=== PATIENT | male | born 1935 | race Caucasian/White ===

== ENCOUNTER → 2017-03-20 | Outpatient (CLI) | payer MEDICARE, BC ==
--- NOTE | 2017-03-20 12:29 | FL ---
EXAMINATION TYPE: FL barium swallow DATE OF EXAM: 03/20/2017 CLINICAL HISTORY: Dysphasia per order. Episodic Choking for several months in the upper chest. TECHNIQUE: A double contrast esophagram is performed utilizing air and barium. A total of 66 second s of fluoroscopic time was utilized during procedure. COMPARISON: None FINDINGS: The esophagus shows satisfactory motility and emptying into the stomach. Some dysmotility a nd poor emptying is seen without gravity assistance. Region of epiglottis and piriform sinus appears within normal limits. No evidence of hiatal hernia or stricture noted. No significant gastroesophagea l reflux was seen during real time performance of this study. IMPRESSION: No significant abnormality is seen to account for patient's symptoms.
== END ==
LOC: RADFLWHC 10:36
PROVIDERS: ATTEND Family Medicine
DX: R13.10 Dysphagia, unspecified (principal)
CPT/HCPCS: 74220

== ENCOUNTER 2017-04-23 23:14 | Inpatient (IN) | payer MEDICARE, BC ==
[2017-04-23 23:42] LABS: Anisocytosis Slight; Basophils # (A) 0.1 k/uL (0-0.2); Basophils % (A) 1 %; CH 30.7; CHCM 33.8; Eosinophils # (A) 0.3 k/uL (0-0.7); Eosinophils % (A) 4 %; HCT 45.2 % (39.0-53.0); HDW 2.86; HGB 14.9 gm/dL (13.0-17.5); Luc # (Auto) 0.19; Luc % (Auto) 3; Lymphocytes # (A) 1.3 k/uL (1.0-4.8); Lymphocytes % (A) 17 %; MCH 30.1 pg (25.0-35.0); MCHC 32.9 g/dL (31.0-37.0); MCV 91.4 fL (80.0-100.0); Mean Platelet Volume 9.3; Monocytes # (A) 0.7 k/uL (0-1.0); Monocytes % (A) 9 %; Neutrophils # (A) 4.9 k/uL (1.3-7.7); Neutrophils % (A) 66 %; RBC 4.95 m/uL (4.30-5.90); RDW 16.7 % (11.5-15.5); WBC 7.4 k/uL (3.8-10.6); WBC (Perox) 7.45
[2017-04-23 23:48] LABS: INR 1.1 (<1.2); Partial Thromboplastin Time 22.1 sec (22.0-30.0); Prothrombin Time 10.9 sec (9.0-12.0)
[2017-04-23 23:55] LABS: ALT 39 U/L (21-72); AST 30 U/L (17-59); Alkaline Phosphatase 77 U/L (38-126); Anion Gap 13 mmol/L; Blood Urea Nitrogen 28 mg/dL (9-20); Calcium 9.2 mg/dL (8.4-10.2); Carbon Dioxide 21 mmol/L (22-30); Chloride 105 mmol/L (98-107); Glucose 200 mg/dL (74-99); Magnesium 1.4 mg/dL (1.6-2.3); Non-African American GFR(MDRD) >60 (>60 ml/min/1.73 sqM); Potassium 3.9 mmol/L (3.5-5.1); Sodium 139 mmol/L (137-145); Total Bilirubin 0.8 mg/dL (0.2-1.3); Total Protein 6.5 g/dL (6.3-8.2)
[2017-04-24 00:13] LABS: Creatine Kinase MB 0.7 ng/mL (0.0-2.4); Troponin I 0.025 ng/mL (0.000-0.034)
[2017-04-24] MEDS: MAGNESIUM SULFATE-D5W PMX 1 GM in DEXTROSE/WATER 1 100ML.BAG IVPB SCH ×2 (00:17→01:29)
--- NOTE | 2017-04-24 00:20 | XR ---
EXAM: XR Chest, 2 Views CLINICAL HISTORY: Reason: Chest Pain TECHNIQUE: Frontal and lateral views of the chest. COMPARISON: 08/30/2015 FINDINGS: Lungs: Minimal perihilar infiltrates are seen bilaterally, which may represent minimal CHF, not definitively seen on the prior study. Linear atelectatic changes/scarring again identified involving right lower lung zone, similar to prior study. Pleural space: Unremarkable. No pneumothorax. Heart: The heart is mildly enlarged. Mediastinum: Unchanged. Bones/joints: The osseous structures are demineralized. Tubes, lines and devices: Left-sided chest wall pacemaker again seen with lead tip overlying the right ventricle. IMPRESSION: Minimal perihilar infiltrates are seen bilaterally, which may represent minimal CHF, not definitively seen on the prior study.
[2017-04-24] MEDS ORDERED: NITROGLYCERIN-D5W PMX 50 MG in DEXTROSE/WATER 1 250ML.BAG IV ONE (00:28)
[2017-04-24] MEDS ORDERED: NALOXONE 0.4 MG/ML 1 ML VIAL IV PRN (00:45)
[2017-04-24] MEDS ORDERED: ONDANSETRON 4 MG/2 ML VIAL IVP PRN (00:45)
[2017-04-24] MEDS ORDERED: HEPARIN SODIUM,PORCINE 5,000 UNIT/ML 1 ML VIAL IV PRN (01:02)
[2017-04-24] MEDS ORDERED: HEPARIN SODIUM,PORCINE 5,000 UNIT/ML 1 ML VIAL IV ONE (01:02)
--- NOTE | 2017-04-24 01:04 | ED ---
General Adult HPI - General Chief complaint: Chest Pain Stated complaint: Cardiac Issues Time Seen by Provider: 04/23/17 23:15 Source: patient, RN notes reviewed, old records reviewed Mode of arrival: EMS Limitations: no limitations - History of Present Illness Initial comments: 81-year-old male with history of CAD status post stenting presents with bilateral arm pain. Patient states with his previous [place] he has had bilateral arm pain. Pain initially began at rest, was no history of trauma or overuse. He did take nitroglycerin at that time with some relief. Patient then had repeat episodes of bilateral arm pain which was with activity, he was walking up several stairs this was at approximately 5 PM. This was relieved by 2 sublingual nitroglycerin. Patient reported some diaphoresis with the second episode. No nausea or vomiting. At the time my evaluation the patient was pain -free. His history of atrial fibrillation, CAD, COPD, diabetes, and congestive heart failure. No history of smoking, patient did chew tobacco for 30 years. - Related Data Home Medications Medication Instructions Recorded Confirmed Canagliflozin [Invokana] 100 mg PO HS 01/25/14 08/29/15 Alogliptin Benzoate [Nesina] 25 mg PO HS 07/15/14 08/29/15 Nitroglycerin Sl Tabs [Nitrostat] 0.4 mg SUBLINGUAL Q5M PRN 07/15/14 08/28/15 Digoxin [Lanoxin] 125 mcg PO DAILY 08/15/14 08/29/15 metFORMIN HCL [Glucophage] 1,000 mg PO BID 09/19/14 08/29/15 Omeprazole [PriLOSEC] 20 mg PO DAILY 11/25/14 08/28/15 Clopidogrel [Plavix] 75 mg PO DAILY 12/02/14 08/29/15 Pregabalin [Lyrica] 150 mg PO BID 06/06/15 08/29/15 Furosemide [Lasix] 40 mg PO DAILY 08/28/15 08/29/15 Hydrocodone/Acetaminophen [Lortab 1 tab PO DIRECTED PRN 08/28/15 08/29/15 5-325 mg Tablet] Ipratropium [place] Updraft 1 dose INHALATION DIRECTED 08/28/15 08/29/15 Isosorbide Mononitrate ER [Imdur] 60 mg PO DAILY 08/28/15 08/29/15 Lisinopril [Zestril] 5 mg PO DAILY 08/28/15 08/29/15 Metoprolol Succinate (ER) [Toprol 50 mg PO BID 08/28/15 08/29/15 XL] Sucralfate [Carafate] 1 gm PO AC-TID PRN 08/28/15 08/28/15 Tiotropium [place] [Spiriva] 18 mcg IH DIRECTED PRN 08/28/15 08/29/15 Aspirin [Adult Low Dose Aspirin EC] 81 mg PO DAILY 08/29/15 08/29/15 Previous Rx's Medication Instructions Recorded Atorvastatin [Lipitor] 80 mg PO HS #30 tab 06/08/15 Allergies Allergy/AdvReac Type Severity Reaction Status Date / Time Penicillins Allergy Severe skin Verified 04/23/17 23:21 turned red ropinirole HCl [From Requip] Allergy Unknown Verified 04/23/17 23:21 Review of Systems ROS Statement: Those systems with pertinent positive or pertinent negative responses have been documented in the HPI. ROS Other: All systems not noted in ROS Statement are negative. 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 Last Myocardial Infarction Date:: History of Any Multi-Drug Resistant Organisms: None Reported Past Surgical History: Heart Catheterization, Heart Catheterization With Stent, Hernia Repair Additional Past Surgical History / Comment(s): 2014- R leg artherectomy with balloon angioplasty, Coronary stents total of [address] 06/07/15 , bilateral cataracts , LEFT RING FINGER AMPUTATION, lithotripsy, TURP, EGD and colonoscopy . Past Anesthesia/Blood Transfusion Reactions: No Reported Reaction Additional Past Anesthesia/Blood Transfusion Reaction / Comment(s): HAD BLOOD TRANSFUSION without reaction. Date of Last Stent Placement:: 06/07/15 Past Psychological History: No Psychological Hx Reported Smoking Status: Never smoker Past Alcohol Use History: None Reported Past Drug Use History: None Reported - Past Family History Mother Family Medical History: Cancer Additional Family Medical History / Comment(s): Mother at age 51yrs old of uterine cancer which metastasized. Father Family Medical History: Diabetes Mellitus General Exam Limitations: no limitations General appearance: alert, in no apparent distress Head exam: Present: atraumatic, normocephalic Eye exam: Present: normal appearance, PERRL ENT exam: Present: normal exam, normal oropharynx, mucous membranes moist Neck exam: Present: normal inspection, tenderness Respiratory exam: Present: rales (Final Rales at the right lung base) Cardiovascular Exam: Present: regular rate, irregular rhythm GI/Abdominal exam: Present: soft. Absent: distended, tenderness, guarding Rectal exam: Present: normal inspection, normal rectal tone. Absent: black stool, bloody stool Extremities exam: Present: normal inspection, normal capillary refill, pedal edema Back exam: Present: normal inspection Neurological exam: Present: alert, oriented X3. Absent: motor sensory deficit Psychiatric exam: Present: normal affect, normal mood Skin exam: Present: warm, dry. Absent: cyanosis, diaphoretic Course Vital Signs 04/23/17 04/23/17 04/24/17 23:21 23:27 00:18 Temperature 97.1 F L Pulse Rate 79 75 Pulse Rate [ 88 Program Instructor ] Respiratory 18 18 Rate Blood Pressure 166/90 159/80 O2 Sat by Pulse 99 98 Oximetry 04/24/17 00:51 Temperature Pulse Rate 83 Pulse Rate [ Program Instructor ] Respiratory 18 Rate Blood Pressure 158/74 O2 Sat by Pulse 97 Oximetry EKG Findings - EKG Comments: EKG Findings:: EKG shows atrial fibrillation with incomplete left bundle branch block there is ST segment depression in V4 5 and 6 and T-wave inversion in [address] segment elevation. Ventricular rate is 74, QRS duration 108, QTC 421 Medical Decision Making - Medical Decision Making 81-year-old male with history of CAD presents with bilateral upper shoulder pain. Patient states this is consistent with his previous myocardial infarction. Was associated with diaphoresis. Patient had the pain both at rest and with exertion today. The pain was relieved by nitroglycerin. EKG shows atrial fibrillation with some ST segment depression in V4 5 and 6 as well as T-wave inversion in 2 and 3. This is compared with EKG from June [address] segment depression as well as T-wave abnormality. Laboratory studies reveal elevated BNP at 2500, initial troponin is 0.025, will be trended , hemoglobin is stable, magnesium is 1.4 and is replaced. Chest x-ray shows mild pulmonary vascular congestion. Patient is started on nitroglycerin infusion. Patient does have history of significant GI bleed on his overall tone. Hemoglobin is stable, Hemoccult is pending prior to initiating heparin. Patient received aspirin prior to arrival. Diagnosis: Unstable angina, hypomagnesemia - Lab Data Result diagrams: 04/23/17 23:30 04/23/17 23:30 Lab Results 04/23/17 04/23/17 04/23/17 Range/Units 23:30 23:30 23:30 WBC 7.4 (3.8-10.6) k/uL RBC 4.95 (4.30-5.90) m/uL Hgb 14.9 (13.0-17.5) gm/dL Hct 45.2 (39.0-53.0) % MCV 91.4 (80.0-100.0) fL MCH 30.1 (25.0-35.0) pg MCHC 32.9 (31.0-37.0) g/dL RDW 16.7 H (11.5-15.5) % Plt Count 184 (150-450) k/uL Neutrophils % 66 % Lymphocytes % 17 % Monocytes % 9 % Eosinophils % 4 % Basophils % 1 % Neutrophils # 4.9 (1.3-7.7) k/uL Lymphocytes # 1.3 (1.0-4.8) k/uL Monocytes # 0.7 (0-1.0) k/uL Eosinophils # 0.3 (0-0.7) k/uL Basophils # 0.1 (0-0.2) k/uL Anisocytosis Slight PT (9.0-12.0) sec INR (<1.2) APTT (22.0-30.0) sec Sodium 139 (137-145) mmol/L Potassium 3.9 (3.5-5.1) mmol/L Chloride 105 (98-107) mmol/L Carbon Dioxide 21 L (22-30) mmol/L Anion Gap 13 mmol/L BUN 28 H (9-20) mg/dL Creatinine 0.87 (0.66-1.25) mg/dL Est GFR (MDRD) Af Amer >60 (>60 ml/min/1.73 sqM) Est GFR (MDRD) Non-Af >60 (>60 ml/min/1.73 sqM) Glucose 200 H (74-99) mg/dL Calcium 9.2 (8.4-10.2) mg/dL Magnesium 1.4 L (1.6-2.3) mg/dL Total Bilirubin 0.8 (0.2-1.3) mg/dL AST 30 (17-59) U/L ALT 39 (21-72) U/L Alkaline Phosphatase 77 (38-126) U/L Total Creatine Kinase 45 L (55-170) U/L CK-MB (CK-2) 0.7 (0.0-2.4) ng/mL CK-MB (CK-2) Rel Index 1.6 Troponin I 0.025 (0.000-0.034) ng/mL NT-Pro-B Natriuret Pep pg/mL Total Protein 6.5 (6.3-8.2) g/dL Albumin 4.1 (3.5-5.0) g/dL Lipase 229 (23-300) U/L Stool Occult Blood (Negative) 04/23/17 04/23/17 04/24/17 Range/Units 23:30 23:30 00:45 WBC (3.8-10.6) k/uL RBC (4.30-5.90) m/uL Hgb (13.0-17.5) gm/dL Hct (39.0-53.0) % MCV (80.0-100.0) fL MCH (25.0-35.0) pg MCHC (31.0-37.0) g/dL RDW (11.5-15.5) % Plt Count (150-450) k/uL Neutrophils % % Lymphocytes % % Monocytes % % Eosinophils % % Basophils % % Neutrophils # (1.3-7.7) k/uL Lymphocytes # (1.0-4.8) k/uL Monocytes # (0-1.0) k/uL Eosinophils # (0-0.7) k/uL Basophils # (0-0.2) k/uL Anisocytosis PT 10.9 (9.0-12.0) sec INR 1.1 (<1.2) APTT 22.1 (22.0-30.0) sec Sodium (137-145) mmol/L Potassium (3.5-5.1) mmol/L Chloride (98-107) mmol/L Carbon Dioxide (22-30) mmol/L Anion Gap mmol/L BUN (9-20) mg/dL Creatinine (0.66-1.25) mg/dL Est GFR (MDRD) Af Amer (>60 ml/min/1.73 sqM) Est GFR (MDRD) Non-Af (>60 ml/min/1.73 sqM) Glucose (74-99) mg/dL Calcium (8.4-10.2) mg/dL Magnesium (1.6-2.3) mg/dL Total Bilirubin (0.2-1.3) mg/dL AST (17-59) U/L ALT (21-72) U/L Alkaline Phosphatase (38-126) U/L Total Creatine Kinase (55-170) U/L CK-MB (CK-2) (0.0-2.4) ng/mL CK-MB (CK-2) Rel Index Troponin I (0.000-0.034) ng/mL NT-Pro-B Natriuret Pep 2510 pg/mL Total Protein (6.3-8.2) g/dL Albumin (3.5-5.0) g/dL Lipase (23-300) U/L Stool Occult Blood Negative (Negative) Critical Care Time Critical Care Time: Yes Total Critical Care Time: 35 Disposition Clinical Impression: Unstable angina, Hypomagnesemia Disposition: ADMITTED IP TO THIS HOSP Referrals: Pratibha Colmenares DO [Primary Care Provider] - 1-2 days Decision to Admit Reason: Admit from EC Decision Date: 04/24/17 Decision Time: 01:05
[2017-04-24] MEDS: HEPARIN SODIUM,PORCINE/D5W PMX 25,000 UNIT in DEXTROSE/WATER 1 500ML.BAG IV SCH (01:24)
[2017-04-24] MEDS: SODIUM CHLORIDE 0.9% 1,000 ML IV SCH (01:27)
[2017-04-24 02:13] VITALS: BMI 32.3
[2017-04-24 06:11] LABS: Glucose,Whole Blood 152 mg/dL (75-99)
[2017-04-24 06:39] LABS: Creatine Kinase MB 0.9 ng/mL (0.0-2.4)
[2017-04-24 06:42] LABS: Troponin I 0.05 ng/mL (0.000-0.034)
[2017-04-24] MEDS: FUROSEMIDE 20 MG TAB PO SCH (07:56)
[2017-04-24] MEDS: metFORMIN 500 MG TAB PO SCH ×3 (07:56→20:55)
[2017-04-24] MEDS: LISINOPRIL 5 MG TAB PO SCH (07:57)
[2017-04-24] MEDS: DIGOXIN 125 MCG TAB PO SCH (07:57)
[2017-04-24] MEDS: METOPROLOL TARTRATE 50 MG TAB PO SCH ×2 (07:58→21:11)
--- NOTE | 2017-04-24 08:21 | P.CRDCN ---
History of Present Illness Consult date: 04/24/17 Requesting physician: David Pride Consult reason: non-Q-wave [place] Chief complaint: Chest and bilateral arm pain History of present illness: This is a pleasant 81-year-old gentleman who used to follow with Dr. Dillon in the office, he has a known history of coronary artery disease with prior stent placement, history also of hypertension, hyperlipidemia, diabetes, prior CVA, PAD, chronic persistent atrial fibrillation. He presents to the hospital with symptoms of what started yesterday as chest heaviness and pressure with radiation down both arms, he states that he took several nitroglycerin, initially got relief of symptoms, and he was out with his daughter for a few hours and upon returning home and walking into the house he again developed similar symptoms he states that the pain in both of his arms becomes quite severe. This does remind him of the symptoms he had previously with his stent placement. Patient does state that 3-4 days before this he also had similar symptoms, took 4 nitroglycerin with relief of symptoms. His EKG on presentation here shows atrial fibrillation with an incomplete bundle branch block pattern and ST-T wave changes in the lateral leads. Chest x-ray shows minimal perihilar infiltrates bilaterally which could represent minimal congestive heart failure. Blood pressure on arrival 166/90, heart rate in the 70s, 99% on 2 L of oxygen. CBC normal, potassium 3.9, BUN 28, creatinine 0.8. Magnesium level I.4, troponin 0.025, repeat troponin 0.050. BNP level 2510. Stool for occult blood was negative. Patient was initiated on IV nitroglycerin and IV heparin in the emergency room and continues to be on those. At the time of my examination this morning he is currently chest pain-free. Past Medical History Past Medical History: Atrial Fibrillation, Coronary Artery Disease (CAD), Chest Pain / Angina, Heart Failure, COPD, CVA/TIA, Diabetes Mellitus, GERD/Reflux, GI Bleed, Hyperlipidemia, Hypertension, Myocardial Infarction ([place]), Vascular Disorder Additional Past Medical History / Comment(s): HX OF CVA-HAS OCCASIONAL PROBLEMS SWALLOWING, NEUROPATHY IN LEGS AND FEET, PVD, KIDNEY STONES, PT STATES HX OF GI BLEED DUE TO XARELTO., SEE CARDIOLOGY H & P. Last Myocardial Infarction Date:: History of Any Multi-Drug Resistant Organisms: None Reported Past Surgical History: Heart Catheterization, Heart Catheterization With Stent, Hernia Repair Additional Past Surgical History / Comment(s): 2015- R leg artherectomy with balloon angioplasty, Coronary stents total of [address] 06/07/15 , bilateral cataracts , LEFT RING FINGER AMPUTATION, lithotripsy, TURP, EGD and colonoscopy . Past Anesthesia/Blood Transfusion Reactions: No Reported Reaction Additional Past Anesthesia/Blood Transfusion Reaction / Comment(s): HAD BLOOD TRANSFUSION without reaction. Date of Last Stent Placement:: 06/07/15 Past Psychological History: No Psychological Hx Reported Additional Psychological History / Comment(s): Pt lives alone in his home. Pt is independent worked for [employer] x25 years before retiring. He drives a car. He has a daughter that lives near-by who comes over alot and is a big help to the pt. Pt is a very good cook. He ambulates without any device. His June of 2011. Smoking Status: Never smoker Past Alcohol Use History: None Reported Additional Past Alcohol Use History / Comment(s): CHEWED TOBACCO FOR 30 YRS. QUIT CHEWING TOBACCO 1983 Past Drug Use History: None Reported - Past Family History Mother Family Medical History: Cancer Additional Family Medical History / Comment(s): Mother at age 51yrs old of uterine cancer which metastasized. Father Family Medical History: Diabetes Mellitus Medications and Allergies Home Medications Medication Instructions Recorded Confirmed Type Canagliflozin [Invokana] 100 mg PO HS 01/25/14 04/24/17 History Alogliptin Benzoate [Nesina] 25 mg PO HS 07/15/14 04/24/17 History Nitroglycerin Sl Tabs [Nitrostat] 0.4 mg SUBLINGUAL Q5M PRN 07/15/14 04/24/17 History Digoxin [Lanoxin] 125 mcg PO DAILY 08/15/14 04/24/17 History metFORMIN HCL [Glucophage] 1,000 mg PO BID 09/19/14 04/24/17 History Omeprazole [PriLOSEC] 20 mg PO DAILY 11/25/14 04/24/17 History Clopidogrel [Plavix] 75 mg PO DAILY 12/02/14 04/24/17 History Pregabalin [Lyrica] 150 mg PO BID 06/06/15 04/24/17 History Furosemide [Lasix] 40 mg PO DAILY 08/28/15 04/24/17 History Hydrocodone/Acetaminophen [Lortab 1 tab PO DIRECTED PRN 08/28/15 04/24/17 History 5-325 mg Tablet] Ipratropium [place] Updraft 1 dose INHALATION DIRECTED 08/28/15 04/24/17 History Isosorbide Mononitrate ER [Imdur] 60 mg PO DAILY 08/28/15 04/24/17 History Lisinopril [Zestril] 5 mg PO DAILY 08/28/15 04/24/17 History Metoprolol Succinate (ER) [Toprol 50 mg PO BID 08/28/15 04/24/17 History XL] Sucralfate [Carafate] 1 gm PO AC-TID PRN 08/28/15 08/28/15 History Tiotropium [place] [Spiriva] 18 mcg IH DIRECTED PRN 08/28/15 04/24/17 History Aspirin [Adult Low Dose Aspirin EC] 81 mg PO DAILY 08/29/15 04/24/17 History Metoprolol Tartrate [Lopressor] 04/24/17 History Allergies Allergy/AdvReac Type Severity Reaction Status Date / Time Penicillins Allergy Severe skin Verified 04/23/17 23:21 turned red ropinirole HCl [From Requip] Allergy Unknown Verified 04/23/17 23:21 Physical Exam Vitals: Vital Signs Temp Pulse Pulse Pulse Resp BP BP 04/24/17 04:00 73 19 04/24/17 03:54 97 F L 73 19 114/64 04/24/17 01:30 82 18 129/62 04/24/17 01:14 96.6 F L 68 18 134/67 04/24/17 01:03 97.3 F L 78 18 135/61 04/24/17 00:51 83 18 158/74 04/24/17 00:18 75 18 159/80 04/23/17 23:27 88 04/23/17 23:21 97.1 F L 79 18 166/90 Pulse Ox 04/24/17 04:00 04/24/17 03:54 96 04/24/17 01:30 98 04/24/17 01:14 95 04/24/17 01:03 97 04/24/17 00:51 97 04/24/17 00:18 98 04/23/17 23:27 08/16/17 23:21 99 Intake and Output 04/23/17 04/24/17 04/24/17 22:59 06:59 14:59 Intake Total 390.475 Output Total 350 Balance 40.475 Intake: Intake, IV Titration 390.475 Amount Heparin Sodium,Porcine/ 89.8 D5w Pmx 25,000 unit In Dextrose/Water 1 500ml. bag @ 12 UNITS/KG/HR 17. 96 mls/hr IV .Q24H [facility] Rx #:[id number] Magnesium Sulfate-D5w Pmx 100 1 gm In Dextrose/Water 1 100ml.bag @ 100 mls/hr IVPB Q1H [facility] Rx#: [id number] Nitroglycerin-D5w Pmx 50 0.675 mg In Dextrose/Water 1 250ml.bag @ 10 MCG/MIN 3 mls/hr IV .Q24H ONE Rx#: [id number] Sodium Chloride 0.9% 1, 200 000 ml @ 20 mls/hr IV . Q24H [facility] Rx#:[id number] Output: Urine 350 Other: Voiding Method Urinal # Voids 1 Weight 75.7 kg PHYSICAL EXAMINATION: HEENT: Head is atraumatic, normocephalic. Pupils equal, round. Neck is supple. There is no elevated jugular venous pressure. HEART EXAMINATION: Heart S1 and S2 irregularly irregular a systolic murmur is heard. CHEST EXAMINATION: Lungs are clear to auscultation and precussion. No chest wall tenderness is noted on palpation or with deep breathing. ABDOMEN: Soft, nontender. Bowel sounds are heard. No organomegaly noted. EXTREMITIES: 1+ peripheral pulses with no evidence of peripheral edema and no calf tenderness noted. NEUROLOGIC patient is awake, alert and oriented -3.] . Results 04/23/17 23:30 04/23/17 23:30 Cardiac Enzymes 04/23/17 04/23/17 04/24/17 Range/Units 23:30 23:30 05:52 AST 30 (17-59) U/L CK-MB (CK-2) 0.7 0.9 (0.0-2.4) ng/mL Troponin I 0.025 0.050 H* (0.000-0.034) ng/mL Coagulation 04/23/17 04/24/17 Range/Units 23:30 05:52 PT 10.9 (9.0-12.0) sec APTT 22.1 37.5 H (22.0-30.0) sec CBC 04/23/17 Range/Units 23:30 WBC 7.4 (3.8-10.6) k/uL RBC 4.95 (4.30-5.90) m/uL Hgb 14.9 (13.0-17.5) gm/dL Hct 45.2 (39.0-53.0) % Plt Count 184 (150-450) k/uL Comprehensive Metabolic Panel 04/23/17 Range/Units 23:30 Sodium 139 (137-145) mmol/L Potassium 3.9 (3.5-5.1) mmol/L Chloride 105 (98-107) mmol/L Carbon Dioxide 21 L (22-30) mmol/L BUN 28 H (9-20) mg/dL Creatinine 0.87 (0.66-1.25) mg/dL Glucose 200 H (74-99) mg/dL Calcium 9.2 (8.4-10.2) mg/dL AST 30 (17-59) U/L ALT 39 (21-72) U/L Alkaline Phosphatase 77 (38-126) U/L Total Protein 6.5 (6.3-8.2) g/dL Albumin 4.1 (3.5-5.0) g/dL Current Medications Generic Name Dose Route Start Last Admin Trade Name Freq PRN Reason Stop Dose Admin Atorvastatin Calcium 80 mg 04/24/17 21:00 Lipitor PO HS MACIEL Digoxin 125 mcg 04/24/17 09:00 04/24/17 07:57 Lanoxin PO 125 mcg DAILY [facility]EL Administration Furosemide 40 mg 04/24/17 09:00 04/24/17 07:56 Lasix PO 40 mg DAILY MACIEL Administration Heparin Sodium (Porcine) 0 unit 04/24/17 01:02 Heparin IV PER PROTOCOL PRN Low PTT Protocol Nitroglycerin/Dextrose 50 mg/ 250 mls @ 3 mls/hr 04/24/17 00:28 04/24/17 00: 53 IV Solution IV 04/25/17 00:27 20 mcg/min .Q24H ONE 6 mls/hr Protocol Titration 10 MCG/MIN Sodium Chloride 1,000 mls @ 20 mls/hr 04/24/17 00:45 04/24/17 01:27 Saline 0.9% IV 20 mls/hr .Q24H MACIEL Administration Heparin Sodium/Dextrose 25,000 500 mls @ 17.96 mls/hr 04/24/17 01:15 01:24 unit/ IV Solution IV 12 units/kg/hr .Q24H MACIEL 17.96 mls/hr Protocol Administration 12 UNITS/KG/HR Lisinopril 5 mg 04/24/17 09:00 04/24/17 07:57 Zestril PO 5 mg DAILY MACIEL Administration Metformin HCl 1,000 mg 04/24/17 09:00 04/24/17 07:56 Glucophage PO 1,000 mg BID MACIEL Administration Metoprolol Tartrate 50 mg 04/24/17 09:00 04/24/17 07:58 Lopressor PO 50 mg BID [facility] Administration Morphine Sulfate 4 mg 04/24/17 00:45 Morphine Sulfate (Inj) IV Q4HR PRN Severe Pain Naloxone HCl 0.2 mg 04/24/17 00:45 Narcan IV Q2M PRN Opioid Reversal Ondansetron HCl 4 mg 04/24/17 00:45 Zofran IVP Q8HR PRN Nausea And Vomiting Intake and Output 04/23/17 04/24/17 04/24/17 22:59 06:59 14:59 Intake Total 390.475 Output Total 350 Balance 40.475 Intake: Intake, IV Titration 390.475 Amount Heparin Sodium,Porcine/ 89.8 D5w Pmx 25,000 unit In Dextrose/Water 1 500ml. bag @ 12 UNITS/KG/HR 17. 96 mls/hr IV .Q24H [facility] Rx #:[id number] Magnesium Sulfate-D5w Pmx 100 1 gm In Dextrose/Water 1 100ml.bag @ 100 mls/hr IVPB Q1H [facility] Rx#: [id number] Nitroglycerin-D5w Pmx 50 0.675 mg In Dextrose/Water 1 250ml.bag @ 10 MCG/MIN 3 mls/hr IV .Q24H ONE Rx#: [id number] Sodium Chloride 0.9% 1, 200 000 ml @ 20 mls/hr IV . Q24H [facility] Rx#:[id number] Output: Urine 350 Other: Voiding Method Urinal # Voids 1 Weight 75.7 kg 04/23/17 23:30 04/23/17 23:30 EKG Interpretations (text) EKG shows atrial fibrillation with ST-T wave changes in the lateral leads. Assessment and Plan Plan: Assessment and plan #1 non-ST elevation myocardial infarction #2 history of coronary artery disease with prior stent placement #3 diabetes #4 hypertension #5 hyperlipidemia #6 peripheral vascular disease #7 single-chamber ICD placement which was performed in 2014 #8 prior CVA #9 chronic persistent atrial fibrillation patient had been on Xarelto as well as Coumadin in the past and had GI bleeding. Plan We will obtain an echocardiogram with Doppler study. We'll continue the IV heparin and nitroglycerin. Initiate an aspirin daily along with resuming the patient's Plavix and beta concepción. Patient has been advised that he may need to undergo a cardiac catheterization, the risks and the benefits were explained to the patient in detail and he is willing to proceed. Further recommendations will be based on the findings and the patient's clinical course. DNP note has been reviewed, I agree with a documented findings and plan of care. Patient was seen and examined.
[2017-04-24] MEDS ORDERED: CLOPIDOGREL 75 MG TAB PO SCH (09:00)
[2017-04-24] MEDS: ASPIRIN 325 MG TAB PO SCH (10:18)
[2017-04-24] MEDS: CLOPIDOGREL 75 MG TAB PO SCH (10:18)
[2017-04-24] MEDS ORDERED: LIDOCAINE 2% INJ 20 MG/ML (20 ML MDV) ONE (10:29)
[2017-04-24] MEDS ORDERED: VERAPAMIL 2.5 MG/ML 2 ML AMP ONE (10:30)
[2017-04-24] MEDS ORDERED: MIDAZOLAM 2 MG/2 ML VIAL ONE (10:43)
[2017-04-24] MEDS: MIDAZOLAM 2 MG/2 ML VIAL IVP ONE ×2 (10:45→10:59)
[2017-04-24] MEDS ORDERED: IV FLUID CONTINUATION 800 ML IV ONE (10:45)
--- NOTE | 2017-04-24 10:46 | ECHOF ---
Referral Reason:lv function MEASUREMENTS -------- HEIGHT: 175.3 cm WEIGHT: 75.3 kg BP: RVIDd: 2.9 cm (< 3.3) IVSd: 1.0 cm (0.6 - 1.1) LVIDd: 5.8 cm (3.9 - 5.3) LVPWd: 1.1 cm (0.6 - 1.1) IVSs: 1.2 cm LVIDs: 4.9 cm LVPWs: 0.9 cm LAESV Index (A-L): 57.41 ml/m MV EXCURSION: 19.523 mm (> 18.000) MV EF SLOPE: 81 mm/s (70 - 150) EPSS: 1.6 cm MV E Sean: 0.73 m/s MV DecT: 114 ms MV A Sean: 0.29 m/s MV E/A Ratio: 2.49 RAP: 5.00 mmHg RVSP: 52.13 mmHg FINDINGS -------- Paced rhythm. Pacerwire seen in RV and RA. This was a technically adequate study. Left ventricular wall thickness is normal. Overall left ventricular systolic function is mildly impaired with, an EF between 45 - 50 %. The right ventricle is normal in size. LA is severely dilated >40 ml/m2 The right atrium is mildly enlarged. There is mild aortic valve sclerosis. There is no evidence of aortic regurgitation. Artifact noted in aov. Mild mitral annular calcification present. Mild mitral regurgitation is present. Mild tricuspid regurgitation present. There is no evidence of pulmonary hypertension. The right ventricular systolic pressure, as measured by Doppler, is 52.13mmHg. There is no pulmonic regurgitation present. The aortic root size is normal. There is no pericardial effusion. CONCLUSIONS -------- 1. Left ventricular wall thickness is normal. 2. The right ventricular systolic pressure, as measured by Doppler, is 52.13mmHg. 3. LA is severely dilated >40 ml/m2 4. The right atrium is mildly enlarged. 5. There is mild aortic valve sclerosis. 6. Artifact noted in aov. 7. Mild mitral annular calcification present. 8. Mild mitral regurgitation is present. 9. Mild tricuspid regurgitation present. 10. There is no evidence of pulmonary hypertension. RV DETAILER: Nola Marcial RDCS
[2017-04-24] MEDS ORDERED: LIDOCAINE 2% INJ 20 MG/ML SQ ONE (11:01)
[2017-04-24] MEDS ORDERED: BIVALIRUDIN BOLUS 250 MG/50 ML IV ONE (11:15)
[2017-04-24] MEDS ORDERED: BIVALIRUDIN 250 MG in SODIUM CHLORIDE 0.9% 40 ML IV ONE (11:22)
[2017-04-24] MEDS ORDERED: ADENOSINE 180 MG in SODIUM CHLORIDE 0.9% 30 ML IVP ONE (11:29)
[2017-04-24] MEDS ORDERED: IOHEXOL 350 MG/ML 125ML BOTTLE INJ ONE (11:38)
[2017-04-24] MEDS ORDERED: RX INFO: IV CONTRAST WAS GIVEN 1 EACH MISC MISCELLANE PRN (11:51)
[2017-04-24] MEDS ORDERED: SODIUM CHLORIDE 0.9% 1,000 ML IV SCH (12:00)
[2017-04-24] MEDS ORDERED: ATROPINE SULFATE 0.1 MG/ML 10ML SYRINGE ONE (13:20)
[2017-04-24 14:41] LABS: Glucose,Whole Blood 204 mg/dL (75-99)
[2017-04-24] MEDS: MORPHINE SULFATE 4 MG/ML SYRINGE IV PRN (14:47)
[2017-04-24 16:45] LABS: Glucose,Whole Blood 151 mg/dL (75-99)
[2017-04-24] MEDS: INSULIN LISPRO (humaLOG) 300 UNIT/3 ML VIAL SQ SCH ×2 (18:37→21:13)
[2017-04-24 21:00] LABS: Glucose,Whole Blood 168 mg/dL (75-99)
[2017-04-24] MEDS: ATORVASTATIN 80 MG TAB PO SCH (21:11)
--- NOTE | 2017-04-24 22:11 | P.HPIM ---
History of Present Illness H&P Date: 04/24/17 Chief Complaint: Chest pain This is a pleasant 81-year-old male with a known history of coronary artery disease with prior stent placement, hypertension, hyperlipidemia, diabetes, prior CVA, PAD, chronic persistent atrial fibrillation not on anticoagulation due to prior GI bleed presents to the hospital with symptoms chest heaviness and pressure with radiation down both arms, he states that he took several nitroglycerin, initially got relief of symptoms, and he was out with his daughter for a few hours and upon returning home and walking into the house he again developed similar symptoms, he states that the pain in both of his arms becomes quite severe. Patient says that his symptoms are similar to his previous NM. Patient does state that 3-4 days before this he also had similar symptoms, took 4 nitroglycerin with relief of symptoms. EKG on presentation here shows atrial fibrillation with an incomplete bundle branch block pattern and ST-T wave changes in the lateral leads. Chest x-ray shows minimal perihilar infiltrates bilaterally which could represent minimal congestive heart failure. Magnesium level I.4, troponin 0.025 , repeat troponin 0.050. BNP level 2510. Stool for occult blood was negative. Patient was initiated on IV nitroglycerin and IV heparin in the emergency room and continues to be on those. Patient was seen by cardiology today and recommended cardiac catheterization. Patient underwent cardiac cath ablation today and is planning for a cath tomorrow for possible stent placement. Currently patient is chest pain-free. Review of Systems CONSTITUTIONAL: No fever, no malaise, no fatigue. HEENT: No recent visual problems or hearing problems. Denied any sore throat. CARDIOVASCULAR: No chest pain, orthopnea, PND, no palpitations, no syncope. PULMONARY: , no hemoptysis. No cough GASTROINTESTINAL: No diarrhea, no nausea, no vomiting, no abdominal pain. Normoactive bowel sounds. NEUROLOGICAL: No headaches, no weakness, no numbness. HEMATOLOGICAL: Denies any bleeding or petechiae. GENITOURINARY: Denies any burning micturition, frequency, or urgency. MUSCULOSKELETAL/RHEUMATOLOGICAL: Denies any joint pain, swelling, or any muscle pain. ENDOCRINE: Denies any polyuria or polydipsia. The rest of the 14-point review of systems is negative. 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 Last Myocardial Infarction Date:: History of Any Multi-Drug Resistant Organisms: None Reported Past Surgical History: Heart Catheterization, Heart Catheterization With Stent, Hernia Repair Additional Past Surgical History / Comment(s): 2014- R leg artherectomy with balloon angioplasty, Coronary stents total of [address] 06/07/15 , bilateral cataracts , LEFT RING FINGER AMPUTATION, lithotripsy, TURP, EGD and colonoscopy . Past Anesthesia/Blood Transfusion Reactions: No Reported Reaction Additional Past Anesthesia/Blood Transfusion Reaction / Comment(s): HAD BLOOD TRANSFUSION without reaction. Date of Last Stent Placement:: 06/07/15 Past Psychological History: No Psychological Hx Reported Additional Psychological History / Comment(s): Pt lives alone in his home. Pt is independent worked for [employer] years before retiring. He drives a car. He has a daughter that lives near-by who comes over alot and is a big help to the pt. Pt is a very good cook. He ambulates without any device. His June of 2011. Smoking Status: Never smoker Past Alcohol Use History: None Reported Additional Past Alcohol Use History / Comment(s): CHEWED TOBACCO FOR 30 YRS. QUIT CHEWING TOBACCO 1983 Past Drug Use History: None Reported - Past Family History Mother Family Medical History: Cancer Additional Family Medical History / Comment(s): Mother at age 51yrs old of uterine cancer which metastasized. Father Family Medical History: Diabetes Mellitus Medications and Allergies Home Medications Medication Instructions Recorded Confirmed Type Canagliflozin [Invokana] 100 mg PO HS 01/25/14 04/24/17 History Alogliptin Benzoate [Nesina] 25 mg PO HS 07/15/14 04/24/17 History Nitroglycerin Sl Tabs [Nitrostat] 0.4 mg SUBLINGUAL Q5M PRN 07/15/14 04/24/17 History Digoxin [Lanoxin] 125 mcg PO HS 08/15/14 04/24/17 History metFORMIN HCL [Glucophage] 1,000 mg PO BID 09/19/14 04/24/17 History Omeprazole [PriLOSEC] 20 mg PO DAILY 11/25/14 04/24/17 History Clopidogrel [Plavix] 75 mg PO DAILY 12/02/14 04/24/17 History Pregabalin [Lyrica] 150 mg PO BID 06/06/15 04/24/17 History Furosemide [Lasix] 40 mg PO DAILY 08/28/15 04/24/17 History Hydrocodone/Acetaminophen [Lortab 1 tab PO BID PRN 08/28/15 04/24/17 History 5-325 mg Tablet] Isosorbide Mononitrate ER [Imdur] 60 mg PO DAILY 08/28/15 04/24/17 History Lisinopril [Zestril] 5 mg PO DAILY 08/28/15 04/24/17 History Tiotropium [place] [Spiriva] 18 mcg INHALATION RT-DAILY 08/28/15 04/24/17 History Aspirin [Adult Low Dose Aspirin EC] 81 mg PO DAILY 08/29/15 04/24/17 History Albuterol Inhaler [Ventolin Hfa 1 - 2 puff INHALATION RT-Q6H PRN 04/24/17 History Inhaler] Metoprolol Tartrate [Lopressor] 50 mg PO BID 04/24/17 04/24/17 History Allergies Allergy/AdvReac Type Severity Reaction Status Date / Time ropinirole HCl [From Requip] Allergy Unknown Verified 04/24/17 09:08 Penicillins AdvReac Severe skin Verified 04/24/17 09:08 turned red Physical Exam Vitals: Vital Signs Temp Pulse Pulse Pulse Pulse Resp BP 04/24/17 15:45 70 04/24/17 15:24 97.1 F L 16 04/24/17 15:23 75 04/24/17 15:05 97 04/24/17 14:45 78 04/24/17 14:30 90 04/24/17 14:15 56 L 04/24/17 14:12 56 L 04/24/17 14:04 70 04/24/17 13:59 89 04/24/17 13:54 49 L 04/24/17 13:49 57 L 04/24/17 13:46 16 04/24/17 12:30 96.8 F L 61 18 04/24/17 12:20 18 04/24/17 08:00 97.0 F L 79 18 04/24/17 04:00 73 19 04/24/17 03:54 97 F L 73 19 04/24/17 01:30 82 18 129/62 04/24/17 01:14 96.6 F L 68 18 04/24/17 01:03 97.3 F L 78 18 135/61 04/24/17 00:51 83 18 158/74 04/24/17 00:18 75 18 159/80 04/23/17 23:27 88 04/23/17 23:21 97.1 F L 79 18 166/90 BP BP BP Pulse Ox 04/24/17 15:45 132/69 04/24/17 15:24 04/24/17 15:23 153/85 04/24/17 15:05 137/83 04/24/17 14:45 135/45 04/24/17 14:30 136/63 04/24/17 14:15 146/71 04/24/17 14:12 146/71 04/24/17 14:04 155/67 04/24/17 13:59 167/70 04/24/17 13:54 168/90 04/24/17 13:49 164/87 04/24/17 13:46 147/70 158/76 95 04/24/17 12:30 129/64 94 L 04/24/17 12:20 139/78 146/72 96 04/24/17 08:00 166/93 98 04/24/17 04:00 04/24/17 03:54 114/64 96 04/24/17 01:30 98 04/24/17 01:14 134/67 95 04/24/17 01:03 97 04/24/17 00:51 97 04/24/17 00:18 98 04/23/17 23:27 04/23/17 23:21 99 Intake and Output 04/24/17 04/24/17 04/24/17 06:59 14:59 22:59 Intake Total 390.475 260.235 Output Total 350 1050 200 Balance 40.475 -789.765 -200 Intake: IV 114.16 Intake, IV Titration 390.475 146.075 Amount Heparin Sodium,Porcine/ 89.8 146.075 D5w Pmx 25,000 unit In Dextrose/Water 1 500ml. bag @ 12 UNITS/KG/HR 17. 96 mls/hr IV .Q24H [facility] Rx #:[id number] Magnesium Sulfate-D5w Pmx 100 1 gm In Dextrose/Water 1 100ml.bag @ 100 mls/hr IVPB Q1H [facility] Rx#: [id number] Nitroglycerin-D5w Pmx 50 0.675 mg In Dextrose/Water 1 250ml.bag @ 10 MCG/MIN 3 mls/hr IV .Q24H ONE Rx#: [id number] Sodium Chloride 0.9% 1, 200 000 ml @ 20 mls/hr IV . Q24H [facility] Rx#:[id number] Output: Urine 350 1050 200 Other: Voiding Method Urinal Urinal Urinal # Voids 1 Weight 75.7 kg PHYSICAL EXAMINATION: Patient is lying in the bed comfortably, no acute distress, awake alert and oriented.. HEENT: Normocephalic. Neck is supple. Pupils reactive. Nostrils clear. Oral cavity is moist. Ears reveal no drainage. Neck reveals no JVD, carotid bruits, or thyromegaly. CHEST EXAMINATION: Trachea is central. Symmetrical expansion. Lung alcantara clear to auscultation and percussion. Bilateral rhonchi positive CARDIAC: Normal S1, S2 with no gallops. No murmurs ABDOMEN: Soft. Bowel sounds normal. No organomegaly. No abdominal bruits. Extremities trace edema . No clubbing or cyanosis Neurologically awake, alert, oriented x3 with well-coordinated movements. Skin: no rash or skin lesions Musculoskeletal: no joint swelling or deformity. Results CBC & Chem 7: 04/23/17 23:30 04/23/17 23:30 Labs: Abnormal Lab Results - Last 24 Hours (Table) 04/23/17 04/23/17 04/23/17 Range/Units 23:30 23:30 23:30 RDW 16.7 H (11.5-15.5) % APTT (22.0-30.0) sec Carbon Dioxide 21 L (22-30) mmol/L BUN 28 H (9-20) mg/dL Glucose 200 H (74-99) mg/dL POC Glucose (mg/dL) (75-99) mg/dL Magnesium 1.4 L (1.6-2.3) mg/dL Total Creatine Kinase 45 L (55-170) U/L Troponin I (0.000-0.034) ng/mL 04/24/17 04/24/17 04/24/17 Range/Units 05:52 05:52 06:09 RDW (11.5-15.5) % APTT 37.5 H (22.0-30.0) sec Carbon Dioxide (22-30) mmol/L BUN (9-20) mg/dL Glucose (74-99) mg/dL POC Glucose (mg/dL) 152 H (75-99) mg/dL Magnesium (1.6-2.3) mg/dL Total Creatine Kinase 42 L (55-170) U/L Troponin I 0.050 H* (0.000-0.034) ng/mL 04/24/17 04/24/17 Range/Units 14:36 16:44 RDW (11.5-15.5) % APTT (22.0-30.0) sec Carbon Dioxide (22-30) mmol/L BUN (9-20) mg/dL Glucose (74-99) mg/dL POC Glucose (mg/dL) 204 H 151 H (75-99) mg/dL Magnesium (1.6-2.3) mg/dL Total Creatine Kinase (55-170) U/L Troponin I (0.000-0.034) ng/mL Thrombosis Risk Factor Assmnt - Choose All That Apply Any of the Below Risk Factors Present?: No Other Risk Factors: Yes Each Risk Factor Represents 3 Points: Age 75 years or older Thrombosis Risk Factor Assessment Total Risk Factor Score: 3 Thrombosis Risk Factor Assessment Level: Moderate Risk Assessment and Plan Plan: #1 acute non-ST elevation myocardial infarction with elevated troponin peaked at 0.050 #2 history of coronary artery disease with prior stent placement 5 #3 diabetes2 [id number] #4 hypertension #5 hyperlipidemia #6 peripheral vascular disease with right leg is Atherectomy and balloon angioplasty #7 single-chamber ICD placement which was performed in 2014 #8 prior CVA no residual weakness. #9 chronic persistent atrial fibrillation patient had been on Xarelto as well as Coumadin in the past and had GI bleeding. Plan Patient will be continued on telemetry monitoring. Continue with the IV heparin. Nitroglycerin drip has been discontinued. Cardiology planning for another cath tomorrow for possible stent placement. 2-D echo was ordered. Continue with aspirin and Plavix and beta blockers. We will continue to follow closely. prognosis is guarded due to multiple medical problems and comorbid conditions.
[2017-04-25] MEDS: NITROGLYCERIN SL TABS 0.4 MG TAB SUBLINGUAL ONE ×2 (00:18→00:25)
[2017-04-25] MEDS: HEPARIN SODIUM,PORCINE/D5W PMX 25,000 UNIT in DEXTROSE/WATER 1 500ML.BAG IV SCH (01:42)
[2017-04-25] MEDS: SODIUM CHLORIDE 0.9% 1,000 ML IV SCH (01:44)
[2017-04-25 06:19] LABS: Glucose,Whole Blood 209 mg/dL (75-99)
[2017-04-25] MEDS: INSULIN LISPRO (humaLOG) 300 UNIT/3 ML VIAL SQ SCH ×4 (06:33→22:16)
[2017-04-25 08:09] LABS: Anisocytosis Slight; Basophils # (A) 0.1 k/uL (0-0.2); Basophils % (A) 1 %; CH 30.7; CHCM 32.9; Eosinophils # (A) 0.3 k/uL (0-0.7); Eosinophils % (A) 3 %; HCT 49.2 % (39.0-53.0); HDW 2.79; HGB 15.4 gm/dL (13.0-17.5); Luc % (Auto) 1; Lymphocytes % (A) 10 %; MCH 29.4 pg (25.0-35.0); MCHC 31.4 g/dL (31.0-37.0); MCV 93.6 fL (80.0-100.0); Mean Platelet Volume 9.4; Monocytes # (A) 0.6 k/uL (0-1.0); Monocytes % (A) 6 %; Neutrophils # (A) 7.8 k/uL (1.3-7.7); Neutrophils % (A) 79 %; RBC 5.26 m/uL (4.30-5.90); RDW 16.6 % (11.5-15.5); WBC 9.8 k/uL (3.8-10.6); WBC (Perox) 9.42
[2017-04-25 08:30] LABS: ALT 35 U/L (21-72); AST 22 U/L (17-59); Alkaline Phosphatase 86 U/L (38-126); Anion Gap 12 mmol/L; Blood Urea Nitrogen 16 mg/dL (9-20); Calcium 8.8 mg/dL (8.4-10.2); Carbon Dioxide 20 mmol/L (22-30); Chloride 110 mmol/L (98-107); Glucose 200 mg/dL (74-99); Magnesium 1.5 mg/dL (1.6-2.3); Non-African American GFR(MDRD) >60 (>60 ml/min/1.73 sqM); Potassium 3.8 mmol/L (3.5-5.1); Sodium 142 mmol/L (137-145); Total Bilirubin 1.4 mg/dL (0.2-1.3); Total Protein 6.3 g/dL (6.3-8.2)
[2017-04-25] MEDS ORDERED: LOPERAMIDE 2 MG CAP PO STA (08:32)
[2017-04-25] MEDS: DIGOXIN 125 MCG TAB PO SCH (08:36)
[2017-04-25] MEDS: METOPROLOL TARTRATE 50 MG TAB PO SCH ×2 (08:36→22:16)
[2017-04-25] MEDS: CLOPIDOGREL 75 MG TAB PO SCH (08:36)
[2017-04-25] MEDS: ASPIRIN 325 MG TAB PO SCH (08:36)
[2017-04-25] MEDS: LISINOPRIL 5 MG TAB PO SCH (08:36)
[2017-04-25] MEDS ORDERED: LIDOCAINE 2% INJ 20 MG/ML (20 ML MDV) ONE ×2 (10:38→11:04)
[2017-04-25] MEDS ORDERED: MIDAZOLAM 2 MG/2 ML VIAL ONE (11:03)
[2017-04-25] MEDS ORDERED: SODIUM CHLORIDE 0.9% 1,000 ML IV ONE (11:06)
[2017-04-25] MEDS: MIDAZOLAM 2 MG/2 ML VIAL IVP ONE ×2 (11:16→11:22)
[2017-04-25] MEDS ORDERED: LIDOCAINE 2% INJ 20 MG/ML SQ ONE (11:17)
[2017-04-25] MEDS ORDERED: BIVALIRUDIN BOLUS 250 MG/50 ML IV ONE (11:21)
[2017-04-25] MEDS ORDERED: BIVALIRUDIN 250 MG in SODIUM CHLORIDE 0.9% 50 ML IV ONE (11:21)
[2017-04-25] MEDS ORDERED: fentaNYL (PF) 50 MCG/ML 2 ML AMP ONE (11:27)
[2017-04-25] MEDS ORDERED: fentaNYL (PF) 50 MCG/ML 2 ML AMP IVP ONE (11:29)
[2017-04-25] MEDS: NITROGLYCERIN 1000MCG/10ML SYRINGE INTRACORON ONE ×2 (11:32→12:05)
[2017-04-25 12:03] LABS: Hemoglobin A1C 8.5 % (4.2-6.1)
[2017-04-25] MEDS ORDERED: CLOPIDOGREL 75 MG TAB ONE ×2 (12:08)
[2017-04-25] MEDS ORDERED: IOHEXOL 350 MG/ML 125ML BOTTLE INJ ONE (12:10)
[2017-04-25] MEDS ORDERED: CLOPIDOGREL 75 MG TAB PO ONE (12:10)
[2017-04-25] MEDS ORDERED: MAG HYDROX/AL HYDROX/SIMETH 30 ML CUP PO PRN (12:17)
[2017-04-25] MEDS ORDERED: RX INFO: IV CONTRAST WAS GIVEN 1 EACH MISC MISCELLANE PRN (12:17)
[2017-04-25] MEDS ORDERED: NITROGLYCERIN SL TABS 0.4 MG TAB SUBLINGUAL PRN (12:17)
[2017-04-25] MEDS ORDERED: ATROPINE SULFATE 0.1 MG/ML 10ML SYRINGE IV PRN (12:17)
[2017-04-25] MEDS ORDERED: ZOLPIDEM 5 MG TAB PO PRN (12:17)
[2017-04-25] MEDS ORDERED: SODIUM CHLORIDE 0.9% 1,000 ML IV SCH (12:30)
[2017-04-25] MEDS: metFORMIN 500 MG TAB PO SCH ×2 (12:37→22:50)
--- NOTE | 2017-04-25 13:34 | CDI ---
In responding to this query, please exercise your independent professional judgment. The [facility] Coding Staff and Clinical Documentation Specialists appreciate your assistance in clarifying documentation, maintaining compliance with coding guidelines, accurately documenting patients condition and capturing severity of illness. The fact that a question is asked does not imply that any particular answer is desired or expected. Communication forms are a method of clarifying documentation and are not made part of the Legal Health Record. Thank you in advance for your clarification. Last Revision, November 2016 Annmarie Salamanca [address] [place] [address] Documentation Clarification Form Date: 04/25/2017 1:25:00 PM From: Randi Ayala RN, CCDS Admit Date: 04/24/2017 12:45:00 AM Patient Name: Yoshi Rosas Visit Number: [id number] Dr. David Pride Hx of CHF is documented in the H&P and Cardiology Consult. History/Risk Factors: CAD with 5 stents, CHF, COPD, GERD, CVA with occasional swallowing problems Clinical Indicators: VS/Pulse OX: Temp 97.1, HR 79, RR 18, B/P 166/90, Spo2 99% 2l nc BNP: 2510 Echocardiogram Results: EF 45-50%, LA is severely dilated Chest X Ray: "Minimal perihilar infiltrates are seen bilaterally, which may represent minimal CHF, not definitively seen on the prior study. " Treatment: Consults: Cardiology Lasix 40mg PO QD In your professional opinion, can you please clarify the acuity and type of CHF if known? Systolic Heart Failure: Acute Chronic Acute on Chronic Diastolic Heart Failure: Acute Chronic Acute on Chronic Systolic & Diastolic Heart Failure: Acute Chronic Acute on Chronic Unable to determine Other, please specify Please document in your progress notes and discharge summary in order to capture severity of illness and risk of mortality. Include clinical findings that support your diagnosis. FYI: Press F11 to launch patient chart. Place X here if this finding has no clinical significance, is not applicable or if you are not able to provide any additional documentation. KASHIFD
[2017-04-25] MEDS: MORPHINE SULFATE 4 MG/ML SYRINGE IV PRN (14:34)
--- NOTE | 2017-04-25 15:21 | CC ---
DATE OF SERVICE: 04/24/17 PERFORMING PHYSICIAN: Jaswinder Cooley M.D., business management specialist. PROCEDURE PERFORMED: 1. Selective right and left coronary angiogram. 2. Fractional flow reserve FFR of the right coronary artery. INDICATIONS: This is a pleasant 81 year old gentleman who used to see Dr. Ladan Ferrara in the past who is known to have CAD with prior stenting of the RCA as well as ramus intermedius, presented to the hospital complaining of chest discomfort and he was ruled in for acute non-STEMI with abnormal troponin as well as abnormal EKG. He is known to have cardiomyopathy and status post AICD placement. APPROACH: Right common femoral artery. COMPLICATIONS: None. LEVEL OF SEDATION: Moderate with a sedation length of 33 minutes. PROCEDURE DESCRIPTION: After obtaining informed consent, the patient was brought to the cardiac laborer construction or leak gang. The right common femoral artery was cannulated using micropuncture technique. The micropuncture wire passed easily. Then, I placed a 6 Bengali sheath in the right common femoral artery. Then after that, I did selective right and left coronary angiogram using JR4 and JL4 catheters. After that, we decided to do an FFR of the RCA. Please see a separate paragraph for that. SELECTIVE CORONARY ANGIOGRAM: 1. The right coronary artery is a large caliber vessel and it is a nondominant vessel. The proximal RCA appeared to have mild disease only. The mid RCA appeared to be stented with intermediate restenosis, appeared to be in the range of 50 to 60%. We did an FFR of that segment and that came in to be nonischemic, 0.93. The distal RCA appeared to be angiographically normal and bifurcates into PDA and PLV branches, both are angiographically normal. 2. The left main is angiographically normal. It bifurcates into the left circumflex, ramus intermedius and left anterior descending artery. 3. The left circumflex is a large caliber vessel and it is a non-dominant vessel. The proximal circ appeared to have mild disease only. The mid circumflex appeared to be subtotally occluded in the AV groove just past the bifurcation of large OM branch appeared to be angiographically normal. 4. Ramus intermedius: The ramus intermedius is a moderate caliber vessel. The proximal portion of it is stented with distal part of the stent seems to have in stent restenosis. The ramus intermedius bifurcates into two separate branches. The lower separate branch appears to have mild to moderate diffuse disease and the upper ( ) branch which has part of the stent in the ramus appeared to have severe in stent restenosis. 5. The left anterior descending coronary artery: The proximal left anterior descending artery appeared to have mild disease only. The mid LAD and distal LAD appeared to be angiographically normal. The LAD gives rise into a small to medium caliber diag branch. FFR of the RCA: Anticoagulation was initiated using Angiomax. After zeroing the Doppler wire and after equalizing between the Doppler wire and the guiding catheter, we did an FFR per IV ( ) infusion. The FFR came into be 0.93 which is nonischemic. CONCLUSION: 1. Intermediate in stent restenosis of the mid RCA, was nonischemic by FFR . 2. Normal left main coronary artery. 3. Mild disease involving the OM branch of the left circumflex. 4. Severe in stent restenosis involving the ramus intermedius coronary artery. 5. Mild disease involving the LAD. POSTPROCEDURE MANAGEMENT: The patient will be scheduled to undergo PTCA and stenting of the ramus intermedius tomorrow. OSWALDO
[2017-04-25 16:47] LABS: Glucose,Whole Blood 131 mg/dL (75-99)
[2017-04-25] MEDS: FUROSEMIDE 20 MG TAB PO SCH ×2 (17:18→17:21)
--- NOTE | 2017-04-25 18:20 | PTCA ---
DATE OF SERVICE: 04/25/17 PERFORMING PHYSICIAN: Jaswinder Cooley M.D., roto mixer operator. PROCEDURE PERFORMED: Successful balloon angioplasty of the ramus intermedius coronary artery using 2.25 non-compliant balloon with good angiographic results without any complication. INDICATIONS: This is a pleasant 81 -year-old gentleman who presented to the hospital with chest discomfort and was ruled for acute non-ST elevation myocardial infarction. He underwent heart catheterization yesterday and was found to have severe disease involving the ramus intermedius which seems to be in-stent. He was brought today to undergo percutaneous coronary intervention. APPROACH: Right common femoral artery. COMPLICATIONS: None. LEVEL OF SEDATION: Moderate. SEDATION LENGTH: 58 minutes. PROCEDURE DESCRIPTION: After obtaining informed consent, the patient was brought to the cardiac catheterization lab. The right common femoral artery was cannulated using micropuncture technique. The micropuncture wire passed easily. Then I placed a 6 Mongolian sheath in the right common femoral artery. Subsequently, we started anticoagulation using Angiomax. After that, I took JL 3.5 guiding catheter and the left main was engaged. Whisper wire was used to wire the ramus intermedius. I did balloon angioplasty initially using 2.0 x 12 mm balloon. I tried to advance a stent and I was unable in spite of using double wire as well as in spite of using the Godzilla device. At that point, I decided to stop after the balloon angioplasty in view of the good angiographic results. The procedure was completed without any complication. POSTPROCEDURE MANAGEMENT: 1. Dual antiplatelet therapy. 2. Risk factor modifications. 3. Follow-up with the patient. OSWALDO
[2017-04-25 20:48] LABS: Glucose,Whole Blood 174 mg/dL (75-99)
[2017-04-25] MEDS: LOPERAMIDE 2 MG CAP PO PRN (22:16)
[2017-04-25] MEDS: ATORVASTATIN 80 MG TAB PO SCH (22:16)
[2017-04-25 22:37] VITALS: RESP 18
--- NOTE | 2017-04-25 22:51 | P.PN ---
Subjective Principal diagnosis: Non-ST elevated [place] This is a pleasant 81-year-old male with a known history of coronary artery disease with prior stent placement, hypertension, hyperlipidemia, diabetes, prior CVA, PAD, chronic persistent atrial fibrillation not on anticoagulation due to prior GI bleed presents to the hospital with symptoms chest heaviness and pressure with radiation down both arms, he states that he took several nitroglycerin, initially got relief of symptoms, and he was out with his daughter for a few hours and upon returning home and walking into the house he again developed similar symptoms, he states that the pain in both of his arms becomes quite severe. Patient says that his symptoms are similar to his previous [place]. Patient does state that 3-4 days before this he also had similar symptoms, took 4 nitroglycerin with relief of symptoms. EKG on presentation here shows atrial fibrillation with an incomplete bundle branch block pattern and ST-T wave changes in the lateral leads. Chest x-ray shows minimal perihilar infiltrates bilaterally which could represent minimal congestive heart failure. Magnesium level I.4, troponin 0.025 , repeat troponin 0.050. BNP level 2510. Stool for occult blood was negative. Patient was initiated on IV nitroglycerin and IV heparin in the emergency room and continues to be on those. Patient was seen by cardiology today and recommended cardiac catheterization. Patient underwent cardiac cath ablation today and is planning for a cath tomorrow for possible stent placement. 04/25/2017 Patient underwent cardiac catheter patient today with stent placement. Patient otherwise denied any chest pain or short of breath. No overnight issues. CONSTITUTIONAL: No fever, no malaise, no fatigue. HEENT: No recent visual problems or hearing problems. Denied any sore throat. CARDIOVASCULAR: No chest pain, orthopnea, PND, no palpitations, no syncope. PULMONARY: , no hemoptysis. GASTROINTESTINAL: No diarrhea, no nausea, no vomiting, no abdominal pain. Normoactive bowel sounds. NEUROLOGICAL: No headaches, no weakness, no numbness. Objective - Vital Signs Vital signs: Vital Signs Temp 96.7 F L 04/25/17 20:50 Pulse 70 04/25/17 20:50 Resp 18 04/25/17 20:50 BP 134/76 04/25/17 20:50 Pulse Ox 97 04/25/17 20:50 Intake & Output 04/25/17 04/25/17 04/26/17 06:59 18:59 06:59 Intake Total 353.925 431 Output Total 500 300 200 Balance -146.075 131 -200 Weight 78 kg Intake: IV 291 Intake, IV Titration 353.925 140 Amount Heparin Sodium,Porcine/ 353.925 D5w Pmx 25,000 unit In Dextrose/Water 1 500ml. bag @ 12 UNITS/KG/HR 17. 96 mls/hr IV .Q24H [facility] Rx #:[id number] Sodium Chloride 0.9% 1, 140 000 ml @ 100 mls/hr IV . Q10H [facility] Rx#:[id number] Oral 0 Output: Urine 500 300 200 Other: Voiding Method Urinal Urinal Urinal # Voids 1 - Exam PHYSICAL EXAMINATION: Patient is lying in the bed comfortably, no acute distress, awake alert and oriented.. HEENT: Normocephalic. Neck is supple. Pupils reactive. Nostrils clear. Oral cavity is moist. Ears reveal no drainage. Neck reveals no JVD, carotid bruits, or thyromegaly. CHEST EXAMINATION: Trachea is central. Symmetrical expansion. Lung alcantara clear to auscultation and percussion. CARDIAC: Normal S1, S2 with no gallops. Systolic murmur. Irregular rhythm ABDOMEN: Soft. Bowel sounds normal. No organomegaly. No abdominal bruits. Extremities reveal no edema. No clubbing or cyanosis Neurologically awake, alert, oriented x3 with well-coordinated movements. Skin: no rash or skin lesions Musculoskeletal: no joint swelling or deformity. - Labs CBC & Chem 7: 04/25/17 07:37 04/25/17 07:37 Labs: Abnormal Lab Results - Last 24 Hours (Table) 04/23/17 04/25/17 04/25/17 Range/Units 23:30 05:59 07:37 RDW 16.6 H (11.5-15.5) % Neutrophils # 7.8 H (1.3-7.7) k/uL APTT (22.0-30.0) sec Chloride (98-107) mmol/L Carbon Dioxide (22-30) mmol/L Glucose (74-99) mg/dL POC Glucose (mg/dL) 209 H (75-99) mg/dL Hemoglobin A1c 8.5 H (4.2-6.1) % Magnesium (1.6-2.3) mg/dL Total Bilirubin (0.2-1.3) mg/dL 04/25/17 04/25/17 04/25/17 Range/Units 07:37 07:37 16:46 RDW (11.5-15.5) % Neutrophils # (1.3-7.7) k/uL APTT 36.2 H (22.0-30.0) sec Chloride 110 H (98-107) mmol/L Carbon Dioxide 20 L (22-30) mmol/L Glucose 200 H (74-99) mg/dL POC Glucose (mg/dL) 131 H (75-99) mg/dL Hemoglobin A1c (4.2-6.1) % Magnesium 1.5 L (1.6-2.3) mg/dL Total Bilirubin 1.4 H (0.2-1.3) mg/dL 04/25/17 Range/Units 20:46 RDW (11.5-15.5) % Neutrophils # (1.3-7.7) k/uL APTT (22.0-30.0) sec Chloride (98-107) mmol/L Carbon Dioxide (22-30) mmol/L Glucose (74-99) mg/dL POC Glucose (mg/dL) 174 H (75-99) mg/dL Hemoglobin A1c (4.2-6.1) % Magnesium (1.6-2.3) mg/dL Total Bilirubin (0.2-1.3) mg/dL Assessment and Plan Plan: #1 acute non-ST elevation myocardial infarction with elevated troponin peaked at 0.050. Status post stent placement #2 history of coronary artery disease with prior stent placement 5 #3 diabetes2 [id number] #4 hypertension #5 hyperlipidemia #6 peripheral vascular disease with right leg is Atherectomy and balloon angioplasty #7 single-chamber ICD placement which was performed in 2014 #8 prior CVA no residual weakness. #9 chronic persistent atrial fibrillation patient had been on Xarelto as well as Coumadin in the past and had GI bleeding. #10 hypomagnesemia. Plan Patient will be continued on telemetry monitoring. IV heparin and Nitroglycerin drip has been discontinued. Status post cardiac catheterization and stent placement on 04/25/2017. 2-D echo was ordered. Continue with aspirin and Plavix and beta blockers. We will continue to follow closely. prognosis is guarded due to multiple medical problems and comorbid conditions.
[2017-04-25] MEDS: MAGNESIUM SULFATE-D5W PMX 1 GM in DEXTROSE/WATER 1 100ML.BAG IVPB SCH (23:48)
[2017-04-26] MEDS: MAGNESIUM SULFATE-D5W PMX 1 GM in DEXTROSE/WATER 1 100ML.BAG IVPB SCH (01:09)
[2017-04-26] MEDS: LOPERAMIDE 2 MG CAP PO PRN (05:51)
[2017-04-26 05:58] LABS: Glucose,Whole Blood 168 mg/dL (75-99)
[2017-04-26 06:46] LABS: Anisocytosis Slight; Basophils % (A) 0 %; CH 30.5; CHCM 32.7; Eosinophils # (A) 0.3 k/uL (0-0.7); Eosinophils % (A) 3 %; HCT 49.1 % (39.0-53.0); HDW 2.81; HGB 15.4 gm/dL (13.0-17.5); Luc # (Auto) 0.17; Luc % (Auto) 2; Lymphocytes # (A) 0.8 k/uL (1.0-4.8); Lymphocytes % (A) 9 %; MCH 29.5 pg (25.0-35.0); MCHC 31.4 g/dL (31.0-37.0); MCV 93.7 fL (80.0-100.0); Mean Platelet Volume 8.9; Monocytes # (A) 0.8 k/uL (0-1.0); Monocytes % (A) 8 %; Neutrophils # (A) 7.8 k/uL (1.3-7.7); Neutrophils % (A) 79 %; RBC 5.23 m/uL (4.30-5.90); RDW 16.5 % (11.5-15.5); WBC 9.9 k/uL (3.8-10.6); WBC (Perox) 9.59
[2017-04-26 06:57] LABS: Anion Gap 10 mmol/L; Blood Urea Nitrogen 11 mg/dL (9-20); Calcium 8.7 mg/dL (8.4-10.2); Carbon Dioxide 19 mmol/L (22-30); Chloride 113 mmol/L (98-107); Glucose 167 mg/dL (74-99); Non-African American GFR(MDRD) >60 (>60 ml/min/1.73 sqM); Potassium 3.9 mmol/L (3.5-5.1); Sodium 142 mmol/L (137-145)
[2017-04-26] MEDS: INSULIN LISPRO (humaLOG) 300 UNIT/3 ML VIAL SQ SCH ×2 (06:59→12:37)
[2017-04-26] MEDS ORDERED: SODIUM CHLORIDE 0.65% NASAL SPRAY 44 ML BTL NASAL PRN (07:40)
[2017-04-26] MEDS: SODIUM CHLORIDE 0.9% 1,000 ML IV SCH (08:38)
[2017-04-26] MEDS: ASPIRIN 325 MG TAB PO SCH (08:41)
[2017-04-26] MEDS: metFORMIN 500 MG TAB PO SCH (08:42)
[2017-04-26] MEDS: FUROSEMIDE 20 MG TAB PO SCH (08:42)
[2017-04-26] MEDS: LISINOPRIL 5 MG TAB PO SCH (08:42)
[2017-04-26] MEDS: METOPROLOL TARTRATE 50 MG TAB PO SCH (08:42)
[2017-04-26] MEDS: DIGOXIN 125 MCG TAB PO SCH (08:42)
[2017-04-26] MEDS: CLOPIDOGREL 75 MG TAB PO SCH (08:42)
--- NOTE | 2017-04-26 11:04 | P.PN ---
Subjective This is a pleasant 81-year-old gentleman who used to follow with Dr. Dillon in the office, he has a known history of coronary artery disease with prior stent placement, history also of hypertension, hyperlipidemia, diabetes, prior CVA, PAD, chronic persistent atrial fibrillation. He presents to the hospital with symptoms of what started yesterday as chest heaviness and pressure with radiation down both arms, he states that he took several nitroglycerin, initially got relief of symptoms, and he was out with his daughter for a few hours and upon returning home and walking into the house he again developed similar symptoms he states that the pain in both of his arms becomes quite severe. This does remind him of the symptoms he had previously with his stent placement. Patient does state that 3-4 days before this he also had similar symptoms, took 4 nitroglycerin with relief of symptoms. His EKG on presentation here shows atrial fibrillation with an incomplete bundle branch block pattern and ST-T wave changes in the lateral leads. Chest x-ray shows minimal perihilar infiltrates bilaterally which could represent minimal congestive heart failure. Blood pressure on arrival 166/90, heart rate in the 70s, 99% on 2 L of oxygen. CBC normal, potassium 3.9, BUN 28, creatinine 0.8. Magnesium level I.4, troponin 0.025, repeat troponin 0.050. BNP level 2510. Stool for occult blood was negative. Patient was initiated on IV nitroglycerin and IV heparin in the emergency room and continues to be on those. At the time of my examination this morning he is currently chest pain-free. 04/26/2017 Patient underwent angioplasty with stenting of the ramus intermediate. He was seen and examined this morning, complained of some mild shortness of breath and nasal congestion. I did have him ambulate in the hallway, oxygen saturation 95% , denies any chest pain, breathing stable. EKG unchanged from post-PCI. Let pressure 144/80 heart rate in the 70s. Potassium 3.9, BUN 11, creatinine 0.6. Objective - Vital Signs Vital signs: Vital Signs Temp 97.1 F L 04/26/17 03:30 Pulse 76 04/26/17 03:30 Resp 18 04/26/17 03:30 BP 145/86 04/26/17 03:30 Pulse Ox 97 04/26/17 03:30 Intake & Output 0804/26/17 04/26/17 18:59 06:59 18:59 Intake Total 431 800 Output Total 300 200 Balance 131 600 Weight 73.6 kg Intake: IV 291 Intake, IV Titration 140 800 Amount Magnesium Sulfate-D5w Pmx 200 1 gm In Dextrose/Water 1 100ml.bag @ 100 mls/hr IVPB Q1H [facility] Rx#: [id number] Sodium Chloride 0.9% 1, 140 000 ml @ 100 mls/hr IV . Q10H [facility] Rx#:[id number] Sodium Chloride 0.9% 1, 600 000 ml @ 75 mls/hr IV . [id number] [facility] Rx#:[id number] Oral 0 Output: Urine 300 200 Other: Voiding Method Urinal Toilet # Voids 2 # Bowel Movements 2 - Exam PHYSICAL EXAMINATION: HEENT: Head is atraumatic, normocephalic. Pupils equal, round. Neck is supple. There is no elevated jugular venous pressure. HEART EXAMINATION: Heart S1 and S2 irregularly irregular a systolic murmur is heard. CHEST EXAMINATION: Lungs are clear to auscultation and precussion. No chest wall tenderness is noted on palpation or with deep breathing. ABDOMEN: Soft, nontender. Bowel sounds are heard. No organomegaly noted. Right groin ecchymotic, no hematoma. EXTREMITIES: 1+ peripheral pulses with no evidence of peripheral edema and no calf tenderness noted. NEUROLOGIC patient is awake, alert and oriented -3.] - Labs CBC & Chem 7: 04/26/17 06:10 04/26/17 06:10 Labs: Abnormal Lab Results - Last 24 Hours (Table) 04/23/17 04/25/17 04/25/17 Range/Units 23:30 16:46 20:46 RDW (11.5-15.5) % Neutrophils # (1.3-7.7) k/uL Lymphocytes # (1.0-4.8) k/uL Chloride (98-107) mmol/L Carbon Dioxide (22-30) mmol/L Glucose (74-99) mg/dL POC Glucose (mg/dL) 131 H 174 H (75-99) mg/dL Hemoglobin A1c 8.5 H (4.2-6.1) % 04/26/17 04/26/17 04/26/17 Range/Units 05:54 06:10 06:10 RDW 16.5 H (11.5-15.5) % Neutrophils # 7.8 H (1.3-7.7) k/uL Lymphocytes # 0.8 L (1.0-4.8) k/uL Chloride 113 H (98-107) mmol/L Carbon Dioxide 19 L (22-30) mmol/L Glucose 167 H (74-99) mg/dL POC Glucose (mg/dL) 168 H (75-99) mg/dL Hemoglobin A1c (4.2-6.1) % Assessment and Plan Plan: Assessment and plan #1 non-ST elevation myocardial infarction, status post stent placement of the ramus intermediate #2 history of coronary artery disease with prior stent placement #3 diabetes #4 hypertension #5 hyperlipidemia #6 peripheral vascular disease #7 single-chamber ICD placement which was performed in 2014 #8 prior CVA #9 chronic persistent atrial fibrillation patient had been on Xarelto as well as Coumadin in the past and had GI bleeding. Plan I'm cardiology's perspective, patient may be able to be discharged home today. We will make him a follow-up appointment to see Dr. Gan in the office post discharge. Patient will be discharged home on aspirin 81 mg daily, Lipitor 80 mg daily, Plavix 75 mg daily, Lanoxin 125 g daily, Lasix 40 mg daily, lisinopril 5 mg daily, metoprolol tartrate 50 mg one tablet by mouth twice a day , sublingual nitroglycerin as needed for chest pain, we will hold the metformin for 48 hours. DNP note has been reviewed, I agree with a documented findings and plan of care. Patient was seen and examined.
[2017-04-26 11:21] LABS: Glucose,Whole Blood 147 mg/dL (75-99)
[2017-04-26] MEDS ORDERED: CHOLESTYRAMINE (WITH SUGAR) 4 GM PACKET PO SCH (15:15)
[2017-04-26 15:49] VITALS: BP 140/64; PULSE 73; TEMP 96.9
--- NOTE | 2017-04-27 01:49 | P.DS ---
Providers Date of admission: 04/24/17 00:45 Expected date of discharge: 04/26/17 Attending physician: David Pride Consults: 04/24/17 00:49 Consult Physician Urgent Consulting Provider: Angie Ferrara Consult Reason/Comments: Unstable angina Do you want consulting provider notified?: Yes, Notify in am 04/25/17 12:18 Consult Physician Routine Consulting Provider: [facility] Consult Reason/Comments: Post Interventional patient Do you want consulting provider notified?: Already Contacted Primary care physician: Pratibha Colmenares Hospital Course: Discharge diagnosis #1 acute non-ST elevation myocardial infarction with elevated troponin peaked at 0.050. Status post stent placement #2 history of coronary artery disease with prior stent placement 5 #3 diabetes2 [id number] #4 hypertension #5 hyperlipidemia #6 peripheral vascular disease with right leg is Atherectomy and balloon angioplasty #7 single-chamber ICD placement which was performed in 2014 #8 prior CVA no residual weakness. #9 chronic persistent atrial fibrillation patient had been on Xarelto as well as Coumadin in the past and had GI bleeding. #10 hypomagnesemia. Hospital course This is a pleasant 81-year-old male with a known history of coronary artery disease with prior stent placement, hypertension, hyperlipidemia, diabetes, prior CVA, PAD, chronic persistent atrial fibrillation not on anticoagulation due to prior GI bleed presents to the hospital with symptoms chest heaviness and pressure with radiation down both arms, he states that he took several nitroglycerin, initially got relief of symptoms, and he was out with his daughter for a few hours and upon returning home and walking into the house he again developed similar symptoms, he states that the pain in both of his arms becomes quite severe. Patient says that his symptoms are similar to his previous [place]. Patient does state that 3-4 days before this he also had similar symptoms, took 4 nitroglycerin with relief of symptoms. EKG on presentation here shows atrial fibrillation with an incomplete bundle branch block pattern and ST-T wave changes in the lateral leads. Chest x-ray shows minimal perihilar infiltrates bilaterally which could represent minimal congestive heart failure. Magnesium level I.4, troponin 0.025 , repeat troponin 0.050. BNP level 2510. Stool for occult blood was negative. Patient was initiated on IV nitroglycerin and IV heparin in the emergency room and continues to be on those. Patient was seen by cardiology today and recommended cardiac catheterization. Patient underwent cardiac cath ablation today and is planning for a cath tomorrow for possible stent placement. 04/25/2017 Patient underwent cardiac catheter patient today with stent placement. Patient otherwise denied any chest pain or short of breath. No overnight issues. 04/26/2017 Patient denied any chest pain today. Blood pressure is maintained well. Patient says that she did have diarrhea this morning x1. Patient was started on just on but no further episodes. Patient was to be discharged home. Cardiology cleared the patient. Patient was continued on telemetry monitoring. IV heparin and Nitroglycerin drip has been discontinued. Status post cardiac catheterization and stent placement on 04/25/2017. 2-D echo was ordered. Showed his ejection fraction 45 -50% and a severely dilated left atrium. Continue with aspirin and Plavix and beta blockers. Patient is cleared to be discharged home. PHYSICAL EXAMINATION: Patient is lying in the bed comfortably, no acute distress, awake alert and oriented.. HEENT: Normocephalic. Neck is supple. Pupils reactive. Nostrils clear. Oral cavity is moist. Ears reveal no drainage. Neck reveals no JVD, carotid bruits, or thyromegaly. CHEST EXAMINATION: Trachea is central. Symmetrical expansion. Lung alcantara clear to auscultation and percussion. CARDIAC: Normal S1, S2 with no gallops. Systolic murmur. Irregular rhythm ABDOMEN: Soft. Bowel sounds normal. No organomegaly. No abdominal bruits. Extremities reveal no edema. No clubbing or cyanosis Neurologically awake, alert, oriented x3 with well-coordinated movements. Skin: no rash or skin lesions Musculoskeletal: no joint swelling or deformity. Patient Condition at Discharge: Stable Plan - Discharge Summary New Discharge Prescriptions: Continue Canagliflozin [Invokana] 100 mg PO HS Alogliptin Benzoate [Nesina] 25 mg PO HS Nitroglycerin Sl Tabs [Nitrostat] 0.4 mg SUBLINGUAL Q5M PRN PRN Reason: Chest Pain Digoxin [Lanoxin] 125 mcg PO HS metFORMIN HCL [Glucophage] 1,000 mg PO BID Omeprazole [PriLOSEC] 20 mg PO DAILY Clopidogrel [Plavix] 75 mg PO DAILY Pregabalin [Lyrica] 150 mg PO BID Atorvastatin [Lipitor] 80 mg PO HS #30 tab Lisinopril [Zestril] 5 mg PO DAILY Hydrocodone/Acetaminophen [Lortab 5-325 mg Tablet] 1 tab PO BID PRN PRN Reason: Pain Isosorbide Mononitrate ER [Imdur] 60 mg PO DAILY Furosemide [Lasix] 40 mg PO DAILY Tiotropium [place] [Spiriva] 18 mcg INHALATION RT-DAILY Aspirin [Adult Low Dose Aspirin EC] 81 mg PO DAILY Metoprolol Tartrate [Lopressor] 50 mg PO BID Albuterol Inhaler [Ventolin Hfa Inhaler] 1 - 2 puff INHALATION RT-Q6H PRN PRN Reason: Shortness Of Breath Discharge Medication List Canagliflozin [Invokana] 100 mg PO HS 01/25/14 [History] Alogliptin Benzoate [Nesina] 25 mg PO HS 07/15/14 [History] Nitroglycerin Sl Tabs [Nitrostat] 0.4 mg SUBLINGUAL Q5M PRN 07/15/14 [History] Digoxin [Lanoxin] 125 mcg PO HS 08/15/14 [History] metFORMIN HCL [Glucophage] 1,000 mg PO BID 09/19/14 [History] Omeprazole [PriLOSEC] 20 mg PO DAILY 11/25/14 [History] Clopidogrel [Plavix] 75 mg PO DAILY 12/02/14 [History] Pregabalin [Lyrica] 150 mg PO BID 06/06/15 [History] Atorvastatin [Lipitor] 80 mg PO HS #30 tab 06/08/15 [Rx] Furosemide [Lasix] 40 mg PO DAILY 08/28/15 [History] Hydrocodone/Acetaminophen [Lortab 5-325 mg Tablet] 1 tab PO BID PRN 08/28/15 [ History] Isosorbide Mononitrate ER [Imdur] 60 mg PO DAILY 08/28/15 [History] Lisinopril [Zestril] 5 mg PO DAILY 08/28/15 [History] Tiotropium [place] [Spiriva] 18 mcg INHALATION RT-DAILY 08/28/15 [History] Aspirin [Adult Low Dose Aspirin EC] 81 mg PO DAILY 08/29/15 [History] Albuterol Inhaler [Ventolin Hfa Inhaler] 1 - 2 puff INHALATION RT-Q6H PRN [History] Metoprolol Tartrate [Lopressor] 50 mg PO BID 04/24/17 [History] Follow up Appointment(s)/Referral(s): Jaswinder Cooley MD [STAFF PHYSICIAN] - 1 Week Pratibha Colmenares DO [Primary Care Provider] - 1-2 days Patient Instructions/Handouts: *Surgery [facility] - After Heart Catheterization - Cable Lacer Instructions, Angina (DC) Discharge Disposition: HOME SELF-CARE
== END 2017-04-26 16:50 | disposition home or self-care (01) | DRG 251 ==
LOC: EC 23:14 → 6SEL 04-24 00:45
PROVIDERS: ADMIT Internal Medicine; ATTEND Internal Medicine
PROC: B2111ZZ Fluoroscopy of Multiple Coronary Arteries using Low Osmolar Contrast (ICD-10-PCS; 2017-04-24)
PROC: 4A033BC Measurement of Arterial Pressure, Coronary, Percutaneous Approach (ICD-10-PCS; 2017-04-24)
PROC: 4A023N7 Measurement of Cardiac Sampling and Pressure, Left Heart, Percutaneous Approach (ICD-10-PCS; 2017-04-24 10:45)
PROC: 02703ZZ Dilation of Coronary Artery, One Artery, Percutaneous Approach (ICD-10-PCS; principal; 2017-04-25 10:54)
DX: I21.4 Non-ST elevation (NSTEMI) myocardial infarction (principal); I42.9 Cardiomyopathy, unspecified; I50.20 Unspecified systolic (congestive) heart failure; I48.1 Persistent atrial fibrillation; T82.855A Stenosis of coronary artery stent, initial encounter; I11.0 Hypertensive heart disease with heart failure; E83.42 Hypomagnesemia; E11.40 Type 2 diabetes mellitus with diabetic neuropathy, unspecified; E78.5 Hyperlipidemia, unspecified; I25.2 Old myocardial infarction; I45.4 Nonspecific intraventricular block; I48.2 Chronic atrial fibrillation; J44.9 Chronic obstructive pulmonary disease, unspecified; K21.9 Gastro-esophageal reflux disease without esophagitis; E11.51 Type 2 diabetes mellitus with diabetic peripheral angiopathy without gangrene; I25.10 Atherosclerotic heart disease of native coronary artery without angina pectoris; Z79.02 Long term (current) use of antithrombotics/antiplatelets; Z79.82 Long term (current) use of aspirin; Z79.899 Other long term (current) drug therapy; Z79.84 Long term (current) use of oral hypoglycemic drugs; Z95.810 Presence of automatic (implantable) cardiac defibrillator; Z87.891 Personal history of nicotine dependence; Z88.0 Allergy status to penicillin; Z88.8 Allergy status to other drugs, medicaments and biological substances; Y83.1 Surgical operation with implant of artificial internal device as the cause of abnormal reaction of the patient, or of later complication, without mention of misadventure at the time of the procedure
CPT/HCPCS: 36415; 71020; 80048; 80053; 82272; 82550; 82553; 83036; 83690; 83735; 83880; 84484; 85025; 85610; 85730; 86709; 87324; 92920; 93005; 93306; 93454; 93571; 96365; 96375; 99291

== ENCOUNTER 2017-06-16 20:15 | Inpatient (IN) | payer MEDICARE, BC ==
[2017-06-16] MEDS ORDERED: NITROGLYCERIN OINT 1 INCH/GM PACKET TOPICAL STA (20:33)
[2017-06-16] MEDS ORDERED: MORPHINE SULFATE 2 MG/ML SYRINGE IVP STA (20:33)
[2017-06-16] MEDS ORDERED: SODIUM CHLORIDE 0.9% 1,000 ML IV STA (20:33)
[2017-06-16] MEDS ORDERED: PANTOPRAZOLE 40 MG/10 ML VIAL IVP STA (20:34)
[2017-06-16 21:03] LABS: Basophils # (A) 0.1 k/uL (0-0.2); Basophils % (A) 1 %; CH 29.4; CHCM 32.1; Eosinophils # (A) 0.2 k/uL (0-0.7); Eosinophils % (A) 2 %; HCT 46.1 % (39.0-53.0); HDW 3.24; HGB 15.1 gm/dL (13.0-17.5); Hypochromasia Slight; Luc # (Auto) 0.17; Luc % (Auto) 2; Lymphocytes # (A) 1.1 k/uL (1.0-4.8); Lymphocytes % (A) 10 %; MCH 30.1 pg (25.0-35.0); MCHC 32.7 g/dL (31.0-37.0); MCV 92.1 fL (80.0-100.0); Mean Platelet Volume 9.2; Monocytes # (A) 0.8 k/uL (0-1.0); Monocytes % (A) 7 %; Neutrophils % (A) 79 %; RBC 5.01 m/uL (4.30-5.90); RDW 15.9 % (11.5-15.5); WBC 11.4 k/uL (3.8-10.6); WBC (Perox) 11.49
[2017-06-16 21:12] LABS: ALT 31 U/L (21-72); AST 24 U/L (17-59); Alkaline Phosphatase 85 U/L (38-126); Anion Gap 13 mmol/L; Blood Urea Nitrogen 23 mg/dL (9-20); Calcium 9.6 mg/dL (8.4-10.2); Carbon Dioxide 20 mmol/L (22-30); Chloride 107 mmol/L (98-107); Glucose 175 mg/dL (74-99); Magnesium 1.5 mg/dL (1.6-2.3); Non-African American GFR(MDRD) >60 (>60 ml/min/1.73 sqM); Potassium 4.1 mmol/L (3.5-5.1); Sodium 140 mmol/L (137-145); Total Protein 6.5 g/dL (6.3-8.2)
--- NOTE | 2017-06-16 21:16 | XR ---
EXAMINATION TYPE: XR chest 2V DATE OF EXAM: 06/16/2017 COMPARISON: 04/23/2017 HISTORY: Short of breath TECHNIQUE: Frontal and lateral views of the chest are obtained. FINDINGS: Heart appears enlarged. There is mild pulmonary congestion. There is slight blunting of le ft costophrenic angle. There is left axillary pacemaker with the lead tip in the right ventricle. The re are chest leads. IMPRESSION: Cardiomegaly. There is new mild congestion compared to old exam suspicious for mild hear t failure. There is probably small left pleural effusion.
[2017-06-16 21:21] LABS: INR 1.1 (<1.2); Partial Thromboplastin Time 23.6 sec (22.0-30.0); Prothrombin Time 11.4 sec (9.0-12.0)
--- NOTE | 2017-06-16 21:32 | ED ---
Abdominal Pain HPI - General Chief Complaint: Chest Pain Stated Complaint: chest pain,SOB Time Seen by Provider: 06/16/17 20:28 Source: EMS Mode of arrival: EMS Limitations: no limitations - History of Present Illness Initial Comments: This patient is an 81-year-old man who presents to be evaluated for pains that he is indicating her just left of his epigastrium, in the left upper part of his abdomen. The patient states she has been having these pains intermittently for 3 weeks, since she had is stent placed here. Patient also states that he has pains radiating to both arms. He was having this arm pain about 3 weeks ago when he had his stent placed. Patient states she did take some nitroglycerin tonight but it didn't really affect the pain much. The patient states that this episode started tonight while he was working on putting his medication pill containers. He states that the pain became so intense that he had had his daughter finished that. Patient denies any other associated symptoms. There is no dyspnea, diaphoresis, nausea or vomiting. MD Complaint: abdominal pain Onset/Timin -: week(s) Location: LUQ, epigastric Migration to: no migration, other (Bilateral arms) Severity: severe Quality: sharp Consistency: intermittent Improves With: nothing Worsens With: movement Associated Symptoms: denies other symptoms - Related Data Home Medications Medication Instructions Recorded Confirmed Canagliflozin [Invokana] 100 mg PO W/SUPPER 01/25/14 06/16/17 Alogliptin Benzoate [Nesina] 25 mg PO W/SUPPER 07/15/14 06/16/17 Nitroglycerin Sl Tabs [Nitrostat] 0.4 mg SUBLINGUAL Q5M PRN 07/15/14 06/16/17 Digoxin [Lanoxin] 125 mcg PO W/SUPPER 08/15/14 06/16/17 metFORMIN HCL [Glucophage] 1,000 mg PO BID 09/19/14 06/16/17 Omeprazole [PriLOSEC] 20 mg PO DAILY 11/25/14 06/16/17 Clopidogrel [Plavix] 75 mg PO DAILY 12/02/14 06/16/17 Pregabalin [Lyrica] 150 mg PO BID 06/06/15 06/16/17 Furosemide [Lasix] 40 mg PO DAILY 08/28/15 06/16/17 Isosorbide Mononitrate ER [Imdur] 60 mg PO DAILY 08/28/15 06/16/17 Lisinopril [Zestril] 5 mg PO DAILY 08/28/15 06/16/17 Tiotropium [place] [Spiriva] 1 cap INHALATION RT-DAILY PRN 08/28/15 06/16/17 Aspirin [Adult Low Dose Aspirin EC] 81 mg PO DAILY 08/29/15 06/16/17 Albuterol Inhaler [Ventolin Hfa 1 - 2 puff INHALATION RT-Q6H PRN 04/24/17 Inhaler] Metoprolol Tartrate [Lopressor] 50 mg PO BID 04/24/17 06/16/17 Albuterol Nebulized [Ventolin 2.5 mg INHALATION RT-QID PRN 06/16/17 06/16/17 Nebulized] Atorvastatin [Lipitor] 80 mg PO W/SUPPER 06/16/17 06/16/17 HYDROcodone/APAP 5-325MG [[place] 1 tab PO BID PRN 06/16/17 06/16/17 5-325] Insulin Glargine,Hum.rec.anlog 10 unit SQ HS 06/16/17 06/16/17 [Lantus Solostar] Allergies Allergy/AdvReac Type Severity Reaction Status Date / Time Penicillins Allergy Severe Rash/Hives Verified 06/16/17 22:00 ropinirole HCl [From Requip] Allergy Unknown Verified 06/16/17 22:00 Review of Systems ROS Statement: Those systems with pertinent positive or pertinent negative responses have been documented in the HPI. ROS Other: All systems not noted in ROS Statement are negative. Constitutional: Denies: fever, chills Respiratory: Denies: cough, dyspnea Cardiovascular: Denies: palpitations, dyspnea on exertion, orthopnea, edema, syncope Gastrointestinal: Reports: abdominal pain, diarrhea (Patient had a few days of diarrhea but then took Imodium and it stopped, resulting in constipation), constipation. Denies: nausea, vomiting, melena, hematochezia Genitourinary: Denies: dysuria, hematuria Musculoskeletal: Denies: back pain Skin: Denies: rash Neurological: Denies: headache, weakness, numbness Past Medical History Past Medical History: Atrial Fibrillation, Coronary Artery Disease (CAD), Chest Pain / Angina, Heart Failure, COPD, CVA/TIA, Diabetes Mellitus, GERD/Reflux, GI Bleed, Hyperlipidemia, Hypertension, Myocardial Infarction ([place]), Vascular Disorder Additional Past Medical History / Comment(s): HX OF CVA-HAS OCCASIONAL PROBLEMS SWALLOWING, NEUROPATHY IN LEGS AND FEET, PVD, KIDNEY STONES, PT STATES HX OF GI BLEED DUE TO XARELTO., SEE CARDIOLOGY H & P. Last Myocardial Infarction Date:: History of Any Multi-Drug Resistant Organisms: None Reported Past Surgical History: Heart Catheterization, Heart Catheterization With Stent, Hernia Repair Additional Past Surgical History / Comment(s): 2014- R leg artherectomy with balloon angioplasty, Coronary stents total of [address] 06/07/15 , bilateral cataracts , LEFT RING FINGER AMPUTATION, lithotripsy, TURP, EGD and colonoscopy . Past Anesthesia/Blood Transfusion Reactions: No Reported Reaction Additional Past Anesthesia/Blood Transfusion Reaction / Comment(s): HAD BLOOD TRANSFUSION without reaction. Date of Last Stent Placement:: 06/07/15 Past Psychological History: No Psychological Hx Reported Smoking Status: Never smoker Past Alcohol Use History: None Reported Past Drug Use History: None Reported - Past Family History Mother Family Medical History: Cancer Additional Family Medical History / Comment(s): Mother at age 51yrs old of uterine cancer which metastasized. Father Family Medical History: Diabetes Mellitus General Exam Limitations: no limitations General appearance: alert, in no apparent distress Head exam: Present: atraumatic, normocephalic Eye exam: Present: normal appearance. Absent: scleral icterus, conjunctival injection ENT exam: Present: normal oropharynx Neck exam: Present: normal inspection Respiratory exam: Present: normal lung sounds bilaterally. Absent: respiratory distress, wheezes, rales, rhonchi, stridor Cardiovascular Exam: Present: regular rate, irregular rhythm, systolic murmur ( Grade 2/6 systolic ejection murmur.). Absent: diastolic murmur, rubs, gallop GI/Abdominal exam: Present: soft. Absent: distended, tenderness, guarding, rebound, mass Extremities exam: Present: normal inspection, normal capillary refill. Absent: pedal edema, calf tenderness Back exam: Present: normal inspection. Absent: CVA tenderness (R), CVA tenderness (L) Neurological exam: Present: alert Skin exam: Present: warm, dry, intact, normal color. Absent: rash Course Vital Signs 06/16/17 06/16/17 20:18 22:25 Temperature 97.9 F Pulse Rate 96 103 H Respiratory 18 18 Rate Blood Pressure 129/80 155/73 O2 Sat by Pulse 94 L 100 Oximetry Medical Decision Making - Medical Decision Making Patient is an 81-year-old man who presents with pain just left of the epigastrium and radiation to the arms that he states is consistent with pain he had with his previous stent. He has some ST depressions on EKG laterally. His troponin is minimally elevated. Patient is started on heparin, given nitrates, and he is symptom-free now. - Lab Data Result diagrams: 06/16/17 20:50 06/16/17 20:50 Lab Results 06/16/17 06/16/17 06/16/17 Range/Units 20:50 20:50 20:50 WBC 11.4 H (3.8-10.6) k/uL RBC 5.01 (4.30-5.90) m/uL Hgb 15.1 (13.0-17.5) gm/dL Hct 46.1 (39.0-53.0) % MCV 92.1 (80.0-100.0) fL MCH 30.1 (25.0-35.0) pg MCHC 32.7 (31.0-37.0) g/dL RDW 15.9 H (11.5-15.5) % Plt Count 198 (150-450) k/uL Neutrophils % 79 % Lymphocytes % 10 % Monocytes % 7 % Eosinophils % 2 % Basophils % 1 % Neutrophils # 9.0 H (1.3-7.7) k/uL Lymphocytes # 1.1 (1.0-4.8) k/uL Monocytes # 0.8 (0-1.0) k/uL Eosinophils # 0.2 (0-0.7) k/uL Basophils # 0.1 (0-0.2) k/uL Hypochromasia Slight PT (9.0-12.0) sec INR (<1.2) APTT (22.0-30.0) sec Sodium 140 (137-145) mmol/L Potassium 4.1 (3.5-5.1) mmol/L Chloride 107 (98-107) mmol/L Carbon Dioxide 20 L (22-30) mmol/L Anion Gap 13 mmol/L BUN 23 H (9-20) mg/dL Creatinine 0.87 (0.66-1.25) mg/dL Est GFR (MDRD) Af Amer >60 (>60 ml/min/1.73 sqM) Est GFR (MDRD) Non-Af >60 (>60 ml/min/1.73 sqM) Glucose 175 H (74-99) mg/dL Calcium 9.6 (8.4-10.2) mg/dL Magnesium 1.5 L (1.6-2.3) mg/dL Total Bilirubin 1.0 (0.2-1.3) mg/dL AST 24 (17-59) U/L ALT 31 (21-72) U/L Alkaline Phosphatase 85 (38-126) U/L Total Creatine Kinase 64 (55-170) U/L CK-MB (CK-2) 1.9 (0.0-2.4) ng/mL CK-MB (CK-2) Rel Index 3.0 Troponin I 0.300 H* (0.000-0.034) ng/mL Total Protein 6.5 (6.3-8.2) g/dL Albumin 4.0 (3.5-5.0) g/dL 06/16/17 Range/Units 20:50 WBC (3.8-10.6) k/uL RBC (4.30-5.90) m/uL Hgb (13.0-17.5) gm/dL Hct (39.0-53.0) % MCV (80.0-100.0) fL MCH (25.0-35.0) pg MCHC (31.0-37.0) g/dL RDW (11.5-15.5) % Plt Count (150-450) k/uL Neutrophils % % Lymphocytes % % Monocytes % % Eosinophils % % Basophils % % Neutrophils # (1.3-7.7) k/uL Lymphocytes # (1.0-4.8) k/uL Monocytes # (0-1.0) k/uL Eosinophils # (0-0.7) k/uL Basophils # (0-0.2) k/uL Hypochromasia PT 11.4 (9.0-12.0) sec INR 1.1 (<1.2) APTT 23.6 (22.0-30.0) sec Sodium (137-145) mmol/L Potassium (3.5-5.1) mmol/L Chloride (98-107) mmol/L Carbon Dioxide (22-30) mmol/L Anion Gap mmol/L BUN (9-20) mg/dL Creatinine (0.66-1.25) mg/dL Est GFR (MDRD) Af Amer (>60 ml/min/1.73 sqM) Est GFR (MDRD) Non-Af (>60 ml/min/1.73 sqM) Glucose (74-99) mg/dL Calcium (8.4-10.2) mg/dL Magnesium (1.6-2.3) mg/dL Total Bilirubin (0.2-1.3) mg/dL AST (17-59) U/L ALT (21-72) U/L Alkaline Phosphatase (38-126) U/L Total Creatine Kinase (55-170) U/L CK-MB (CK-2) (0.0-2.4) ng/mL CK-MB (CK-2) Rel Index Troponin I (0.000-0.034) ng/mL Total Protein (6.3-8.2) g/dL Albumin (3.5-5.0) g/dL - EKG Data -: EKG Interpreted by Nm EKG shows normal: axis (Normal), intervals (Normal) Rate: normal (Rate approximately 83 bpm) Interpretation: LVH, other (The underlying rhythm appears to be atrial fibrillation with good rate control. There are ST depressions in leads V5 and V6 that are concerning for subendocardial injury, however these depressions were present on the previous EKG.) Disposition Clinical Impression: Acute coronary syndrome Disposition: ADMITTED IP TO THIS [facility] Condition: Poor Referrals: Pratibha Colmenares DO [Primary Care Provider] - 1-2 days
[2017-06-16 21:38] LABS: Creatine Kinase MB 1.9 ng/mL (0.0-2.4)
[2017-06-16 21:46] LABS: Troponin I 0.3 ng/mL (0.000-0.034)
[2017-06-16] MEDS ORDERED: HEPARIN SODIUM,PORCINE 5,000 UNIT/ML 1 ML VIAL IV ONE (21:47)
[2017-06-16] MEDS ORDERED: NITROGLYCERIN-D5W PMX 50 MG in DEXTROSE/WATER 1 250ML.BAG IV ONE (21:48)
[2017-06-16] MEDS ORDERED: HEPARIN SODIUM,PORCINE/D5W PMX 25,000 UNIT in DEXTROSE/WATER 1 500ML.BAG IV SCH (22:00)
[2017-06-16] MEDS ORDERED: MAGNESIUM SULFATE-D5W PMX 1 GM in DEXTROSE/WATER 1 100ML.BAG IVPB ONE (22:01)
[2017-06-16] MEDS ORDERED: NITROGLYCERIN SL TABS 0.4 MG TAB SUBLINGUAL PRN (22:45)
[2017-06-17 00:10] LABS: Glucose,Whole Blood 124 mg/dL (75-99)
[2017-06-17 00:57] LABS: Amylase 57 U/L (30-110)
[2017-06-17 04:34] LABS: Creatine Kinase MB 2.3 ng/mL (0.0-2.4); Troponin I 0.543 ng/mL (0.000-0.034)
[2017-06-17] MEDS: SODIUM CHLORIDE 0.9% 1,000 ML IV SCH ×4 (04:40→16:40)
[2017-06-17] MEDS ORDERED: HEPARIN SODIUM,PORCINE 5,000 UNIT/ML 1 ML VIAL IV PRN (04:41)
[2017-06-17 05:52] LABS: Glucose,Whole Blood 121 mg/dL (75-99)
[2017-06-17 08:09] LABS: Hemoglobin A1C 7.2 % (4.2-6.1)
[2017-06-17 10:45] LABS: Cholesterol 78 mg/dL (<200); HDL Cholesterol 28 mg/dL (40-60)
[2017-06-17 11:16] LABS: Creatine Kinase MB 2.1 ng/mL (0.0-2.4)
[2017-06-17 11:19] LABS: Troponin I 0.556 ng/mL (0.000-0.034)
--- NOTE | 2017-06-17 11:39 | P.CRDCN ---
History of Present Illness Consult date: 06/17/17 Requesting physician: Loree Ventura Consult reason: chest pain Chief complaint: Chest pain History of present illness: This is a pleasant 81-year-old gentleman who follows with Dr. Harris in the office, he has a known history of coronary artery disease with prior stent placements, most recently patient underwent successful balloon angioplasty of the ramus intermedius coronary artery by Dr. Gan in April, cardiac catheterization performed prior to that procedure revealed intermediate in-stent restenosis of the mid RCA, which was nonischemic by FFR, normal left main coronary artery, mild disease involving the OM branch of the circumflex, severe in-stent restenosis involving the ramus intermediate and mild disease in the LAD. Patient also has history of diabetes, hypertension, hyperlipidemia , PAD, ischemic cardiomyopathy with prior single-chamber AICD, chronic persistent atrial fibrillation, prior CVA. Echocardiogram with Doppler study performed in April revealed an ejection fraction of 45-50%. Patient presents to the hospital with symptoms of chest discomfort with associated diaphoresis and shortness of breath. He states that he has been having these symptoms for at least one week duration. Prior to that he states that he was having diarrhea stools for a few days. Patient has been using several sublingual nitroglycerin, on a daily basis. He did go to see Dr. Harris in the office one week ago, he mentioned to him about the symptoms that he had been experiencing and was recommended to undergo a Lexiscan stress test which was actually scheduled for today. Symptoms became quite severe, his daughter found him sitting in the car, states that he was very ashen in color, clammy, and experiencing significant chest pain. For this reason he was brought into the emergency room for further evaluation. EKG on arrival here showed atrial fibrillation with a controlled ventricular response and ST depression noted in the lateral leads. Subsequent EKG performed this morning showed atrial fibrillation with a controlled ventricular response and persistence in ST depression in the lateral leads. Chest x-ray revealed cardiomegaly, new mild congestion as compared with prior exam suspicious for mild congestive heart failure. Left pleural effusion. Blood pressure on arrival here 128/80 with heart rate in the 90s, 94% on room air. White blood cell count 11.4, platelet count 198, potassium 4.1, BUN 23, creatinine 0.8. Magnesium level I.5 on admission, 1.7 this morning. Troponins 0.30, 0.54, 0.55. At the time of my examination this morning, patient is currently chest pain-free. He is on aspirin, IV heparin, IV nitroglycerin. Past Medical History Past Medical History: Atrial Fibrillation, Coronary Artery Disease (CAD), Chest Pain / Angina, Heart Failure, COPD, CVA/TIA, Diabetes Mellitus, GERD/Reflux, GI Bleed, Hyperlipidemia, Hypertension, Myocardial Infarction ([place]), Vascular Disorder Additional Past Medical History / Comment(s): HX OF CVA-HAS OCCASIONAL PROBLEMS SWALLOWING, NEUROPATHY IN LEGS AND FEET, PVD, KIDNEY STONES, PT STATES HX OF GI BLEED DUE TO XARELTO., SEE CARDIOLOGY H & P. 04/24/2017 pt was admitted with chest pain and had 2 stents Last Myocardial Infarction Date:: History of Any Multi-Drug Resistant Organisms: None Reported Past Surgical History: Heart Catheterization, Heart Catheterization With Stent, Hernia Repair Additional Past Surgical History / Comment(s): 2014- leg artherectomy with balloon angioplasty, Coronary stents total of [address] 06/07/15 , bilateral cataracts , LEFT RING FINGER AMPUTATION, lithotripsy, TURP, EGD and colonoscopy .04/24 2 stents, pt states he has 7 stents totally Past Anesthesia/Blood Transfusion Reactions: No Reported Reaction Additional Past Anesthesia/Blood Transfusion Reaction / Comment(s): HAD BLOOD TRANSFUSION without reaction. Date of Last Stent Placement:: 04/24/17 Past Psychological History: No Psychological Hx Reported Additional Psychological History / Comment(s): Pt lives alone in his home. Pt is independent worked for [employer] years before retiring. He drives a car. He has a daughter that lives near-by who comes over alot and is a big help to the pt. Pt is a very good cook. He ambulates without any device. His June of 2011. Smoking Status: Never smoker Past Alcohol Use History: None Reported Additional Past Alcohol Use History / Comment(s): CHEWED TOBACCO FOR 30 YRS. QUIT CHEWING TOBACCO 1983 Past Drug Use History: None Reported - Past Family History Mother Family Medical History: Cancer Additional Family Medical History / Comment(s): Mother at age 51yrs old of uterine cancer which metastasized. Father Family Medical History: Diabetes Mellitus Medications and Allergies Home Medications Medication Instructions Recorded Confirmed Type Canagliflozin [Invokana] 100 mg PO W/SUPPER 01/25/14 06/16/17 History Alogliptin Benzoate [Nesina] 25 mg PO W/SUPPER 07/15/14 06/16/17 History Nitroglycerin Sl Tabs [Nitrostat] 0.4 mg SUBLINGUAL Q5M PRN 07/15/14 06/16/17 History Digoxin [Lanoxin] 125 mcg PO W/SUPPER 08/15/14 06/16/17 History metFORMIN HCL [Glucophage] 1,000 mg PO BID 09/19/14 06/16/17 History Omeprazole [PriLOSEC] 20 mg PO DAILY 11/25/14 06/16/17 History Clopidogrel [Plavix] 75 mg PO DAILY 12/02/14 06/16/17 History Pregabalin [Lyrica] 150 mg PO BID 06/06/15 06/16/17 History Furosemide [Lasix] 40 mg PO DAILY 08/28/15 06/16/17 History Isosorbide Mononitrate ER [Imdur] 60 mg PO DAILY 08/28/15 06/16/17 History Lisinopril [Zestril] 5 mg PO DAILY 08/28/15 06/16/17 History Tiotropium [place] [Spiriva] 1 cap INHALATION RT-DAILY PRN 08/28/15 06/16/17 History Aspirin [Adult Low Dose Aspirin EC] 81 mg PO DAILY 08/29/15 06/16/17 History Albuterol Inhaler [Ventolin Hfa 1 - 2 puff INHALATION RT-Q6H PRN 04/24/17 History Inhaler] Metoprolol Tartrate [Lopressor] 50 mg PO BID 04/24/17 06/16/17 History Albuterol Nebulized [Ventolin 2.5 mg INHALATION RT-QID PRN 06/16/17 06/16/17 History Nebulized] Atorvastatin [Lipitor] 80 mg PO W/SUPPER 06/16/17 06/16/17 History HYDROcodone/APAP 5-325MG [[place] 1 tab PO BID PRN 06/16/17 06/16/17 History 5-325] Insulin Glargine,Hum.rec.anlog 10 unit SQ HS 06/16/17 06/16/17 History [Lantus Solostar] Allergies Allergy/AdvReac Type Severity Reaction Status Date / Time Penicillins Allergy Severe Rash/Hives Verified 06/16/17 22:00 ropinirole HCl [From Requip] Allergy Unknown Verified 06/16/17 22:00 Physical Exam Vitals: Vital Signs Temp Pulse Pulse Resp BP BP Pulse Ox 06/17/17 10:46 75 150/90 06/17/17 08:10 96.6 F L 72 18 122/80 97 06/17/17 04:00 98.2 F 72 18 123/81 97 06/17/17 00:00 97.6 F 81 18 119/83 97 06/16/17 23:36 97.6 F 72 16 154/70 99 06/16/17 23:21 97.6 F 81 18 119/83 97 06/16/17 22:25 103 H 18 155/73 100 06/16/17 20:18 97.9 F 96 18 129/80 94 L Intake and Output 06/16/17 06/17/17 06/17/17 22:59 06:59 14:59 Intake Total 356.237 143.306 Output Total 200 150 Balance 156.237 -6.694 Intake: IV 238 Heparin Sodium,Porcine/ 120 D5w Pmx 25,000 unit In Dextrose/Water 1 500ml. bag @ 12 UNITS/KG/HR 17. 96 mls/hr IV .Q24H [facility] Rx #:[id number] Magnesium Sulfate-D5w Pmx 100 1 gm In Dextrose/Water 1 100ml.bag @ 100 mls/hr IVPB ONCE ONE Rx#: [id number] Nitroglycerin-D5w Pmx 50 18 mg In Dextrose/Water 1 250ml.bag @ 10 MCG/MIN 3 mls/hr IV .Q24H ONE Rx#: [id number] Intake, IV Titration 118.237 143.306 Amount Heparin Sodium,Porcine/ 118.237 143.306 D5w Pmx 25,000 unit In Dextrose/Water 1 500ml. bag @ 12 UNITS/KG/HR 17. 96 mls/hr IV .Q24H [facility] Rx #:[id number] Output: Urine 200 150 Other: # Voids 1 Weight 74.843 kg 74.6 kg PHYSICAL EXAMINATION: HEENT: Head is atraumatic, normocephalic. Pupils equal, round. Neck is supple. There is elevated jugular venous pressure. HEART EXAMINATION: S1 and S2 systolic murmur is heard. CHEST EXAMINATION: Lungs are clear with diminished air entry to bilateral bases. ABDOMEN: Soft, nontender. Bowel sounds are heard. No organomegaly noted. EXTREMITIES: 1+ peripheral pulses with no evidence of peripheral edema and no calf tenderness noted. NEUROLOGIC patient is awake, alert and oriented -3. . Results 06/16/17 20:50 06/16/17 20:50 Cardiac Enzymes 06/16/17 06/16/17 06/17/17 Range/Units 20:50 20:50 03:22 AST 24 (17-59) U/L CK-MB (CK-2) 1.9 2.3 (0.0-2.4) ng/mL Troponin I 0.300 H* 0.543 H* (0.000-0.034) ng/mL Coagulation 06/16/17 06/17/17 06/17/17 Range/Units 20:50 03:22 10:05 PT 11.4 (9.0-12.0) sec APTT 23.6 31.7 H 37.2 H (22.0-30.0) sec Lipids 06/17/17 Range/Units 10:05 Triglycerides 194 H (<150) mg/dL Cholesterol 78 (<200) mg/dL HDL Cholesterol 28 L (40-60) mg/dL CBC 06/16/17 Range/Units 20:50 WBC 11.4 H (3.8-10.6) k/uL RBC 5.01 (4.30-5.90) m/uL Hgb 15.1 (13.0-17.5) gm/dL Hct 46.1 (39.0-53.0) % Plt Count 198 (150-450) k/uL Comprehensive Metabolic Panel 06/16/17 Range/Units 20:50 Sodium 140 (137-145) mmol/L Potassium 4.1 (3.5-5.1) mmol/L Chloride 107 (98-107) mmol/L Carbon Dioxide 20 L (22-30) mmol/L BUN 23 H (9-20) mg/dL Creatinine 0.87 (0.66-1.25) mg/dL Glucose 175 H (74-99) mg/dL Calcium 9.6 (8.4-10.2) mg/dL AST 24 (17-59) U/L ALT 31 (21-72) U/L Alkaline Phosphatase 85 (38-126) U/L Total Protein 6.5 (6.3-8.2) g/dL Albumin 4.0 (3.5-5.0) g/dL Current Medications Generic Name Dose Route Start Last Admin Trade Name Shubhamq PRN Reason Stop Dose Admin Aspirin 325 mg 06/17/17 09:00 Aspirin PO DAILY [facility] Heparin Sodium (Porcine) 0 unit 06/17/17 04:41 06/17/17 11:01 Heparin IV 3,730 unit PER PROTOCOL PRN Administration Low PTT Protocol Heparin Sodium/Dextrose 25,000 500 mls @ 17.96 mls/hr 06/16/17 22:00 11:01 unit/ IV Solution IV 18 units/kg/hr .Q24H [facility] 26.94 mls/hr Protocol Titration 12 UNITS/KG/HR Nitroglycerin/Dextrose 50 mg/ 250 mls @ 3 mls/hr 06/16/17 21:48 06/16/17 22: 13 IV Solution IV 06/17/17 21:47 10 mcg/min .Q24H ONE 3 mls/hr Protocol Administration 10 MCG/MIN Sodium Chloride 1,000 mls @ 100 mls/hr 06/16/17 22:45 06/17/17 09:40 Saline 0.9% IV Not Given .Q10H [facility] Nitroglycerin 0.4 mg 06/16/17 22:45 Nitrostat SUBLINGUAL Q5M PRN Chest Pain Intake and Output 06/16/17 06/17/17 06/17/17 22:59 06:59 14:59 Intake Total 356.237 143.306 Output Total 200 150 Balance 156.237 -6.694 Intake: IV 238 Heparin Sodium,Porcine/ 120 D5w Pmx 25,000 unit In Dextrose/Water 1 500ml. bag @ 12 UNITS/KG/HR 17. 96 mls/hr IV .Q24H [facility] Rx #:[id number] Magnesium Sulfate-D5w Pmx 100 1 gm In Dextrose/Water 1 100ml.bag @ 100 mls/hr IVPB ONCE ONE Rx#: [id number] Nitroglycerin-D5w Pmx 50 18 mg In Dextrose/Water 1 250ml.bag @ 10 MCG/MIN 3 mls/hr IV .Q24H ONE Rx#: [id number] Intake, IV Titration 118.237 143.306 Amount Heparin Sodium,Porcine/ 118.237 143.306 D5w Pmx 25,000 unit In Dextrose/Water 1 500ml. bag @ 12 UNITS/KG/HR 17. 96 mls/hr IV .Q24H [facility] Rx #:[id number] Output: Urine 200 150 Other: # Voids 1 Weight 74.843 kg 74.6 kg 06/16/17 20:50 06/16/17 20:50 EKG Interpretations (text) EKG shows atrial fibrillation with a controlled ventricular response and ST depression noted in the lateral leads. Assessment and Plan Plan: Assessment and plan #1 non-ST elevation myocardial infarction #2 known history of coronary artery disease with prior stent placements, most recently patient underwent angioplasty with stenting of the ramus intermediate in April #3 diabetes #4 hypertension #5 ischemic cardiomyopathy with prior ICD implant #6 prior CVA #7 peripheral vascular disease #8 chronic persistent atrial fibrillation patient had been on xarelto and Coumadin in the past, had GI bleeding and for this reason is not on anticoagulation. #9 hyperlipidemia Plan We will put the patient back on his Plavix along with Lipitor, Lasix, Lopressor , and Zestril. Continue IV heparin and IV nitroglycerin drips. Obtain echocardiogram with Doppler study. Patient has been advised that he will need to undergo cardiac catheterization, the risks and benefits were explained to the patient and the family in detail and he is willing to proceed. Further recommendations will be based on those findings and the patient's clinical course. DNP note has been reviewed, I agree with a documented findings and plan of care. Patient was seen and examined.
[2017-06-17 11:53] LABS: Glucose,Whole Blood 133 mg/dL (75-99)
[2017-06-17] MEDS ORDERED: FUROSEMIDE 20 MG TAB PO SCH (12:00)
[2017-06-17] MEDS ORDERED: SODIUM CHLORIDE 0.9% 1,000 ML in EMPTY BAG 1 BAG IV ONE (12:02)
[2017-06-17] MEDS ORDERED: ASPIRIN 325 MG TAB PO STA (12:02)
[2017-06-17] MEDS ORDERED: NITROGLYCERIN SL TABS 0.4 MG TAB SUBLINGUAL PRN ×2 (12:02→14:12)
[2017-06-17] MEDS ORDERED: ATORVASTATIN 80 MG TAB PO STA (12:02)
--- NOTE | 2017-06-17 12:05 | P.PN ---
Progress Note - Text this is an addendum to the dictated cardiology consultation. The patient presents with symptoms of progressive chest discomfort radiating to the abdomen and the arms, relieved with nitroglycerin sublingually and associated with progressive dyspnea. His symptoms are with minimal physical activity. He recently underwent PTCA of his ramus intermedius with in-stent restenosis and inability to advance a stent. His EKG shows ST segment depression laterally and his troponin are abnormal. His physical examination is consistent with severe mitral regurgitation murmur and trace edema. I have recommended to proceed with cardiac catheterization. I discussed with the patient and his family the findings. The procedure will be done but Dr. Cooley. The risk and the complications discussed with the patient and the family and they are in full understanding and agreement. Thank you for this consult we will follow with you.
[2017-06-17] MEDS: CLOPIDOGREL 75 MG TAB PO SCH (12:45)
[2017-06-17] MEDS: METOPROLOL TARTRATE 50 MG TAB PO SCH ×2 (12:46→20:53)
[2017-06-17] MEDS: ASPIRIN 325 MG TAB PO SCH (12:47)
[2017-06-17] MEDS: LISINOPRIL 5 MG TAB PO SCH (12:48)
[2017-06-17] MEDS ORDERED: MIDAZOLAM 2 MG/2 ML VIAL IVP ONE (13:12)
--- NOTE | 2017-06-17 13:13 | P.HPIM ---
History of Present Illness 31-year-old gentleman came in with complains of chest pressure-like sensation on and off glasses last for a few minutes has been going on for about a week along with diaphoresis lightheadedness along and shortness of breath patient appears to have had the cardiac chest pain patient had previous cardiac catheterization and stents in the past past during his last cardiac catheterization, they were unable to stent coronary occlusion and at that time patient received balloon angioplasty patient's previous ejection fraction is 45- 50%. EKG on admission showed atrial fibrillation controlled ventricular rate ST depressions in the lateral leads which were persistent with repeat EKGs because of which cardiology valid the patient is recommending cardiac catheterization same thing will be discussed with Dr. Cooley his experimental mechanic electrical Review of Systems REVIEW OF SYSTEMS: CONSTITUTIONAL: No fever, no malaise, no fatigue. HEENT: No recent visual problems or hearing problems. Denied any sore throat. CARDIOVASCULAR: No orthopnea, PND, no palpitations, no syncope. PULMONARY: , no cough, no hemoptysis. GASTROINTESTINAL: No diarrhea, no nausea, no vomiting, no abdominal pain. Normoactive bowel sounds. NEUROLOGICAL: No headaches, no weakness, no numbness. HEMATOLOGICAL: Denies any bleeding or petechiae. GENITOURINARY: Denies any burning micturition, frequency, or urgency. MUSCULOSKELETAL/RHEUMATOLOGICAL: Denies any joint pain, swelling, or any muscle pain. ENDOCRINE: Denies any polyuria or polydipsia. The rest of the 14-point review of systems is negative. Past Medical History Past Medical History: Atrial Fibrillation, Coronary Artery Disease (CAD), Chest Pain / Angina, Heart Failure, COPD, CVA/TIA, Diabetes Mellitus, GERD/Reflux, GI Bleed, Hyperlipidemia, Hypertension, Myocardial Infarction (RI), Vascular Disorder Additional Past Medical History / Comment(s): HX OF CVA-HAS OCCASIONAL PROBLEMS SWALLOWING, NEUROPATHY IN LEGS AND FEET, PVD, KIDNEY STONES, PT STATES HX OF GI BLEED DUE TO XARELTO., SEE CARDIOLOGY H & P. 04/24/2017 pt was admitted with chest pain and had 2 stents Last Myocardial Infarction Date:: History of Any Multi-Drug Resistant Organisms: None Reported Past Surgical History: Heart Catheterization, Heart Catheterization With Stent, Hernia Repair Additional Past Surgical History / Comment(s): 2014- R leg artherectomy with balloon angioplasty, Coronary stents total of [address] 06/07/15 , bilateral cataracts , LEFT RING FINGER AMPUTATION, lithotripsy, TURP, EGD and colonoscopy .04/24 2 stents, pt states he has 7 stents totally Past Anesthesia/Blood Transfusion Reactions: No Reported Reaction Additional Past Anesthesia/Blood Transfusion Reaction / Comment(s): HAD BLOOD TRANSFUSION without reaction. Date of Last Stent Placement:: 04/24/17 Past Psychological History: No Psychological Hx Reported Additional Psychological History / Comment(s): Pt lives alone in his home. Pt is independent worked for [employer] x25 years before retiring. He drives a car. He has a daughter that lives near-by who comes over alot and is a big help to the pt. Pt is a very good cook. He ambulates without any device. His June of 2011. Smoking Status: Never smoker Past Alcohol Use History: None Reported Additional Past Alcohol Use History / Comment(s): CHEWED TOBACCO FOR 30 YRS. QUIT CHEWING TOBACCO 1983 Past Drug Use History: None Reported - Past Family History Mother Family Medical History: Cancer Additional Family Medical History / Comment(s): Mother at age 51yrs old of uterine cancer which metastasized. Father Family Medical History: Diabetes Mellitus Medications and Allergies Home Medications Medication Instructions Recorded Confirmed Type Canagliflozin [Invokana] 100 mg PO W/SUPPER 01/25/14 06/16/17 History Alogliptin Benzoate [Nesina] 25 mg PO W/SUPPER 07/15/14 06/16/17 History Nitroglycerin Sl Tabs [Nitrostat] 0.4 mg SUBLINGUAL Q5M PRN 07/15/14 06/16/17 History Digoxin [Lanoxin] 125 mcg PO W/SUPPER 08/15/14 06/16/17 History metFORMIN HCL [Glucophage] 1,000 mg PO BID 09/19/14 06/16/17 History Omeprazole [PriLOSEC] 20 mg PO DAILY 11/25/14 06/16/17 History Clopidogrel [Plavix] 75 mg PO DAILY 12/02/14 06/16/17 History Pregabalin [Lyrica] 150 mg PO BID 06/06/15 06/16/17 History Furosemide [Lasix] 40 mg PO DAILY 08/28/15 06/16/17 History Isosorbide Mononitrate ER [Imdur] 60 mg PO DAILY 08/28/15 06/16/17 History Lisinopril [Zestril] 5 mg PO DAILY 08/28/15 06/16/17 History Tiotropium [place] [Spiriva] 1 cap INHALATION RT-DAILY PRN 08/28/15 06/16/17 History Aspirin [Adult Low Dose Aspirin EC] 81 mg PO DAILY 08/29/15 06/16/17 History Albuterol Inhaler [Ventolin Hfa 1 - 2 puff INHALATION RT-Q6H PRN 04/24/17 History Inhaler] Metoprolol Tartrate [Lopressor] 50 mg PO BID 04/24/17 06/16/17 History Albuterol Nebulized [Ventolin 2.5 mg INHALATION RT-QID PRN 06/16/17 06/16/17 History Nebulized] Atorvastatin [Lipitor] 80 mg PO W/SUPPER 06/16/17 06/16/17 History HYDROcodone/APAP 5-325MG [Marathon 1 tab PO BID PRN 06/16/17 06/16/17 History 5-325] Insulin Glargine,Hum.rec.anlog 10 unit SQ HS 06/16/17 06/16/17 History [Lantus Solostar] Allergies Allergy/AdvReac Type Severity Reaction Status Date / Time Penicillins Allergy Severe Rash/Hives Verified 06/16/17 22:00 ropinirole HCl [From Requip] Allergy Unknown Verified 06/16/17 22:00 Physical Exam Vitals: Vital Signs Temp Pulse Pulse Resp BP BP Pulse Ox 06/17/17 11:30 80 16 131/76 100 06/17/17 10:46 75 150/90 06/17/17 08:10 96.6 F L 72 18 122/80 97 06/17/17 04:00 98.2 F 72 18 123/81 97 06/17/17 00:00 97.6 F 81 18 119/83 97 06/16/17 23:36 97.6 F 72 16 154/70 99 06/16/17 23:21 97.6 F 81 18 119/83 97 06/16/17 22:25 103 H 18 155/73 100 06/16/17 20:18 97.9 F 96 18 129/80 94 L Intake and Output 06/16/17 06/17/17 06/17/17 22:59 06:59 14:59 Intake Total 356.237 143.306 Output Total 200 150 Balance 156.237 -6.694 Intake: IV 238 Heparin Sodium,Porcine/ 120 D5w Pmx 25,000 unit In Dextrose/Water 1 500ml. bag @ 12 UNITS/KG/HR 17. 96 mls/hr IV .Q24H [facility] Rx #:[id number] Magnesium Sulfate-D5w Pmx 100 1 gm In Dextrose/Water 1 100ml.bag @ 100 mls/hr IVPB ONCE ONE Rx#: [id number] Nitroglycerin-D5w Pmx 50 18 mg In Dextrose/Water 1 250ml.bag @ 10 MCG/MIN 3 mls/hr IV .Q24H [facility] Rx#: [id number] Intake, IV Titration 118.237 143.306 Amount Heparin Sodium,Porcine/ 118.237 143.306 D5w Pmx 25,000 unit In Dextrose/Water 1 500ml. bag @ 12 UNITS/KG/HR 17. 96 mls/hr IV .Q24H [facility] Rx #:[id number] Output: Urine 200 150 Other: # Voids 1 Weight 74.843 kg 74.6 kg PHYSICAL EXAMINATION: GENERAL: The patient is alert and oriented x3, not in any acute distress. Well developed, well nourished. HEENT: Pupils are round and equally reacting to light. EOMI. No scleral icterus. No conjunctival pallor. Normocephalic, atraumatic. No pharyngeal erythema. No thyromegaly. CARDIOVASCULAR: S1 and S2 present. No murmurs, rubs, or gallops. PULMONARY: Chest is clear to auscultation, no wheezing or crackles. ABDOMEN: Soft, nontender, nondistended, normoactive bowel sounds. No palpable organomegaly. MUSCULOSKELETAL: No joint swelling or deformity. EXTREMITIES: No cyanosis, clubbing, or pedal edema. NEUROLOGICAL: Gross neurological examination did not reveal any focal deficits. SKIN: No rashes. Results CBC & Chem 7: 06/16/17 20:50 06/16/17 20:50 Labs: Abnormal Lab Results - Last 24 Hours (Table) 06/16/17 06/16/17 06/16/17 Range/Units 20:50 20:50 20:50 WBC 11.4 H (3.8-10.6) k/uL RDW 15.9 H (11.5-15.5) % Neutrophils # 9.0 H (1.3-7.7) k/uL APTT (22.0-30.0) sec Carbon Dioxide 20 L (22-30) mmol/L BUN 23 H (9-20) mg/dL Glucose 175 H (74-99) mg/dL POC Glucose (mg/dL) (75-99) mg/dL Hemoglobin A1c (4.2-6.1) % Magnesium 1.5 L (1.6-2.3) mg/dL Troponin I 0.300 H* (0.000-0.034) ng/mL Triglycerides (<150) mg/dL HDL Cholesterol (40-60) mg/dL 06/17/17 06/17/17 06/17/17 Range/Units 00:08 03:22 03:22 WBC (3.8-10.6) k/uL RDW (11.5-15.5) % Neutrophils # (1.3-7.7) k/uL APTT 31.7 H (22.0-30.0) sec Carbon Dioxide (22-30) mmol/L BUN (9-20) mg/dL Glucose (74-99) mg/dL POC Glucose (mg/dL) 124 H (75-99) mg/dL Hemoglobin A1c (4.2-6.1) % Magnesium (1.6-2.3) mg/dL Troponin I 0.543 H* (0.000-0.034) ng/mL Triglycerides (<150) mg/dL HDL Cholesterol (40-60) mg/dL 06/17/17 06/17/17 06/17/17 Range/Units 03:22 05:50 10:05 WBC (3.8-10.6) k/uL RDW (11.5-15.5) % Neutrophils # (1.3-7.7) k/uL APTT (22.0-30.0) sec Carbon Dioxide (22-30) mmol/L BUN (9-20) mg/dL Glucose (74-99) mg/dL POC Glucose (mg/dL) 121 H (75-99) mg/dL Hemoglobin A1c 7.2 H (4.2-6.1) % Magnesium (1.6-2.3) mg/dL Troponin I 0.556 H* (0.000-0.034) ng/mL Triglycerides (<150) mg/dL HDL Cholesterol (40-60) mg/dL 06/17/17 06/17/17 06/17/17 Range/Units 10:05 10:05 11:51 WBC (3.8-10.6) k/uL RDW (11.5-15.5) % Neutrophils # (1.3-7.7) k/uL APTT 37.2 H (22.0-30.0) sec Carbon Dioxide (22-30) mmol/L BUN (9-20) mg/dL Glucose (74-99) mg/dL POC Glucose (mg/dL) 133 H (75-99) mg/dL Hemoglobin A1c (4.2-6.1) % Magnesium (1.6-2.3) mg/dL Troponin I (0.000-0.034) ng/mL Triglycerides 194 H (<150) mg/dL HDL Cholesterol 28 L (40-60) mg/dL Thrombosis Risk Factor Assmnt - Choose All That Apply Any of the Below Risk Factors Present?: No Other Risk Factors: No Other congenital or acquired thrombophilia - If yes, enter type in comment: No Thrombosis Risk Factor Assessment Level: Very Low Risk Assessment and Plan Plan: 1 chest pain: Non-ST elevation microinfarction with mildly elevated troponins: Patient probably will undergo cardiac catheterization cardiology is evaluating the patient. #2 can start failure chronic systolic dysfunction ejection fraction of around 45 % ischemic cardiomyopathy: Patient is not in acute exacerbation we'll continue with his home medications for now. Patient has an AICD #3 atrial fibrillation: Rate controlled patient is on xarelto #4 type 2 diabetes mellitus: Continue his home regimen except for metformin as he may undergo cardiac catheterization. #5 hypertension #6 prior history of CVAs and severe peripheral vascular disease #7 hyperlipidemia #8 coronary artery disease with previous cardiac catheterizations and multiple stents in the past #9 COPD without any acute exacerbation.
[2017-06-17] MEDS ORDERED: LIDOCAINE 2% INJ 20 MG/ML SQ ONE (13:15)
[2017-06-17] MEDS ORDERED: IV FLUID CONTINUATION 400 ML IV ONE (13:19)
[2017-06-17] MEDS ORDERED: BIVALIRUDIN BOLUS 250 MG/50 ML IV ONE (13:30)
[2017-06-17] MEDS ORDERED: BIVALIRUDIN 250 MG in SODIUM CHLORIDE 0.9% 40 ML IV ONE (13:31)
[2017-06-17] MEDS: NITROGLYCERIN 1000MCG/10ML SYRINGE INTRACORON ONE ×2 (13:37→14:06)
[2017-06-17] MEDS ORDERED: ATROPINE SULFATE 0.1 MG/ML 10ML SYRINGE IV PRN (14:12)
[2017-06-17] MEDS ORDERED: RX INFO: IV CONTRAST WAS GIVEN 1 EACH MISC MISCELLANE PRN (14:12)
[2017-06-17] MEDS ORDERED: ZOLPIDEM 5 MG TAB PO PRN (14:12)
[2017-06-17] MEDS ORDERED: SODIUM CHLORIDE 0.9% 1,000 ML IV SCH (14:15)
[2017-06-17] MEDS ORDERED: CLOPIDOGREL 75 MG TAB PO ONE (14:15)
[2017-06-17] MEDS ORDERED: IOHEXOL 350 MG/ML 125ML BOTTLE INJ ONE (14:23)
[2017-06-17] MEDS: IPRATROPIUM 0.5 MG/2.5 ML NEBU INHALATION PRN (15:44)
[2017-06-17 16:34] LABS: Glucose,Whole Blood 173 mg/dL (75-99)
[2017-06-17] MEDS: ATORVASTATIN 80 MG TAB PO SCH (16:37)
[2017-06-17] MEDS: DIGOXIN 125 MCG TAB PO SCH (18:22)
[2017-06-17] MEDS: FUROSEMIDE 40 MG TAB PO SCH (18:23)
[2017-06-17 20:51] LABS: Glucose,Whole Blood 220 mg/dL (75-99)
[2017-06-17] MEDS: MAG HYDROX/AL HYDROX/SIMETH 30 ML CUP PO PRN (20:53)
[2017-06-17] MEDS: INSULIN GLARGINE 100 UNIT/ML 10 ML VIAL SQ SCH (20:53)
[2017-06-17] MEDS: PREGABALIN 50 MG CAP PO SCH (22:03)
[2017-06-17 23:52] LABS: Anion Gap 17 mmol/L; Blood Urea Nitrogen 17 mg/dL (9-20); Calcium 9.6 mg/dL (8.4-10.2); Carbon Dioxide 16 mmol/L (22-30); Chloride 109 mmol/L (98-107); Glucose 210 mg/dL (74-99); Magnesium 1.8 mg/dL (1.6-2.3); Non-African American GFR(MDRD) >60 (>60 ml/min/1.73 sqM); Potassium 4.5 mmol/L (3.5-5.1); Sodium 142 mmol/L (137-145)
[2017-06-18] MEDS ORDERED: Magnesium Replacement Protocol 1 EACH MISC MISCELLANE PRN (01:59)
[2017-06-18 03:14] LABS: Glucose,Whole Blood 223 mg/dL (75-99)
[2017-06-18] MEDS: MAGNESIUM SULFATE-D5W PMX 1 GM in DEXTROSE/WATER 1 100ML.BAG IVPB SCH ×4 (03:14→21:30)
[2017-06-18 05:43] LABS: Glucose,Whole Blood 288 mg/dL (75-99)
[2017-06-18] MEDS: ALPRAZolam 0.5 MG TAB PO PRN (06:10)
[2017-06-18 06:23] LABS: Anisocytosis Slight; CH 30.1; CHCM 31.1; HCT 52.7 % (39.0-53.0); HDW 3.16; HGB 15.4 gm/dL (13.0-17.5); Hypochromasia Moderate; MCH 28.6 pg (25.0-35.0); MCHC 29.3 g/dL (31.0-37.0); Macrocytosis Slight; Mean Platelet Volume 9.9; RDW 17.1 % (11.5-15.5); WBC 18.1 k/uL (3.8-10.6)
[2017-06-18 06:32] LABS: MCV 97.5 fL (80.0-100.0)
[2017-06-18] MEDS: PANTOPRAZOLE 40 MG TABLET PO SCH (06:32)
[2017-06-18 06:37] LABS: Anion Gap 20 mmol/L; Blood Urea Nitrogen 17 mg/dL (9-20); Calcium 9.2 mg/dL (8.4-10.2); Chloride 112 mmol/L (98-107); Glucose 264 mg/dL (74-99); Non-African American GFR(MDRD) >60 (>60 ml/min/1.73 sqM); Sodium 142 mmol/L (137-145)
[2017-06-18 06:45] LABS: Carbon Dioxide 10 mmol/L (22-30)
[2017-06-18] MEDS: IPRATROPIUM 0.5 MG/2.5 ML NEBU INHALATION PRN ×4 (07:49→19:54)
[2017-06-18] MEDS: ALBUTEROL NEBULIZED 2.5 MG/3 ML INHALATION PRN (07:49)
[2017-06-18] MEDS ORDERED: FUROSEMIDE 10 MG/ML 4 ML VIAL IV STA (08:27)
[2017-06-18] MEDS: DOCUSATE 100 MG CAP PO SCH ×2 (08:46→20:56)
[2017-06-18] MEDS: PREGABALIN 50 MG CAP PO SCH ×2 (08:46→20:56)
[2017-06-18] MEDS: CLOPIDOGREL 75 MG TAB PO SCH (08:47)
[2017-06-18] MEDS: FUROSEMIDE 40 MG TAB PO SCH (08:47)
[2017-06-18] MEDS: ISOSORBIDE MONONITRATE ER 60 MG TAB.ER.24H PO SCH (08:47)
[2017-06-18] MEDS: METOPROLOL TARTRATE 50 MG TAB PO SCH ×2 (08:47→20:56)
[2017-06-18] MEDS: LISINOPRIL 5 MG TAB PO SCH (08:47)
[2017-06-18] MEDS: ASPIRIN 325 MG TAB PO SCH (08:48)
--- NOTE | 2017-06-18 08:55 | ECHOF ---
Referral Reason:nstemi MEASUREMENTS -------- HEIGHT: 175.3 cm WEIGHT: 74.4 kg BP: 150/90 IVSd: 1.2 cm (0.6 - 1.1) LVIDd: 5.8 cm (3.9 - 5.3) LVPWd: 1.0 cm (0.6 - 1.1) IVSs: 1.4 cm LVIDs: 5.2 cm LVPWs: 1.1 cm LA Diam: 4.6 cm (2.7 - 3.8) LAESV Index (A-L): 65.54 ml/m Ao Diam: 3.1 cm (2.0 - 3.7) AV Cusp: 1.3 cm (1.5 - 2.6) LA Diam: 4.9 cm (2.7 - 3.8) MV EXCURSION: 15.965 mm (> 18.000) MV EF SLOPE: 91 mm/s (70 - 150) EPSS: 1.1 cm MV E Sean: 0.88 m/s MV DecT: 95 ms MV A Sean: 0.38 m/s MV E/A Ratio: 2.32 RAP: 5.00 mmHg RVSP: 59.10 mmHg FINDINGS -------- Undetermined rhythm. This was a technically adequate study. There is mild concentric left ventricular hypertrophy. Overall left ventricular systolic function is mild-moderately impaired with, an EF between 40 - 45 %. The right ventricle is normal in size. LA is severely dilated >40 ml/m2 The right atrial size is normal. There is mild aortic valve sclerosis. There is mild aortic regurgitation. Mild mitral annular calcification present. Severe mitral regurgitation is present. No regurgitation noted There is no evidence of pulmonary hypertension. The right ventricular systolic pressure, as measured by Doppler, is 59.10mmHg. There is no pulmonic regurgitation present. The aortic root size is normal. There is no pericardial effusion. CONCLUSIONS -------- 1. There is mild concentric left ventricular hypertrophy. 2. The right ventricular systolic pressure, as measured by Doppler, is 59.10mmHg. 3. There is no pulmonic regurgitation present. 4. The aortic root size is normal. 5. There is no pericardial effusion. 6. Overall left ventricular systolic function is mild-moderately impaired with, an EF between 40 - 45 %. 7. LA is severely dilated >40 ml/m2 8. There is mild aortic valve sclerosis. 9. There is mild aortic regurgitation. 10. Mild mitral annular calcification present. 11. Severe mitral regurgitation is present. 12. No regurgitation noted 13. There is no evidence of pulmonary hypertension. CARBON PAPER INTERLEAFER: Nola Marcial RDCS
--- NOTE | 2017-06-18 09:00 | XR ---
EXAMINATION TYPE: XR chest 1V DATE OF EXAM: 06/18/2017 COMPARISON: 06/16/2017 HISTORY: 81-year-old male difficulty breathing, evaluate for CHF TECHNIQUE: Single frontal view of the chest is obtained. FINDINGS: Patient is rotated towards the left. Left anterior chest wall AICD generator with right ventricular l ead. The heart is upper limits of normal in size. Mild diffuse interstitial prominence. Opacity is sl ightly more confluent at the right infrahilar region. No significant pleural effusion seen on the fro ntal view. IMPRESSION: 1. Borderline heart size with changes suggesting pulmonary vascular congestion. 2. More confluent opacity at the right infrahilar region could represent developing pulmonary edema o r infiltrate.
--- NOTE | 2017-06-18 10:19 | CC ---
CARDIAC CATHETERIZATION REPORT DATE OF PROCEDURE: 06/17/2017 PERFORMING PHYSICIAN: Jaswinder Cooley, assembler small products. PROCEDURE PERFORMED: 1. Selective right and left coronary angiogram. 2. Successful stenting of the ramus intermedius coronary artery using 2.5 x 8 mm Promus Premier drug-eluting stent with good angiographic results. INDICATION: This is a pleasant 81-year-old gentleman who sees Dr. Harris in the office as an outpatient who is known to have coronary artery disease and prior stenting of the ramus intermedius coronary artery as well as multiple risk factors, presented to the hospital with chest discomfort and was ruled in for acute non ST elevation myocardial infarction. He was seen and evaluated by Dr. Bee who recommended proceeding with a coronary angiogram. APPROACH: Right common femoral artery. COMPLICATION: None. LEVEL OF SEDATION: Moderate with sedation length of 53 minutes. PROCEDURE DESCRIPTION: After obtaining an informed consent, the patient was brought to the cardiac cook house laborer. The right common femoral artery was cannulated using micropuncture technique, the micropuncture wire passed easily then I placed a 6-Nepali sheath in the right common femoral artery. Subsequently I did selective right and left coronary angiogram using JR4 and JL4 catheters. After that, I did intervene on the ramus intermedius. Please see a separate paragraph for that. SELECTIVE CORONARY ANGIOGRAM: 1. The right coronary artery is a large caliber vessel and it is a dominant vessel. The proximal RCA appeared to have disease in the range of 50% to 60% and seems to be unchanged compared to before. The mid RCA is angiographically normal. The RCA distally has mild disease only and bifurcates into PDA and PLV branches. The RCA gives collateral to the chronic chronically occluded left circumflex. 2. The left main has mild disease only. It bifurcates into the left circumflex, ramus intermedius, and left anterior descending artery. 3. The left circumflex is a medium caliber vessel and it is a nondominant vessel. The proximal left circumflex appears to have mild disease only. The mid left circumflex has mild disease only and gives rise into a medium size obtuse marginal branch which appeared to be angiographically normal and the left circumflex after that is chronically occluded and fills by collateral. 4. The ramus intermedius coronary artery; the proximal ramus appeared to be stented and the stent is patent. The proximal ramus bifurcates into 2 branches. The lower branch of the ramus appears to have mild disease only. The upper branch, which is stented appeared to be occluded. 5. The left anterior descending artery; the proximal LAD appeared to have mild disease only. The mid LAD appeared to have mild disease only as well and gives rise into small diagonal branch. The LAD distally appeared to have mild disease only. PCI OF THE RAMUS INTERMEDIUS: Anticoagulation was initiated using Angiomax. Subsequently I took an XB3.5 guide and the left main was engaged. A whisper wire was used to cross the acute total occlusion in the ramus intermedius. Subsequently I did PTCA ballooning initially using 2.0 x 12 mm balloon. I tried advancing 2.5 x 15 mm Xience drug-eluting stent but the stent will not cross the proximal portion of the ramus intermedius, which is stented from before. At that point, I tried to use GuideLiner to get the stent to the lesion in the ramus intermedius, but the GuideLiner will not cross the proximal left circumflex coronary artery. At that point, I decided to double wire, so I did use a whisper wire and a run- through wire as a cori wire. I tried again advancing the stent over the whisper wire, but I was unable to do it. At that point, I decided to do PTCA ballooning on the proximal ramus intermedius stented segment so I did use 2.5 noncompliant balloon and I ballooned that area. After that, I attempted advancing the stent over the whisper wire, but the stent will not cross. At that point, I decided to change to a Promus Premier drug-eluting stent and use a shorter stent, which was an 8 mm. I tried advancing that stent over the whisper wire, but the stent will not cross, so I decided to choose to advance over the run-through wire and I was able to get the stent to the area I wanted to be in and the stent was positioned under fluoroscopy guidance and deployed under 12 atmospheres for 20 seconds. The following angiogram showed good angiographic results without perforation and without dissection with a good flow. At that point, the procedure was completed without any complication. CONCLUSION: 1. Intermediate disease involving the mid RCA seems to be unchanged compared to before. 2. Mild disease involving the left main coronary artery. 3. Chronic total occlusion of the left circumflex, which seems to be unchanged compared to before as well. 4. Acute total occlusion of the upper branch of the ramus intermedius, which is in-stent occlusion. 5. Mild disease involving the left anterior descending artery. 6. Successful stenting of the ramus intermedius using 2.5 x 8 mm Promus Premier drug- eluting stent with good angiographic results. POSTPROCEDURE MANAGEMENT: 1. Dual anti-platelet therapy. 2. Risk factors modifications. 3. Follow up with the patient. MMODL / IJN: [id number] /
--- NOTE | 2017-06-18 10:28 | P.PN ---
Subjective Progress Note Date: 06/18/17 Principal diagnosis: NSTEMI This is an 81-year-old gentleman with known history of coronary artery disease and recent angioplasty of the ramus intermediate in April of this year by Dr. Gan who presented to the hospital with a non-ST elevation myocardial infarction. He was taken to the cardiac catheterization lab yesterday where he underwent angioplasty and stenting of the ramus intermediate artery. Patient had several episodes of shortness of breath through the night last night and this morning was complaining of feeling quite short of breath. He also had some mild abdominal discomfort. He denies any chest discomfort. His EKG this morning showed triple fibrillation with a controlled ventricular response, ST depression in the lateral leads similar to prior to the procedure. At pressure 122/70 with a heart rate in the 90s, 92% on 2 L of oxygen. A stat chest x-ray was performed which revealed borderline heart size with changes suggesting pulmonary vascular congestion. Patient was given a one-time dose of 40 mg of IV Lasix, at the time of her reevaluation later patient was feeling much better. Objective - Vital Signs Vital signs: Vital Signs Temp 97.8 F 06/18/17 04:00 Pulse 92 06/18/17 08:00 Resp 18 06/18/17 04:00 BP 122/72 06/18/17 04:00 Pulse Ox 92 L 06/18/17 04:00 Intake & Output 06/17/17 06/18/17 06/18/17 18:59 06:59 18:59 Intake Total 926.301 0083 Output Total 550 680 Balance -161.694 345 Weight 74.6 kg 74.2 kg Intake: IV 245 1025 Heparin Sodium,Porcine/ 90 D5w Pmx 25,000 unit In Dextrose/Water 1 500ml. bag @ 12 UNITS/KG/HR 17. 96 mls/hr IV .Q24H [facility] Rx #:[id number] Magnesium Sulfate-D5w Pmx 200 1 gm In Dextrose/Water 1 100ml.bag @ 100 mls/hr IVPB ONCE ONE Rx#: [id number] Nitroglycerin-D5w Pmx 50 15 mg In Dextrose/Water 1 250ml.bag @ 10 MCG/MIN 3 mls/hr IV .Q24H [facility] Rx#: [id number] Sodium Chloride 0.9% 1, 825 000 ml @ 75 mls/hr IV . [id number] [facility] Rx#:[id number] Intake, IV Titration 143.306 Amount Heparin Sodium,Porcine/ 143.306 D5w Pmx 25,000 unit In Dextrose/Water 1 500ml. bag @ 12 UNITS/KG/HR 17. 96 mls/hr IV .Q24H [facility] Rx #:[id number] Output: Urine 550 680 Other: Voiding Method Urinal # Voids 1 3 - Exam PHYSICAL EXAMINATION: HEENT: Head is atraumatic, normocephalic. Pupils equal, round. Neck is supple. There is no elevated jugular venous pressure. HEART EXAMINATION: Heart S1 and S2 irregularly irregular a systolic murmur is heard. CHEST EXAMINATION: Lungs revealed rales bilaterally. ABDOMEN: Soft, mild generalized tenderness . Bowel sounds are heard. No organomegaly noted. EXTREMITIES: Bilateral Doppler pedal pulses. Right groin soft, no evidence of any hematoma. NEUROLOGIC patient is awake, alert and oriented -3. . - Labs CBC & Chem 7: 06/18/17 05:48 06/18/17 05:48 Labs: Abnormal Lab Results - Last 24 Hours (Table) 06/17/17 06/17/17 06/17/17 Range/Units 10:05 10:05 10:05 WBC (3.8-10.6) k/uL MCHC (31.0-37.0) g/dL RDW (11.5-15.5) % APTT 37.2 H (22.0-30.0) sec Chloride (98-107) mmol/L Carbon Dioxide (22-30) mmol/L Glucose (74-99) mg/dL POC Glucose (mg/dL) (75-99) mg/dL Troponin I 0.556 H* (0.000-0.034) ng/mL Triglycerides 194 H (<150) mg/dL HDL Cholesterol 28 L (40-60) mg/dL 06/17/17 06/17/17 06/17/17 Range/Units 11:51 16:28 20:50 WBC (3.8-10.6) k/uL MCHC (31.0-37.0) g/dL RDW (11.5-15.5) % APTT (22.0-30.0) sec Chloride (98-107) mmol/L Carbon Dioxide (22-30) mmol/L Glucose (74-99) mg/dL POC Glucose (mg/dL) 133 H 173 H 220 H (75-99) mg/dL Troponin I (0.000-0.034) ng/mL Triglycerides (<150) mg/dL HDL Cholesterol (40-60) mg/dL 06/17/17 06/18/17 06/18/17 Range/Units 23:11 03:12 05:41 WBC (3.8-10.6) k/uL MCHC (31.0-37.0) g/dL RDW (11.5-15.5) % APTT (22.0-30.0) sec Chloride 109 H (98-107) mmol/L Carbon Dioxide 16 L (22-30) mmol/L Glucose 210 H (74-99) mg/dL POC Glucose (mg/dL) 223 H 288 H (75-99) mg/dL Troponin I (0.000-0.034) ng/mL Triglycerides (<150) mg/dL HDL Cholesterol (40-60) mg/dL 06/18/17 06/18/17 Range/Units 05:48 05:48 WBC 18.1 H (3.8-10.6) k/uL MCHC 29.3 L (31.0-37.0) g/dL RDW 17.1 H (11.5-15.5) % APTT (22.0-30.0) sec Chloride 112 H (98-107) mmol/L Carbon Dioxide 10 L* (22-30) mmol/L Glucose 264 H (74-99) mg/dL POC Glucose (mg/dL) (75-99) mg/dL Troponin I (0.000-0.034) ng/mL Triglycerides (<150) mg/dL HDL Cholesterol (40-60) mg/dL Assessment and Plan Plan: Assessment and plan #1 non-ST elevation myocardial infarction, status post angioplasty and stenting of the ramus intermediate artery #2 known history of coronary artery disease with prior stent placements, most recently patient underwent angioplasty with stenting of the ramus intermediate in April #3 diabetes #4 hypertension #5 ischemic cardiomyopathy with prior ICD implant #6 prior CVA #7 peripheral vascular disease #8 chronic persistent atrial fibrillation patient had been on xarelto and Coumadin in the past, had GI bleeding and for this reason is not on anticoagulation. #9 hyperlipidemia Plan Patient was given a one-time dose of 40 mg of IV Lasix. We will continue his other current medications which include aspirin 81 mg daily, Lipitor 80 mg daily , Plavix 75 mg daily, Lanoxin 125mcg daily, Lasix 40 mg by mouth daily, Imdur 60 mg daily, lisinopril 5 mg daily. DNP note has been reviewed, I agree with a documented findings and plan of care. Patient was seen and examined.
[2017-06-18 12:07] LABS: Glucose,Whole Blood 156 mg/dL (75-99)
[2017-06-18 16:39] LABS: Anisocytosis Slight; Basophils # (A) 0.1 k/uL (0-0.2); Basophils % (A) 0 %; CH 29.3; CHCM 30.2; Eosinophils # (A) 0.1 k/uL (0-0.7); Eosinophils % (A) 0 %; HCT 50.8 % (39.0-53.0); HGB 15.6 gm/dL (13.0-17.5); Hypochromasia Marked; Luc # (Auto) 0.22; Luc % (Auto) 1; Lymphocytes # (A) 1.1 k/uL (1.0-4.8); Lymphocytes % (A) 5 %; MCHC 30.8 g/dL (31.0-37.0); MCV 97.4 fL (80.0-100.0); Macrocytosis Slight; Mean Platelet Volume 9.2; Monocytes # (A) 1.8 k/uL (0-1.0); Monocytes % (A) 8 %; Neutrophils # (A) 19.2 k/uL (1.3-7.7); Neutrophils % (A) 85 %; RBC 5.21 m/uL (4.30-5.90); RDW 16.1 % (11.5-15.5); WBC 22.5 k/uL (3.8-10.6); WBC (Perox) 21.69
[2017-06-18] MEDS ORDERED: SODIUM CHLORIDE 0.9% 1,000 ML IV ONE (16:49)
[2017-06-18] MEDS ORDERED: PIPERACILLIN-TAZOBACTAM 3.375 GM in DEXTROSE/WATER 1 50ML.BAG IVPB SCH (17:00)
[2017-06-18 17:04] LABS: Glucose,Whole Blood 185 mg/dL (75-99)
[2017-06-18] MEDS: SODIUM CHLORIDE 0.9% 1,000 ML IV SCH ×2 (17:11→18:00)
[2017-06-18] MEDS: LEVOFLOXACIN 750MG-D5W PMX 750 MG in DEXTROSE/WATER 1 150ML.BAG IVPB SCH (18:51)
[2017-06-18] MEDS: ATORVASTATIN 80 MG TAB PO SCH (18:54)
[2017-06-18] MEDS: DIGOXIN 125 MCG TAB PO SCH (18:54)
[2017-06-18] MEDS ORDERED: NALOXONE 0.4 MG/ML 1 ML VIAL IV PRN (19:38)
--- NOTE | 2017-06-18 19:55 | XR ---
EXAMINATION TYPE: XR chest 1V portable DATE OF EXAM: 06/18/2017 COMPARISON: Today HISTORY: Pneumonia TECHNIQUE: Single frontal view of the chest is obtained. FINDINGS: Heart is enlarged. There is pulmonary vascular congestion. There is increased density in b oth lower lobes. There are chest leads. There is left axillary pacemaker with the lead tip in the rig ht ventricle. IMPRESSION: Congestive heart failure that is probably improved compared to exam this morning. Lower lobe pneumonia cannot be excluded.
[2017-06-18] MEDS: AZTREONAM 2 GM in SODIUM CHLORIDE 0.9% 100 ML IVPB SCH (20:49)
[2017-06-18] MEDS: INSULIN GLARGINE 100 UNIT/ML 10 ML VIAL SQ SCH (21:15)
[2017-06-18] MEDS: INSULIN LISPRO (humaLOG) 300 UNIT/3 ML VIAL SQ SCH (21:16)
[2017-06-18 21:19] LABS: Glucose,Whole Blood 189 mg/dL (75-99)
--- NOTE | 2017-06-18 22:32 | P.PN ---
Subjective Progress Note Date: 06/18/17 Principal diagnosis: Non-ST elevated ID This is an 81-year-old gentleman with known history of coronary artery disease and recent angioplasty of the ramus intermediate in April of this year by Dr. Gan who presented to the hospital with a non-ST elevation myocardial infarction. He was taken to the cardiac catheterization lab yesterday where he underwent angioplasty and stenting of the ramus intermediate artery. Patient also has chronic persistent atrial fibrillation. Chest x-ray today showed changes suggestive of Congestive heart failure. Suspected left lower lobe infiltrate. Patient does have episodes or short of breath last night. Today afternoon patient became tachycardic tachypneic and febrile with T-max level of 101.9. Patient had repeat chest x-ray and lactic acid level was done and was found to be elevated. Patient was started on IV hydration and also started on broad- spectrum antibiotics. Patient will be transferred to intensive care unit for further management. Patient otherwise denied any chest pain. No nausea no vomiting. Objective - Vital Signs Vital signs: Vital Signs Temp 101.9 F H 06/18/17 16:00 Pulse 60 06/18/17 16:15 Resp 20 06/18/17 16:00 BP 155/76 06/18/17 16:00 Pulse Ox 96 06/18/17 16:00 Intake & Output 06/17/17 06/18/17 06/18/17 18:59 06:59 18:59 Intake Total 823.010 7574 Output Total 550 680 Balance -161.694 345 Weight 74.6 kg 74.2 kg Intake: IV 245 1025 Heparin Sodium,Porcine/ 90 D5w Pmx 25,000 unit In Dextrose/Water 1 500ml. bag @ 12 UNITS/KG/HR 17. 96 mls/hr IV .Q24H [facility] Rx #:[id number] Magnesium Sulfate-D5w Pmx 200 1 gm In Dextrose/Water 1 100ml.bag @ 100 mls/hr IVPB ONCE [facility] Rx#: [id number] Nitroglycerin-D5w Pmx 50 15 mg In Dextrose/Water 1 250ml.bag @ 10 MCG/MIN 3 mls/hr IV .Q24H [facility] Rx#: [id number] Sodium Chloride 0.9% 1, 825 000 ml @ 75 mls/hr IV . [id number] [facility] Rx#:[id number] Intake, IV Titration 143.306 Amount Heparin Sodium,Porcine/ 143.306 D5w Pmx 25,000 unit In Dextrose/Water 1 500ml. bag @ 12 UNITS/KG/HR 17. 96 mls/hr IV .Q24H [facility] Rx #:[id number] Output: Urine 550 680 Other: Voiding Method Urinal Urinal # Voids 1 3 - Exam PHYSICAL EXAMINATION: Patient is lying in the bed comfortably, mild distress, awake alert and oriented.. HEENT: Normocephalic. Neck is supple. Pupils reactive. Nostrils clear. Oral cavity is moist. Ears reveal no drainage. Neck reveals no JVD, carotid bruits, or thyromegaly. CHEST EXAMINATION: Trachea is central. Symmetrical expansion. Bilateral air entry is present. Decreased basilar breath sounds with left basal crackles.. CARDIAC: Normal S1, S2 with no gallops. No murmurs ABDOMEN: Soft. Bowel sounds normal. No organomegaly. No abdominal bruits. Extremities: reveal no edema. No clubbing or cyanosis Neurologically awake, alert, oriented x3 with well-coordinated movements. No focal deficits noted Skin: No rash or skin lesions. Psychiatric: Operative. Nonsuicidal Musculoskeletal: No joint swelling or deformity. Normal range of motion. - Labs CBC & Chem 7: 06/18/17 16:01 06/18/17 05:48 Labs: Abnormal Lab Results - Last 24 Hours (Table) 06/17/17 06/17/17 06/18/17 Range/Units 20:50 23:11 03:12 WBC (3.8-10.6) k/uL MCHC (31.0-37.0) g/dL RDW (11.5-15.5) % Neutrophils # (1.3-7.7) k/uL Monocytes # (0-1.0) k/uL Chloride 109 H (98-107) mmol/L Carbon Dioxide 16 L (22-30) mmol/L Glucose 210 H (74-99) mg/dL POC Glucose (mg/dL) 220 H 223 H (75-99) mg/dL Plasma Lactic Acid [place] (0.7-2.0) mmol/L 06/18/17 06/18/17 06/18/17 Range/Units 05:41 05:48 05:48 WBC 18.1 H (3.8-10.6) k/uL MCHC 29.3 L (31.0-37.0) g/dL RDW 17.1 H (11.5-15.5) % Neutrophils # (1.3-7.7) k/uL Monocytes # (0-1.0) k/uL Chloride 112 H (98-107) mmol/L Carbon Dioxide 10 L* (22-30) mmol/L Glucose 264 H (74-99) mg/dL POC Glucose (mg/dL) 288 H (75-99) mg/dL Plasma Lactic Acid [place] (0.7-2.0) mmol/L 06/18/17 06/18/17 06/18/17 Range/Units 11:39 16:01 16:01 WBC 22.5 H (3.8-10.6) k/uL MCHC 30.8 L (31.0-37.0) g/dL RDW 16.1 H (11.5-15.5) % Neutrophils # 19.2 H (1.3-7.7) k/uL Monocytes # 1.8 H (0-1.0) k/uL Chloride (98-107) mmol/L Carbon Dioxide (22-30) mmol/L Glucose (74-99) mg/dL POC Glucose (mg/dL) 156 H (75-99) mg/dL Plasma Lactic Acid [place] 9.0 H* (0.7-2.0) mmol/L Assessment and Plan Plan: #1 severe sepsis secondary to left lower lobe pneumonia. Patient was confused. Worsening leukocytosis. Febrile and tachycardic. #1 chest pain due to Non-ST elevation ID with mildly elevated troponins: Status post cardiac Catheterization stent to ramus intermedius. #2 history of coronary artery disease status post stent placement in April 2017 #2 chronic systolic dysfunction ejection fraction of around 45% ischemic cardiomyopathy: Patient is not in acute exacerbation we'll continue with his home medications for now. Patient has an AICD #3 chronic persistent atrial fibrillation: Rate controlled. patient was on xarelto. Discontinued due to GI bleed. #4 type 2 diabetes mellitus: Continue his home regimen except for metformin . Insulin sliding scale #5 hypertension. controlled #6 prior history of CVAs and severe peripheral vascular disease #7 hyperlipidemia #9 COPD without any acute exacerbation. Plan: Patient was given IV fluid bolus and continued on IV fluids. We will recheck lactic acid level. Monitor fluid status due to history of congestive heart failure. Patient will be started on antibiotics in the form of azactam and Levaquin. Patient is ALLERGIC to penicillin. Continue with aspirin and Plavix and digoxin. Continue with metoprolol and lisinopril. Current to monitor closely. Patient will be transferred to medical intensive care unit. Prognosis is guarded. Further recommendations based on the clinical course. Cardiology is on board and pulmonary was consulted. Time with Patient: Greater than 30
[2017-06-18] MEDS: traMADol 50 MG TAB PO PRN (23:31)
[2017-06-19] MEDS: AZTREONAM 2 GM in SODIUM CHLORIDE 0.9% 100 ML IVPB SCH ×3 (04:30→22:19)
[2017-06-19] MEDS: ALPRAZolam 0.5 MG TAB PO PRN (04:49)
[2017-06-19 05:02] LABS: Anisocytosis Slight; Basophils # (A) 0.1 k/uL (0-0.2); Basophils % (A) 0 %; CH 29.3; CHCM 30.5; Eosinophils # (A) 0.1 k/uL (0-0.7); Eosinophils % (A) 1 %; HCT 44.7 % (39.0-53.0); HDW 3.01; HGB 13.9 gm/dL (13.0-17.5); Hypochromasia Marked; Luc # (Auto) 0.32; Luc % (Auto) 2; Lymphocytes # (A) 0.8 k/uL (1.0-4.8); Lymphocytes % (A) 4 %; MCV 96.7 fL (80.0-100.0); Monocytes % (A) 10 %; Neutrophils # (A) 17.8 k/uL (1.3-7.7); Neutrophils % (A) 84 %; RBC 4.62 m/uL (4.30-5.90); RDW 16.1 % (11.5-15.5); WBC 21.1 k/uL (3.8-10.6); WBC (Perox) 22.23
[2017-06-19 05:19] LABS: Anion Gap 14 mmol/L; Carbon Dioxide 15 mmol/L (22-30); Chloride 108 mmol/L (98-107); Glucose 125 mg/dL (74-99); Non-African American GFR(MDRD) >60 (>60 ml/min/1.73 sqM); Sodium 137 mmol/L (137-145)
[2017-06-19 05:27] LABS: Blood Urea Nitrogen 16 mg/dL (9-20); Magnesium 2.2 mg/dL (1.6-2.3); Phosphorus 3.2 mg/dL (2.5-4.5); Potassium 4.7 mmol/L (3.5-5.1)
[2017-06-19] MEDS: traMADol 50 MG TAB PO PRN ×2 (05:44→20:00)
[2017-06-19] MEDS: MAG HYDROX/AL HYDROX/SIMETH 30 ML CUP PO PRN (05:46)
[2017-06-19 07:16] LABS: Glucose,Whole Blood 156 mg/dL (75-99)
--- NOTE | 2017-06-19 07:16 | XR ---
EXAMINATION TYPE: XR chest 1V DATE OF EXAM: 06/19/2017 HISTORY: Shortness of breath. COMPARISON: 06/18/2017 TECHNIQUE: Single view of the chest is submitted. FINDINGS: Demonstrated are scattered senescent parenchymal change. There is no evidence for focal infiltrate. There is evidence of cardiomegaly with pulmonary venous congestion. Small effusions noted. Single ezio d pacer is in place. Hilar and mediastinal structures are within normal limits. Degenerative changes are seen of the dorsal spine. IMPRESSION: 1. Stable features of congestive failure.
[2017-06-19 07:36] LABS: Glucose,Whole Blood 167 mg/dL (75-99)
[2017-06-19] MEDS: IPRATROPIUM 0.5 MG/2.5 ML NEBU INHALATION PRN ×3 (07:46→19:14)
[2017-06-19] MEDS: ALBUTEROL NEBULIZED 2.5 MG/3 ML INHALATION PRN ×3 (07:46→19:14)
[2017-06-19] MEDS: INSULIN LISPRO (humaLOG) 300 UNIT/3 ML VIAL SQ SCH ×3 (08:24→17:45)
[2017-06-19] MEDS: ASPIRIN 81 MG PO SCH (08:25)
[2017-06-19] MEDS: ISOSORBIDE MONONITRATE ER 60 MG TAB.ER.24H PO SCH (08:25)
[2017-06-19] MEDS: PANTOPRAZOLE 40 MG TABLET PO SCH (08:25)
[2017-06-19] MEDS: DOCUSATE 100 MG CAP PO SCH ×2 (08:25→19:59)
[2017-06-19] MEDS: FUROSEMIDE 40 MG TAB PO SCH (08:25)
[2017-06-19] MEDS: CLOPIDOGREL 75 MG TAB PO SCH (08:25)
[2017-06-19] MEDS: METOPROLOL TARTRATE 50 MG TAB PO SCH ×2 (08:26→19:59)
[2017-06-19] MEDS: LISINOPRIL 5 MG TAB PO SCH (08:26)
[2017-06-19] MEDS: PREGABALIN 50 MG CAP PO SCH ×2 (08:29→20:00)
[2017-06-19] MEDS ORDERED: RX INFO: IV CONTRAST WAS GIVEN 1 EACH MISC MISCELLANE PRN (09:45)
--- NOTE | 2017-06-19 09:51 | P.CNPUL ---
History of Present Illness Consult date: 06/19/17 Chief complaint: Sepsis, lactic acidosis History of present illness: 81-year-old male patient with known history of coronary artery disease, CHF with previous AICD placement, presented to the hospital because of epigastric pain and he had obvious EKG abnormalities and abnormal troponins. He was diagnosed having a non-ST segment elevation myocardial infarction and he was taken to cardiac catheterization on 06/17/2017 and the patient underwent angioplasty and stenting of the ramus intermediate artery. Note that the patient was having shortness of breath on day of admission and was complaining of progressive increase in dyspnea. He also complained of some mild abdominal discomfort on admission that was thought to be essentially epigastric in location. In any rate, the patient underwent a successful coronary intervention and the patient was recovering on a telemetry unit when he started having fever, and chills with a temperature of 101.9 and he became progressively more tachypneic and tachycardic. His lactic acid level was at 9.0. Based on all this, the patient was moved to the intensive care unit where he was given a total of 1-1/2-2 L of IV fluids. He was covered with a combination of Levaquin and aztreonam. Since then he has not spiked any fever. His white cell count is elevated however no fever or chills and he is feeling better less tachycardic and tachypneic compared to yesterday. There is no alternative source of sepsis at this point. He has a AICD in place and the pocket site is clean. No cough or sputum production. No open wounds or sores. His urine on admission was negative. Chest x-ray shows cardiomegaly and some limited pleural effusion and a retrocardiac infiltrate cannot be completely excluded. This morning, the patient is still having some vague mid abdominal pain which has subsided however it is not completely gone. No nausea. No vomiting. His last bowel movement was approximately 3 days ago. He is still in chronic atrial fibrillation. He did have short runs of V. tach yesterday that were nonsustained. His magnesium level was 1.8 was replaced. He has no chest pain for now. No further arrhythmias. He has on no anticoagulation based on previous history of GI bleeding. Review of Systems Constitutional: Reports fatigue, Reports poor appetite, Reports weakness Eyes: denies blurred vision, denies bulging eye, denies decreased vision Ears: deny: decreased hearing, ear discharge, earache Ears, nose, mouth and throat: Denies headache, Denies sore throat Cardiovascular: Reports chest pain, Reports decreased exercise tolerance, Reports dyspnea on exertion, Reports irregular heart beat, Reports shortness of breath Respiratory: Reports dyspnea Gastrointestinal: Reports abdominal pain, Reports constipation Musculoskeletal: Denies myalgias Musculoskeletal: absent: ankle pain, ankle stiffness, ankle swelling Integumentary: Denies pruritus, Denies rash Neurological: Denies numbness, Denies weakness Psychiatric: Denies anxiety, Denies depression Endocrine: Denies fatigue, Denies weight change Past Medical History Past Medical History: Atrial Fibrillation, Coronary Artery Disease (CAD), Chest Pain / Angina, Heart Failure, COPD, CVA/TIA, Diabetes Mellitus, GERD/Reflux, GI Bleed, Hyperlipidemia, Hypertension, Myocardial Infarction (ID), Vascular Disorder Additional Past Medical History / Comment(s): Multivessel coronary artery disease with previous coronary intervention and stenting, CHF, single chamber AICD placement in 2014, prior CVA without any residual deficits, chronic persistent atrial fibrillation and the patient has been on Xarelto in the past and the patient has been taken off Xarelto due to GI bleed, history of nonsustained V. tach, hyperlipidemia, hypertension, acid reflux, peripheral neuropathy, peripheral vascular disease, nephrolithiasis and kidney stones, previous history of GI bleed, COPD Last Myocardial Infarction Date:: History of Any Multi-Drug Resistant Organisms: None Reported Past Surgical History: Heart Catheterization, Heart Catheterization With Stent, Hernia Repair Additional Past Surgical History / Comment(s): 2014- leg artherectomy with balloon angioplasty, Coronary stents total of [address] 06/07/15 , bilateral cataracts , LEFT RING FINGER AMPUTATION, lithotripsy, TURP, EGD and colonoscopy .04/24 2 stents, pt states he has 7 stents totally Past Anesthesia/Blood Transfusion Reactions: No Reported Reaction Additional Past Anesthesia/Blood Transfusion Reaction / Comment(s): HAD BLOOD TRANSFUSION without reaction. Date of Last Stent Placement:: 04/24/17 Past Psychological History: No Psychological Hx Reported Additional Psychological History / Comment(s): Pt lives alone in his home. Pt is independent worked for [employer] x25 years before retiring. He drives a car. He has a daughter that lives near-by who comes over alot and is a big help to the pt. Pt is a very good cook. He ambulates without any device. His June of 2011. Smoking Status: Never smoker Past Alcohol Use History: None Reported Additional Past Alcohol Use History / Comment(s): CHEWED TOBACCO FOR 30 YRS. QUIT CHEWING TOBACCO 1983 Past Drug Use History: None Reported - Past Family History Mother Family Medical History: Cancer Additional Family Medical History / Comment(s): Mother at age 51yrs old of uterine cancer which metastasized. Father Family Medical History: Diabetes Mellitus Medications and Allergies Home Medications Medication Instructions Recorded Confirmed Type Canagliflozin [Invokana] 100 mg PO W/SUPPER 01/25/14 06/16/17 History Alogliptin Benzoate [Nesina] 25 mg PO W/SUPPER 07/15/14 06/16/17 History Nitroglycerin Sl Tabs [Nitrostat] 0.4 mg SUBLINGUAL Q5M PRN 07/15/14 06/16/17 History Digoxin [Lanoxin] 125 mcg PO W/SUPPER 08/15/14 06/16/17 History metFORMIN HCL [Glucophage] 1,000 mg PO BID 09/19/14 06/16/17 History Omeprazole [PriLOSEC] 20 mg PO DAILY 11/25/14 06/16/17 History Clopidogrel [Plavix] 75 mg PO DAILY 12/02/14 06/16/17 History Pregabalin [Lyrica] 150 mg PO BID 06/06/15 06/16/17 History Furosemide [Lasix] 40 mg PO DAILY 08/28/15 06/16/17 History Isosorbide Mononitrate ER [Imdur] 60 mg PO DAILY 08/28/15 06/16/17 History Lisinopril [Zestril] 5 mg PO DAILY 08/28/15 06/16/17 History Tiotropium [place] [Spiriva] 1 cap INHALATION RT-DAILY PRN 08/28/15 06/16/17 History Aspirin [Adult Low Dose Aspirin EC] 81 mg PO DAILY 08/29/15 06/16/17 History Albuterol Inhaler [Ventolin Hfa 1 - 2 puff INHALATION RT-Q6H PRN 04/24/17 History Inhaler] Metoprolol Tartrate [Lopressor] 50 mg PO BID 04/24/17 06/16/17 History Albuterol Nebulized [Ventolin 2.5 mg INHALATION RT-QID PRN 06/16/17 06/16/17 History Nebulized] Atorvastatin [Lipitor] 80 mg PO W/SUPPER 06/16/17 06/16/17 History HYDROcodone/APAP 5-325MG [[place] 1 tab PO BID PRN 06/16/17 06/16/17 History 5-325] Insulin Glargine,Hum.rec.anlog 10 unit SQ HS 06/16/17 06/16/17 History [Lantus Solostar] Allergies Allergy/AdvReac Type Severity Reaction Status Date / Time Penicillins Allergy Severe Rash/Hives Verified 06/16/17 22:00 ropinirole HCl [From Requip] Allergy Unknown Verified 06/16/17 22:00 Physical Exam Vitals: Vital Signs Temp Pulse Pulse Resp BP BP Pulse Ox 06/19/17 07:57 114 H 06/19/17 07:46 105 H 06/19/17 07:00 89 18 118/71 100 06/19/17 06:30 108 H 32 H 118/62 100 06/19/17 06:00 104 H 30 H 99 06/19/17 05:30 126 H 34 H 138/88 98 06/19/17 05:00 108 H 38 H 132/79 96 06/19/17 04:30 131 H 34 H 135/73 91 L 06/19/17 04:00 97.8 F 98 35 H 136/69 98 06/19/17 03:30 82 32 H 121/79 100 06/19/17 03:00 92 12 119/79 100 06/19/17 02:30 96 12 140/73 100 06/19/17 02:00 85 32 H 121/69 100 06/19/17 01:30 88 21 122/75 100 06/19/17 01:00 86 36 H 139/80 100 06/19/17 00:30 89 32 H 128/67 100 06/19/17 00:00 98 F 76 28 H 125/80 100 06/18/17 23:30 94 34 H 113/70 100 06/18/17 23:00 90 35 H 109/74 95 06/18/17 22:30 94 35 H 117/65 96 06/18/17 22:00 97 32 H 131/74 95 06/18/17 21:30 93 32 H 107/65 96 06/18/17 21:00 102 H 19 112/57 98 06/18/17 20:30 86 27 H 110/64 97 06/18/17 20:15 101 H 06/18/17 20:01 92 99 06/18/17 20:00 99.9 F H 85 30 H 115/68 99 06/18/17 19:30 110 H 30 H 117/61 97 06/18/17 19:00 100 19 150/79 98 06/18/17 18:30 101 H 20 115/76 98 06/18/17 18:00 112 H 21 119/70 100 06/18/17 17:30 119 H 22 133/82 95 06/18/17 17:21 114 H 16 133/82 91 L 06/18/17 16:15 60 06/18/17 16:09 56 L 06/18/17 16:00 101.9 F H 87 20 155/76 96 06/18/17 12:00 68 16 104/64 94 L 06/18/17 11:58 68 06/18/17 11:53 60 06/18/17 11:42 16 Intake and Output 06/18/17 06/19/17 06/19/17 22:59 06:59 14:59 Intake Total 1825 900 100 Output Total 605 508 60 Balance 1220 392 40 Intake: IV 825 900 100 Aztreonam 2 gm In Sodium 100 100 Chloride 0.9% 100 ml @ 100 mls/hr IVPB Q8H [facility] Rx#:[id number] Magnesium Sulfate-D5w Pmx 200 1 gm In Dextrose/Water 1 100ml.bag @ 100 mls/hr IVPB Q1H [facility] Rx#: [id number] Sodium Chloride 0.9% 1, 700 100 000 ml @ 100 mls/hr IV . Q10H [facility] Rx#:[id number] Sodium Chloride 0.9% 1, 300 100 000 ml @ 50 mls/hr IV . Q20H [facility] Rx#:[id number] Sodium Chloride 0.9% 1, 225 000 ml @ 75 mls/hr IV . [id number] [facility] Rx#:[id number] Intake, IV Titration 1000 Amount Sodium Chloride 0.9% 1, 1000 000 ml @ 999 mls/hr IV . Q1H1M [facility] Rx#:[id number] Output: Urine 605 508 60 Other: Voiding Method Indwelling Catheter Indwelling Catheter Weight 77.6 kg This patient is elderly male patient nonacute distress resting comfortably in bed. He looks a little bit malnourished. Head exam was generally normal. There was no scleral icterus or corneal arcus. Mucous membranes were moist. My normal neck lungs sounds are diminished in lung bases along with that there is some bibasilar crackles. Heart sounds are irregular, positive S1-S2, no cervical murmurs appreciated. Abdomen is soft and nontender. There is no direct tenderness. No rebound tensile guarding. Extremities show diminished pulses and there is no cyanosis or clubbing. Neurologically the patient is awake alert and following commands and answering questions appropriately.Examination of the skin revealed no evidence of significant rashes , suspicious appearing nevi or other concerning lesions. Results - Laboratory Findings CBC and BMP: 06/19/17 04:14 06/19/17 04:14 PT/INR, D-dimer PT 11.4 sec (9.0-12.0) 06/16/17 20:50 INR 1.1 (<1.2) 06/16/17 20:50 Abnormal lab findings: Abnormal Labs 06/16/17 06/16/17 06/16/17 20:50 20:50 20:50 WBC 11.4 H MCHC RDW 15.9 H Neutrophils # 9.0 H Lymphocytes # Monocytes # APTT Chloride Carbon Dioxide 20 L BUN 23 H Glucose 175 H POC Glucose (mg/dL) Hemoglobin A1c Plasma Lactic Acid [place] Calcium Magnesium 1.5 L Troponin I 0.300 H* Triglycerides HDL Cholesterol 06/17/17 06/17/17 06/17/17 00:08 03:22 03:22 WBC MCHC RDW Neutrophils # Lymphocytes # Monocytes # APTT 31.7 H Chloride Carbon Dioxide BUN Glucose POC Glucose (mg/dL) 124 H Hemoglobin A1c Plasma Lactic Acid [place] Calcium Magnesium Troponin I 0.543 H* Triglycerides HDL Cholesterol 06/17/17 06/17/17 06/17/17 03:22 05:50 10:05 WBC MCHC RDW Neutrophils # Lymphocytes # Monocytes # APTT Chloride Carbon Dioxide BUN Glucose POC Glucose (mg/dL) 121 H Hemoglobin A1c 7.2 H Plasma Lactic Acid [place] Calcium Magnesium Troponin I 0.556 H* Triglycerides HDL Cholesterol 06/17/17 06/17/17 06/17/17 10:05 10:05 11:51 WBC MCHC RDW Neutrophils # Lymphocytes # Monocytes # APTT 37.2 H Chloride Carbon Dioxide BUN Glucose POC Glucose (mg/dL) 133 H Hemoglobin A1c Plasma Lactic Acid [place] Calcium Magnesium Troponin I Triglycerides 194 H HDL Cholesterol 28 L 06/17/17 06/17/17 06/17/17 16:28 20:50 23:11 WBC MCHC RDW Neutrophils # Lymphocytes # Monocytes # APTT Chloride 109 H Carbon Dioxide 16 L BUN Glucose 210 H POC Glucose (mg/dL) 173 H 220 H Hemoglobin A1c Plasma Lactic Acid [place] Calcium Magnesium Troponin I Triglycerides HDL Cholesterol 06/18/17 06/18/17 06/18/17 03:12 05:41 05:48 WBC 18.1 H MCHC 29.3 L RDW 17.1 H Neutrophils # Lymphocytes # Monocytes # APTT Chloride Carbon Dioxide BUN Glucose POC Glucose (mg/dL) 223 H 288 H Hemoglobin A1c Plasma Lactic Acid [place] Calcium Magnesium Troponin I Triglycerides HDL Cholesterol 06/18/17 06/18/17 06/18/17 05:48 11:39 16:01 WBC 22.5 H MCHC 30.8 L RDW 16.1 H Neutrophils # 19.2 H Lymphocytes # Monocytes # 1.8 H APTT Chloride 112 H Carbon Dioxide 10 L* BUN Glucose 264 H POC Glucose (mg/dL) 156 H Hemoglobin A1c Plasma Lactic Acid [place] Calcium Magnesium Troponin I Triglycerides HDL Cholesterol 06/18/17 06/18/17 06/18/17 16:01 17:01 20:00 WBC MCHC RDW Neutrophils # Lymphocytes # Monocytes # APTT Chloride Carbon Dioxide BUN Glucose POC Glucose (mg/dL) 185 H Hemoglobin A1c Plasma Lactic Acid [place] 9.0 H* 2.1 H* Calcium Magnesium Troponin I Triglycerides HDL Cholesterol 06/18/17 06/19/17 06/19/17 21:09 04:14 04:14 WBC 21.1 H MCHC RDW 16.1 H Neutrophils # 17.8 H Lymphocytes # 0.8 L Monocytes # 2.0 H APTT Chloride 108 H Carbon Dioxide 15 L BUN Glucose 125 H POC Glucose (mg/dL) 189 H Hemoglobin A1c Plasma Lactic Acid [place] Calcium 8.0 L Magnesium Troponin I Triglycerides HDL Cholesterol 06/19/17 06/19/17 07:13 07:34 WBC MCHC RDW Neutrophils # Lymphocytes # Monocytes # APTT Chloride Carbon Dioxide BUN Glucose POC Glucose (mg/dL) 156 H 167 H Hemoglobin A1c Plasma Lactic Acid [place] Calcium Magnesium Troponin I Triglycerides HDL Cholesterol - Diagnostic Findings Chest x-ray: image reviewed Assessment and Plan Plan: Assessment 1 acute febrile illness associated with tachycardia, tachypnea, leukocytosis and lactic acidosis. The constellation of these findings are consistent with sepsis. Possibilities include ischemic colitis specially the patient has advanced cardiac disease and peripheral vascular disease and chronic mesenteric ischemia is likely within the differential diagnosis was probable subacute or an ischemic colitis-type of picture which she covered with fluid resuscitation. Pneumonia is felt to be less likely despite the presence of some left retrocardiac opacity. Other alternative sources of infection sepsis cannot be completely excluded 2 acute non-ST segment elevation myocardial infarction status post cardiac catheterization and stenting of the ramus intermedius 3 multivessel coronary artery disease with previous coronary intervention and stenting 4 CHF with ejection fraction 45% and severely dilated LA 5 single chamber AICD placement 2015 6 CVA without any residual deficits 7 chronic atrial fibrillation and the patient has been on Xarelto in the past and this has been taken off due to GI bleed 8 nonsustained V. tach 9 hyperlipidemia 7 hypertension 11 peripheral neuropathy 12 peripheral vascular disease 13 nephrolithiasis 14 history of GI bleed, with a previous endoscopies showing a small hiatal hernia and a colonic polyp that was resected and a scattered sigmoid diverticulosis. 15 acid reflux Plan Awaiting results of the blood cultures. Obtain a CAT scan of the abdomen and pelvis with by mouth and IV contrast. Obtain amylase and lipase. Obtain a broad-spectrum antibiotic coverage and the patient is currently on a combination of Levaquin and Azactam. I reviewed the EGD and colonoscopy from 2014. I think it's rather safe to assume that the patient may be started back on anticoagulation. I will discuss this with cardiology. Starting Xarelto is reasonable at this point specially with his chronic atrial fibrillation. Time with Patient: Greater than 30
--- NOTE | 2017-06-19 10:17 | PN ---
PROGRESS NOTE Mr. Rosas is an 81-year-old male with a known history of coronary artery disease, status post percutaneous revascularization of his ramus intermedius, who presented with a non STEMI, has a history of chronic atrial fibrillation, has not been anticoagulated in the past because of prior history of bleeding, although no acute bleeding at this point. Yesterday, he became shaking, not feeling well, abdominal discomfort and was noted to have significant elevation of his lactic acid was transferred to the ICU, received IV fluid. During the night, he had a run of nonsustained ventricular tachycardia. He has no further episodes of chest discomfort or arm discomfort, but he had one episode of abdominal discomfort. He has no dizziness or palpitation. He is hemodynamically stable in atrial fibrillation with mostly controlled ventricular response. He had no significant nausea or vomiting. He had no diarrhea. He continues to be on the aspirin once a day, Lipitor 80 mg daily, Plavix 75 mg daily, digoxin 0.125 mg daily. He is on isosorbide mononitrate 60 mg daily, lisinopril 5 mg daily, metoprolol tartrate 50 mg 3 times a day, Lyrica. PHYSICAL EXAMINATION: Blood pressure 115/70 with the heart rate in the 80s. LUNGS: With few crackles. No wheezes. HEART: Irregular, irregular. S1, S2. No S3. No rub appreciated. ABDOMEN: Soft, nontender. Positive bowel sounds. No organomegaly. EXTREMITIES: No significant edema. LAB DATA: Lab data revealed white blood cell of 21.1. BUN and creatinine 16 and 0.8. His bicarb is up to 15. His plasma lactic acid is down from 9 to 2.1. His chest x-ray revealed mild congestion. IMPRESSION: 1. Lactic acid elevation suggestive of a sepsis. The possibility of ischemic bowel could not be excluded. The possibility of embolic phenomenon to the bowel from the atrial fibrillation cannot be totally excluded, although less likely. 2. Status post recent stenting of the ramus intermedius in the setting of non-ST elevation myocardial infarction. 3. Chronic atrial fibrillation, not anticoagulated because of prior history of gastrointestinal bleeding. 4. Hypertension. 5. Hyperlipidemia. 6. Ischemic cardiomyopathy with ejection fraction of 40% to 45% with significant mitral regurgitation. RECOMMENDATION: From the cardiac standpoint, we will continue on the beta concepción, the aspirin and the Plavix but will undergo a CT scan of the abdomen. If there is no evidence of acute abdomen, he may be a candidate to attempt anticoagulation for possible ischemic bowel and with close followup of his hemoglobin. The case was discussed in detail with Dr. Arango. NICOLETTE / MONICA: [id number] /
[2017-06-19 10:49] LABS: Amylase 50 U/L (30-110)
[2017-06-19 12:13] LABS: Glucose,Whole Blood 126 mg/dL (75-99)
[2017-06-19] MEDS: IOHEXOL 350 MG/ML 25 ML BOTTLE (ORAL USE) PO PRN ×2 (12:30→13:32)
--- NOTE | 2017-06-19 15:05 | CT ---
EXAMINATION TYPE: CT abdomen pelvis w con DATE OF EXAM: 06/19/2017 COMPARISON: NONE HISTORY: Mid line abd pain CT DLP: 1921 mGycm Automated exposure control for dose reduction was used. TECHNIQUE: Helical acquisition of images was performed from the lung bases through the pelvis. CONTRAST: Performed with Oral Contrast and with IV Contrast, patient injected with 100 mL of Omnipaque 300. FINDINGS: LUNG BASES: Partially visualized at least small volume pleural effusions are seen with associated bib asilar airspace disease that could represent atelectasis and or pneumonia as this is reticular nodula r in configuration. Right hemidiaphragm elevation indicates a degree of atelectasis although is parti ally chronic is seen on the prior exam of 11/25/2014. The heart is enlarged with three-vessel coronary artery calcifications and partial visualization of cardiac leads. Reflux of contrast into the inferi or vena cava and hepatic veins indicate a degree of right-sided heart failure as does engorgement of the inferior vena cava at this level. LIVER/GB: Numerous gallstones are seen within the gallbladder body and neck. Biliary sludge is also s een layering dependently. The liver is unremarkable in enhancement in morphology. PANCREAS: Mild pancreatic atrophy is noted. SPLEEN: No significant abnormality is seen. ADRENALS: Slight enlargement of the adrenal glands is seen without discrete measurable nodule. Findin g may relate to adrenal gland hyperplasia as they maintain an adreniform shape. KIDNEYS: 1.8 cm left renal cyst is present as well as nonspecific bilateral perinephric fat stranding , left greater than right with chronic soft tissue density inferiorly with a spiculated morphology un changed from the exam of 11/25/2014. This measures 2.3 x 1.1 cm. Emanating from the mid pole of the right kidney posteriorly exophytic 1.1 cm renal cyst is present. L obulated contour of the kidneys may relate to remote injury as there are numerous areas of cortical r etraction. PELVIC ADENOPATHY: No greater than 1 cm lymph nodes are seen within the abdomen or pelvis. OSSEOUS STRUCTURES: No significant abnormality is seen. BOWEL: Long segment area of sigmoid decompression may relate to incomplete distention or nonobstruct kenneth incomplete stricture from prior diverticulitis as there are numerous sigmoid diverticula. Minimal bowel wall thickening is seen of the sigmoid colon and rectosigmoid junction without pericolonic fat stranding. No current pericolonic fat stranding is seen to suggest current diverticulitis. OTHER: Cerna catheter is placed within the incompletely distended urinary bladder. Intraluminal air i s likely related to the recent instrumentation. Small bilateral fat filled inguinal hernias are prese nt. Nonspecific presacral edema is seen that could relate to fluid overload as mild mesenteric conges tion is displayed diffusely throughout the abdomen and pelvis as minimal haziness of the mesenteric f at. Diastases recti is seen without umbilical hernia. IMPRESSION: 1. MINIMAL COLONIC WALL THICKENING THAT MAY RELATE TO MILD COLITIS VERSUS INCOMPLETE DISTENTION WITH FOCAL AREA OF LONG SEGMENT DECOMPRESSION OF THE SIGMOID COLON WHICH COULD RELATE TO INCOMPLETE NONOBS TRUCTIVE STRICTURE VERSUS PERISTALSIS. 2. PARTIAL VISUALIZATION OF AT LEAST SMALL VOLUME BILATERAL PLEURAL EFFUSIONS AND BIBASILAR AIRSPACE DISEASE THAT COULD REPRESENT PNEUMONIA IN THE PROPER CLINICAL SETTING AND/OR ATELECTASIS. 3. REFLUX OF CONTRAST INTO THE HEPATIC VEINS AND CARDIOMEGALY RELATES TO A DEGREE OF UNDERLYING CONGE STIVE HEART FAILURE. 4. CHOLELITHIASIS AND BILIARY SLUDGE. 5. CHRONIC APPEARING LEFT PERINEPHRIC FAT STRANDING AND PERIRENAL FLUID UNCHANGED SINCE 2015.
[2017-06-19 17:25] LABS: Glucose,Whole Blood 142 mg/dL (75-99)
[2017-06-19] MEDS: LEVOFLOXACIN 750MG-D5W PMX 750 MG in DEXTROSE/WATER 1 150ML.BAG IVPB SCH (18:36)
[2017-06-19] MEDS: DIGOXIN 125 MCG TAB PO SCH (18:36)
[2017-06-19] MEDS: ATORVASTATIN 80 MG TAB PO SCH (18:36)
[2017-06-19] MEDS: SODIUM CHLORIDE 0.9% 1,000 ML IV SCH (18:37)
--- NOTE | 2017-06-20 01:15 | P.PN ---
Subjective Progress Note Date: 06/19/17 Principal diagnosis: Non-ST elevated HI This is an 81-year-old gentleman with known history of coronary artery disease and recent angioplasty of the ramus intermediate in April of this year by Dr. Gan who presented to the hospital with a non-ST elevation myocardial infarction. He was taken to the cardiac catheterization lab yesterday where he underwent angioplasty and stenting of the ramus intermediate artery. Patient also has chronic persistent atrial fibrillation. Chest x-ray today showed changes suggestive of Congestive heart failure. Suspected left lower lobe infiltrate. Patient does have episodes or short of breath last night. Today afternoon patient became tachycardic tachypneic and febrile with T-max level of 101.9. Patient had repeat chest x-ray and lactic acid level was done and was found to be elevated. Patient was started on IV hydration and also started on broad- spectrum antibiotics. Patient will be transferred to intensive care unit for further management. Patient otherwise denied any chest pain. No nausea no vomiting. On 06/19/2017 Patient did improve clinically. Patient does have vague abdominal pain. Serial abdominal pelvis was ordered and possible ischemic colitis suspected. Lactic acidosis improved to 2.1 with fluid resuscitation. Leukocytosis slightly improved afebrile now. Patient is more awake and oriented. CT of abdomen pelvis was ordered. Objective - Vital Signs Vital signs: Vital Signs Temp 99.1 F 06/19/17 16:00 Pulse 84 06/19/17 19:29 Resp 22 06/19/17 19:00 BP 123/70 06/19/17 19:00 Pulse Ox 99 06/19/17 19:00 Intake & Output 06/19/17 06/19/17 06/20/17 06:59 18:59 06:59 Intake Total 1575 800 100 Output Total 963 552 45 Balance 612 248 55 Weight 77.6 kg Intake: IV 1575 800 100 Aztreonam 2 gm In Sodium 200 100 Chloride 0.9% 100 ml @ 100 mls/hr IVPB Q8H [facility] Rx#:[id number] Levofloxacin 750Mg-D5w 100 Pmx 750 mg In Dextrose/ Water 1 150ml.bag @ 100 mls/hr IVPB Q24H [facility] Rx#: [id number] Magnesium Sulfate-D5w Pmx 200 1 gm In Dextrose/Water 1 100ml.bag @ 100 mls/hr IVPB Q1H [facility] Rx#: [id number] Sodium Chloride 0.9% 1, 700 600 000 ml @ 100 mls/hr IV . Q10H [facility] Rx#:[id number] Sodium Chloride 0.9% 1, 400 100 000 ml @ 50 mls/hr IV . Q20H [facility] Rx#:[id number] Sodium Chloride 0.9% 1, 75 000 ml @ 75 mls/hr IV . [id number] [facility] Rx#:[id number] Output: Urine 963 552 45 Other: Voiding Method Indwelling Catheter Indwelling Catheter - Exam PHYSICAL EXAMINATION: Patient is lying in the bed comfortably, mild distress, awake alert and oriented.. HEENT: Normocephalic. Neck is supple. Pupils reactive. Nostrils clear. Oral cavity is moist. Ears reveal no drainage. Neck reveals no JVD, carotid bruits, or thyromegaly. CHEST EXAMINATION: Trachea is central. Symmetrical expansion. Bilateral air entry is present. Decreased basilar breath sounds with left basal crackles.. CARDIAC: Normal S1, S2 with no gallops. No murmurs ABDOMEN: Soft. Nontender. Bowel sounds normal. No organomegaly. No abdominal bruits. Extremities: reveal no edema. No clubbing or cyanosis Neurologically awake, alert, oriented x3 with well-coordinated movements. No focal deficits noted Skin: No rash or skin lesions. Psychiatric: Operative. Nonsuicidal Musculoskeletal: No joint swelling or deformity. Normal range of motion. - Labs CBC & Chem 7: 06/19/17 04:14 06/19/17 04:14 Labs: Abnormal Lab Results - Last 24 Hours (Table) 06/19/17 06/19/17 06/19/17 Range/Units 04:14 04:14 07:13 WBC 21.1 H (3.8-10.6) k/uL RDW 16.1 H (11.5-15.5) % Neutrophils # 17.8 H (1.3-7.7) k/uL Lymphocytes # 0.8 L (1.0-4.8) k/uL Monocytes # 2.0 H (0-1.0) k/uL Chloride 108 H (98-107) mmol/L Carbon Dioxide 15 L (22-30) mmol/L Glucose 125 H (74-99) mg/dL POC Glucose (mg/dL) 156 H (75-99) mg/dL Calcium 8.0 L (8.4-10.2) mg/dL 06/19/17 06/19/17 06/19/17 Range/Units 07:34 12:11 17:24 WBC (3.8-10.6) k/uL RDW (11.5-15.5) % Neutrophils # (1.3-7.7) k/uL Lymphocytes # (1.0-4.8) k/uL Monocytes # (0-1.0) k/uL Chloride (98-107) mmol/L Carbon Dioxide (22-30) mmol/L Glucose (74-99) mg/dL POC Glucose (mg/dL) 167 H 126 H 142 H (75-99) mg/dL Calcium (8.4-10.2) mg/dL Microbiology - Last 24 Hours (Table) 06/18/17 18:00 Blood Culture - Preliminary Blood No Growth after 24 hours 06/18/17 17:14 Urine Culture - Preliminary Urine,Catheterized Assessment and Plan Plan: #1 abdominal pain. Suspected ischemic colitis with significant elevated lactic acid level improved with fluid resuscitation. CT of the abdomen and pelvis was ordered. Patient will be continued on broad-spectrum antibiotics. Less likely pneumonia at this time #1 sepsis with possible left lower lobe pneumonia. #1 chest pain due to Non-ST elevation HI with mildly elevated troponins: Status post cardiac Catheterization stent to ramus intermedius. #2 history of coronary artery disease status post stent placement in April 2017 #2 chronic systolic dysfunction ejection fraction of around 45% ischemic cardiomyopathy: Patient is not in acute exacerbation we'll continue with his home medications for now. Patient has an AICD #3 chronic persistent atrial fibrillation: Rate controlled. patient was on xarelto. Discontinued due to GI bleed. #4 type 2 diabetes mellitus: Continue his home regimen except for metformin . Insulin sliding scale #5 hypertension. controlled #6 prior history of CVAs and severe peripheral vascular disease #7 hyperlipidemia #9 COPD without any acute exacerbation. Plan: Patient was given IV fluid bolus and continued on IV fluids. Lactic acid level improved. Improving leukocytosis. Monitor fluid status due to history of congestive heart failure. Patient will be started on antibiotics in the form of azactam and Levaquin. Patient is ALLERGIC to penicillin. Continue with aspirin and Plavix and digoxin. Continue with metoprolol and lisinopril. Current to monitor closely. Follow CT abdominen and pelvis report. Prognosis is guarded. Further recommendations based on the clinical course. Cardiology is on board and pulmonary was consulted. Time with Patient: Greater than 30
[2017-06-20] MEDS: INSULIN GLARGINE 100 UNIT/ML 10 ML VIAL SQ SCH ×2 (01:29→20:45)
[2017-06-20] MEDS: INSULIN LISPRO (humaLOG) 300 UNIT/3 ML VIAL SQ SCH ×5 (01:31→20:45)
[2017-06-20] MEDS: traMADol 50 MG TAB PO PRN ×2 (01:59→09:28)
[2017-06-20] MEDS: ALPRAZolam 0.5 MG TAB PO PRN ×2 (01:59→14:51)
[2017-06-20] MEDS: AZTREONAM 2 GM in SODIUM CHLORIDE 0.9% 100 ML IVPB SCH ×3 (04:34→20:35)
[2017-06-20 07:58] LABS: Glucose,Whole Blood 135 mg/dL (75-99)
--- NOTE | 2017-06-20 08:03 | XR ---
EXAMINATION TYPE: XR chest 1V DATE OF EXAM: 06/20/2017 COMPARISON: 06/19/2017 HISTORY: Shortness of breath TECHNIQUE: Single frontal view of the chest is obtained. FINDINGS: Cardiomegaly is again seen. Bibasilar opacities in the retrocardiac airspace and right low er lobe are redemonstrated. Right midlung linear subsegmental platelike atelectasis is also seen. Sin gle lead left-sided cardiac device is seen as well as mild degenerative changes of the thoracic spine . IMPRESSION: Unchanged bibasilar opacities that may represent pneumonia in the appropriate clinical s etting and/or atelectasis .
[2017-06-20 08:27] LABS: Anisocytosis Slight; Basophils # (A) 0.1 k/uL (0-0.2); Basophils % (A) 0 %; CH 30.5; CHCM 32.2; Eosinophils # (A) 0.3 k/uL (0-0.7); Eosinophils % (A) 2 %; HCT 42.9 % (39.0-53.0); HDW 3.18; HGB 13.4 gm/dL (13.0-17.5); Hypochromasia Slight; Luc # (Auto) 0.12; Luc % (Auto) 1; Lymphocytes # (A) 0.6 k/uL (1.0-4.8); Lymphocytes % (A) 3 %; MCH 29.7 pg (25.0-35.0); MCHC 31.2 g/dL (31.0-37.0); MCV 95.5 fL (80.0-100.0); Mean Platelet Volume 9.3; Monocytes # (A) 1.1 k/uL (0-1.0); Monocytes % (A) 6 %; Neutrophils # (A) 14.9 k/uL (1.3-7.7); Neutrophils % (A) 87 %; WBC 17.1 k/uL (3.8-10.6); WBC (Perox) 16.64
[2017-06-20 08:40] LABS: Anion Gap 11 mmol/L; Blood Urea Nitrogen 14 mg/dL (9-20); Calcium 8.3 mg/dL (8.4-10.2); Carbon Dioxide 16 mmol/L (22-30); Chloride 111 mmol/L (98-107); Glucose 148 mg/dL (74-99); Non-African American GFR(MDRD) >60 (>60 ml/min/1.73 sqM); Phosphorus 2.4 mg/dL (2.5-4.5); Potassium 4.2 mmol/L (3.5-5.1); Sodium 138 mmol/L (137-145)
[2017-06-20] MEDS: ALBUTEROL NEBULIZED 2.5 MG/3 ML INHALATION PRN (08:44)
[2017-06-20] MEDS: PANTOPRAZOLE 40 MG TABLET PO SCH (08:44)
[2017-06-20] MEDS: CLOPIDOGREL 75 MG TAB PO SCH (08:45)
[2017-06-20] MEDS: FUROSEMIDE 40 MG TAB PO SCH (08:45)
[2017-06-20] MEDS: LISINOPRIL 5 MG TAB PO SCH (08:45)
[2017-06-20] MEDS: METOPROLOL TARTRATE 50 MG TAB PO SCH ×2 (08:45→20:42)
[2017-06-20] MEDS: ASPIRIN 81 MG PO SCH (08:45)
[2017-06-20] MEDS: DOCUSATE 100 MG CAP PO SCH ×2 (08:45→20:42)
[2017-06-20] MEDS: ISOSORBIDE MONONITRATE ER 60 MG TAB.ER.24H PO SCH (08:45)
[2017-06-20] MEDS: PREGABALIN 50 MG CAP PO SCH ×2 (08:47→20:42)
[2017-06-20] MEDS: SODIUM CHLORIDE 0.9% 1,000 ML IV SCH ×3 (08:48→17:46)
--- NOTE | 2017-06-20 09:47 | P.PN ---
Subjective Progress Note Date: 06/20/17 81-year-old male patient with known history of coronary artery disease, CHF with previous AICD placement, presented to the hospital because of epigastric pain and he had obvious EKG abnormalities and abnormal troponins. He was diagnosed having a non-ST segment elevation myocardial infarction and he was taken to cardiac catheterization on 06/17/2017 and the patient underwent angioplasty and stenting of the ramus intermediate artery. Note that the patient was having shortness of breath on day of admission and was complaining of progressive increase in dyspnea. He also complained of some mild abdominal discomfort on admission that was thought to be essentially epigastric in location. In any rate, the patient underwent a successful coronary intervention and the patient was recovering on a telemetry unit when he started having fever, and chills with a temperature of 101.9 and he became progressively more tachypneic and tachycardic. His lactic acid level was at 9.0. Based on all this, the patient was moved to the intensive care unit where he was given a total of 1-1/2-2 L of IV fluids. He was covered with a combination of Levaquin and aztreonam. Since then he has not spiked any fever. His white cell count is elevated however no fever or chills and he is feeling better less tachycardic and tachypneic compared to yesterday. There is no alternative source of sepsis at this point. He has a AICD in place and the pocket site is clean. No cough or sputum production. No open wounds or sores. His urine on admission was negative. Chest x-ray shows cardiomegaly and some limited pleural effusion and a retrocardiac infiltrate cannot be completely excluded. This morning, the patient is still having some vague mid abdominal pain which has subsided however it is not completely gone. No nausea. No vomiting. His last bowel movement was approximately 3 days ago. He is still in chronic atrial fibrillation. He did have short runs of V. tach yesterday that were nonsustained. His magnesium level was 1.8 was replaced. He has no chest pain for now. No further arrhythmias. He has on no anticoagulation based on previous history of GI bleeding. On 06/20/2017 the patient is being seen for a follow-up. The patient is doing extremely well. His lactic acidosis recovered. He is hemodynamically stable. He is afebrile. No signs of acute septicemia. The blood cultures been negative. Urine cultures showing gram-negative bacilli. Note that the CAT scan of the abdomen was also done yesterday showed minimal colonic wall thickening which could potentially indicate a mild colitis versus nonobstructive stricture versus peristalsis. There is also small bilateral pleural effusion and bibasilar airspace disease. There was also cardiomegaly, cholelithiasis and bilious sludge and chronically appearing left perinephric fat stranding and pararenal fluid unchanged since 2014. As such I'm not sure if the source of infection was urine or abdominal although I suspect that it could have been a urine checked infection more than ischemic colitis. The patient is tolerating diet for now. He is producing adequate amount of urine output. He remains on a combination of aztreonam and Levaquin. White cell count is down to 17.1. His metabolic acidosis is improving. His bicarb level is up to 16 and his anion gap is down to 11. He is awake and alert. He is following commands and answering questions. No chest pain. He remains in atrial fibrillation. Objective - Vital Signs Vital signs: Vital Signs Temp 98 F 06/20/17 08:00 Pulse 92 06/20/17 09:00 Resp 31 H 06/20/17 09:00 BP 141/76 06/20/17 09:00 Pulse Ox 100 06/20/17 09:00 Intake & Output 06/19/17 06/20/17 06/20/17 18:59 06:59 18:59 Intake Total 800 1800 800 Output Total 552 1060 285 Balance 248 740 515 Weight 82.1 kg Intake: IV 800 1400 300 Aztreonam 2 gm In Sodium 100 200 Chloride 0.9% 100 ml @ 100 mls/hr IVPB Q8H [facility] Rx#:[id number] Levofloxacin 750Mg-D5w 100 Pmx 750 mg In Dextrose/ Water 1 150ml.bag @ 100 mls/hr IVPB Q24H [facility] Rx#: [id number] Sodium Chloride 0.9% 1, 600 000 ml @ 100 mls/hr IV . Q10H [facility] Rx#:[id number] Sodium Chloride 0.9% 1, 1200 300 000 ml @ 50 mls/hr IV . Q20H [facility] Rx#:[id number] Oral 400 500 Output: Urine 552 1060 285 Other: Voiding Method Indwelling Catheter Indwelling Catheter Indwelling Catheter - Exam This patient is elderly male patient nonacute distress resting comfortably in bed. He looks a little bit malnourished. Head exam was generally normal. There was no scleral icterus or corneal arcus. Mucous membranes were moist. My normal neck lungs sounds are diminished in lung bases along with that there is some bibasilar crackles. Heart sounds are irregular, positive S1-S2, no cervical murmurs appreciated. Abdomen is soft and nontender. There is no direct tenderness. No rebound tensile guarding. Extremities show diminished pulses and there is no cyanosis or clubbing. Neurologically the patient is awake alert and following commands and answering questions appropriately.Examination of the skin revealed no evidence of significant rashes , suspicious appearing nevi or other concerning lesions. - Labs CBC & Chem 7: 06/20/17 08:05 06/20/17 08:05 Labs: Abnormal Lab Results - Last 24 Hours (Table) 06/19/17 06/19/17 06/20/17 Range/Units 12:11 17:24 07:38 WBC (3.8-10.6) k/uL RDW (11.5-15.5) % Neutrophils # (1.3-7.7) k/uL Lymphocytes # (1.0-4.8) k/uL Monocytes # (0-1.0) k/uL Chloride (98-107) mmol/L Carbon Dioxide (22-30) mmol/L Glucose (74-99) mg/dL POC Glucose (mg/dL) 126 H 142 H 135 H (75-99) mg/dL Calcium (8.4-10.2) mg/dL Phosphorus (2.5-4.5) mg/dL 06/20/17 06/20/17 Range/Units 08:05 08:05 WBC 17.1 H (3.8-10.6) k/uL RDW 17.0 H (11.5-15.5) % Neutrophils # 14.9 H (1.3-7.7) k/uL Lymphocytes # 0.6 L (1.0-4.8) k/uL Monocytes # 1.1 H (0-1.0) k/uL Chloride 111 H (98-107) mmol/L Carbon Dioxide 16 L (22-30) mmol/L Glucose 148 H (74-99) mg/dL POC Glucose (mg/dL) (75-99) mg/dL Calcium 8.3 L (8.4-10.2) mg/dL Phosphorus 2.4 L (2.5-4.5) mg/dL Microbiology - Last 24 Hours (Table) 06/18/17 17:14 Urine Culture - Preliminary Urine,Catheterized Gram Neg Bacilli 06/18/17 18:00 Blood Culture - Preliminary Blood No Growth after 24 hours Assessment and Plan Plan: Assessment 1 acute febrile illness associated with tachycardia, tachypnea, leukocytosis and lactic acidosis. The constellation of these findings are consistent with sepsis. Possibilities include ischemic colitis versus a urine checked infection knowing that the urine culture is growing gram-negative bacillus. Pneumonia is doubtful. Bili are source of infection is also doubtful although the CAT scan of the abdomen showed possibility of an ischemic colitis and some biliary sludge. I suspect that this is probably a urine checked infection the patient will be continued a combination of Levaquin and aztreonam. His white cell count is improving. His metabolic acidosis is also improving. His lactic acidosis completely recovered. 2 acute non-ST segment elevation myocardial infarction status post cardiac catheterization and stenting of the ramus intermedius 3 multivessel coronary artery disease with previous coronary intervention and stenting 4 CHF with ejection fraction 45% and severely dilated LA 5 single chamber AICD placement 2015 6 CVA without any residual deficits 7 chronic atrial fibrillation and the patient has been on Xarelto in the past and this has been taken off due to GI bleed 8 nonsustained V. tach 9 hyperlipidemia 7 hypertension 11 peripheral neuropathy 12 peripheral vascular disease 13 nephrolithiasis 14 history of GI bleed, with a previous endoscopies showing a small hiatal hernia and a colonic polyp that was resected and a scattered sigmoid diverticulosis. 15 acid reflux Plan Awaiting results of the blood cultures. CAT scan of the abdomen was noted. We' ll give the patient Colace to facilitate a bowel movement. Kept on IV fluids to 20 mL an hour. Continue oral Lasix. He is hemodynamically stable at this point. He can be transferred to telemetry unit at a later stage. His blood sugars are under good control. He should be considered again for Xarelto and the final decision will be left up to cardiology.
[2017-06-20] MEDS: MAGNESIUM SULFATE-D5W PMX 1 GM in DEXTROSE/WATER 1 100ML.BAG IVPB SCH ×2 (09:55→11:29)
[2017-06-20 11:35] LABS: Glucose,Whole Blood 220 mg/dL (75-99)
[2017-06-20 16:57] LABS: Glucose,Whole Blood 170 mg/dL (75-99)
--- NOTE | 2017-06-20 16:59 | PN ---
PROGRESS NOTE This patient's medical record is reviewed. This patient is status post recent stent to the intermediate branch. Patient developed symptoms suggestive of sepsis and abdominal pain. The patient has probably urinary tract infection. CT scan of the abdomen shows minimal colonic wall thickening which could be mild colitis; however his condition is significantly improved as compared to yesterday. PHYSICAL EXAMINATION: He is afebrile. He denies any shortness of breath. Blood pressure is 140/76 mmHg. Pulse ox is 100%. First and second heart sounds are normal. Lungs reveal bilateral scattered wheezes. Abdomen is soft and nontender. IMPRESSION AND RECOMMENDATIONS: 1. This patient is stable, status post stent to the intermediate branch. 2. Possible urinary tract infection and bacteremia. 3. History of chronic obstructive pulmonary disease. 4. Patient has chronic atrial fibrillation. Patient has a past history of significant bleeding from Xarelto. In view of that, the patient does not want to start any anticoagulation at present. After the patient's condition is stable, he can be considered for placement of the left atrial appendage Watchman device. MMODL / IJN: [id number] /
[2017-06-20] MEDS: DIGOXIN 125 MCG TAB PO SCH (17:46)
[2017-06-20] MEDS: ATORVASTATIN 80 MG TAB PO SCH (17:46)
[2017-06-20] MEDS: LEVOFLOXACIN 750MG-D5W PMX 750 MG in DEXTROSE/WATER 1 150ML.BAG IVPB SCH (17:48)
[2017-06-20 20:35] LABS: Glucose,Whole Blood 177 mg/dL (75-99)
[2017-06-20] MEDS: ALOGLIPTIN BENZOATE 25 MG PO SCH ×3 (20:48→21:16)
[2017-06-20] MEDS: NON-FORMULARY DRUG (Canagliflozin [Invokana] 100 MG) PO SCH ×3 (21:13→21:17)
[2017-06-21] MEDS: traMADol 50 MG TAB PO PRN ×2 (00:23→23:13)
--- NOTE | 2017-06-21 00:32 | P.PN ---
Subjective Progress Note Date: 06/20/17 Principal diagnosis: Non-ST elevated NE This is an 81-year-old gentleman with known history of coronary artery disease and recent angioplasty of the ramus intermediate in April of this year by Dr. Gan who presented to the hospital with a non-ST elevation myocardial infarction. He was taken to the cardiac catheterization lab yesterday where he underwent angioplasty and stenting of the ramus intermediate artery. Patient also has chronic persistent atrial fibrillation. Chest x-ray today showed changes suggestive of Congestive heart failure. Suspected left lower lobe infiltrate. Patient does have episodes or short of breath last night. Today afternoon patient became tachycardic tachypneic and febrile with T-max level of 101.9. Patient had repeat chest x-ray and lactic acid level was done and was found to be elevated. Patient was started on IV hydration and also started on broad- spectrum antibiotics. Patient will be transferred to intensive care unit for further management. Patient otherwise denied any chest pain. No nausea no vomiting. On 06/19/2017 Patient did improve clinically. Patient does have vague abdominal pain. Serial abdominal pelvis was ordered and possible ischemic colitis suspected. Lactic acidosis improved to 2.1 with fluid resuscitation. Leukocytosis slightly improved afebrile now. Patient is more awake and oriented. CT of abdomen pelvis was ordered. 06/20/2017 Patient is complaining of abdominal pain which is improved. CT of the abdomen and pelvis showed small bowel wall thickening possible colitis. Urine cultures showing E. coli. Chest x-ray showed bibasilar pastries with possible infiltrates. Patient is improving symptomatically area did lactic acidosis resolved. Patient is being transferred to medical floor today. Continued antibiotics in the form of azactam and Levaquin. Objective - Vital Signs Vital signs: Vital Signs Temp 98.0 F 06/20/17 20:00 Pulse 119 H 06/20/17 20:00 Resp 18 06/20/17 20:00 BP 131/81 06/20/17 20:00 Pulse Ox 94 L 06/20/17 20:00 Intake & Output 06/20/17 06/20/17 06/21/17 06:59 18:59 06:59 Intake Total 1800 1320 260 Output Total 1060 1761 1 Balance 740 -441 259 Weight 82.1 kg Intake: IV 1400 620 260 Aztreonam 2 gm In Sodium 200 100 100 Chloride 0.9% 100 ml @ 100 mls/hr IVPB Q8H [facility] Rx#:[id number] Sodium Chloride 0.9% 1, 1200 520 160 000 ml @ 20 mls/hr IV . Q24H [facility] Rx#:[id number] Intake, IV Titration 200 Amount Magnesium Sulfate-D5w Pmx 200 1 gm In Dextrose/Water 1 100ml.bag @ 100 mls/hr IVPB Q1H [facility] Rx#: [id number] Oral 400 500 Output: Urine 1060 1760 Stool 1 1 Other: Voiding Method Indwelling Catheter Indwelling Catheter Indwelling Catheter # Bowel Movements 1 - Exam PHYSICAL EXAMINATION: Patient is lying in the bed comfortably, mild distress, awake alert and oriented.. HEENT: Normocephalic. Neck is supple. Pupils reactive. Nostrils clear. Oral cavity is moist. Ears reveal no drainage. Neck reveals no JVD, carotid bruits, or thyromegaly. CHEST EXAMINATION: Trachea is central. Symmetrical expansion. Bilateral air entry is present. Decreased basilar breath sounds with left basal crackles.. CARDIAC: Normal S1, S2 with no gallops. No murmurs ABDOMEN: Soft. Nontender. Bowel sounds normal. No organomegaly. No abdominal bruits. Extremities: reveal no edema. No clubbing or cyanosis Neurologically awake, alert, oriented x3 with well-coordinated movements. No focal deficits noted Skin: No rash or skin lesions. Psychiatric: Operative. Nonsuicidal Musculoskeletal: No joint swelling or deformity. Normal range of motion. - Labs CBC & Chem 7: 06/20/17 08:05 06/20/17 08:05 Labs: Abnormal Lab Results - Last 24 Hours (Table) 06/20/17 06/20/17 06/20/17 Range/Units 07:38 08:05 08:05 WBC 17.1 H (3.8-10.6) k/uL RDW 17.0 H (11.5-15.5) % Neutrophils # 14.9 H (1.3-7.7) k/uL Lymphocytes # 0.6 L (1.0-4.8) k/uL Monocytes # 1.1 H (0-1.0) k/uL Chloride 111 H (98-107) mmol/L Carbon Dioxide 16 L (22-30) mmol/L Glucose 148 H (74-99) mg/dL POC Glucose (mg/dL) 135 H (75-99) mg/dL Calcium 8.3 L (8.4-10.2) mg/dL Phosphorus 2.4 L (2.5-4.5) mg/dL 06/20/17 06/20/17 06/20/17 Range/Units 11:33 16:53 20:34 WBC (3.8-10.6) k/uL RDW (11.5-15.5) % Neutrophils # (1.3-7.7) k/uL Lymphocytes # (1.0-4.8) k/uL Monocytes # (0-1.0) k/uL Chloride (98-107) mmol/L Carbon Dioxide (22-30) mmol/L Glucose (74-99) mg/dL POC Glucose (mg/dL) 220 H 170 H 177 H (75-99) mg/dL Calcium (8.4-10.2) mg/dL Phosphorus (2.5-4.5) mg/dL Microbiology - Last 24 Hours (Table) 06/18/17 17:14 Urine Culture - Final Urine,Catheterized Escherichia coli 06/18/17 18:00 Blood Culture - Preliminary Blood No Growth after 48 hours Assessment and Plan Plan: #1 abdominal pain. Suspected ischemic colitis with significant elevated lactic acid level improved with fluid resuscitation. CT of the abdomen and pelvis showed small bowel wall thickening consistent with colitis. Patient will be continued on broad-spectrum antibiotics. Less likely pneumonia at this time #1 sepsis secondary to E. coli UTI versus abdominal source. Less likely pneumonia. #2 chest pain due to Non-ST elevation NE with mildly elevated troponins: Status post cardiac Catheterization stent to ramus intermedius. #2 history of coronary artery disease status post stent placement in April 2017 #2 chronic systolic dysfunction ejection fraction of around 45% ischemic cardiomyopathy: Patient is not in acute exacerbation we'll continue with his home medications for now. Patient has an AICD #3 chronic persistent atrial fibrillation: Rate controlled. patient was on xarelto. Discontinued due to GI bleed. #4 type 2 diabetes mellitus: Continue his home regimen except for metformin . Insulin sliding scale #5 hypertension. controlled #6 prior history of CVAs and severe peripheral vascular disease #7 hyperlipidemia #9 COPD without any acute exacerbation. Plan: Patient was given IV fluid bolus and continued on IV fluids. Lactic acid level improved. Improving leukocytosis. Monitor fluid status due to history of congestive heart failure. Patient will be started on antibiotics in the form of azactam and Levaquin. Patient is ALLERGIC to penicillin. Continue with aspirin and Plavix and digoxin. Continue with metoprolol and lisinopril. Current to monitor closely. Prognosis is guarded. Further recommendations based on the clinical course. Cardiology and pulmonary is following. Time with Patient: Greater than 30
[2017-06-21] MEDS: ALPRAZolam 0.25 MG TAB PO PRN ×2 (01:48→08:03)
[2017-06-21] MEDS: AZTREONAM 2 GM in SODIUM CHLORIDE 0.9% 100 ML IVPB SCH (05:57)
[2017-06-21 06:20] LABS: Glucose,Whole Blood 161 mg/dL (75-99)
[2017-06-21] MEDS: INSULIN LISPRO (humaLOG) 300 UNIT/3 ML VIAL SQ SCH ×4 (06:41→20:53)
[2017-06-21] MEDS: PANTOPRAZOLE 40 MG TABLET PO SCH (06:42)
[2017-06-21 06:46] LABS: Anion Gap 12 mmol/L; Blood Urea Nitrogen 15 mg/dL (9-20); Calcium 8.4 mg/dL (8.4-10.2); Carbon Dioxide 18 mmol/L (22-30); Chloride 108 mmol/L (98-107); Glucose 170 mg/dL (74-99); Non-African American GFR(MDRD) >60 (>60 ml/min/1.73 sqM); Phosphorus 2.7 mg/dL (2.5-4.5); Potassium 3.6 mmol/L (3.5-5.1); Sodium 138 mmol/L (137-145)
[2017-06-21 06:53] LABS: Anisocytosis Slight; Basophils % (A) 0 %; CH 29.4; CHCM 31.6; Eosinophils # (A) 0.1 k/uL (0-0.7); Eosinophils % (A) 1 %; HDW 3.29; Hypochromasia Moderate; Luc # (Auto) 0.19; Luc % (Auto) 1; Lymphocytes # (A) 0.7 k/uL (1.0-4.8); Lymphocytes % (A) 4 %; MCV 93.7 fL (80.0-100.0); Mean Platelet Volume 9.1; Monocytes # (A) 1.1 k/uL (0-1.0); Monocytes % (A) 7 %; Neutrophils # (A) 13.5 k/uL (1.3-7.7); Neutrophils % (A) 87 %; RBC 4.48 m/uL (4.30-5.90); WBC 15.5 k/uL (3.8-10.6); WBC (Perox) 15.65
--- NOTE | 2017-06-21 07:58 | XR ---
EXAMINATION TYPE: XR chest 1V DATE OF EXAM: 06/21/2017 HISTORY: Respiratory distress. REFERENCE: Previous study dated 06/20/2017. FINDINGS: There is a unipolar pacing device in place on the left. Heart size upper limits of normal. There is persistent left basilar airspace disease. I suspect small , bilateral effusions. IMPRESSION: NO SIGNIFICANT INTERVAL CHANGE IN THE APPEARANCE OF THE CHEST.
[2017-06-21] MEDS: METOPROLOL TARTRATE 50 MG TAB PO SCH ×2 (07:59→20:53)
[2017-06-21] MEDS: DOCUSATE 100 MG CAP PO SCH ×2 (07:59→20:53)
[2017-06-21] MEDS: ISOSORBIDE MONONITRATE ER 60 MG TAB.ER.24H PO SCH (07:59)
[2017-06-21] MEDS: CLOPIDOGREL 75 MG TAB PO SCH (07:59)
[2017-06-21] MEDS: LISINOPRIL 5 MG TAB PO SCH (07:59)
[2017-06-21] MEDS: FUROSEMIDE 40 MG TAB PO SCH (07:59)
[2017-06-21] MEDS: PREGABALIN 50 MG CAP PO SCH ×2 (08:03→20:54)
--- NOTE | 2017-06-21 10:30 | P.PN ---
Subjective Progress Note Date: 06/21/17 81-year-old male patient with known history of coronary artery disease, CHF with previous AICD placement, presented to the hospital because of epigastric pain and he had obvious EKG abnormalities and abnormal troponins. He was diagnosed having a non-ST segment elevation myocardial infarction and he was taken to cardiac catheterization on 06/17/2017 and the patient underwent angioplasty and stenting of the ramus intermediate artery. Note that the patient was having shortness of breath on day of admission and was complaining of progressive increase in dyspnea. He also complained of some mild abdominal discomfort on admission that was thought to be essentially epigastric in location. In any rate, the patient underwent a successful coronary intervention and the patient was recovering on a telemetry unit when he started having fever, and chills with a temperature of 101.9 and he became progressively more tachypneic and tachycardic. His lactic acid level was at 9.0. Based on all this, the patient was moved to the intensive care unit where he was given a total of 1-1/2-2 L of IV fluids. He was covered with a combination of Levaquin and aztreonam. Since then he has not spiked any fever. His white cell count is elevated however no fever or chills and he is feeling better less tachycardic and tachypneic compared to yesterday. There is no alternative source of sepsis at this point. He has a AICD in place and the pocket site is clean. No cough or sputum production. No open wounds or sores. His urine on admission was negative. Chest x-ray shows cardiomegaly and some limited pleural effusion and a retrocardiac infiltrate cannot be completely excluded. This morning, the patient is still having some vague mid abdominal pain which has subsided however it is not completely gone. No nausea. No vomiting. His last bowel movement was approximately 3 days ago. He is still in chronic atrial fibrillation. He did have short runs of V. tach yesterday that were nonsustained. His magnesium level was 1.8 was replaced. He has no chest pain for now. No further arrhythmias. He has on no anticoagulation based on previous history of GI bleeding. On 06/20/2017 the patient is being seen for a follow-up. The patient is doing extremely well. His lactic acidosis recovered. He is hemodynamically stable. He is afebrile. No signs of acute septicemia. The blood cultures been negative. Urine cultures showing gram-negative bacilli. Note that the CAT scan of the abdomen was also done yesterday showed minimal colonic wall thickening which could potentially indicate a mild colitis versus nonobstructive stricture versus peristalsis. There is also small bilateral pleural effusion and bibasilar airspace disease. There was also cardiomegaly, cholelithiasis and bilious sludge and chronically appearing left perinephric fat stranding and pararenal fluid unchanged since 2014. As such I'm not sure if the source of infection was urine or abdominal although I suspect that it could have been a urine checked infection more than ischemic colitis. The patient is tolerating diet for now. He is producing adequate amount of urine output. He remains on a combination of aztreonam and Levaquin. White cell count is down to 17.1. His metabolic acidosis is improving. His bicarb level is up to 16 and his anion gap is down to 11. He is awake and alert. He is following commands and answering questions. No chest pain. He remains in atrial fibrillation. On 06/21/2017, the patient is being seen in follow-up in the patient is doing well without any significant complaints. White cell count is not elevated at 15.5. In fact the white cell count has been consistently going down. Hemoglobin stable at 13.0. The rest of the electrodes are all within normal limits. He is free of any chest pain. He tolerated his diet this morning and he had a breakfast without any nausea vomiting or emesis pain no swelling lower extremities. No abdominal pain or tenderness. The patient is on no anticoagulants for now. His cardiac rhythm is atrial fibrillation. The patient is also having profound weakness and we are considering moving this patient to an ECF at a later stage. He is also being treated for urine checked infection with gram-and this turned out to be E. coli that is negative sensitive to quinolones Objective - Vital Signs Vital signs: Vital Signs Temp 96.8 F L 06/21/17 08:00 Pulse 74 06/21/17 08:00 Resp 17 06/21/17 08:00 BP 143/106 06/21/17 08:00 Pulse Ox 99 06/21/17 08:00 Intake & Output 06/20/17 06/21/17 06/21/17 18:59 06:59 18:59 Intake Total 1320 260 220 Output Total 1761 841 Balance -441 -581 220 Weight 80.5 kg Intake: IV 620 260 Aztreonam 2 gm In Sodium 100 100 Chloride 0.9% 100 ml @ 100 mls/hr IVPB Q8H [facility] Rx#:[id number] Sodium Chloride 0.9% 1, 520 160 000 ml @ 20 mls/hr IV . Q24H [facility] Rx#:[id number] Intake, IV Titration 200 Amount Magnesium Sulfate-D5w Pmx 200 1 gm In Dextrose/Water 1 100ml.bag @ 100 mls/hr IVPB Q1H [facility] Rx#: [id number] Oral 500 0 220 Output: Urine 1760 840 Uretheral (Cerna) 125 Stool 1 1 Other: Voiding Method Indwelling Catheter Urinal # Bowel Movements 1 - Exam This patient is elderly male patient nonacute distress resting comfortably in bed. He looks a little bit malnourished. Head exam was generally normal. There was no scleral icterus or corneal arcus. Mucous membranes were moist. My normal neck lungs sounds are diminished in lung bases along with that there is some bibasilar crackles. Heart sounds are irregular, positive S1-S2, no cervical murmurs appreciated. Abdomen is soft and nontender. There is no direct tenderness. No rebound tensile guarding. Extremities show diminished pulses and there is no cyanosis or clubbing. Neurologically the patient is awake alert and following commands and answering questions appropriately.Examination of the skin revealed no evidence of significant rashes , suspicious appearing nevi or other concerning lesions. - Labs CBC & Chem 7: 06/21/17 05:32 06/21/17 05:32 Labs: Abnormal Lab Results - Last 24 Hours (Table) 06/20/17 06/20/17 06/20/17 Range/Units 11:33 16:53 20:34 WBC (3.8-10.6) k/uL RDW (11.5-15.5) % Neutrophils # (1.3-7.7) k/uL Lymphocytes # (1.0-4.8) k/uL Monocytes # (0-1.0) k/uL Chloride (98-107) mmol/L Carbon Dioxide (22-30) mmol/L Glucose (74-99) mg/dL POC Glucose (mg/dL) 220 H 170 H 177 H (75-99) mg/dL 06/21/17 06/21/17 06/21/17 Range/Units 05:32 05:32 06:11 WBC 15.5 H (3.8-10.6) k/uL RDW 16.0 H (11.5-15.5) % Neutrophils # 13.5 H (1.3-7.7) k/uL Lymphocytes # 0.7 L (1.0-4.8) k/uL Monocytes # 1.1 H (0-1.0) k/uL Chloride 108 H (98-107) mmol/L Carbon Dioxide 18 L (22-30) mmol/L Glucose 170 H (74-99) mg/dL POC Glucose (mg/dL) 161 H (75-99) mg/dL Microbiology - Last 24 Hours (Table) 06/18/17 17:14 Urine Culture - Final Urine,Catheterized Escherichia coli 06/18/17 18:00 Blood Culture - Preliminary Blood No Growth after 48 hours Assessment and Plan Plan: Assessment 1 acute febrile illness associated with tachycardia, tachypnea, leukocytosis and lactic acidosis. The constellation of these findings are consistent with sepsis. Possibilities include ischemic colitis versus a urine checked infection knowing that the urine culture is growing gram-negative bacillus. Pneumonia is doubtful. Upon subsequent follow-up on 06/21/2017, the patient was found to have E. coli in the urine. He is still on a combination of Levaquin and aztreonam. The patient is agreeable dynamically stable. White cell count is normalized. No signs of any ongoing septicemia for now. 2 acute non-ST segment elevation myocardial infarction status post cardiac catheterization and stenting of the ramus intermedius 3 multivessel coronary artery disease with previous coronary intervention and stenting 4 CHF with ejection fraction 45% and severely dilated LA 5 single chamber AICD placement 2015 6 CVA without any residual deficits 7 chronic atrial fibrillation and the patient has been on Xarelto in the past and this has been taken off due to GI bleed 8 nonsustained V. tach 9 hyperlipidemia 7 hypertension 11 peripheral neuropathy 12 peripheral vascular disease 13 nephrolithiasis 14 history of GI bleed, with a previous endoscopies showing a small hiatal hernia and a colonic polyp that was resected and a scattered sigmoid diverticulosis. 15 acid reflux Plan Discontinue the aztreonam. Switch this patient to oral Levaquin 750 mg by mouth daily. Physical therapy. Increased level of activity as tolerated. We will continue to follow. Likely need ECF upon discharge.
[2017-06-21 12:17] LABS: Glucose,Whole Blood 232 mg/dL (75-99)
--- NOTE | 2017-06-21 13:29 | P.PN ---
Subjective This is an 81-year-old gentleman with known history of coronary artery disease and recent angioplasty of the ramus intermediate in April of this year by Dr. Gan who presented to the hospital with a non-ST elevation myocardial infarction. He was taken to the cardiac catheterization lab yesterday where he underwent angioplasty and stenting of the ramus intermediate artery. Patient also has chronic persistent atrial fibrillation. Chest x-ray today showed changes suggestive of Congestive heart failure. Suspected left lower lobe infiltrate. Patient does have episodes or short of breath last night. Today afternoon patient became tachycardic tachypneic and febrile with T-max level of 101.9. Patient had repeat chest x-ray and lactic acid level was done and was found to be elevated. Patient was started on IV hydration and also started on broad- spectrum antibiotics. Patient will be transferred to intensive care unit for further management. Patient otherwise denied any chest pain. No nausea no vomiting. On 06/19/2017 Patient did improve clinically. Patient does have vague abdominal pain. Serial abdominal pelvis was ordered and possible ischemic colitis suspected. Lactic acidosis improved to 2.1 with fluid resuscitation. Leukocytosis slightly improved afebrile now. Patient is more awake and oriented. CT of abdomen pelvis was ordered. 06/20/2017 Patient is complaining of abdominal pain which is improved. CT of the abdomen and pelvis showed small bowel wall thickening possible colitis. Urine cultures showing E. coli. Chest x-ray showed bibasilar pastries with possible infiltrates. Patient is improving symptomatically area did lactic acidosis resolved. Patient is being transferred to medical floor today. Continued antibiotics in the form of azactam and Levaquin. 06/21/2017 No significant overnight events, patient is fragile. Constitutional: Denied any fatigue denied any fever. Cardio vascular: denied any chest pain, palpitations Gastrointestinal denied any nausea vomiting Pulmonary: Denied any shortness of breath cough Neurologic denied any new focal deficits Objective - Vital Signs Vital signs: Vital Signs Temp 97.2 F L 06/21/17 12:00 Pulse 83 06/21/17 12:00 Resp 18 06/21/17 12:00 BP 131/79 06/21/17 12:00 Pulse Ox 97 06/21/17 12:00 Intake & Output 06/20/17 06/21/17 06/21/17 18:59 06:59 18:59 Intake Total 1320 260 220 Output Total 1761 841 200 Balance -441 -581 20 Weight 80.5 kg Intake: IV 620 260 Aztreonam 2 gm In Sodium 100 100 Chloride 0.9% 100 ml @ 100 mls/hr IVPB Q8H [facility] Rx#:[id number] Sodium Chloride 0.9% 1, 520 160 000 ml @ 20 mls/hr IV . Q24H [facility] Rx#:[id number] Intake, IV Titration 200 Amount Magnesium Sulfate-D5w Pmx 200 1 gm In Dextrose/Water 1 100ml.bag @ 100 mls/hr IVPB Q1H [facility] Rx#: [id number] Oral 500 0 220 Output: Urine 1760 840 200 Uretheral (Cerna) 125 Stool 1 1 Other: Voiding Method Indwelling Catheter Urinal # Bowel Movements 1 1 - Exam PHYSICAL EXAMINATION: Patient is lying in the bed comfortably, mild distress, awake alert and oriented.. HEENT: Normocephalic. Neck is supple. Pupils reactive. Nostrils clear. Oral cavity is moist. Ears reveal no drainage. Neck reveals no JVD, carotid bruits, or thyromegaly. CHEST EXAMINATION: Trachea is central. Symmetrical expansion. Bilateral air entry is present. Decreased basilar breath sounds with left basal crackles.. CARDIAC: Normal S1, S2 with no gallops. No murmurs ABDOMEN: Soft. Nontender. Bowel sounds normal. No organomegaly. No abdominal bruits. Extremities: reveal no edema. No clubbing or cyanosis Neurologically awake, alert, oriented x3 with well-coordinated movements. No focal deficits noted Skin: No rash or skin lesions. Psychiatric: Operative. Nonsuicidal Musculoskeletal: No joint swelling or deformity. Normal range of motion. - Labs CBC & Chem 7: 06/21/17 05:32 06/21/17 05:32 Labs: Abnormal Lab Results - Last 24 Hours (Table) 06/20/17 06/20/17 06/21/17 Range/Units 16:53 20:34 05:32 WBC 15.5 H (3.8-10.6) k/uL RDW 16.0 H (11.5-15.5) % Neutrophils # 13.5 H (1.3-7.7) k/uL Lymphocytes # 0.7 L (1.0-4.8) k/uL Monocytes # 1.1 H (0-1.0) k/uL Chloride (98-107) mmol/L Carbon Dioxide (22-30) mmol/L Glucose (74-99) mg/dL POC Glucose (mg/dL) 170 H 177 H (75-99) mg/dL 06/21/17 06/21/17 06/21/17 Range/Units 05:32 06:11 11:41 WBC (3.8-10.6) k/uL RDW (11.5-15.5) % Neutrophils # (1.3-7.7) k/uL Lymphocytes # (1.0-4.8) k/uL Monocytes # (0-1.0) k/uL Chloride 108 H (98-107) mmol/L Carbon Dioxide 18 L (22-30) mmol/L Glucose 170 H (74-99) mg/dL POC Glucose (mg/dL) 161 H 232 H (75-99) mg/dL Microbiology - Last 24 Hours (Table) 06/18/17 17:14 Urine Culture - Final Urine,Catheterized Escherichia coli 06/18/17 18:00 Blood Culture - Preliminary Blood No Growth after 48 hours Assessment and Plan Plan: #1 abdominal pain. Suspected ischemic colitis with significant elevated lactic acid level improved with fluid resuscitation. CT of the abdomen and pelvis showed small bowel wall thickening consistent with colitis. Patient will be continued on broad-spectrum antibiotics. Less likely pneumonia at this time. patient is on levofloxacin #1 sepsis secondary to E. coli UTI versus abdominal source. Less likely pneumonia. #2 chest pain due to Non-ST elevation DE with mildly elevated troponins: Status post cardiac Catheterization stent to ramus intermedius. #2 history of coronary artery disease status post stent placement in April 2017 #2 chronic systolic dysfunction ejection fraction of around 45% ischemic cardiomyopathy: Patient is not in acute exacerbation we'll continue with his home medications for now. Patient has an AICD #3 chronic persistent atrial fibrillation: Rate controlled. patient was on xarelto. Discontinued due to GI bleed. #4 type 2 diabetes mellitus: Continue his home regimen except for metformin . Insulin sliding scale #5 hypertension. controlled #6 prior history of CVAs and severe peripheral vascular disease #7 hyperlipidemia #9 COPD without any acute exacerbation.
--- NOTE | 2017-06-21 13:51 | PN ---
PROGRESS NOTE This patient is status post recent stent. The patient subsequently has been treated for urinary tract infection. Patient is doing better. He is comfortable and remains afebrile. Respirations are not labored. PHYSICAL EXAMINATION: Patient's heart rate is 80 per minute, blood pressure is 130/79 mmHg. First and second heart sounds are normal. Lungs are clinically clear to auscultation. Urine culture shows E coli. Blood cultures so far no growth. We will continue the current medications. After the patient's condition has stabilized, he should be considered for Watchman device as an outpatient. MMODL / IJN: [id number] /
[2017-06-21 16:44] LABS: Glucose,Whole Blood 169 mg/dL (75-99)
[2017-06-21] MEDS: SODIUM CHLORIDE 0.9% 1,000 ML IV SCH (16:48)
[2017-06-21] MEDS: ATORVASTATIN 80 MG TAB PO SCH (16:49)
[2017-06-21] MEDS: DIGOXIN 125 MCG TAB PO SCH (16:49)
[2017-06-21] MEDS ORDERED: LEVOFLOXACIN 750 MG TAB PO SCH (18:00)
[2017-06-21] MEDS: INSULIN GLARGINE 100 UNIT/ML 10 ML VIAL SQ SCH (20:53)
[2017-06-21 21:11] LABS: Glucose,Whole Blood 150 mg/dL (75-99)
[2017-06-21] MEDS ORDERED: Potassium Replacement Protocol 1 EACH MISC MISCELLANE PRN (22:26)
[2017-06-21] MEDS ORDERED: POTASSIUM CHLORIDE ER 20 MEQ TAB.ER PO SCH (23:00)
[2017-06-22] MEDS: ALPRAZolam 0.25 MG TAB PO PRN ×2 (04:38→22:04)
[2017-06-22 06:09] LABS: Basophils # (A) 0.1 k/uL (0-0.2); Basophils % (A) 1 %; CH 29.1; CHCM 31.4; Eosinophils # (A) 0.3 k/uL (0-0.7); Eosinophils % (A) 2 %; HCT 46.2 % (39.0-53.0); HGB 14.6 gm/dL (13.0-17.5); Hypochromasia Moderate; Luc # (Auto) 0.27; Luc % (Auto) 2; Lymphocytes # (A) 0.9 k/uL (1.0-4.8); Lymphocytes % (A) 6 %; MCH 29.5 pg (25.0-35.0); MCHC 31.6 g/dL (31.0-37.0); MCV 93.4 fL (80.0-100.0); Mean Platelet Volume 9.2; Monocytes # (A) 1.2 k/uL (0-1.0); Monocytes % (A) 8 %; Neutrophils # (A) 11.8 k/uL (1.3-7.7); Neutrophils % (A) 81 %; Poikilocytosis Slight; RBC 4.94 m/uL (4.30-5.90); RDW 15.9 % (11.5-15.5); WBC 14.5 k/uL (3.8-10.6); WBC (Perox) 14.17
[2017-06-22 06:13] LABS: Anion Gap 12 mmol/L; Blood Urea Nitrogen 16 mg/dL (9-20); Calcium 9.1 mg/dL (8.4-10.2); Carbon Dioxide 20 mmol/L (22-30); Chloride 109 mmol/L (98-107); Glucose 221 mg/dL (74-99); Non-African American GFR(MDRD) >60 (>60 ml/min/1.73 sqM); Phosphorus 2.7 mg/dL (2.5-4.5); Potassium 4.5 mmol/L (3.5-5.1); Sodium 141 mmol/L (137-145)
[2017-06-22 06:25] LABS: Glucose,Whole Blood 202 mg/dL (75-99)
[2017-06-22] MEDS: PANTOPRAZOLE 40 MG TABLET PO SCH (06:44)
[2017-06-22] MEDS: INSULIN LISPRO (humaLOG) 300 UNIT/3 ML VIAL SQ SCH ×4 (06:44→21:42)
--- NOTE | 2017-06-22 07:42 | XR ---
EXAMINATION TYPE: XR chest 1V DATE OF EXAM: 06/22/2017 HISTORY: Respiratory distress. REFERENCE: Previous study dated 06/21/2017. FINDINGS: There is a unipolar pacing device on the left. The heart is mildly enlarged. There is vascular congestion and pulmonary edema. I suspect small, bila teral effusions. There is confluent left basilar airspace disease which may represent confluent edema or atelectasis. IMPRESSION: WORSENING CHANGES OF HEART FAILURE.
[2017-06-22] MEDS: CLOPIDOGREL 75 MG TAB PO SCH (07:51)
[2017-06-22] MEDS: ISOSORBIDE MONONITRATE ER 60 MG TAB.ER.24H PO SCH (07:51)
[2017-06-22] MEDS: METOPROLOL TARTRATE 50 MG TAB PO SCH ×2 (07:51→21:42)
[2017-06-22] MEDS: FUROSEMIDE 40 MG TAB PO SCH (07:51)
[2017-06-22] MEDS: LISINOPRIL 5 MG TAB PO SCH (07:51)
[2017-06-22] MEDS: ASPIRIN 81 MG PO SCH (07:51)
[2017-06-22] MEDS: DOCUSATE 100 MG CAP PO SCH ×2 (07:51→21:42)
[2017-06-22] MEDS: PREGABALIN 50 MG CAP PO SCH ×2 (07:54→21:45)
[2017-06-22] MEDS: SODIUM CHLORIDE 0.9% 1,000 ML IV SCH (11:45)
[2017-06-22 12:00] LABS: Glucose,Whole Blood 215 mg/dL (75-99)
[2017-06-22] MEDS: FUROSEMIDE 10 MG/ML 4 ML VIAL IV SCH ×2 (12:13→21:42)
--- NOTE | 2017-06-22 14:22 | P.PN ---
Subjective Progress Note Date: 06/22/17 81-year-old male patient with known history of coronary artery disease, CHF with previous AICD placement, presented to the hospital because of epigastric pain and he had obvious EKG abnormalities and abnormal troponins. He was diagnosed having a non-ST segment elevation myocardial infarction and he was taken to cardiac catheterization on 06/17/2017 and the patient underwent angioplasty and stenting of the ramus intermediate artery. Note that the patient was having shortness of breath on day of admission and was complaining of progressive increase in dyspnea. He also complained of some mild abdominal discomfort on admission that was thought to be essentially epigastric in location. In any rate, the patient underwent a successful coronary intervention and the patient was recovering on a telemetry unit when he started having fever, and chills with a temperature of 101.9 and he became progressively more tachypneic and tachycardic. His lactic acid level was at 9.0. Based on all this, the patient was moved to the intensive care unit where he was given a total of 1-1/2-2 L of IV fluids. He was covered with a combination of Levaquin and aztreonam. Since then he has not spiked any fever. His white cell count is elevated however no fever or chills and he is feeling better less tachycardic and tachypneic compared to yesterday. There is no alternative source of sepsis at this point. He has a AICD in place and the pocket site is clean. No cough or sputum production. No open wounds or sores. His urine on admission was negative. Chest x-ray shows cardiomegaly and some limited pleural effusion and a retrocardiac infiltrate cannot be completely excluded. This morning, the patient is still having some vague mid abdominal pain which has subsided however it is not completely gone. No nausea. No vomiting. His last bowel movement was approximately 3 days ago. He is still in chronic atrial fibrillation. He did have short runs of V. tach yesterday that were nonsustained. His magnesium level was 1.8 was replaced. He has no chest pain for now. No further arrhythmias. He has on no anticoagulation based on previous history of GI bleeding. On 06/20/2017 the patient is being seen for a follow-up. The patient is doing extremely well. His lactic acidosis recovered. He is hemodynamically stable. He is afebrile. No signs of acute septicemia. The blood cultures been negative. Urine cultures showing gram-negative bacilli. Note that the CAT scan of the abdomen was also done yesterday showed minimal colonic wall thickening which could potentially indicate a mild colitis versus nonobstructive stricture versus peristalsis. There is also small bilateral pleural effusion and bibasilar airspace disease. There was also cardiomegaly, cholelithiasis and bilious sludge and chronically appearing left perinephric fat stranding and pararenal fluid unchanged since 2014. As such I'm not sure if the source of infection was urine or abdominal although I suspect that it could have been a urine checked infection more than ischemic colitis. The patient is tolerating diet for now. He is producing adequate amount of urine output. He remains on a combination of aztreonam and Levaquin. White cell count is down to 17.1. His metabolic acidosis is improving. His bicarb level is up to 16 and his anion gap is down to 11. He is awake and alert. He is following commands and answering questions. No chest pain. He remains in atrial fibrillation. On 06/21/2017, the patient is being seen in follow-up in the patient is doing well without any significant complaints. White cell count is not elevated at 15.5. In fact the white cell count has been consistently going down. Hemoglobin stable at 13.0. The rest of the electrodes are all within normal limits. He is free of any chest pain. He tolerated his diet this morning and he had a breakfast without any nausea vomiting or emesis pain no swelling lower extremities. No abdominal pain or tenderness. The patient is on no anticoagulants for now. His cardiac rhythm is atrial fibrillation. The patient is also having profound weakness and we are considering moving this patient to an ECF at a later stage. He is also being treated for urine checked infection with gram-and this turned out to be E. coli that is negative sensitive to quinolones On 06/22/2017 the patient has no specific complaints. He is free of any chest pain. Pulmonary status is stable. He is on IV Lasix 40 mg every 12 hours. He is also on Levaquin 500 mg by mouth daily regarding a E. coli urinary tract infection. No nausea. No vomiting. No abdominal pain. No other complaints otherwise. He is awake and alert yet he is very weak and he will need further rehabilitation. The follow-up chest x-ray today showed vascular congestion and worsening changes of heart failure and for that reason the patient was restarted back on IV Lasix. Objective - Vital Signs Vital signs: Vital Signs Temp 97.2 F L 06/22/17 10:40 Pulse 63 06/22/17 10:40 Resp 16 06/22/17 11:05 BP 148/92 06/22/17 10:40 Pulse Ox 97 06/22/17 10:40 Intake & Output 06/21/17 06/22/17 06/22/17 18:59 06:59 18:59 Intake Total 520 480 Output Total 200 201 Balance 320 279 Weight 76.5 kg Intake: Oral 520 480 Output: Urine 200 200 Stool 1 Other: Voiding Method Urinal # Voids 1 # Bowel Movements 1 - Exam This patient is elderly male patient nonacute distress resting comfortably in bed. He looks a little bit malnourished. Head exam was generally normal. There was no scleral icterus or corneal arcus. Mucous membranes were moist. My normal neck lungs sounds are diminished in lung bases along with that there is some bibasilar crackles. Heart sounds are irregular, positive S1-S2, no cervical murmurs appreciated. Abdomen is soft and nontender. There is no direct tenderness. No rebound tensile guarding. Extremities show diminished pulses and there is no cyanosis or clubbing. Neurologically the patient is awake alert and following commands and answering questions appropriately.Examination of the skin revealed no evidence of significant rashes , suspicious appearing nevi or other concerning lesions. - Labs CBC & Chem 7: 06/22/17 05:29 06/22/17 05:29 Labs: Abnormal Lab Results - Last 24 Hours (Table) 06/21/17 06/21/17 06/22/17 Range/Units 16:40 20:43 05:29 WBC 14.5 H (3.8-10.6) k/uL RDW 15.9 H (11.5-15.5) % Neutrophils # 11.8 H (1.3-7.7) k/uL Lymphocytes # 0.9 L (1.0-4.8) k/uL Monocytes # 1.2 H (0-1.0) k/uL Chloride (98-107) mmol/L Carbon Dioxide (22-30) mmol/L Glucose (74-99) mg/dL POC Glucose (mg/dL) 169 H 150 H (75-99) mg/dL 06/22/17 06/22/17 06/22/17 Range/Units 05:29 06:22 11:49 WBC (3.8-10.6) k/uL RDW (11.5-15.5) % Neutrophils # (1.3-7.7) k/uL Lymphocytes # (1.0-4.8) k/uL Monocytes # (0-1.0) k/uL Chloride 109 H (98-107) mmol/L Carbon Dioxide 20 L (22-30) mmol/L Glucose 221 H (74-99) mg/dL POC Glucose (mg/dL) 202 H 215 H (75-99) mg/dL Microbiology - Last 24 Hours (Table) 06/18/17 18:00 Blood Culture - Preliminary Blood No Growth after 72 hours Assessment and Plan Plan: Assessment 1 acute febrile illness associated with tachycardia, tachypnea, leukocytosis and lactic acidosis. The constellation of these findings are consistent with sepsis. Possibilities include ischemic colitis versus a urine checked infection knowing that the urine culture is growing gram-negative bacillus. Pneumonia is doubtful. Upon subsequent follow-up on 06/21/2017, the patient was found to have E. coli in the urine. He is still on a combination of Levaquin and aztreonam. The patient is agreeable dynamically stable. White cell count is normalized. No signs of any ongoing septicemia for now. On subsequent evaluation of 06/22/2017 the patient is still being treated with oral Levaquin regarding a urine checked infection. White cell count has dropped down to 14.5. He is hemodynamically stable. He is afebrile. 2 acute non-ST segment elevation myocardial infarction status post cardiac catheterization and stenting of the ramus intermedius 3 multivessel coronary artery disease with previous coronary intervention and stenting 4 CHF with ejection fraction 45% and severely dilated LA, with findings of worsening CHF on today's chest x-ray 5 single chamber AICD placement 2015 6 CVA without any residual deficits 7 chronic atrial fibrillation and the patient has been on Xarelto in the past and this has been taken off due to GI bleed 8 nonsustained V. tach 9 hyperlipidemia 7 hypertension 11 peripheral neuropathy 12 peripheral vascular disease 13 nephrolithiasis 14 history of GI bleed, with a previous endoscopies showing a small hiatal hernia and a colonic polyp that was resected and a scattered sigmoid diverticulosis. 15 acid reflux 16 medical debility and generalized weakness Plan Lasix 40 mg every 12 hours. Repeat electrodes in a.m. Repeat chest x-ray in a.m. Continue Levaquin. He is profoundly weak and will need further rehabilitation. Consider sending this patient to ECF once his condition is further stabilized. No other changes from the pulmonary standpoint. The patient on aspirin and Plavix. The patient is on beta blockers. The patient is also on LITA inhibitor's. He is free of any chest pain. Hemodynamically stable. May also consider anticoagulation long-term regarding history of chronic atrial fibrillation.
--- NOTE | 2017-06-22 14:25 | CONS ---
CONSULTATION This patient is status post recent stent placement and treated for urinary tract infection. The patient is comfortable without any respiratory distress but the chest x- ray was suggestive of congestive cardiac failure and patient has been started on Lasix 40 mg IV b.i.d. PHYSICAL EXAMINATION: The patient is comfortable. Respirations are not labored. Oxygen saturation is 97%. Blood pressure is 148/92 mmHg. First and second heart sounds are normal. Lungs revealed a few scattered wheezes. Chest x-ray suggestive of congestive cardiac failure. I will continue the current medications with IV Lasix. MMODL / IJN: [id number] /
--- NOTE | 2017-06-22 14:40 | P.PN ---
Subjective This is an 81-year-old gentleman with known history of coronary artery disease and recent angioplasty of the ramus intermediate in April of this year by Dr. Gan who presented to the hospital with a non-ST elevation myocardial infarction. He was taken to the cardiac catheterization lab yesterday where he underwent angioplasty and stenting of the ramus intermediate artery. Patient also has chronic persistent atrial fibrillation. Chest x-ray today showed changes suggestive of Congestive heart failure. Suspected left lower lobe infiltrate. Patient does have episodes or short of breath last night. Today afternoon patient became tachycardic tachypneic and febrile with T-max level of 101.9. Patient had repeat chest x-ray and lactic acid level was done and was found to be elevated. Patient was started on IV hydration and also started on broad- spectrum antibiotics. Patient will be transferred to intensive care unit for further management. Patient otherwise denied any chest pain. No nausea no vomiting. On 06/19/2017 Patient did improve clinically. Patient does have vague abdominal pain. Serial abdominal pelvis was ordered and possible ischemic colitis suspected. Lactic acidosis improved to 2.1 with fluid resuscitation. Leukocytosis slightly improved afebrile now. Patient is more awake and oriented. CT of abdomen pelvis was ordered. 06/20/2017 Patient is complaining of abdominal pain which is improved. CT of the abdomen and pelvis showed small bowel wall thickening possible colitis. Urine cultures showing E. coli. Chest x-ray showed bibasilar pastries with possible infiltrates. Patient is improving symptomatically area did lactic acidosis resolved. Patient is being transferred to medical floor today. Continued antibiotics in the form of azactam and Levaquin. 06/21/2017 No significant overnight events, patient is fragile. 06/22/2017 Significant overnight events. Except for some multifocal atrial tachycardia Constitutional: Denied any fatigue denied any fever. Cardio vascular: denied any chest pain, palpitations Gastrointestinal denied any nausea vomiting Pulmonary: Denied any shortness of breath cough Neurologic denied any new focal deficits Objective - Vital Signs Vital signs: Vital Signs Temp 97.2 F L 06/22/17 10:40 Pulse 63 06/22/17 10:40 Resp 16 06/22/17 11:05 BP 148/92 06/22/17 10:40 Pulse Ox 97 06/22/17 10:40 Intake & Output 10/14/17 10/15/17 10/15/17 18:59 06:59 18:59 Intake Total 520 480 Output Total 200 201 Balance 320 279 Weight 76.5 kg Intake: Oral 520 480 Output: Urine 200 200 Stool 1 Other: Voiding Method Urinal # Voids 1 # Bowel Movements 1 - Exam PHYSICAL EXAMINATION: Patient is lying in the bed comfortably, mild distress, awake alert and oriented.. HEENT: Normocephalic. Neck is supple. Pupils reactive. Nostrils clear. Oral cavity is moist. Ears reveal no drainage. Neck reveals no JVD, carotid bruits, or thyromegaly. CHEST EXAMINATION: Trachea is central. Symmetrical expansion. Bilateral air entry is present. Decreased basilar breath sounds with left basal crackles.. CARDIAC: Normal S1, S2 with no gallops. No murmurs ABDOMEN: Soft. Nontender. Bowel sounds normal. No organomegaly. No abdominal bruits. Extremities: reveal no edema. No clubbing or cyanosis Neurologically awake, alert, oriented x3 with well-coordinated movements. No focal deficits noted Skin: No rash or skin lesions. Psychiatric: Operative. Nonsuicidal Musculoskeletal: No joint swelling or deformity. Normal range of motion. - Labs CBC & Chem 7: 06/22/17 05:29 06/22/17 05:29 Labs: Abnormal Lab Results - Last 24 Hours (Table) 06/21/17 06/21/17 06/22/17 Range/Units 16:40 20:43 05:29 WBC 14.5 H (3.8-10.6) k/uL RDW 15.9 H (11.5-15.5) % Neutrophils # 11.8 H (1.3-7.7) k/uL Lymphocytes # 0.9 L (1.0-4.8) k/uL Monocytes # 1.2 H (0-1.0) k/uL Chloride (98-107) mmol/L Carbon Dioxide (22-30) mmol/L Glucose (74-99) mg/dL POC Glucose (mg/dL) 169 H 150 H (75-99) mg/dL 06/22/17 06/22/17 06/22/17 Range/Units 05:29 06:22 11:49 WBC (3.8-10.6) k/uL RDW (11.5-15.5) % Neutrophils # (1.3-7.7) k/uL Lymphocytes # (1.0-4.8) k/uL Monocytes # (0-1.0) k/uL Chloride 109 H (98-107) mmol/L Carbon Dioxide 20 L (22-30) mmol/L Glucose 221 H (74-99) mg/dL POC Glucose (mg/dL) 202 H 215 H (75-99) mg/dL Microbiology - Last 24 Hours (Table) 06/18/17 18:00 Blood Culture - Preliminary Blood No Growth after 72 hours Assessment and Plan Plan: #1 abdominal pain. Suspected ischemic colitis with significant elevated lactic acid level improved with fluid resuscitation. CT of the abdomen and pelvis showed small bowel wall thickening consistent with colitis. Patient will be continued on broad-spectrum antibiotics. Less likely pneumonia at this time. patient is on levofloxacin #1 sepsis secondary to E. coli UTI versus abdominal source. Less likely pneumonia. #2 chest pain due to Non-ST elevation [place] with mildly elevated troponins: Status post cardiac Catheterization stent to ramus intermedius. #2 history of coronary artery disease status post stent placement in April 2017 #2 chronic systolic dysfunction ejection fraction of around 45% ischemic cardiomyopathy: Patient is not in acute exacerbation we'll continue with his home medications for now. Patient has an AICD, chest x-ray showing pulmonary edema because of which I started him on Lasix IV 40 twice a day #3 chronic persistent atrial fibrillation: Rate controlled. patient was on xarelto. Discontinued due to GI bleed. #4 type 2 diabetes mellitus: Continue his home regimen except for metformin . Insulin sliding scale #5 hypertension. controlled #6 prior history of CVAs and severe peripheral vascular disease #7 hyperlipidemia #9 COPD without any acute exacerbation. The patient is fairly euvolemic will be discharged to subacute rehab tomorrow
[2017-06-22] MEDS: LEVOFLOXACIN 500 MG TAB PO SCH (17:16)
[2017-06-22] MEDS: ATORVASTATIN 80 MG TAB PO SCH (17:16)
[2017-06-22] MEDS: DIGOXIN 125 MCG TAB PO SCH (17:16)
[2017-06-22 17:29] LABS: Glucose,Whole Blood 125 mg/dL (75-99)
[2017-06-22] MEDS: ALBUTEROL NEBULIZED 2.5 MG/3 ML INHALATION PRN (20:22)
[2017-06-22 21:04] LABS: Glucose,Whole Blood 151 mg/dL (75-99)
[2017-06-22] MEDS: INSULIN GLARGINE 100 UNIT/ML 10 ML VIAL SQ SCH (21:42)
[2017-06-22] MEDS: traMADol 50 MG TAB PO PRN (22:01)
[2017-06-23 06:02] LABS: Glucose,Whole Blood 166 mg/dL (75-99)
[2017-06-23] MEDS: INSULIN LISPRO (humaLOG) 300 UNIT/3 ML VIAL SQ SCH ×4 (06:18→20:42)
[2017-06-23] MEDS: PANTOPRAZOLE 40 MG TABLET PO SCH (06:18)
[2017-06-23 07:37] LABS: Anion Gap 12 mmol/L; Blood Urea Nitrogen 15 mg/dL (9-20); Calcium 8.9 mg/dL (8.4-10.2); Carbon Dioxide 27 mmol/L (22-30); Chloride 105 mmol/L (98-107); Glucose 168 mg/dL (74-99); Magnesium 1.5 mg/dL (1.6-2.3); Non-African American GFR(MDRD) >60 (>60 ml/min/1.73 sqM); Phosphorus 3.1 mg/dL (2.5-4.5); Potassium 3.2 mmol/L (3.5-5.1); Sodium 144 mmol/L (137-145)
[2017-06-23 08:04] LABS: Basophils # (A) 0.1 k/uL (0-0.2); Basophils % (A) 1 %; CH 28.9; CHCM 31.5; Eosinophils # (A) 0.3 k/uL (0-0.7); Eosinophils % (A) 2 %; HCT 43.3 % (39.0-53.0); HGB 13.9 gm/dL (13.0-17.5); Hypochromasia Moderate; Luc # (Auto) 0.23; Luc % (Auto) 2; Lymphocytes # (A) 0.8 k/uL (1.0-4.8); Lymphocytes % (A) 8 %; MCH 29.8 pg (25.0-35.0); MCHC 32.2 g/dL (31.0-37.0); MCV 92.7 fL (80.0-100.0); Mean Platelet Volume 8.9; Monocytes % (A) 10 %; Neutrophils # (A) 8.1 k/uL (1.3-7.7); Neutrophils % (A) 78 %; Poikilocytosis Slight; RBC 4.67 m/uL (4.30-5.90); RDW 15.7 % (11.5-15.5); WBC 10.5 k/uL (3.8-10.6)
[2017-06-23] MEDS: MAGNESIUM SULFATE-D5W PMX 1 GM in DEXTROSE/WATER 1 100ML.BAG IVPB SCH ×2 (08:40→10:16)
[2017-06-23] MEDS: ASPIRIN 81 MG PO SCH (08:43)
[2017-06-23] MEDS: DOCUSATE 100 MG CAP PO SCH ×2 (08:43→20:11)
[2017-06-23] MEDS: POTASSIUM CHLORIDE ER 20 MEQ TAB.ER PO SCH ×2 (08:43→10:16)
[2017-06-23] MEDS: PREGABALIN 50 MG CAP PO SCH ×2 (08:43→20:40)
[2017-06-23] MEDS: METOPROLOL TARTRATE 50 MG TAB PO SCH ×2 (08:43→20:37)
[2017-06-23] MEDS: LISINOPRIL 5 MG TAB PO SCH (08:43)
[2017-06-23] MEDS: ISOSORBIDE MONONITRATE ER 60 MG TAB.ER.24H PO SCH (08:43)
[2017-06-23] MEDS: CLOPIDOGREL 75 MG TAB PO SCH (08:43)
[2017-06-23] MEDS: FUROSEMIDE 10 MG/ML 4 ML VIAL IV SCH ×2 (08:47→20:37)
--- NOTE | 2017-06-23 11:26 | P.PN ---
Subjective Progress Note Date: 06/23/17 Principal diagnosis: Acute urinary tract infection and sepsis. 81-year-old male patient with known history of coronary artery disease, CHF with previous AICD placement, presented to the hospital because of epigastric pain and he had obvious EKG abnormalities and abnormal troponins. He was diagnosed having a non-ST segment elevation myocardial infarction and he was taken to cardiac catheterization on 06/17/2017 and the patient underwent angioplasty and stenting of the ramus intermediate artery. Note that the patient was having shortness of breath on day of admission and was complaining of progressive increase in dyspnea. He also complained of some mild abdominal discomfort on admission that was thought to be essentially epigastric in location. In any rate, the patient underwent a successful coronary intervention and the patient was recovering on a telemetry unit when he started having fever, and chills with a temperature of 101.9 and he became progressively more tachypneic and tachycardic. His lactic acid level was at 9.0. Based on all this, the patient was moved to the intensive care unit where he was given a total of 1-1/2-2 L of IV fluids. He was covered with a combination of Levaquin and aztreonam. Since then he has not spiked any fever. His white cell count is elevated however no fever or chills and he is feeling better less tachycardic and tachypneic compared to yesterday. There is no alternative source of sepsis at this point. He has a AICD in place and the pocket site is clean. No cough or sputum production. No open wounds or sores. His urine on admission was negative. Chest x-ray shows cardiomegaly and some limited pleural effusion and a retrocardiac infiltrate cannot be completely excluded. This morning, the patient is still having some vague mid abdominal pain which has subsided however it is not completely gone. No nausea. No vomiting. His last bowel movement was approximately 3 days ago. He is still in chronic atrial fibrillation. He did have short runs of V. tach yesterday that were nonsustained. His magnesium level was 1.8 was replaced. He has no chest pain for now. No further arrhythmias. He has on no anticoagulation based on previous history of GI bleeding. On 06/20/2017 the patient is being seen for a follow-up. The patient is doing extremely well. His lactic acidosis recovered. He is hemodynamically stable. He is afebrile. No signs of acute septicemia. The blood cultures been negative. Urine cultures showing gram-negative bacilli. Note that the CAT scan of the abdomen was also done yesterday showed minimal colonic wall thickening which could potentially indicate a mild colitis versus nonobstructive stricture versus peristalsis. There is also small bilateral pleural effusion and bibasilar airspace disease. There was also cardiomegaly, cholelithiasis and bilious sludge and chronically appearing left perinephric fat stranding and pararenal fluid unchanged since 2014. As such I'm not sure if the source of infection was urine or abdominal although I suspect that it could have been a urine checked infection more than ischemic colitis. The patient is tolerating diet for now. He is producing adequate amount of urine output. He remains on a combination of aztreonam and Levaquin. White cell count is down to 17.1. His metabolic acidosis is improving. His bicarb level is up to 16 and his anion gap is down to 11. He is awake and alert. He is following commands and answering questions. No chest pain. He remains in atrial fibrillation. On 06/21/2017, the patient is being seen in follow-up in the patient is doing well without any significant complaints. White cell count is not elevated at 15.5. In fact the white cell count has been consistently going down. Hemoglobin stable at 13.0. The rest of the electrodes are all within normal limits. He is free of any chest pain. He tolerated his diet this morning and he had a breakfast without any nausea vomiting or emesis pain no swelling lower extremities. No abdominal pain or tenderness. The patient is on no anticoagulants for now. His cardiac rhythm is atrial fibrillation. The patient is also having profound weakness and we are considering moving this patient to an ECF at a later stage. He is also being treated for urine checked infection with gram-and this turned out to be E. coli that is negative sensitive to quinolones On 06/22/2017 the patient has no specific complaints. He is free of any chest pain. Pulmonary status is stable. He is on IV Lasix 40 mg every 12 hours. He is also on Levaquin 500 mg by mouth daily regarding a E. coli urinary tract infection. No nausea. No vomiting. No abdominal pain. No other complaints otherwise. He is awake and alert yet he is very weak and he will need further rehabilitation. The follow-up chest x-ray today showed vascular congestion and worsening changes of heart failure and for that reason the patient was restarted back on IV Lasix On 06/23/2017, patient feels and seems to be doing much better, remains on IV Lasix, he is also on antibiotics for his urinary tract infection. Feels better , remained generally weak, but when I discussed the rehab referral with the patient, seems to be extremely reluctant to consider rehab. Patient apparently lives with his daughter, and he would like to be considered for discharge home and no where else. Reviewed her chest x-ray, it did show evidence of congestive heart failure, patient remains on diuretics. No follow-up chest x-ray done today, but clearly the chest x-ray from yesterday showed congestive heart failure. Objective - Vital Signs Vital signs: Vital Signs Temp 97.8 F 06/23/17 08:00 Pulse 86 06/23/17 08:00 Resp 18 06/23/17 08:00 BP 161/75 06/23/17 08:00 Pulse Ox 93 L 06/23/17 08:00 Intake & Output 06/22/17 06/23/17 06/23/17 18:59 06:59 18:59 Intake Total 200 Output Total 701 Balance -701 200 Weight 73.4 kg Intake: Oral 200 Output: Urine 700 Stool 1 Other: Voiding Method Urinal # Voids 1 # Bowel Movements 1 1 - Exam Physical Exam: Revealed an 81-year-old white male in no form of respiratory distress. HEENT:[Neck is supple.] [No neck masses.] [No thyromegaly.] [No JVD.] Chest: [Fine crackles at the bases, no rhonchi, no wheezes..] Cardiac Exam: [Irregular irregular rhythm, Normal S1 and S2, no S3 gallop, no murmur.] Abdomen: [Soft, nontender, no megaly, no rebound, no guarding, normal bowel sounds.] Extremities: [No clubbing, no edema, no cyanosis.] Neurological Exam: [No focal neurologic deficit.] Musculoskeletal: No weakness, no limitation in range of motion, Psychiatric: Normal affect and normal mood, normal mental status examination. Lymphatics: No evidence of lymphadenopathy. Skin: No evidence of rashes, no ulcerations. - Labs CBC & Chem 7: 06/23/17 06:28 06/23/17 06:28 Labs: Abnormal Lab Results - Last 24 Hours (Table) 06/22/17 06/22/17 06/22/17 Range/Units 11:49 17:01 21:01 RDW (11.5-15.5) % Neutrophils # (1.3-7.7) k/uL Lymphocytes # (1.0-4.8) k/uL Potassium (3.5-5.1) mmol/L Glucose (74-99) mg/dL POC Glucose (mg/dL) 215 H 125 H 151 H (75-99) mg/dL Magnesium (1.6-2.3) mg/dL 06/23/17 06/23/17 06/23/17 Range/Units 06:01 06:28 06:28 RDW 15.7 H (11.5-15.5) % Neutrophils # 8.1 H (1.3-7.7) k/uL Lymphocytes # 0.8 L (1.0-4.8) k/uL Potassium 3.2 L (3.5-5.1) mmol/L Glucose 168 H (74-99) mg/dL POC Glucose (mg/dL) 166 H (75-99) mg/dL Magnesium 1.5 L (1.6-2.3) mg/dL Microbiology - Last 24 Hours (Table) 06/18/17 18:00 Blood Culture - Preliminary Blood No Growth after 96 hours Assessment and Plan Plan: 1 acute urinary tract infection and sepsis. Patient has E. coli in the urine. And he remains on antibiotics in the form of Levaquin and aztreonam. 2 acute non-ST segment elevation myocardial infarction status post cardiac catheterization and stenting of the ramus intermedius 3 multivessel coronary artery disease with previous coronary intervention and stenting 4 acute CHF with ejection fraction 45% and severely dilated LA, with findings of worsening CHF on today's chest x-ray 5 single chamber AICD placement 2015 6 CVA without any residual deficits 7 chronic atrial fibrillation and the patient has been on Xarelto in the past and this has been taken off due to GI bleed 8 nonsustained V. tach 9 hyperlipidemia 7 hypertension 11 peripheral neuropathy 12 peripheral vascular disease 13 nephrolithiasis 14 history of GI bleed, with a previous endoscopies showing a small hiatal hernia and a colonic polyp that was resected and a scattered sigmoid diverticulosis. 15 acid reflux 16 medical debility and generalized weakness Plan: Continue antibiotics, continue Lasix, repeat chest x-ray in a.m., patient will likely benefit from rehabilitation referral, he is extremely reluctant to consider going to a rehab facility, but that should be readdressed by social media campaign manager. We'll continue to follow, patient is not ready for discharge planning at this point. Time with Patient: Less than 30
[2017-06-23 11:54] LABS: Glucose,Whole Blood 312 mg/dL (75-99)
--- NOTE | 2017-06-23 14:29 | P.PN ---
Subjective Progress Note Date: 06/23/17 Principal diagnosis: NSTEMI This is an 81-year-old gentleman with known history of coronary artery disease and recent angioplasty of the ramus intermediate in April of this year by Dr. Gan who presented to the hospital with a non-ST elevation myocardial infarction. He was taken to the cardiac catheterization lab yesterday where he underwent angioplasty and stenting of the ramus intermediate artery. Patient had several episodes of shortness of breath through the night last night and this morning was complaining of feeling quite short of breath. He also had some mild abdominal discomfort. He denies any chest discomfort. His EKG this morning showed triple fibrillation with a controlled ventricular response, ST depression in the lateral leads similar to prior to the procedure. At pressure 122/70 with a heart rate in the 90s, 92% on 2 L of oxygen. A stat chest x-ray was performed which revealed borderline heart size with changes suggesting pulmonary vascular congestion. Patient was given a one-time dose of 40 mg of IV Lasix, at the time of her reevaluation later patient was feeling much better. 06/23/2017. Seen and examined this morning, diuresed well through the night last night, weight is down 3 kg today. Creatinine 3.2. We'll continue the patient on IV Lasix for 24 hours. Obtain a repeat chest x-ray tomorrow. Objective - Vital Signs Vital signs: Vital Signs Temp 97.8 F 06/23/17 12:00 Pulse 97 06/23/17 12:00 Resp 18 06/23/17 12:00 BP 150/68 06/23/17 12:00 Pulse Ox 90 L 06/23/17 12:00 Intake & Output 06/22/17 06/23/17 06/23/17 18:59 06:59 18:59 Intake Total 200 Output Total 701 Balance -701 200 Weight 73.4 kg Intake: Oral 200 Output: Urine 700 Stool 1 Other: Voiding Method Urinal # Voids 1 # Bowel Movements 1 1 - Exam PHYSICAL EXAMINATION: HEENT: Head is atraumatic, normocephalic. Pupils equal, round. Neck is supple. There is no elevated jugular venous pressure. HEART EXAMINATION: Heart S1 and S2 irregularly irregular a systolic murmur is heard. CHEST EXAMINATION: Lungs revealed fine crackles bilaterally to the bases. ABDOMEN: Soft, mild generalized tenderness . Bowel sounds are heard. No organomegaly noted. EXTREMITIES: Bilateral Doppler pedal pulses. Right groin soft, no evidence of any hematoma. NEUROLOGIC patient is awake, alert and oriented -3. . - Labs CBC & Chem 7: 06/23/17 06:28 06/23/17 13:05 Labs: Abnormal Lab Results - Last 24 Hours (Table) 06/22/17 06/22/17 06/23/17 Range/Units 17:01 21:01 06:01 RDW (11.5-15.5) % Neutrophils # (1.3-7.7) k/uL Lymphocytes # (1.0-4.8) k/uL Potassium (3.5-5.1) mmol/L Glucose (74-99) mg/dL POC Glucose (mg/dL) 125 H 151 H 166 H (75-99) mg/dL Magnesium (1.6-2.3) mg/dL 06/23/17 06/23/17 06/23/17 Range/Units 06:28 06:28 11:37 RDW 15.7 H (11.5-15.5) % Neutrophils # 8.1 H (1.3-7.7) k/uL Lymphocytes # 0.8 L (1.0-4.8) k/uL Potassium 3.2 L (3.5-5.1) mmol/L Glucose 168 H (74-99) mg/dL POC Glucose (mg/dL) 312 H (75-99) mg/dL Magnesium 1.5 L (1.6-2.3) mg/dL Microbiology - Last 24 Hours (Table) 06/18/17 18:00 Blood Culture - Preliminary Blood No Growth after 96 hours Assessment and Plan Plan: Assessment and plan #1 non-ST elevation myocardial infarction, status post angioplasty and stenting of the ramus intermediate artery #2 known history of coronary artery disease with prior stent placements, most recently patient underwent angioplasty with stenting of the ramus intermediate in April #3 diabetes #4 hypertension #5 ischemic cardiomyopathy with prior ICD implant #6 prior CVA #7 peripheral vascular disease #8 chronic persistent atrial fibrillation patient had been on xarelto and Coumadin in the past, had GI bleeding and for this reason is not on anticoagulation. #9 hyperlipidemia Plan We'll continue the patient on IV Lasix for 24 hours and from tomorrow plan on switching to oral diuretics. Repeat chest x-ray in the morning. DNP note has been reviewed, I agree with a documented findings and plan of care. Patient was seen and examined.
--- NOTE | 2017-06-23 14:37 | P.PN ---
Subjective This is an 81-year-old gentleman with known history of coronary artery disease and recent angioplasty of the ramus intermediate in April of this year by Dr. Gan who presented to the hospital with a non-ST elevation myocardial infarction. He was taken to the cardiac catheterization lab yesterday where he underwent angioplasty and stenting of the ramus intermediate artery. Patient also has chronic persistent atrial fibrillation. Chest x-ray today showed changes suggestive of Congestive heart failure. Suspected left lower lobe infiltrate. Patient does have episodes or short of breath last night. Today afternoon patient became tachycardic tachypneic and febrile with T-max level of 101.9. Patient had repeat chest x-ray and lactic acid level was done and was found to be elevated. Patient was started on IV hydration and also started on broad- spectrum antibiotics. Patient will be transferred to intensive care unit for further management. Patient otherwise denied any chest pain. No nausea no vomiting. On 06/19/2017 Patient did improve clinically. Patient does have vague abdominal pain. Serial abdominal pelvis was ordered and possible ischemic colitis suspected. Lactic acidosis improved to 2.1 with fluid resuscitation. Leukocytosis slightly improved afebrile now. Patient is more awake and oriented. CT of abdomen pelvis was ordered. 06/20/2017 Patient is complaining of abdominal pain which is improved. CT of the abdomen and pelvis showed small bowel wall thickening possible colitis. Urine cultures showing E. coli. Chest x-ray showed bibasilar pastries with possible infiltrates. Patient is improving symptomatically area did lactic acidosis resolved. Patient is being transferred to medical floor today. Continued antibiotics in the form of azactam and Levaquin. 06/21/2017 No significant overnight events, patient is fragile. 06/22/2017 Significant overnight events. Except for some multifocal atrial tachycardia 06/23/2017 No overnight events, patient is on IV Lasix which will be continued for pulmonary edema. Constitutional: Denied any fatigue denied any fever. Cardio vascular: denied any chest pain, palpitations Gastrointestinal denied any nausea vomiting Pulmonary: Denied any shortness of breath cough Neurologic denied any new focal deficits Objective - Vital Signs Vital signs: Vital Signs Temp 97.8 F 06/23/17 12:00 Pulse 97 06/23/17 12:00 Resp 18 06/23/17 12:00 BP 150/68 06/23/17 12:00 Pulse Ox 90 L 06/23/17 12:00 Intake & Output 06/22/17 06/23/17 06/23/17 18:59 06:59 18:59 Intake Total 200 Output Total 701 Balance -701 200 Weight 73.4 kg Intake: Oral 200 Output: Urine 700 Stool 1 Other: Voiding Method Urinal # Voids 1 # Bowel Movements 1 1 - Exam PHYSICAL EXAMINATION: Patient is lying in the bed comfortably, mild distress, awake alert and oriented.. HEENT: Normocephalic. Neck is supple. Pupils reactive. Nostrils clear. Oral cavity is moist. Ears reveal no drainage. Neck reveals no JVD, carotid bruits, or thyromegaly. CHEST EXAMINATION: Trachea is central. Symmetrical expansion. Bilateral air entry is present. Decreased basilar breath sounds with left basal crackles.. CARDIAC: Normal S1, S2 with no gallops. No murmurs ABDOMEN: Soft. Nontender. Bowel sounds normal. No organomegaly. No abdominal bruits. Extremities: reveal no edema. No clubbing or cyanosis Neurologically awake, alert, oriented x3 with well-coordinated movements. No focal deficits noted Skin: No rash or skin lesions. Psychiatric: Operative. Nonsuicidal Musculoskeletal: No joint swelling or deformity. Normal range of motion. - Labs CBC & Chem 7: 06/23/17 06:28 06/23/17 13:05 Labs: Abnormal Lab Results - Last 24 Hours (Table) 06/22/17 06/22/17 06/23/17 Range/Units 17:01 21:01 06:01 RDW (11.5-15.5) % Neutrophils # (1.3-7.7) k/uL Lymphocytes # (1.0-4.8) k/uL Potassium (3.5-5.1) mmol/L Glucose (74-99) mg/dL POC Glucose (mg/dL) 125 H 151 H 166 H (75-99) mg/dL Magnesium (1.6-2.3) mg/dL 06/23/17 06/23/17 06/23/17 Range/Units 06:28 06:28 11:37 RDW 15.7 H (11.5-15.5) % Neutrophils # 8.1 H (1.3-7.7) k/uL Lymphocytes # 0.8 L (1.0-4.8) k/uL Potassium 3.2 L (3.5-5.1) mmol/L Glucose 168 H (74-99) mg/dL POC Glucose (mg/dL) 312 H (75-99) mg/dL Magnesium 1.5 L (1.6-2.3) mg/dL Microbiology - Last 24 Hours (Table) 06/18/17 18:00 Blood Culture - Preliminary Blood No Growth after 96 hours Assessment and Plan Plan: #1 abdominal pain. Suspected ischemic colitis with significant elevated lactic acid level improved with fluid resuscitation. CT of the abdomen and pelvis showed small bowel wall thickening consistent with colitis. Patient will be continued on broad-spectrum antibiotics. Less likely pneumonia at this time. patient is on levofloxacin #2 sepsis secondary to E. coli UTI versus abdominal source. Less likely pneumonia. #3 chest pain due to Non-ST elevation PR with mildly elevated troponins: Status post cardiac Catheterization stent to ramus intermedius. #4 history of coronary artery disease status post stent placement in April 2017 #5 chronic systolic dysfunction ejection fraction of around 45% ischemic cardiomyopathy: Patient is not in acute exacerbation we'll continue with his home medications for now. Patient has an AICD, chest x-ray showing pulmonary edema because of which I started him on Lasix IV 40 twice a day #6 chronic persistent atrial fibrillation: Rate controlled. patient was on xarelto. Discontinued due to GI bleed. #7 type 2 diabetes mellitus: Continue his home regimen except for metformin . Insulin sliding scale #8 hypertension. controlled #9 prior history of CVAs and severe peripheral vascular disease #10 hyperlipidemia #11 COPD without any acute exacerbation. #12 hypokalemia due to Lasix which will be supplemented. The patient is fairly euvolemic will be discharged to subacute rehab tomorrow
[2017-06-23 16:53] LABS: Glucose,Whole Blood 131 mg/dL (75-99)
[2017-06-23] MEDS: ATORVASTATIN 80 MG TAB PO SCH (17:43)
[2017-06-23] MEDS: DIGOXIN 125 MCG TAB PO SCH (17:43)
[2017-06-23] MEDS: LEVOFLOXACIN 500 MG TAB PO SCH (17:43)
[2017-06-23] MEDS: SODIUM CHLORIDE 0.9% 1,000 ML IV SCH (17:44)
[2017-06-23] MEDS: ALPRAZolam 0.25 MG TAB PO PRN (20:37)
[2017-06-23 20:44] LABS: Glucose,Whole Blood 130 mg/dL (75-99)
[2017-06-23] MEDS: INSULIN GLARGINE 100 UNIT/ML 10 ML VIAL SQ SCH (20:52)
[2017-06-23] MEDS: traMADol 50 MG TAB PO PRN (23:43)
[2017-06-24 06:04] LABS: Glucose,Whole Blood 187 mg/dL (75-99)
[2017-06-24 06:41] LABS: Anisocytosis Slight; CH 30.3; CHCM 32.5; HDW 3.37; HGB 13.9 gm/dL (13.0-17.5); Hypochromasia Slight; MCH 29.7 pg (25.0-35.0); MCHC 31.7 g/dL (31.0-37.0); MCV 93.9 fL (80.0-100.0); Mean Platelet Volume 9.5; RBC 4.68 m/uL (4.30-5.90); RDW 16.6 % (11.5-15.5); WBC 10.4 k/uL (3.8-10.6)
[2017-06-24] MEDS: PANTOPRAZOLE 40 MG TABLET PO SCH (06:49)
[2017-06-24] MEDS: traMADol 50 MG TAB PO PRN ×2 (06:49→15:53)
[2017-06-24] MEDS: INSULIN LISPRO (humaLOG) 300 UNIT/3 ML VIAL SQ SCH ×4 (06:50→21:52)
[2017-06-24 07:03] LABS: Anion Gap 11 mmol/L; Blood Urea Nitrogen 22 mg/dL (9-20); Calcium 9.2 mg/dL (8.4-10.2); Carbon Dioxide 28 mmol/L (22-30); Chloride 105 mmol/L (98-107); Glucose 159 mg/dL (74-99); Magnesium 1.6 mg/dL (1.6-2.3); Non-African American GFR(MDRD) >60 (>60 ml/min/1.73 sqM); Potassium 3.8 mmol/L (3.5-5.1); Sodium 144 mmol/L (137-145)
--- NOTE | 2017-06-24 08:46 | XR ---
EXAMINATION TYPE: XR chest 2V DATE OF EXAM: 06/24/2017 COMPARISON: 06/22/2017 HISTORY: History of congestive heart failure TECHNIQUE: Frontal and lateral views of the chest are obtained. FINDINGS: There is improved aeration of both lungs with only trace residual lateral pleural effusion s blunting the costophrenic angles. No pulmonary vascular congestion. Cardiac silhouette is again enl arged with a single lead left-sided cardiac device. IMPRESSION: Markedly improved sequela of congestive heart failure with resolution of the previously s een pulmonary edema and pulmonary vascular congestion with trace bilateral pleural effusions helen omalley
[2017-06-24] MEDS: MAGNESIUM SULFATE-D5W PMX 1 GM in DEXTROSE/WATER 1 100ML.BAG IVPB SCH ×2 (09:05→10:50)
[2017-06-24] MEDS: METOPROLOL TARTRATE 50 MG TAB PO SCH ×2 (09:06→21:52)
[2017-06-24] MEDS: SPIRONOLACTONE 25 MG TAB PO SCH (09:06)
[2017-06-24] MEDS: ASPIRIN 81 MG PO SCH (09:07)
[2017-06-24] MEDS: FUROSEMIDE 10 MG/ML 4 ML VIAL IV SCH (09:07)
[2017-06-24] MEDS: CLOPIDOGREL 75 MG TAB PO SCH (09:07)
[2017-06-24] MEDS: DOCUSATE 100 MG CAP PO SCH ×2 (09:07→18:13)
[2017-06-24 11:10] VITALS: BMI 23.8
[2017-06-24 11:25] LABS: Glucose,Whole Blood 228 mg/dL (75-99)
[2017-06-24] MEDS: ISOSORBIDE MONONITRATE ER 60 MG TAB.ER.24H PO SCH (11:51)
[2017-06-24] MEDS: LISINOPRIL 5 MG TAB PO SCH (11:51)
[2017-06-24] MEDS: PREGABALIN 50 MG CAP PO SCH ×2 (11:51→21:51)
--- NOTE | 2017-06-24 12:50 | P.PN ---
Subjective Progress Note Date: 06/24/17 Principal diagnosis: Acute urinary tract infection and sepsis. Congestive heart failure 81-year-old male patient with known history of coronary artery disease, CHF with previous AICD placement, presented to the hospital because of epigastric pain and he had obvious EKG abnormalities and abnormal troponins. He was diagnosed having a non-ST segment elevation myocardial infarction and he was taken to cardiac catheterization on 06/17/2017 and the patient underwent angioplasty and stenting of the ramus intermediate artery. Note that the patient was having shortness of breath on day of admission and was complaining of progressive increase in dyspnea. He also complained of some mild abdominal discomfort on admission that was thought to be essentially epigastric in location. In any rate, the patient underwent a successful coronary intervention and the patient was recovering on a telemetry unit when he started having fever, and chills with a temperature of 101.9 and he became progressively more tachypneic and tachycardic. His lactic acid level was at 9.0. Based on all this, the patient was moved to the intensive care unit where he was given a total of 1-1/2-2 L of IV fluids. He was covered with a combination of Levaquin and aztreonam. Since then he has not spiked any fever. His white cell count is elevated however no fever or chills and he is feeling better less tachycardic and tachypneic compared to yesterday. There is no alternative source of sepsis at this point. He has a AICD in place and the pocket site is clean. No cough or sputum production. No open wounds or sores. His urine on admission was negative. Chest x-ray shows cardiomegaly and some limited pleural effusion and a retrocardiac infiltrate cannot be completely excluded. This morning, the patient is still having some vague mid abdominal pain which has subsided however it is not completely gone. No nausea. No vomiting. His last bowel movement was approximately 3 days ago. He is still in chronic atrial fibrillation. He did have short runs of V. tach yesterday that were nonsustained. His magnesium level was 1.8 was replaced. He has no chest pain for now. No further arrhythmias. He has on no anticoagulation based on previous history of GI bleeding. On 06/20/2017 the patient is being seen for a follow-up. The patient is doing extremely well. His lactic acidosis recovered. He is hemodynamically stable. He is afebrile. No signs of acute septicemia. The blood cultures been negative. Urine cultures showing gram-negative bacilli. Note that the CAT scan of the abdomen was also done yesterday showed minimal colonic wall thickening which could potentially indicate a mild colitis versus nonobstructive stricture versus peristalsis. There is also small bilateral pleural effusion and bibasilar airspace disease. There was also cardiomegaly, cholelithiasis and bilious sludge and chronically appearing left perinephric fat stranding and pararenal fluid unchanged since 2014. As such I'm not sure if the source of infection was urine or abdominal although I suspect that it could have been a urine checked infection more than ischemic colitis. The patient is tolerating diet for now. He is producing adequate amount of urine output. He remains on a combination of aztreonam and Levaquin. White cell count is down to 17.1. His metabolic acidosis is improving. His bicarb level is up to 16 and his anion gap is down to 11. He is awake and alert. He is following commands and answering questions. No chest pain. He remains in atrial fibrillation. On 06/21/2017, the patient is being seen in follow-up in the patient is doing well without any significant complaints. White cell count is not elevated at 15.5. In fact the white cell count has been consistently going down. Hemoglobin stable at 13.0. The rest of the electrodes are all within normal limits. He is free of any chest pain. He tolerated his diet this morning and he had a breakfast without any nausea vomiting or emesis pain no swelling lower extremities. No abdominal pain or tenderness. The patient is on no anticoagulants for now. His cardiac rhythm is atrial fibrillation. The patient is also having profound weakness and we are considering moving this patient to an ECF at a later stage. He is also being treated for urine checked infection with gram-and this turned out to be E. coli that is negative sensitive to quinolones On 06/22/2017 the patient has no specific complaints. He is free of any chest pain. Pulmonary status is stable. He is on IV Lasix 40 mg every 12 hours. He is also on Levaquin 500 mg by mouth daily regarding a E. coli urinary tract infection. No nausea. No vomiting. No abdominal pain. No other complaints otherwise. He is awake and alert yet he is very weak and he will need further rehabilitation. The follow-up chest x-ray today showed vascular congestion and worsening changes of heart failure and for that reason the patient was restarted back on IV Lasix On 06/23/2017, patient feels and seems to be doing much better, remains on IV Lasix, he is also on antibiotics for his urinary tract infection. Feels better , remained generally weak, but when I discussed the rehab referral with the patient, seems to be extremely reluctant to consider rehab. Patient apparently lives with his daughter, and he would like to be considered for discharge home and no where else. Reviewed her chest x-ray, it did show evidence of congestive heart failure, patient remains on diuretics. No follow-up chest x-ray done today, but clearly the chest x-ray from yesterday showed congestive heart failure. On 06/24/2017, patient is doing extremely well, his chest x-ray showed significant improvement, responded well to diuresis. No cough no wheezing no shortness of breath, remains on antibiotics for his urinary tract infection, patient is basically asymptomatic today. Considering the improvement in the chest x-ray, possibly could consider cutting down on diuretics, and possible discharge planning. Renal profile seems to be holding quite well. And this is in spite of diuretics. Objective - Vital Signs Vital signs: Vital Signs Temp 97.1 F L 06/24/17 11:49 Pulse 88 06/24/17 11:49 Resp 16 06/24/17 11:49 BP 114/94 06/24/17 11:49 Pulse Ox 96 06/24/17 11:49 Intake & Output 06/23/17 06/24/17 06/24/17 18:59 06:59 18:59 Intake Total 500 80 240 Output Total 750 614 Balance -250 80 -374 Weight 73.3 kg 73.3 kg Intake: IV 80 Sodium Chloride 0.9% 1, 80 000 ml @ 20 mls/hr IV . Q24H [facility] Rx#:[id number] Oral 500 240 Output: Urine 750 575 Post Void Residual 39 Other: # Voids 1 # Bowel Movements 2 - Exam Physical Exam: Revealed an 81-year-old white male in no form of respiratory distress. HEENT:[Neck is supple.] [No neck masses.] [No thyromegaly.] [No JVD.] Chest: [Clear bilaterally,, no rhonchi, no wheezes..] Symmetrical chest expansion, no chest wall tenderness. Cardiac Exam: [Irregular irregular rhythm, Normal S1 and S2, no S3 gallop, no murmur.] Abdomen: [Soft, nontender, no megaly, no rebound, no guarding, normal bowel sounds.] Extremities: [No clubbing, no edema, no cyanosis.] Neurological Exam: [No focal neurologic deficit.] Musculoskeletal: No weakness, no limitation in range of motion, Psychiatric: Normal affect and normal mood, normal mental status examination. Lymphatics: No evidence of lymphadenopathy. Skin: No evidence of rashes, no ulcerations. - Labs CBC & Chem 7: 06/24/17 06:01 06/24/17 06:01 Labs: Abnormal Lab Results - Last 24 Hours (Table) 06/23/17 06/23/17 06/24/17 Range/Units 16:44 20:42 06:00 RDW (11.5-15.5) % BUN (9-20) mg/dL Glucose (74-99) mg/dL POC Glucose (mg/dL) 131 H 130 H 187 H (75-99) mg/dL 06/24/17 06/24/17 06/24/17 Range/Units 06:01 06:01 11:21 RDW 16.6 H (11.5-15.5) % BUN 22 H (9-20) mg/dL Glucose 159 H (74-99) mg/dL POC Glucose (mg/dL) 228 H (75-99) mg/dL Microbiology - Last 24 Hours (Table) 06/18/17 18:00 Blood Culture - Preliminary Blood No Growth after 120 hours Assessment and Plan Plan: 1 acute urinary tract infection and sepsis. Patient has E. coli in the urine. And he remains on antibiotics in the form of Levaquin and aztreonam. 2 acute non-ST segment elevation myocardial infarction status post cardiac catheterization and stenting of the ramus intermedius 3 multivessel coronary artery disease with previous coronary intervention and stenting 4 acute systolic CHF with ejection fraction 45% and severely dilated LA, chest x -ray today on 06/24 showed significant improvement. 5 single chamber AICD placement 2015 6 CVA without any residual deficits 7 chronic atrial fibrillation and the patient has been on Xarelto in the past and this has been taken off due to GI bleed 8 nonsustained V. tach 9 hyperlipidemia 7 hypertension 11 peripheral neuropathy 12 peripheral vascular disease 13 nephrolithiasis 14 history of GI bleed, with a previous endoscopies showing a small hiatal hernia and a colonic polyp that was resected and a scattered sigmoid diverticulosis. 15 acid reflux 16 medical debility and generalized weakness Plan: Continue antibiotics, continue Lasix, consider switching patient to oral medications, cleared for discharge from the pulmonary perspective in the next 24 hours. Needs to be cleared by cardiology because of his congestive heart failure which seems to be responding well to treatment. Time with Patient: Less than 30
--- NOTE | 2017-06-24 13:58 | P.PN ---
Subjective Progress Note Date: 06/24/17 Principal diagnosis: NSTEMI This is an 81-year-old gentleman with known history of coronary artery disease and recent angioplasty of the ramus intermediate in April of this year by Dr. Gan who presented to the hospital with a non-ST elevation myocardial infarction. He was taken to the cardiac catheterization lab yesterday where he underwent angioplasty and stenting of the ramus intermediate artery. Patient had several episodes of shortness of breath through the night last night and this morning was complaining of feeling quite short of breath. He also had some mild abdominal discomfort. He denies any chest discomfort. His EKG this morning showed triple fibrillation with a controlled ventricular response, ST depression in the lateral leads similar to prior to the procedure. At pressure 122/70 with a heart rate in the 90s, 92% on 2 L of oxygen. A stat chest x-ray was performed which revealed borderline heart size with changes suggesting pulmonary vascular congestion. Patient was given a one-time dose of 40 mg of IV Lasix, at the time of her reevaluation later patient was feeling much better. 06/23/2017. Seen and examined this morning, diuresed well through the night last night, weight is down 3 kg today. Creatinine 3.2. We'll continue the patient on IV Lasix for 24 hours. Obtain a repeat chest x-ray tomorrow. 06/24/2017 Patient seen and examined this morning, feeling better overall. Repeat chest x- ray showed resolution of heart failure. We'll discontinue the IV Lasix today start the patient on oral diuretics. Plan for discharge home in the morning if stable. Objective - Vital Signs Vital signs: Vital Signs Temp 97.1 F L 06/24/17 11:49 Pulse 88 06/24/17 11:49 Resp 16 06/24/17 11:49 BP 114/94 06/24/17 11:49 Pulse Ox 96 06/24/17 11:49 Intake & Output 06/23/17 06/24/17 06/24/17 18:59 06:59 18:59 Intake Total 500 80 480 Output Total 750 614 Balance -250 80 -134 Weight 73.3 kg 73.3 kg Intake: IV 80 Sodium Chloride 0.9% 1, 80 000 ml @ 20 mls/hr IV . Q24H [facility] Rx#:[id number] Oral 500 480 Output: Urine 750 575 Post Void Residual 39 Other: Voiding Method Urinal Incontinent # Voids 1 # Bowel Movements 2 - Exam PHYSICAL EXAMINATION: HEENT: Head is atraumatic, normocephalic. Pupils equal, round. Neck is supple. There is no elevated jugular venous pressure. HEART EXAMINATION: Heart S1 and S2 irregularly irregular a systolic murmur is heard. CHEST EXAMINATION: Lungs revealed fine crackles bilaterally to the bases. ABDOMEN: Soft, mild generalized tenderness . Bowel sounds are heard. No organomegaly noted. EXTREMITIES: Bilateral Doppler pedal pulses. Right groin soft, no evidence of any hematoma. NEUROLOGIC patient is awake, alert and oriented -3. . - Labs CBC & Chem 7: 06/24/17 06:01 06/24/17 06:01 Labs: Abnormal Lab Results - Last 24 Hours (Table) 06/23/17 06/23/17 06/24/17 Range/Units 16:44 20:42 06:00 RDW (11.5-15.5) % BUN (9-20) mg/dL Glucose (74-99) mg/dL POC Glucose (mg/dL) 131 H 130 H 187 H (75-99) mg/dL 06/24/17 06/24/17 06/24/17 Range/Units 06:01 06:01 11:21 RDW 16.6 H (11.5-15.5) % BUN 22 H (9-20) mg/dL Glucose 159 H (74-99) mg/dL POC Glucose (mg/dL) 228 H (75-99) mg/dL Microbiology - Last 24 Hours (Table) 06/18/17 18:00 Blood Culture - Preliminary Blood No Growth after 120 hours Assessment and Plan Plan: Assessment and plan #1 non-ST elevation myocardial infarction, status post angioplasty and stenting of the ramus intermediate artery #2 known history of coronary artery disease with prior stent placements, most recently patient underwent angioplasty with stenting of the ramus intermediate in April #3 diabetes #4 hypertension #5 ischemic cardiomyopathy with prior ICD implant #6 prior CVA #7 peripheral vascular disease #8 chronic persistent atrial fibrillation patient had been on xarelto and Coumadin in the past, had GI bleeding and for this reason is not on anticoagulation. #9 hyperlipidemia Plan We'll discontinue the IV Lasix and start the patient on oral diuretics today. Plan for possible discharge home in 24 hours if stable. ANGELO note has been reviewed, I agree with a documented findings and plan of care. Patient was seen and examined.
--- NOTE | 2017-06-24 15:03 | PN ---
PROGRESS NOTE Patient is feeling much better. Breathing is improved. Chest x-ray shows improvement in the heart failure. First and second heart sounds are normal. Patient's respirations are nonlabored. Lungs are clear to auscultation and percussion. Electrolytes, BUN and creatinine remain normal. We will discontinue the IV Lasix and patient is going to be discharged home tomorrow. MMODL / IJN: [id number] /
[2017-06-24] MEDS: FUROSEMIDE 40 MG TAB PO SCH (15:53)
[2017-06-24 16:34] LABS: Glucose,Whole Blood 142 mg/dL (75-99)
[2017-06-24] MEDS: LEVOFLOXACIN 500 MG TAB PO SCH (18:09)
[2017-06-24] MEDS: ATORVASTATIN 80 MG TAB PO SCH (18:09)
[2017-06-24] MEDS: DIGOXIN 125 MCG TAB PO SCH (18:09)
[2017-06-24] MEDS: IPRATROPIUM 0.5 MG/2.5 ML NEBU INHALATION PRN (20:53)
[2017-06-24 21:12] LABS: Glucose,Whole Blood 157 mg/dL (75-99)
[2017-06-24] MEDS: SODIUM CHLORIDE 0.9% 1,000 ML IV SCH (21:47)
[2017-06-24] MEDS: ALPRAZolam 0.25 MG TAB PO PRN (21:48)
[2017-06-24] MEDS: INSULIN GLARGINE 100 UNIT/ML 10 ML VIAL SQ SCH (21:52)
--- NOTE | 2017-06-24 23:25 | P.PN ---
Subjective Progress Note Date: 06/24/17 Principal diagnosis: Non-ST elevated CO This is an 81-year-old gentleman with known history of coronary artery disease and recent angioplasty of the ramus intermediate in April of this year by Dr. Gan who presented to the hospital with a non-ST elevation myocardial infarction. He was taken to the cardiac catheterization lab yesterday where he underwent angioplasty and stenting of the ramus intermediate artery. Patient also has chronic persistent atrial fibrillation. Chest x-ray today showed changes suggestive of Congestive heart failure. Suspected left lower lobe infiltrate. Patient does have episodes or short of breath last night. Today afternoon patient became tachycardic tachypneic and febrile with T-max level of 101.9. Patient had repeat chest x-ray and lactic acid level was done and was found to be elevated. Patient was started on IV hydration and also started on broad- spectrum antibiotics. Patient will be transferred to intensive care unit for further management. Patient otherwise denied any chest pain. No nausea no vomiting. On 06/19/2017 Patient did improve clinically. Patient does have vague abdominal pain. Serial abdominal pelvis was ordered and possible ischemic colitis suspected. Lactic acidosis improved to 2.1 with fluid resuscitation. Leukocytosis slightly improved afebrile now. Patient is more awake and oriented. CT of abdomen pelvis was ordered. 06/20/2017 Patient is complaining of abdominal pain which is improved. CT of the abdomen and pelvis showed small bowel wall thickening possible colitis. Urine cultures showing E. coli. Chest x-ray showed bibasilar pastries with possible infiltrates. Patient is improving symptomatically area did lactic acidosis resolved. Patient is being transferred to medical floor today. Continued antibiotics in the form of azactam and Levaquin. 06/24/2017 Patient did improve symptomatically. No complaints of chest pain or short of breath. No abdominal pain. Chest x-ray showed resolution of CHF. Diuretics changed to pills. Anticipate discharge next 24 hours. Other review of systems negative except the above Current medications reviewed Objective - Vital Signs Vital signs: Vital Signs Temp 96.8 F L 06/24/17 15:49 Pulse 62 06/24/17 21:04 Resp 24 06/24/17 15:49 BP 133/72 06/24/17 15:49 Pulse Ox 93 L 06/24/17 20:54 Intake & Output 06/24/17 06/24/17 06/25/17 06:59 18:59 06:59 Intake Total 80 720 Output Total 664 Balance 80 56 Weight 73.3 kg 73.3 kg Intake: IV 80 Sodium Chloride 0.9% 1, 80 000 ml @ 20 mls/hr IV . Q24H [facility] Rx#:[id number] Oral 720 Output: Urine 625 Post Void Residual 39 Other: Voiding Method Toilet Urinal Incontinent # Voids 1 # Bowel Movements 2 - Exam PHYSICAL EXAMINATION: Patient is lying in the bed comfortably, no distress, awake alert and oriented.. HEENT: Normocephalic. Neck is supple. Pupils reactive. Nostrils clear. Oral cavity is moist. Ears reveal no drainage. Neck reveals no JVD, carotid bruits, or thyromegaly. CHEST EXAMINATION: Trachea is central. Symmetrical expansion. Clear to auscultation bilaterally CARDIAC: Normal S1, S2 with no gallops. No murmurs ABDOMEN: Soft. Nontender. Bowel sounds normal. No organomegaly. No abdominal bruits. Extremities: reveal no edema. No clubbing or cyanosis Neurologically awake, alert, oriented x3 with well-coordinated movements. No focal deficits noted Skin: No rash or skin lesions. Psychiatric: Operative. Nonsuicidal Musculoskeletal: No joint swelling or deformity. Normal range of motion. - Labs CBC & Chem 7: 06/24/17 06:01 06/24/17 06:01 Labs: Abnormal Lab Results - Last 24 Hours (Table) 06/24/17 06/24/17 06/24/17 Range/Units 06:00 06:01 06:01 RDW 16.6 H (11.5-15.5) % BUN 22 H (9-20) mg/dL Glucose 159 H (74-99) mg/dL POC Glucose (mg/dL) 187 H (75-99) mg/dL 06/24/17 06/24/17 06/24/17 Range/Units 11:21 16:31 20:41 RDW (11.5-15.5) % BUN (9-20) mg/dL Glucose (74-99) mg/dL POC Glucose (mg/dL) 228 H 142 H 157 H (75-99) mg/dL Microbiology - Last 24 Hours (Table) 06/18/17 18:00 Blood Culture - Final Blood No Growth after 144 hours Assessment and Plan Assessment: #1 abdominal pain. Suspected ischemic colitis with significant elevated lactic acid level improved with fluid resuscitation. CT of the abdomen and pelvis showed small bowel wall thickening consistent with colitis. Patient was on broad-spectrum antibiotics. Less likely pneumonia at this time. No abdominal pain currently. #2 sepsis secondary to E. coli UTI versus abdominal source. Less likely pneumonia. Currently on levofloxacin #3 chest pain due to Non-ST elevation CO with mildly elevated troponins: Status post cardiac Catheterization stent to ramus intermedius. #4 history of coronary artery disease status post stent placement in April 2017 #5 chronic systolic dysfunction ejection fraction of around 45% ischemic cardiomyopathy: Patient is not in acute exacerbation we'll continue with his home medications for now. Patient has an AICD, chest x-ray showing pulmonary edema because of which I started him on Lasix IV 40 twice a day #6 chronic persistent atrial fibrillation: Rate controlled. patient was on xarelto. Discontinued due to GI bleed. #7 type 2 diabetes mellitus: Continue his home regimen except for metformin . Insulin sliding scale #8 hypertension. controlled #9 prior history of CVAs and severe peripheral vascular disease #10 hyperlipidemia #11 COPD without any acute exacerbation. #12 hypokalemia due to Lasix which will be supplemented.\ Plan: Patient will be continued on levofloxacin. Lasix has been changed to by mouth today. continue with current medications including aspirin Plavix. Patient did improve symptomatically and is planning to be discharged in next 24 hours. Plan: #1 abdominal pain. Suspected ischemic colitis with significant elevated lactic acid level improved with fluid resuscitation. CT of the abdomen and pelvis showed small bowel wall thickening consistent with colitis. Patient will be continued on broad-spectrum antibiotics. Less likely pneumonia at this time #1 sepsis secondary to E. coli UTI versus abdominal source. Less likely pneumonia. #2 chest pain due to Non-ST elevation CO with mildly elevated troponins: Status post cardiac Catheterization stent to ramus intermedius. #2 history of coronary artery disease status post stent placement in April 2017 #2 chronic systolic dysfunction ejection fraction of around 45% ischemic cardiomyopathy: Patient is not in acute exacerbation we'll continue with his home medications for now. Patient has an AICD #3 chronic persistent atrial fibrillation: Rate controlled. patient was on xarelto. Discontinued due to GI bleed. #4 type 2 diabetes mellitus: Continue his home regimen except for metformin . Insulin sliding scale #5 hypertension. controlled #6 prior history of CVAs and severe peripheral vascular disease #7 hyperlipidemia #9 COPD without any acute exacerbation. Plan: Patient was given IV fluid bolus and continued on IV fluids. Lactic acid level improved. Improving leukocytosis. Monitor fluid status due to history of congestive heart failure. Patient will be started on antibiotics in the form of azactam and Levaquin. Patient is ALLERGIC to penicillin. Continue with aspirin and Plavix and digoxin. Continue with metoprolol and lisinopril. Current to monitor closely. Prognosis is guarded. Further recommendations based on the clinical course. Cardiology and pulmonary is following. Time with Patient: Greater than 30
[2017-06-25 05:50] LABS: Glucose,Whole Blood 148 mg/dL (75-99)
[2017-06-25] MEDS: INSULIN LISPRO (humaLOG) 300 UNIT/3 ML VIAL SQ SCH ×2 (06:26→12:28)
[2017-06-25 09:00] VITALS: TEMP 97
[2017-06-25] MEDS: DOCUSATE 100 MG CAP PO SCH (09:07)
[2017-06-25] MEDS: CLOPIDOGREL 75 MG TAB PO SCH (09:07)
[2017-06-25] MEDS: PANTOPRAZOLE 40 MG TABLET PO SCH (09:07)
[2017-06-25] MEDS: SPIRONOLACTONE 25 MG TAB PO SCH (09:07)
[2017-06-25] MEDS: METOPROLOL TARTRATE 50 MG TAB PO SCH (09:07)
[2017-06-25] MEDS: PREGABALIN 50 MG CAP PO SCH (09:07)
[2017-06-25] MEDS: FUROSEMIDE 40 MG TAB PO SCH ×2 (09:07→16:21)
[2017-06-25] MEDS: ASPIRIN 81 MG PO SCH (09:07)
[2017-06-25] MEDS: traMADol 50 MG TAB PO PRN (09:32)
[2017-06-25] MEDS: MAGNESIUM SULFATE-D5W PMX 1 GM in DEXTROSE/WATER 1 100ML.BAG IVPB SCH ×2 (09:33→10:59)
[2017-06-25 11:06] VITALS: BP 125/74; PULSE 75; RESP 16
[2017-06-25] MEDS: LISINOPRIL 5 MG TAB PO SCH (11:07)
[2017-06-25] MEDS: ISOSORBIDE MONONITRATE ER 60 MG TAB.ER.24H PO SCH (11:07)
--- NOTE | 2017-06-25 11:21 | P.PN ---
Subjective Progress Note Date: 06/25/17 Principal diagnosis: 81-year-old male patient with known history of coronary artery disease, CHF with previous AICD placement, presented to the hospital because of epigastric pain and he had obvious EKG abnormalities and abnormal troponins. He was diagnosed having a non-ST segment elevation myocardial infarction and he was taken to cardiac catheterization on 06/17/2017 and the patient underwent angioplasty and stenting of the ramus intermediate artery. Note that the patient was having shortness of breath on day of admission and was complaining of progressive increase in dyspnea. He also complained of some mild abdominal discomfort on admission that was thought to be essentially epigastric in location. In any rate, the patient underwent a successful coronary intervention and the patient was recovering on a telemetry unit when he started having fever, and chills with a temperature of 101.9 and he became progressively more tachypneic and tachycardic. His lactic acid level was at 9.0. Based on all this, the patient was moved to the intensive care unit where he was given a total of 1-1/2-2 L of IV fluids. He was covered with a combination of Levaquin and aztreonam. Since then he has not spiked any fever. His white cell count is elevated however no fever or chills and he is feeling better less tachycardic and tachypneic compared to yesterday. There is no alternative source of sepsis at this point. He has a AICD in place and the pocket site is clean. No cough or sputum production. No open wounds or sores. His urine on admission was negative. Chest x-ray shows cardiomegaly and some limited pleural effusion and a retrocardiac infiltrate cannot be completely excluded. This morning, the patient is still having some vague mid abdominal pain which has subsided however it is not completely gone. No nausea. No vomiting. His last bowel movement was approximately 3 days ago. He is still in chronic atrial fibrillation. He did have short runs of V. tach yesterday that were nonsustained. His magnesium level was 1.8 was replaced. He has no chest pain for now. No further arrhythmias. He has on no anticoagulation based on previous history of GI bleeding. On 06/20/2017 the patient is being seen for a follow-up. The patient is doing extremely well. His lactic acidosis recovered. He is hemodynamically stable. He is afebrile. No signs of acute septicemia. The blood cultures been negative. Urine cultures showing gram-negative bacilli. Note that the CAT scan of the abdomen was also done yesterday showed minimal colonic wall thickening which could potentially indicate a mild colitis versus nonobstructive stricture versus peristalsis. There is also small bilateral pleural effusion and bibasilar airspace disease. There was also cardiomegaly, cholelithiasis and bilious sludge and chronically appearing left perinephric fat stranding and pararenal fluid unchanged since 2014. As such I'm not sure if the source of infection was urine or abdominal although I suspect that it could have been a urine checked infection more than ischemic colitis. The patient is tolerating diet for now. He is producing adequate amount of urine output. He remains on a combination of aztreonam and Levaquin. White cell count is down to 17.1. His metabolic acidosis is improving. His bicarb level is up to 16 and his anion gap is down to 11. He is awake and alert. He is following commands and answering questions. No chest pain. He remains in atrial fibrillation. On 06/21/2017, the patient is being seen in follow-up in the patient is doing well without any significant complaints. White cell count is not elevated at 15.5. In fact the white cell count has been consistently going down. Hemoglobin stable at 13.0. The rest of the electrodes are all within normal limits. He is free of any chest pain. He tolerated his diet this morning and he had a breakfast without any nausea vomiting or emesis pain no swelling lower extremities. No abdominal pain or tenderness. The patient is on no anticoagulants for now. His cardiac rhythm is atrial fibrillation. The patient is also having profound weakness and we are considering moving this patient to an ECF at a later stage. He is also being treated for urine checked infection with gram-and this turned out to be E. coli that is negative sensitive to quinolones On 06/22/2017 the patient has no specific complaints. He is free of any chest pain. Pulmonary status is stable. He is on IV Lasix 40 mg every 12 hours. He is also on Levaquin 500 mg by mouth daily regarding a E. coli urinary tract infection. No nausea. No vomiting. No abdominal pain. No other complaints otherwise. He is awake and alert yet he is very weak and he will need further rehabilitation. The follow-up chest x-ray today showed vascular congestion and worsening changes of heart failure and for that reason the patient was restarted back on IV Lasix On 06/23/2017, patient feels and seems to be doing much better, remains on IV Lasix, he is also on antibiotics for his urinary tract infection. Feels better , remained generally weak, but when I discussed the rehab referral with the patient, seems to be extremely reluctant to consider rehab. Patient apparently lives with his daughter, and he would like to be considered for discharge home and no where else. Reviewed her chest x-ray, it did show evidence of congestive heart failure, patient remains on diuretics. No follow-up chest x-ray done today, but clearly the chest x-ray from yesterday showed congestive heart failure. On 06/24/2017, patient is doing extremely well, his chest x-ray showed significant improvement, responded well to diuresis. No cough no wheezing no shortness of breath, remains on antibiotics for his urinary tract infection, patient is basically asymptomatic today. Considering the improvement in the chest x-ray, possibly could consider cutting down on diuretics, and possible discharge planning. Renal profile seems to be holding quite well. And this is in spite of diuretics. The patient was seen again today 06/25/2017 in follow-up on the selective care unit. He is awake and alert in no acute distress. He denies any worsening shortness of breath, cough or congestion. He still has some discomfort on urination however. He is continued on Levaquin. He is quite anxious to go home. Objective - Vital Signs Vital signs: Vital Signs Temp 97 F L 06/25/17 11:05 Pulse 75 06/25/17 11:05 Resp 16 06/25/17 11:05 BP 125/74 06/25/17 11:05 Pulse Ox 98 06/25/17 11:05 Intake & Output 06/24/17 06/25/17 06/25/17 18:59 06:59 18:59 Intake Total 720 Output Total 664 500 Balance 56 -500 Weight 73.3 kg 73.1 kg Intake: Oral 720 Output: Urine 625 500 Post Void Residual 39 Other: Voiding Method Toilet Toilet Urinal Urinal Incontinent # Voids 1 2 # Bowel Movements 2 2 - Exam GENERAL EXAM: Alert, active, comfortable in no apparent distress. HEAD: Normocephalic. EYES: Normal reaction of pupils, equal size. NOSE: Clear with pink turbinates. THROAT: No erythema or exudates. NECK: No masses, no JVD. CHEST: No chest wall deformity. LUNGS: Equal air entry with no crackles, wheeze, rhonchi or dullness. CVS: S1 and S2 normal with no audible murmur, irregular rhythm. ABDOMEN: No hepatosplenomegaly, normal bowel sounds, no guarding or rigidity. SPINE: No scoliosis or deformity SKIN: No rashes CENTRAL NERVOUS SYSTEM: No focal deficits, tone is normal in all 4 extremities. EXTREMITIES: There is no peripheral edema. No clubbing, no cyanosis. Peripheral pulses are intact. - Labs CBC & Chem 7: 06/24/17 06:01 06/24/17 06:01 Labs: Abnormal Lab Results - Last 24 Hours (Table) 06/24/17 06/24/17 06/24/17 Range/Units 11:21 16:31 20:41 POC Glucose (mg/dL) 228 H 142 H 157 H (75-99) mg/dL 06/25/17 Range/Units 05:47 POC Glucose (mg/dL) 148 H (75-99) mg/dL Microbiology - Last 24 Hours (Table) 06/18/17 18:00 Blood Culture - Final Blood No Growth after 144 hours Assessment and Plan Assessment: Impression: 1 acute urinary tract infection and sepsis. Patient has E. coli in the urine. And he remains on antibiotics in the form of Levaquin and aztreonam. 2 acute non-ST segment elevation myocardial infarction status post cardiac catheterization and stenting of the ramus intermedius 3 multivessel coronary artery disease with previous coronary intervention and stenting 4 acute systolic CHF with ejection fraction 45% and severely dilated LA, chest x -ray today on 06/24 showed significant improvement. 5 single chamber AICD placement 2015 6 CVA without any residual deficits 7 chronic atrial fibrillation and the patient has been on Xarelto in the past and this has been taken off due to GI bleed 8 nonsustained V. tach 9 hyperlipidemia 7 hypertension 11 peripheral neuropathy 12 peripheral vascular disease 13 nephrolithiasis 14 history of GI bleed, with a previous endoscopies showing a small hiatal hernia and a colonic polyp that was resected and a scattered sigmoid diverticulosis. 15 acid reflux 16 medical debility and generalized weakness Plan: The patient was seen and evaluated by Dr. Orozco. He remains stable from the pulmonary standpoint. Complete his course of Levaquin. Continue Spiriva and albuterol. He can follow-up in our office in 1-2 weeks' time. We'll repeat a chest x-ray then. He could be discharged once cleared by cardiology. I, the cosigning physician, have performed a history and physical examination on the patient. Lung sounds are clear. Maintaining good O2 saturations in the 90s on room air. I have discussed the assessment and plan of care with my nurse practitioner, Caitlyn Pichardo. I attest the above documented note as dictated by her.
[2017-06-25 12:14] LABS: Glucose,Whole Blood 242 mg/dL (75-99)
--- NOTE | 2017-06-25 12:34 | P.DS ---
Providers Date of admission: 06/16/17 22:46 Expected date of discharge: 06/25/17 Attending physician: Loree Ventura Consults: 06/16/17 22:46 Consult Physician Routine Consulting Provider: [facility] Consult Reason/Comments: Acute coronary syndrome Do you want consulting provider notified?: Yes 06/17/17 14:12 Consult Physician Routine Consulting Provider: [facility] Consult Reason/Comments: Post Interventional patient Do you want consulting provider notified?: Already Contacted 06/18/17 19:39 Consult Physician Stat Consulting Provider: Loree Ventura Consult Reason/Comments: Elevated lactic acid. Following sepsis protocol Do you want consulting provider notified?: Already Contacted 06/19/17 08:02 Consult Physician Urgent Consulting Provider: Alissa Arango Consult Reason/Comments: icu management Do you want consulting provider notified?: Already Contacted Primary care physician: Pratibha Colmenares Hospital Course: Discharge diagnosis #1 abdominal pain. Suspected ischemic colitis with significant elevated lactic acid level improved with fluid resuscitation. CT of the abdomen and pelvis showed small bowel wall thickening consistent with colitis. Patient was on broad-spectrum antibiotics. Less likely pneumonia at this time. No abdominal pain currently. #2 sepsis secondary to E. coli UTI . Less likely pneumonia. Currently on levofloxacin to complete the course. #3 chest pain due to Non-ST elevation NV with mildly elevated troponins: Status post cardiac Catheterization stent to ramus intermedius during this admission. #4 history of coronary artery disease status post stent placement in April 2017 #5 acute on chronic CHF with systolic dysfunction ejection fraction of around 45 % ischemic cardiomyopathy: Patient is not in acute exacerbation we'll continue with his home medications for now. Patient has an AICD, chest x-ray showing pulmonary edema because of which I started him on Lasix IV 40 twice a day. Changed to Lasix 40 m twice a day and added spironolactone. Rule out now. #6 chronic persistent atrial fibrillation: Rate controlled. patient was on xarelto. Discontinued due to GI bleed. #7 type 2 diabetes mellitus: Continued his home regimen except for metformin . Insulin sliding scale #8 hypertension. controlled #9 prior history of CVAs and severe peripheral vascular disease #10 hyperlipidemia #11 COPD without any acute exacerbation. #12 hypokalemia due to Lasix which will be supplemented. Hospital course: This is an 81-year-old gentleman with known history of coronary artery disease and recent angioplasty of the ramus intermediate in April of this year by Dr. Gan who presented to the hospital with a non-ST elevation myocardial infarction. He was taken to the cardiac catheterization lab yesterday where he underwent angioplasty and stenting of the ramus intermediate artery. Patient also has chronic persistent atrial fibrillation. Chest x-ray today showed changes suggestive of Congestive heart failure. Suspected left lower lobe infiltrate. Patient does have episodes or short of breath last night. Today afternoon patient became tachycardic tachypneic and febrile with T-max level of 101.9. Patient had repeat chest x-ray and lactic acid level was done and was found to be elevated. Patient was started on IV hydration and also started on broad- spectrum antibiotics. Patient will be transferred to intensive care unit for further management. Patient otherwise denied any chest pain. No nausea no vomiting. On 06/19/2017 Patient did improve clinically. Patient does have vague abdominal pain. Serial abdominal pelvis was ordered and possible ischemic colitis suspected. Lactic acidosis improved to 2.1 with fluid resuscitation. Leukocytosis slightly improved afebrile now. Patient is more awake and oriented. CT of abdomen pelvis was ordered. 06/20/2017 Patient is complaining of abdominal pain which is improved. CT of the abdomen and pelvis showed small bowel wall thickening possible colitis. Urine cultures showing E. coli. Chest x-ray showed bibasilar pastries with possible infiltrates. Patient is improving symptomatically area did lactic acidosis resolved. Patient is being transferred to medical floor today. Continued antibiotics in the form of azactam and Levaquin. 06/24/2017 Patient did improve symptomatically. No complaints of chest pain or short of breath. No abdominal pain. Chest x-ray showed resolution of CHF. Diuretics changed to pills. Anticipate discharge next 24 hours. 06/25/2017. Patient denied any new complaints of chest pain or short of breath. Patient will be continued on levofloxacin for 3 more days. Patient does have bowel movement today. Denied any diarrhea. Lasix has been changed to by mouth yesterday. continue with current medications including aspirin Plavix. Patient did improve symptomatically and is planning to be discharged to rehab today.. Other review of systems negative except the above Current medications reviewed Discharge physical examination PHYSICAL EXAMINATION: Patient is lying in the bed comfortably, no acute distress, awake alert and oriented.. HEENT: Normocephalic. Neck is supple. Pupils reactive. Nostrils clear. Oral cavity is moist. Ears reveal no drainage. Neck reveals no JVD, carotid bruits, or thyromegaly. CHEST EXAMINATION: Trachea is central. Symmetrical expansion. Bilateral decreased air entry basally. No wheezing. No crackles.. CARDIAC: Normal S1, S2 with no gallops. No murmurs ABDOMEN: Soft. Bowel sounds normal. No organomegaly. No abdominal bruits. Extremities: reveal no edema. No clubbing or cyanosis Neurologically awake, alert, oriented x3 with well-coordinated movements. No focal deficits noted Skin: No rash or skin lesions. Psychiatric: Operative. Nonsuicidal Musculoskeletal: No joint swelling or deformity. Normal range of motion. Patient Condition at Discharge: Poor Plan - Discharge Summary New Discharge Prescriptions: New Furosemide [Lasix] 40 mg PO BID@0900,1600 #60 tab Levofloxacin [Levaquin] 500 mg PO DAILY@1800 #3 tab Spironolactone [Aldactone] 25 mg PO DAILY #30 tab Continue Canagliflozin [Invokana] 100 mg PO W/SUPPER Alogliptin Benzoate [Nesina] 25 mg PO W/SUPPER Nitroglycerin Sl Tabs [Nitrostat] 0.4 mg SUBLINGUAL Q5M PRN PRN Reason: Chest Pain Digoxin [Lanoxin] 125 mcg PO W/SUPPER metFORMIN HCL [Glucophage] 1,000 mg PO BID Omeprazole [PriLOSEC] 20 mg PO DAILY Clopidogrel [Plavix] 75 mg PO DAILY Pregabalin [Lyrica] 150 mg PO BID Lisinopril [Zestril] 5 mg PO DAILY Isosorbide Mononitrate ER [Imdur] 60 mg PO DAILY Tiotropium Mexican Hat [Spiriva] 1 cap INHALATION RT-DAILY PRN PRN Reason: Shortness Of Breath Aspirin [Adult Low Dose Aspirin EC] 81 mg PO DAILY Metoprolol Tartrate [Lopressor] 50 mg PO BID Albuterol Inhaler [Ventolin Hfa Inhaler] 1 - 2 puff INHALATION RT-Q6H PRN PRN Reason: Shortness Of Breath Insulin Glargine,Hum.rec.anlog [Lantus Solostar] 10 unit SQ HS Albuterol Nebulized [Ventolin Nebulized] 2.5 mg INHALATION RT-QID PRN PRN Reason: Shortness Of Breath HYDROcodone/APAP 5-325MG [Devers 5-325] 1 tab PO BID PRN PRN Reason: Pain Atorvastatin [Lipitor] 80 mg PO W/SUPPER Discontinued Furosemide [Lasix] 40 mg PO DAILY Discharge Medication List Canagliflozin [Invokana] 100 mg PO W/SUPPER 01/25/14 [History] Alogliptin Benzoate [Nesina] 25 mg PO W/SUPPER 07/15/14 [History] Nitroglycerin Sl Tabs [Nitrostat] 0.4 mg SUBLINGUAL Q5M PRN 07/15/14 [History] Digoxin [Lanoxin] 125 mcg PO W/SUPPER 08/15/14 [History] metFORMIN HCL [Glucophage] 1,000 mg PO BID 09/19/14 [History] Omeprazole [PriLOSEC] 20 mg PO DAILY 11/25/14 [History] Clopidogrel [Plavix] 75 mg PO DAILY 12/02/14 [History] Pregabalin [Lyrica] 150 mg PO BID 06/06/15 [History] Isosorbide Mononitrate ER [Imdur] 60 mg PO DAILY 08/28/15 [History] Lisinopril [Zestril] 5 mg PO DAILY 08/28/15 [History] Tiotropium Mexican [place] [Spiriva] 1 cap INHALATION RT-DAILY PRN 08/28/15 [History] Aspirin [Adult Low Dose Aspirin EC] 81 mg PO DAILY 08/29/15 [History] Albuterol Inhaler [Ventolin Hfa Inhaler] 1 - 2 puff INHALATION RT-Q6H PRN [History] Metoprolol Tartrate [Lopressor] 50 mg PO BID 04/24/17 [History] Albuterol Nebulized [Ventolin Nebulized] 2.5 mg INHALATION RT-QID PRN 06/16/17 [ History] Atorvastatin [Lipitor] 80 mg PO W/SUPPER 06/16/17 [History] HYDROcodone/APAP 5-325MG [Devers 5-325] 1 tab PO BID PRN 06/16/17 [History] Insulin Glargine,Hum.rec.anlog [Lantus Solostar] 10 unit SQ HS 06/16/17 [History ] Furosemide [Lasix] 40 mg PO BID@0900,1600 #60 tab 06/25/17 [Rx] Levofloxacin [Levaquin] 500 mg PO DAILY@1800 #3 tab 06/25/17 [Rx] Spironolactone [Aldactone] 25 mg PO DAILY #30 tab 06/25/17 [Rx] Follow up Appointment(s)/Referral(s): Michael Harris MD [STAFF PHYSICIAN] - 07/02/17 1:30 pm (FRIDAY) Pratibha Colmenares DO [Primary Care Provider] - 1-2 days Patient Instructions/Handouts: *[facility] - After Heart Catheterization - Medical Lab Specialist Instructions, Heart Catheterization (DC) Activity/Diet/Wound Care/Special Instructions: call [facility] at home number when being discharged Discharge Disposition: TRANSFER TO SNF/ECF
--- NOTE | 2017-06-25 16:04 | P.PN ---
Subjective Progress Note Date: 06/25/17 Principal diagnosis: NSTEMI This is an 81-year-old gentleman with known history of coronary artery disease and recent angioplasty of the ramus intermediate in April of this year by Dr. Gan who presented to the hospital with a non-ST elevation myocardial infarction. He was taken to the cardiac catheterization lab yesterday where he underwent angioplasty and stenting of the ramus intermediate artery. Patient had several episodes of shortness of breath through the night last night and this morning was complaining of feeling quite short of breath. He also had some mild abdominal discomfort. He denies any chest discomfort. His EKG this morning showed triple fibrillation with a controlled ventricular response, ST depression in the lateral leads similar to prior to the procedure. At pressure 122/70 with a heart rate in the 90s, 92% on 2 L of oxygen. A stat chest x-ray was performed which revealed borderline heart size with changes suggesting pulmonary vascular congestion. Patient was given a one-time dose of 40 mg of IV Lasix, at the time of her reevaluation later patient was feeling much better. 06/23/2017. Seen and examined this morning, diuresed well through the night last night, weight is down 3 kg today. Creatinine 3.2. We'll continue the patient on IV Lasix for 24 hours. Obtain a repeat chest x-ray tomorrow. 06/24/2017 Patient seen and examined this morning, feeling better overall. Repeat chest x- ray showed resolution of heart failure. We'll discontinue the IV Lasix today start the patient on oral diuretics. Plan for discharge home in the morning if stable. 06/25/2017 Stefanosonuren seen and examined this morning, denies any chest pain, breathing is stable. Arrangements are being made for discharge home today. We will make him a follow-up appointment in the office to see Dr. Marti post discharge. Objective - Vital Signs Vital signs: Vital Signs Temp 97 F L 06/25/17 11:05 Pulse 75 06/25/17 11:05 Resp 16 06/25/17 11:05 BP 125/74 06/25/17 11:05 Pulse Ox 98 06/25/17 11:05 Intake & Output 06/24/17 06/25/17 06/25/17 18:59 06:59 18:59 Intake Total 720 180 Output Total 664 500 700 Balance 56 -500 -520 Weight 73.3 kg 73.1 kg Intake: Oral 720 180 Output: Urine 625 500 700 Post Void Residual 39 Other: Voiding Method Toilet Toilet Urinal Urinal Incontinent # Voids 1 2 # Bowel Movements 2 2 - Exam PHYSICAL EXAMINATION: HEENT: Head is atraumatic, normocephalic. Pupils equal, round. Neck is supple. There is no elevated jugular venous pressure. HEART EXAMINATION: Heart S1 and S2 irregularly irregular a systolic murmur is heard. CHEST EXAMINATION: Lungs revealed fine crackles bilaterally to the bases. ABDOMEN: Soft, mild generalized tenderness . Bowel sounds are heard. No organomegaly noted. EXTREMITIES: Bilateral Doppler pedal pulses. Right groin soft, no evidence of any hematoma. NEUROLOGIC patient is awake, alert and oriented -3. . - Labs CBC & Chem 7: 06/24/17 06:01 06/24/17 06:01 Labs: Abnormal Lab Results - Last 24 Hours (Table) 06/24/17 06/24/17 06/25/17 Range/Units 16:31 20:41 05:47 POC Glucose (mg/dL) 142 H 157 H 148 H (75-99) mg/dL 06/25/17 Range/Units 11:39 POC Glucose (mg/dL) 242 H (75-99) mg/dL Microbiology - Last 24 Hours (Table) 06/18/17 18:00 Blood Culture - Final Blood No Growth after 144 hours Assessment and Plan Plan: Assessment and plan #1 non-ST elevation myocardial infarction, status post angioplasty and stenting of the ramus intermediate artery #2 known history of coronary artery disease with prior stent placements, most recently patient underwent angioplasty with stenting of the ramus intermediate in April #3 diabetes #4 hypertension #5 ischemic cardiomyopathy with prior ICD implant #6 prior CVA #7 peripheral vascular disease #8 chronic persistent atrial fibrillation patient had been on xarelto and Coumadin in the past, had GI bleeding and for this reason is not on anticoagulation. #9 hyperlipidemia Plan Cardiology's perspective, patient may be able to be discharged home today. We will make him a follow-up appointment to see Dr. Harris in the office post discharge. DNP note has been reviewed, I agree with a documented findings and plan of care. Patient was seen and examined.
== END 2017-06-25 16:34 | DRG 246 ==
LOC: EC 20:15 → 6SEL 22:46 → 6ICU 06-18 16:48 → 6SEL 06-20 19:32
PROVIDERS: ADMIT Hospitalist; ATTEND Hospitalist
PROC: 027034Z Dilation of Coronary Artery, One Artery with Drug-eluting Intraluminal Device, Percutaneous Approach (ICD-10-PCS; principal; 2017-06-17 12:40)
PROC: B2111ZZ Fluoroscopy of Multiple Coronary Arteries using Low Osmolar Contrast (ICD-10-PCS; principal; 2017-06-17 12:40)
DX: I21.4 Non-ST elevation (NSTEMI) myocardial infarction (principal); A41.51 Sepsis due to Escherichia coli [E. coli]; I50.23 Acute on chronic systolic (congestive) heart failure; K55.1 Chronic vascular disorders of intestine; I48.1 Persistent atrial fibrillation; E87.2 Acidosis; N39.0 Urinary tract infection, site not specified; G62.9 Polyneuropathy, unspecified; I48.2 Chronic atrial fibrillation; J44.9 Chronic obstructive pulmonary disease, unspecified; R65.20 Severe sepsis without septic shock; I47.1 Supraventricular tachycardia; K55.9 Vascular disorder of intestine, unspecified; I11.0 Hypertensive heart disease with heart failure; N20.0 Calculus of kidney; E11.9 Type 2 diabetes mellitus without complications; E78.5 Hyperlipidemia, unspecified; E87.6 Hypokalemia; I25.10 Atherosclerotic heart disease of native coronary artery without angina pectoris; I25.5 Ischemic cardiomyopathy; I34.0 Nonrheumatic mitral (valve) insufficiency; I73.9 Peripheral vascular disease, unspecified; K21.9 Gastro-esophageal reflux disease without esophagitis; K52.9 Noninfective gastroenteritis and colitis, unspecified; K57.30 Diverticulosis of large intestine without perforation or abscess without bleeding; K80.20 Calculus of gallbladder without cholecystitis without obstruction; T50.1X5A Adverse effect of loop [high-ceiling] diuretics, initial encounter; Z79.01 Long term (current) use of anticoagulants; Z79.02 Long term (current) use of antithrombotics/antiplatelets; Z79.82 Long term (current) use of aspirin; Z79.899 Other long term (current) drug therapy; Z83.3 Family history of diabetes mellitus; Z86.010 Personal history of colon polyps; Z86.73 Personal history of transient ischemic attack (TIA), and cerebral infarction without residual deficits; Z87.891 Personal history of nicotine dependence; Z95.5 Presence of coronary angioplasty implant and graft; Z95.810 Presence of automatic (implantable) cardiac defibrillator; Z79.4 Long term (current) use of insulin; Z88.0 Allergy status to penicillin
CPT/HCPCS: 36415; 71010; 71020; 74177; 80048; 80053; 80061; 82150; 82550; 82553; 83036; 83605; 83690; 83735; 84100; 84132; 84484; 85025; 85027; 85610; 85730; 87040; 87077; 87086; 87186; 93005; 93306; 93458; 94640; 94760; 96361; 96365; 96368; 96375; 96376; 99285

== ENCOUNTER 2017-07-17 09:40 | Inpatient (IN) | payer MEDICARE, BC ==
--- NOTE | 2017-07-17 09:50 | ED ---
Dizziness HPI - General Stated Complaint: Dizziness Time Seen by Provider: 07/17/17 09:40 Source: patient, EMS, RN notes reviewed Mode of arrival: EMS - History of Present Illness Initial Comments: This 81-year-old male with a history of diabetes and heart disease who states he was bending over to clean up some pain but it was on the floor when he got dizzy he also started complaining of some generalized chest pain lasted about 15 minutes. He could not get his nitroglycerin until near the end of this time he is not sure her really helped or not. He also apparently had urinary incontinence during the night. He denies any fevers chills sweats headache blurry vision he has no symptoms at this time. He also has a history of chronic atrial fibrillation. He denies any palpitations at this time. He does relate that everything is caused by his heart. MD Complaint: dizziness, lightheadedness, near syncope, other - Related Data Home Medications Medication Instructions Recorded Confirmed Canagliflozin [Invokana] 100 mg PO W/SUPPER 01/25/14 07/17/17 Alogliptin Benzoate [Nesina] 25 mg PO W/SUPPER 07/15/14 07/17/17 Nitroglycerin Sl Tabs [Nitrostat] 0.4 mg SUBLINGUAL Q5M PRN 07/15/14 07/17/17 Digoxin [Lanoxin] 125 mcg PO W/SUPPER 08/15/14 07/17/17 metFORMIN HCL [Glucophage] 1,000 mg PO BID 09/19/14 07/17/17 Omeprazole [PriLOSEC] 20 mg PO DAILY 11/25/14 07/17/17 Clopidogrel [Plavix] 75 mg PO DAILY 12/02/14 07/17/17 Pregabalin [Lyrica] 150 mg PO BID 06/06/15 07/17/17 Isosorbide Mononitrate ER [Imdur] 60 mg PO DAILY 08/28/15 07/17/17 Lisinopril [Zestril] 5 mg PO DAILY 08/28/15 07/17/17 Tiotropium [place] [Spiriva] 1 cap INHALATION RT-DAILY PRN 08/28/15 07/17/17 Aspirin [Adult Low Dose Aspirin EC] 81 mg PO DAILY 08/29/15 07/17/17 Albuterol Inhaler [Ventolin Hfa 1 - 2 puff INHALATION RT-Q6H PRN 04/24/17 Inhaler] Metoprolol Tartrate [Lopressor] 50 mg PO BID 04/24/17 07/17/17 Albuterol Nebulized [Ventolin 2.5 mg INHALATION RT-QID PRN 06/16/17 07/17/17 Nebulized] Atorvastatin [Lipitor] 80 mg PO W/SUPPER 06/16/17 07/17/17 HYDROcodone/APAP 5-325MG [[place] 1 tab PO BID PRN 06/16/17 07/17/17 5-325] Insulin Glargine,Hum.rec.anlog 10 unit SQ HS 06/16/17 07/17/17 [Lantus Solostar] Previous Rx's Medication Instructions Recorded Furosemide [Lasix] 40 mg PO BID@0900,1600 #60 tab 06/25/17 Spironolactone [Aldactone] 25 mg PO DAILY #30 tab 06/25/17 Allergies Allergy/AdvReac Type Severity Reaction Status Date / Time Penicillins Allergy Severe Rash/Hives Verified 07/17/17 10:12 ropinirole HCl [From Requip] Allergy Unknown Verified 07/17/17 10:12 Review of Systems ROS Statement: Those systems with pertinent positive or pertinent negative responses have been documented in the HPI. ROS Other: All systems not noted in ROS Statement are negative. Past Medical History Past Medical History: Atrial Fibrillation, Coronary Artery Disease (CAD), Chest Pain / Angina, Heart Failure, COPD, CVA/TIA, Diabetes Mellitus, GERD/Reflux, GI Bleed, Hyperlipidemia, Hypertension, Myocardial Infarction ([place]), Vascular Disorder Additional Past Medical History / Comment(s): Multivessel coronary artery disease with previous coronary intervention and stenting, CHF, single chamber AICD placement in 2014, prior CVA without any residual deficits, chronic persistent atrial fibrillation and the patient has been on Xarelto in the past and the patient has been taken off Xarelto due to GI bleed, history of nonsustained V. tach, hyperlipidemia, hypertension, acid reflux, peripheral neuropathy, peripheral vascular disease, nephrolithiasis and kidney stones, previous history of GI bleed, COPD Last Myocardial Infarction Date:: History of Any Multi-Drug Resistant Organisms: ESBL Date of last positivie culture/infection: 06/28/17 ESBL-E.coli MDRO Source:: Urine Past Surgical History: Heart Catheterization, Heart Catheterization With Stent, Hernia Repair Additional Past Surgical History / Comment(s): 2014- R leg artherectomy with balloon angioplasty, Coronary stents total of [address] 06/07/15 , bilateral cataracts , LEFT RING FINGER AMPUTATION, lithotripsy, TURP, EGD and colonoscopy .04/24 2 stents, pt states he has 7 stents totally Past Anesthesia/Blood Transfusion Reactions: No Reported Reaction Additional Past Anesthesia/Blood Transfusion Reaction / Comment(s): HAD BLOOD TRANSFUSION without reaction. Date of Last Stent Placement:: 04/24/17 Past Psychological History: No Psychological Hx Reported Additional Psychological History / Comment(s): Pt lives alone in his home. Pt is independent worked for [employer] years before retiring. He drives a car. He has a daughter that lives near-by who comes over alot and is a big help to the pt. Pt is a very good cook. He ambulates without any device. His June of 2011. Smoking Status: Never smoker Past Alcohol Use History: None Reported Additional Past Alcohol Use History / Comment(s): CHEWED TOBACCO FOR 30 YRS. QUIT CHEWING TOBACCO 1983 Past Drug Use History: None Reported - Past Family History Mother Family Medical History: Cancer Additional Family Medical History / Comment(s): Mother at age 51yrs old of uterine cancer which metastasized. Father Family Medical History: Diabetes Mellitus General Exam - General Exam Comments Initial Comments: This is a well-developed well-nourished awake alert oriented times 3 male General appearance: alert, in no apparent distress Head exam: Present: atraumatic, normocephalic, normal inspection Eye exam: Present: normal appearance, PERRL, EOMI. Absent: scleral icterus, conjunctival injection, periorbital swelling ENT exam: Present: normal exam, mucous membranes moist Neck exam: Present: normal inspection. Absent: tenderness, meningismus, lymphadenopathy Respiratory exam: Present: normal lung sounds bilaterally. Absent: respiratory distress, wheezes, rales, rhonchi, stridor Cardiovascular Exam: Present: tachycardia, irregular rhythm. Absent: systolic murmur, diastolic murmur, rubs, gallop, clicks GI/Abdominal exam: Present: soft, normal bowel sounds. Absent: distended, tenderness, guarding, rebound, rigid Extremities exam: Present: normal inspection, full ROM, normal capillary refill. Absent: tenderness, pedal edema, joint swelling, calf tenderness Back exam: Present: normal inspection Neurological exam: Present: alert, oriented X3, CN II-XII intact Psychiatric exam: Present: normal affect, normal mood Skin exam: Present: warm, dry, intact, normal color. Absent: rash Course Vital Signs 07/17/17 07/17/17 07/17/17 09:45 10:05 10:20 Temperature 96.8 F L 96.8 F L 96.8 F L Pulse Rate 109 H 116 H 97 Respiratory 18 18 18 Rate Blood Pressure 142/102 93/74 88/74 O2 Sat by Pulse 97 97 97 Oximetry 07/17/17 07/17/17 07/17/17 10:35 10:50 11:15 Temperature 97 F L 96.8 F L Pulse Rate 72 97 94 Respiratory 17 17 18 Rate Blood Pressure 85/67 75/50 99/78 O2 Sat by Pulse 97 96 96 Oximetry 07/17/17 12:02 Temperature 96.8 F L Pulse Rate 100 Respiratory 18 Rate Blood Pressure 76/60 O2 Sat by Pulse 100 Oximetry - Reevaluation(s) Reevaluation #1: 07/17/17 12:06 I did discuss the initial symptoms with the patient he was noted be hypotensive she did get 1 L of fluids his pressure was still noted to be low the patient was awake alert oriented 3 with a blood pressure reading in the 70s systolic. The patient did get another fluid bolus. Reevaluation #2: 07/17/17 12:09 I did discuss case with Dr. Pride except for the lipase level. EKG Findings - EKG Results: EKG: interpreted by MICHELLE Medical Decision Making - Medical Decision Making The patient will be admitted for evaluation of near-syncope. Hypotension he also was noted to have elevated lipase levels. - Lab Data Result diagrams: 07/17/17 10:00 07/17/17 10:00 Lab Results 07/17/17 07/17/17 07/17/17 Range/Units 10:00 10:00 10:00 WBC 11.2 H (3.8-10.6) k/uL RBC 4.63 (4.30-5.90) m/uL Hgb 13.4 (13.0-17.5) gm/dL Hct 43.5 (39.0-53.0) % MCV 93.8 (80.0-100.0) fL MCH 28.9 (25.0-35.0) pg MCHC 30.8 L (31.0-37.0) g/dL RDW 15.7 H (11.5-15.5) % Plt Count 201 (150-450) k/uL Neutrophils % 79 % Lymphocytes % 11 % Monocytes % 7 % Eosinophils % 3 % Basophils % 1 % Neutrophils # 8.8 H (1.3-7.7) k/uL Lymphocytes # 1.2 (1.0-4.8) k/uL Monocytes # 0.8 (0-1.0) k/uL Eosinophils # 0.3 (0-0.7) k/uL Basophils # 0.1 (0-0.2) k/uL Hypochromasia Moderate PT (9.0-12.0) sec INR (<1.2) APTT (22.0-30.0) sec Sodium 139 (137-145) mmol/L Potassium 5.9 H (3.5-5.1) mmol/L Chloride 105 (98-107) mmol/L Carbon Dioxide 20 L (22-30) mmol/L Anion Gap 14 mmol/L BUN 35 H (9-20) mg/dL Creatinine 1.30 H (0.66-1.25) mg/dL Est GFR (MDRD) Af Amer >60 (>60 ml/min/1.73 sqM) Est GFR (MDRD) Non-Af 53 (>60 ml/min/1.73 sqM) Glucose 163 H (74-99) mg/dL Calcium 9.2 (8.4-10.2) mg/dL Magnesium 1.4 L (1.6-2.3) mg/dL Total Bilirubin 0.8 (0.2-1.3) mg/dL AST 46 (17-59) U/L ALT 50 (21-72) U/L Alkaline Phosphatase 128 H (38-126) U/L Total Creatine Kinase 60 (55-170) U/L CK-MB (CK-2) 0.6 (0.0-2.4) ng/mL CK-MB (CK-2) Rel Index 1.0 Troponin I 0.018 (0.000-0.034) ng/mL NT-Pro-B Natriuret Pep pg/mL Total Protein 6.6 (6.3-8.2) g/dL Albumin 4.1 (3.5-5.0) g/dL Amylase 97 (30-110) U/L Lipase 498 H (23-300) U/L 07/17/17 07/17/17 Range/Units 10:00 10:00 WBC (3.8-10.6) k/uL RBC (4.30-5.90) m/uL Hgb (13.0-17.5) gm/dL Hct (39.0-53.0) % MCV (80.0-100.0) fL MCH (25.0-35.0) pg MCHC (31.0-37.0) g/dL RDW (11.5-15.5) % Plt Count (150-450) k/uL Neutrophils % % Lymphocytes % % Monocytes % % Eosinophils % % Basophils % % Neutrophils # (1.3-7.7) k/uL Lymphocytes # (1.0-4.8) k/uL Monocytes # (0-1.0) k/uL Eosinophils # (0-0.7) k/uL Basophils # (0-0.2) k/uL Hypochromasia PT 11.7 (9.0-12.0) sec INR 1.2 H (<1.2) APTT 22.6 (22.0-30.0) sec Sodium (137-145) mmol/L Potassium (3.5-5.1) mmol/L Chloride (98-107) mmol/L Carbon Dioxide (22-30) mmol/L Anion Gap mmol/L BUN (9-20) mg/dL Creatinine (0.66-1.25) mg/dL Est GFR (MDRD) Af Amer (>60 ml/min/1.73 sqM) Est GFR (MDRD) Non-Af (>60 ml/min/1.73 sqM) Glucose (74-99) mg/dL Calcium (8.4-10.2) mg/dL Magnesium (1.6-2.3) mg/dL Total Bilirubin (0.2-1.3) mg/dL AST (17-59) U/L ALT (21-72) U/L Alkaline Phosphatase (38-126) U/L Total Creatine Kinase (55-170) U/L CK-MB (CK-2) (0.0-2.4) ng/mL CK-MB (CK-2) Rel Index Troponin I (0.000-0.034) ng/mL NT-Pro-B Natriuret Pep 6460 pg/mL Total Protein (6.3-8.2) g/dL Albumin (3.5-5.0) g/dL Amylase (30-110) U/L Lipase (23-300) U/L - Radiology Data Radiology results: report reviewed (I did review the imaging and reports no acute findings.), image reviewed Critical Care Time Critical Care Time: Yes Critical Care Time: 32 minutes of critical care time which includes monitoring initially EMS run and discussed with paramedics history physical labs x-rays reevaluation patient several occasions. Discussion with the patient is a physician documentation the above admission orders. Disposition Clinical Impression: Near syncope, Orthostatic hypotension, Renal insufficiency, Pancreatitis, Hypotensive episode, Chronic atrial fibrillation Disposition: ADMITTED IP TO THIS HOSP Condition: Stable Referrals: Pratibha Colmenares DO [Primary Care Provider] - 1-2 days
[2017-07-17 10:25] LABS: Basophils # (A) 0.1 k/uL (0-0.2); Basophils % (A) 1 %; CH 28.8; CHCM 30.9; Eosinophils # (A) 0.3 k/uL (0-0.7); Eosinophils % (A) 3 %; HCT 43.5 % (39.0-53.0); HDW 2.79; HGB 13.4 gm/dL (13.0-17.5); Hypochromasia Moderate; Luc % (Auto) 1; Lymphocytes # (A) 1.2 k/uL (1.0-4.8); Lymphocytes % (A) 11 %; MCH 28.9 pg (25.0-35.0); MCHC 30.8 g/dL (31.0-37.0); MCV 93.8 fL (80.0-100.0); Mean Platelet Volume 9.3; Monocytes # (A) 0.8 k/uL (0-1.0); Monocytes % (A) 7 %; Neutrophils # (A) 8.8 k/uL (1.3-7.7); Neutrophils % (A) 79 %; RBC 4.63 m/uL (4.30-5.90); RDW 15.7 % (11.5-15.5); WBC 11.2 k/uL (3.8-10.6); WBC (Perox) 11.09
[2017-07-17 10:31] LABS: ALT 50 U/L (21-72); AST 46 U/L (17-59); Alkaline Phosphatase 128 U/L (38-126); Amylase 97 U/L (30-110); Anion Gap 14 mmol/L; Blood Urea Nitrogen 35 mg/dL (9-20); Calcium 9.2 mg/dL (8.4-10.2); Carbon Dioxide 20 mmol/L (22-30); Chloride 105 mmol/L (98-107); Glucose 163 mg/dL (74-99); Magnesium 1.4 mg/dL (1.6-2.3); Non-African American GFR(MDRD) 53 (>60 ml/min/1.73 sqM); Potassium 5.9 mmol/L (3.5-5.1); Sodium 139 mmol/L (137-145); Total Bilirubin 0.8 mg/dL (0.2-1.3); Total Protein 6.6 g/dL (6.3-8.2)
[2017-07-17 10:34] LABS: INR 1.2 (<1.2); Partial Thromboplastin Time 22.6 sec (22.0-30.0); Prothrombin Time 11.7 sec (9.0-12.0)
[2017-07-17] MEDS ORDERED: SODIUM CHLORIDE 0.9% 1,000 ML IV ONE ×2 (10:34→12:00)
--- NOTE | 2017-07-17 10:44 | CT ---
EXAMINATION TYPE: CT brain wo con DATE OF EXAM: 07/17/2017 COMPARISON: 10/02/2014 HISTORY: 81-year-old male Dizziness, bilateral hand numbness TECHNIQUE: Examination was done in axial plane without intravenous contrast. Coronal and sagittal r econstructions performed. CT DLP: 1036 mGycm Automated exposure control for dose reduction was used. FINDINGS: There is no evidence of acute intracranial hemorrhage, acute ischemic changes, mass, mass-effect, or extra-axial fluid collection. There is no effacement of cerebral sulci or basal subarachnoid cister ns. There is no hydrocephalus. There is no midline shift. [place]-white matter distinction is preserv ed. Mild generalized supratentorial volume loss and moderate patchy and confluent white matter hypodensit ies in both cerebral hemispheres. Old lacunar infarcts or prominent perivascular spaces in the left b leelee ganglia. Extensive apical scarring calcifications in the carotid siphons and also within the lef t vertebral artery. Rightward nasal septal deviation. Minimal trapped fluid in the inferior left mastoid air cells. Paran leelee sinuses are fairly well pneumatized. IMPRESSION: 1. No acute intracranial abnormality seen. 2. Mild atrophy and moderate patchy and confluent white matter hypodensities suggest changes of chron ic small vessel ischemic disease. There seems to have been slight progression from 2014.
--- NOTE | 2017-07-17 10:49 | XR ---
EXAMINATION TYPE: XR chest 2V DATE OF EXAM: 07/17/2017 COMPARISON: Chest x-ray June 24, 2017 HISTORY: Chest pain. TECHNIQUE: Frontal and lateral views of the chest are obtained. FINDINGS: There is chronic parenchymal change without suspicious focal air space opacity or pneumoth orax seen bilaterally. Tiny bilateral pleural effusions are present. The cardiac silhouette size rem ains enlarged with single lead pacemaker/AICD. There is degenerative change of both shoulders and spi ne is seen. IMPRESSION: Chronic emphysematous change and cardiomegaly with stable small to tiny bilateral pleura l effusions.
[2017-07-17] MEDS ORDERED: MAGNESIUM SULFATE-D5W PMX 1 GM in DEXTROSE/WATER 1 100ML.BAG IVPB ONE (10:54)
[2017-07-17 11:03] LABS: Creatine Kinase MB 0.6 ng/mL (0.0-2.4); Troponin I 0.018 ng/mL (0.000-0.034)
[2017-07-17] MEDS ORDERED: NALOXONE 0.4 MG/ML 1 ML VIAL IV PRN (12:10)
[2017-07-17] MEDS ORDERED: NITROGLYCERIN SL TABS 0.4 MG TAB SUBLINGUAL PRN (12:12)
[2017-07-17] MEDS: SODIUM CHLORIDE 0.9% 1,000 ML IV SCH (13:30)
[2017-07-17] MEDS: HYDROcodone/APAP 5-325MG 1 EACH TAB PO PRN (15:55)
[2017-07-17 18:11] LABS: Appearance,Urine Clear (Clear); Bacteria,Urine Rare /hpf; Bilirubin,Urine Negative (Negative); Glucose,Urine (UA) Negative (Negative); Ketones,Urine Negative (Negative); Leukocyte Esterase,Urine Negative (Negative); Mucus,Urine Rare /hpf; Nitrite,Urine Negative (Negative); PH, Urine 5.5 (5.0-8.0); Particle Count 3008; Protein,Urine 1+ (Negative); RBC,Urine 1 /hpf (0-5); Specific Gravity,Urine 1.015 (1.001-1.035); Squamous Epithelial Cell,Urine <1 /hpf (0-4); UA Billing (MACRO vs. MICRO) MICRO; Urobilinogen,Urine <2.0 mg/dL (<2.0); WBC,Urine 6 /hpf (0-5)
[2017-07-17] MEDS: FUROSEMIDE 40 MG TAB PO SCH (18:50)
[2017-07-17] MEDS ORDERED: INSULIN REGULAR 100 UNIT/ML VIAL IV ONE (19:07)
[2017-07-17] MEDS ORDERED: ALBUTEROL NEB (CONC) 2.5 MG/0.5 ML INHALATION ONE (19:07)
[2017-07-17] MEDS ORDERED: SODIUM BICARB 8.4% 50 ML SYR (1 MEQ/ML) IV ONE (19:07)
[2017-07-17] MEDS ORDERED: DEXTROSE 50%-WATER 50 ML SYRINGE IVP ONE (19:07)
[2017-07-17] MEDS ORDERED: CALCIUM GLUCONATE 1,000 MG in SODIUM CHLORIDE 0.9% 100 ML IVPB ONE (19:07)
[2017-07-17] MEDS ORDERED: SODIUM POLYSTYRENE SULFONATE 15 GM/60 ML BOTTLE PO ONE (19:07)
[2017-07-17] MEDS: ALBUTEROL NEBULIZED 2.5 MG/3 ML INHALATION PRN (19:30)
[2017-07-17] MEDS: IPRATROPIUM 0.5 MG/2.5 ML NEBU INHALATION PRN (19:30)
[2017-07-17] MEDS: LINAGLIPTIN 5 MG TABLET PO SCH (19:48)
[2017-07-17] MEDS: INSULIN ASPART 100 UNIT/ML 1 ML 10 ML VIAL SQ SCH ×2 (19:48→23:47)
[2017-07-17] MEDS: NON-FORMULARY DRUG (Canagliflozin [Invokana] 100 MG) PO SCH (19:48)
[2017-07-17] MEDS: DIGOXIN 125 MCG TAB PO SCH (19:48)
[2017-07-17] MEDS: ATORVASTATIN 80 MG TAB PO SCH (19:49)
[2017-07-17 21:22] LABS: Glucose,Whole Blood 244 mg/dL (75-99)
--- NOTE | 2017-07-17 22:07 | P.HPIM ---
History of Present Illness H&P Date: 07/17/17 Chief Complaint: Dizziness Patient is a 9-year-old male with a known history of hypertension, diabetes type 2 insulin-dependent, chronic atrial fibrillation, coronary artery syndrome with history of stent placement and ischemic cardiopathy status post ACD placement in 2014 and history of prior CVA with no residual weakness came to ER with complaints of dizziness and chest pain. Patient is a poor historian. Patient felt dizzy when he was trying to bend and also had chest pain midsternal lasting about 15 minutes. Patient otherwise denied any fever or chills. Patient says that he's been having runny nose for the past 2 days. Denied any headache or dizziness at this time he and patient was found to be hypotensive on admission. Patient does have history of chronic atrial fibrillation and is also on digoxin and also having significant coronary artery disease and ischemic cardiomyopathy. Patient was admitted admitted last time in June 2017 when he had cardiac Catheterization stent placement. Patient had ejection fraction 45% and chronic CHF systolic dysfunction. Chest x-ray showed cardiomegaly and chronic emphysematous changes and tiny pleural effusions. CT head showed no acute intracranial process EKG showed atrial fibrillation with rapid heart rate with heart rate of 109 Review of Systems Constitutional: Patient denies any fever or chills . Generalized weakness and dizziness.. Abdomen: Patient denied nausea vomiting and diarrhea and abdominal pain. Cardiovascular: Patient did have chest pain and shortness of breath. No leg swelling no palpitations Respiratory: patient denied any cough is from production. Neurologic: Patient denied any numbness or tingling headache. Dizziness Musculoskeletal: Patient denies any complaints of joint swelling or deformity. Skin: Negative Psychiatric: Denied suicidal ideation Endocrine: No heat or cold intolerance. No recent weight gain. Genitourinary: No dysuria or hematuria. All other 14 point ROS negative except the above Past Medical History Past Medical History: Atrial Fibrillation, Coronary Artery Disease (CAD), Chest Pain / Angina, Heart Failure, COPD, CVA/TIA, Diabetes Mellitus, GERD/Reflux, GI Bleed, Hyperlipidemia, Hypertension, Myocardial Infarction ([place]), Vascular Disorder Additional Past Medical History / Comment(s): Pt recently admitted 06/16/17 with NSTEMI, possible colitis, sepsis d/t Ecoli in urine. Other hx: Recent UTI - pt states he has a couple more ABX to take-feels uncertain is UTI is gone, multivessel coronary artery disease with previous coronary intervention and stenting, ischemic cardiomyopathy, single chamber AICD placement in 2014, prior CVA without any residual deficits, chronic persistent atrial fibrillation the patient has been on Xarelto in the past then taken off Xarelto due to GI bleed, history of nonsustained V. tach, peripheral neuropathy bilateral legs/ feet, peripheral vascular disease, nephrolithiasis, previous history of GI bleed. Last Myocardial Infarction Date:: 06/16/17 History of Any Multi-Drug Resistant Organisms: ESBL Date of last positivie culture/infection: 06/28/17 ESBL-E.coli MDRO Source:: Urine Past Surgical History: AICD, Heart Catheterization, Heart Catheterization With Stent, Hernia Repair Additional Past Surgical History / Comment(s): 2015- R leg artherectomy with balloon angioplasty, multiple oronary stents with last one place 06/16/17, bilateral cataracts , LEFT RING FINGER AMPUTATION, lithotripsy, TURP, EGD and colonoscopy. Past Anesthesia/Blood Transfusion Reactions: No Reported Reaction Additional Past Anesthesia/Blood Transfusion Reaction / Comment(s): HAD BLOOD TRANSFUSION without reaction. Date of Last Stent Placement:: 06/16/17 Type of Cardiac Device: AICD Device Placement Date:: 2014 Smoking Status: Never smoker - Past Family History Mother Family Medical History: Cancer Additional Family Medical History / Comment(s): Mother at age 51yrs old of uterine cancer which metastasized. Father Family Medical History: Diabetes Mellitus Medications and Allergies Home Medications Medication Instructions Recorded Confirmed Type Canagliflozin [Invokana] 100 mg PO W/SUPPER 01/25/14 07/17/17 History Alogliptin Benzoate [Nesina] 25 mg PO W/SUPPER 07/15/14 07/17/17 History Nitroglycerin Sl Tabs [Nitrostat] 0.4 mg SUBLINGUAL Q5M PRN 07/15/14 07/17/17 History Digoxin [Lanoxin] 125 mcg PO W/SUPPER 08/15/14 07/17/17 History metFORMIN HCL [Glucophage] 1,000 mg PO BID 09/19/14 07/17/17 History Omeprazole [PriLOSEC] 20 mg PO DAILY 11/25/14 07/17/17 History Clopidogrel [Plavix] 75 mg PO DAILY 12/02/14 07/17/17 History Pregabalin [Lyrica] 150 mg PO BID 06/06/15 07/17/17 History Isosorbide Mononitrate ER [Imdur] 60 mg PO DAILY 08/28/15 07/17/17 History Lisinopril [Zestril] 5 mg PO DAILY 08/28/15 07/17/17 History Tiotropium [place] [Spiriva] 1 cap INHALATION RT-DAILY PRN 08/28/15 07/17/17 History Aspirin [Adult Low Dose Aspirin EC] 81 mg PO DAILY 08/29/15 07/17/17 History Albuterol Inhaler [Ventolin Hfa 1 - 2 puff INHALATION RT-Q6H PRN 04/24/17 History Inhaler] Metoprolol Tartrate [Lopressor] 50 mg PO BID 04/24/17 07/17/17 History Albuterol Nebulized [Ventolin 2.5 mg INHALATION RT-QID PRN 06/16/17 07/17/17 History Nebulized] Atorvastatin [Lipitor] 80 mg PO W/SUPPER 06/16/17 07/17/17 History HYDROcodone/APAP 5-325MG [[place] 1 tab PO BID PRN 06/16/17 07/17/17 History 5-325] Insulin Glargine,Hum.rec.anlog 10 unit SQ HS 06/16/17 07/17/17 History [Lantus Solostar] Furosemide [Lasix] 40 mg PO BID@0900,1600 #60 tab 06/25/17 07/17/17 Rx Spironolactone [Aldactone] 25 mg PO DAILY #30 tab 06/25/17 07/17/17 Rx Allergies Allergy/AdvReac Type Severity Reaction Status Date / Time Penicillins Allergy Severe Rash/Hives Verified 07/17/17 10:12 ropinirole HCl [From Requip] Allergy Unknown Verified 07/17/17 10:12 Physical Exam Vitals: Vital Signs Temp Pulse Pulse Resp BP BP Pulse Ox 07/17/17 19:50 88 07/17/17 19:46 105 H 07/17/17 19:30 87 95 07/17/17 19:00 101/76 07/17/17 18:10 72/50 07/17/17 18:00 80/48 07/17/17 17:43 98.2 F 100 20 112/56 99 07/17/17 17:01 86 20 106/43 97 07/17/17 15:50 99 20 108/47 100 07/17/17 15:17 99 20 122/52 96 07/17/17 14:50 98 20 116/65 99 07/17/17 13:30 73 20 99/56 99 07/17/17 12:50 96.8 F L 108 H 18 86/60 93 L 07/17/17 12:35 96.9 F L 120 H 24 96/55 94 L 07/17/17 12:02 96.8 F L 100 18 76/60 100 07/17/17 11:15 94 18 99/78 96 07/17/17 10:50 96.8 F L 97 17 75/50 96 07/17/17 10:35 97 F L 72 17 85/67 97 07/17/17 10:20 96.8 F L 97 18 88/74 97 07/17/17 10:05 96.8 F L 116 H 18 93/74 97 07/17/17 09:45 96.8 F L 109 H 18 142/102 97 Intake and Output 07/17/17 07/17/17 07/17/17 06:59 14:59 22:59 Other: Weight 75.296 kg Patient Weight 07/18/17 06:59 Weight 75.296 kg PHYSICAL EXAMINATION: Patient is lying in the bed comfortably, no acute distress, awake alert and oriented. A poor historian. HEENT: Normocephalic. Neck is supple. Pupils reactive. Nostrils clear. Oral cavity is moist. Ears reveal no drainage. Neck reveals no JVD, carotid bruits, or thyromegaly. CHEST EXAMINATION: Trachea is central. Symmetrical expansion. Bilateral diminished air entry especially basally and no wheezing. CARDIAC: Normal S1, S2 with no gallops. No murmurs ABDOMEN: Soft. Bowel sounds normal. No organomegaly. No abdominal bruits. Extremities: reveal no edema. No clubbing or cyanosis Neurologically awake, alert, oriented x3 with well-coordinated movements. No focal deficits noted Skin: No rash or skin lesions. Psychiatric: Cooperative. Nonsuicidal Musculoskeletal: No joint swelling or deformity. Normal range of motion. Results CBC & Chem 7: 07/17/17 10:00 07/17/17 10:00 Labs: Abnormal Lab Results - Last 24 Hours (Table) 07/17/17 07/17/17 07/17/17 Range/Units 10:00 10:00 10:00 WBC 11.2 H (3.8-10.6) k/uL MCHC 30.8 L (31.0-37.0) g/dL RDW 15.7 H (11.5-15.5) % Neutrophils # 8.8 H (1.3-7.7) k/uL INR 1.2 H (<1.2) Potassium 5.9 H (3.5-5.1) mmol/L Carbon Dioxide 20 L (22-30) mmol/L BUN 35 H (9-20) mg/dL Creatinine 1.30 H (0.66-1.25) mg/dL Glucose 163 H (74-99) mg/dL POC Glucose (mg/dL) (75-99) mg/dL Magnesium 1.4 L (1.6-2.3) mg/dL Alkaline Phosphatase 128 H (38-126) U/L Lipase 498 H (23-300) U/L Urine Protein (Negative) Urine WBC (0-5) /hpf Urine Bacteria (None) /hpf Hyaline Casts (0-2) /lpf Urine Mucus (None) /hpf 07/17/17 07/17/17 Range/Units 17:50 21:21 WBC (3.8-10.6) k/uL MCHC (31.0-37.0) g/dL RDW (11.5-15.5) % Neutrophils # (1.3-7.7) k/uL INR (<1.2) Potassium (3.5-5.1) mmol/L Carbon Dioxide (22-30) mmol/L BUN (9-20) mg/dL Creatinine (0.66-1.25) mg/dL Glucose (74-99) mg/dL POC Glucose (mg/dL) 244 H (75-99) mg/dL Magnesium (1.6-2.3) mg/dL Alkaline Phosphatase (38-126) U/L Lipase (23-300) U/L Urine Protein 1+ H (Negative) Urine WBC 6 H (0-5) /hpf Urine Bacteria Rare H (None) /hpf Hyaline Casts 3 H (0-2) /lpf Urine Mucus Rare H (None) /hpf Thrombosis Risk Factor Assmnt - Choose All That Apply Any of the Below Risk Factors Present?: Yes Each Factor Represents 1 point: Abnormal pulmonary function (COPD) Other Risk Factors: Yes Each Risk Factor Represents 3 Points: Age 75 years or older Other congenital or acquired thrombophilia - If yes, enter type in comment: No Thrombosis Risk Factor Assessment Total Risk Factor Score: 4 Thrombosis Risk Factor Assessment Level: Moderate Risk Assessment and Plan Assessment: #1 dizziness likely due to hypotension improved now #2 atrial fibrillation with rapid ventricular Rate on admission #3 chronic atrial fibrillation. Was on. xarelto not on granulation due to GI bleed previously #4 coronary artery disease with stent placement in April and June 2017 #5 chronic CHF with systolic dysfunction ejection fraction 45% #7 mild acute pancreatitis with elevated lipase level 498 #8 history of CVA with no residual weakness at #9 peripheral vascular disease #10 hypertension # 11 DM type II on metformin #12 COPD stable #13 hyperkalemia secondary to acute kidney injury. #14 acute kidney injury likely due to hemodynamic instability. And hypertension creatinine 1.3. Last creatinine 0.98 Plan: Patient will be continued on telemetry monitoring. We will rule out any infection. Patient will be started back on home medications. And continued to monitor renal function. We will follow closely. Patient was given Kayexalate insulin dextrose and percussion gluconate in the ER for hyperkalemia Further recommendations based on the clinical course. Prognosis is guarded with multiple medical problems and comorbid conditions. Time with Patient: Greater than 30
[2017-07-17] MEDS: INSULIN DETEMIR 100 UNIT/ML 10 ML VIAL SQ SCH (23:45)
[2017-07-17] MEDS: metFORMIN 500 MG TAB PO SCH (23:46)
[2017-07-17] MEDS: METOPROLOL TARTRATE 50 MG TAB PO SCH (23:47)
[2017-07-17] MEDS: PREGABALIN 75 MG CAP PO SCH (23:50)
[2017-07-18] MEDS ORDERED: FUROSEMIDE 10 MG/ML 4 ML VIAL IV STA (04:40)
[2017-07-18 06:17] LABS: Glucose,Whole Blood 101 mg/dL (75-99)
[2017-07-18 06:39] LABS: Anion Gap 12 mmol/L; Blood Urea Nitrogen 30 mg/dL (9-20); Calcium 9.3 mg/dL (8.4-10.2); Carbon Dioxide 21 mmol/L (22-30); Chloride 109 mmol/L (98-107); Glucose 105 mg/dL (74-99); Non-African American GFR(MDRD) 53 (>60 ml/min/1.73 sqM); Potassium 5.1 mmol/L (3.5-5.1); Sodium 142 mmol/L (137-145)
[2017-07-18 06:40] LABS: Basophils # (A) 0.1 k/uL (0-0.2); Basophils % (A) 1 %; CH 28.6; CHCM 30.3; Eosinophils # (A) 0.1 k/uL (0-0.7); Eosinophils % (A) 1 %; HCT 47.1 % (39.0-53.0); HDW 2.74; HGB 14.1 gm/dL (13.0-17.5); Hypochromasia Moderate; Luc # (Auto) 0.09; Luc % (Auto) 1; Lymphocytes # (A) 1.4 k/uL (1.0-4.8); Lymphocytes % (A) 12 %; MCH 28.4 pg (25.0-35.0); MCHC 29.9 g/dL (31.0-37.0); MCV 94.9 fL (80.0-100.0); Mean Platelet Volume 9.4; Monocytes # (A) 0.9 k/uL (0-1.0); Monocytes % (A) 8 %; Neutrophils # (A) 8.6 k/uL (1.3-7.7); Neutrophils % (A) 77 %; RBC 4.96 m/uL (4.30-5.90); RDW 15.6 % (11.5-15.5); WBC 11.1 k/uL (3.8-10.6); WBC (Perox) 11.16
[2017-07-18] MEDS: ALBUTEROL NEBULIZED 2.5 MG/3 ML INHALATION PRN (07:48)
[2017-07-18] MEDS: IPRATROPIUM 0.5 MG/2.5 ML NEBU INHALATION PRN (07:48)
[2017-07-18] MEDS: ASPIRIN 81 MG PO SCH (08:49)
[2017-07-18] MEDS: metFORMIN 500 MG TAB PO SCH ×2 (08:49→21:32)
[2017-07-18] MEDS: CLOPIDOGREL 75 MG TAB PO SCH (08:49)
[2017-07-18] MEDS: METOPROLOL TARTRATE 50 MG TAB PO SCH ×2 (08:49→21:32)
[2017-07-18] MEDS: PANTOPRAZOLE 40 MG TABLET PO SCH (08:49)
[2017-07-18] MEDS: FUROSEMIDE 40 MG TAB PO SCH ×2 (08:49→17:16)
[2017-07-18] MEDS: INSULIN ASPART 100 UNIT/ML 1 ML 10 ML VIAL SQ SCH ×4 (08:50→21:29)
[2017-07-18] MEDS: PREGABALIN 75 MG CAP PO SCH ×2 (08:53→21:36)
[2017-07-18] MEDS ORDERED: SPIRONOLACTONE 25 MG TAB PO SCH (09:00)
[2017-07-18] MEDS ORDERED: ISOSORBIDE MONONITRATE ER 60 MG TAB.ER.24H PO SCH (09:00)
[2017-07-18 11:36] LABS: Glucose,Whole Blood 83 mg/dL (75-99)
--- NOTE | 2017-07-18 15:23 | CT ---
EXAMINATION TYPE: CT abdomen pelvis wo con DATE OF EXAM: 07/18/2017 COMPARISON: 06/19/2017 HISTORY: Lower abdominal pain. CT DLP: 472.8 mGycm Automated exposure control for dose reduction was used. TECHNIQUE: Helical acquisition of images was performed from the lung bases through the pelvis. FINDINGS: LUNG BASES: There is partial visualization of bilateral small pleural effusions, right slightly great er than left, with associated bibasilar airspace disease that is likely related to atelectasis. These are similar in degree from the prior exam of 06/19/2017. Four-chamber cardiomegaly is also evident w ith three-vessel coronary artery calcifications. LIVER/GB: Liver is unremarkable. Multiple choleliths are seen within the gallbladder. The previously noted biliary sludge layering dependently has not as evident on today's examination. PANCREAS: Mild pancreatic parenchymal atrophy is again noted. Calcification of the splenic artery adj acent to the pancreatic body is also present. SPLEEN: No significant abnormality is seen. ADRENALS: Again there is slight enlargement of the adrenal glands without measurable nodule. Adrenal glands maintain their adreniform shape and therefore adrenal gland hyperplasia is suspected. KIDNEYS: Encapsulated left perirenal fat versus an angiomyolipoma is seen of the posterior left mid t o inferior pole of the kidney. Spiculated soft tissue density on series 3 image 47 is again overall u nchanged dating back to 11/25/2014. Bilateral renal cysts are similar. No nephrolithiasis or hydroneph rosis. FREE AIR: No free air is visualized REPRODUCTIVE ORGANS: Heterogeneity of the prostate gland is present as are central zone calcification s. Bilateral fat filled inguinal hernias are present. URINARY BLADDER: Incompletely distended and incompletely evaluated. ADENOPATHY: No greater than 1 cm lymph nodes. OSSEOUS STRUCTURES: Minimal multilevel degenerative changes are present. BOWEL: Previously seen pericolonic thickening has resolved. No evidence of dilated bowel is identifi ed. The previously identified lung segmental area of sigmoid decompression that was questioned relate to nonobstructive incomplete stricture versus peristalsis has resolved and therefore was related to peristalsis rather than stricture. OTHER: New small volume free fluid layers within the pelvis and may be sequela of the recently seen c olitis and inflammatory fat stranding as small amount of fluid tracks down the left lateral conal fas luis eduardo fascial thickening is also seen anterior to the psoas musculature along the external iliac chains .. Sigmoid diverticula are present without pericolonic fat stranding. IMPRESSION: 1. RESOLVING SEQUELA OF COLITIS WITH MILD FAT STRANDING AND SMALL VOLUME FLUID TRACKING DOWN THE LEFT LATERAL CONAL FASCIA INTO THE DEPENDENT PELVIS WITH SMALL VOLUME SIMPLE PELVIC ASCITES. 2. UNCHANGED BILATERAL RENAL CYSTS DATING BACK TO 11/25/2014 WITH UNCHANGED APPEARANCE OF A SPICULATED SOFT TISSUE DENSITY EXTENDING FROM THE LEFT LOWER POLE DATED BACK TO 2014 FAVORED TO REPRESENT SCARR ING/FIBROSIS. 3. CHOLELITHIASIS WITHOUT CT EVIDENCE OF CHOLECYSTITIS. 4. PARTIAL VISUALIZATION OF SIMILAR-APPEARING SMALL VOLUME PLEURAL EFFUSIONS AND BIBASILAR AIRSPACE D ISEASE THAT HAS IMPROVED FAVORING ATELECTASIS.
[2017-07-18] MEDS: IPRATROPIUM-ALBUTEROL 3 ML NEB INHALATION PRN (16:15)
[2017-07-18 16:28] LABS: Glucose,Whole Blood 127 mg/dL (75-99)
--- NOTE | 2017-07-18 17:04 | US ---
EXAMINATION TYPE: US kidneys/renal and bladder DATE OF EXAM: 07/18/2017 COMPARISON: CT 07/18/2017 CLINICAL HISTORY: recurrent UTI. EXAM MEASUREMENTS: Right Kidney: 9.8 x 4.6 x 4.0 cm Left Kidney: 10.7 x 5.4 x 4.9 cm Right Kidney: Lobulated contour. No hydronephrosis. Cyst visualized measuring 1.3 cm at the mid pole Left Kidney: Lobulated contour. No hydronephrosis. Cyst visualized mid pole measuring 1.2 cm Bladder: Bladder wall measuring upper limites of normal at 3.9mm Bilateral Jets seen: yes There is no evidence for hydronephrosis at this point in time. No nephrolithiasis is seen. The uri nary bladder is anechoic. Bilateral ureteral jets are seen. IMPRESSION: Small right renal cortical cyst. No evidence of solid renal mass or obstruction. Mild bladder wall th ickening is suggestive of nonspecific mild cystitis or hypertrophy.
[2017-07-18] MEDS: ATORVASTATIN 80 MG TAB PO SCH (17:16)
[2017-07-18] MEDS: LINAGLIPTIN 5 MG TABLET PO SCH (17:16)
[2017-07-18] MEDS: DIGOXIN 125 MCG TAB PO SCH (17:16)
[2017-07-18] MEDS: NON-FORMULARY DRUG (Canagliflozin [Invokana] 100 MG) PO SCH (17:19)
[2017-07-18] MEDS: SODIUM CHLORIDE 0.9% 1,000 ML IV SCH (19:51)
[2017-07-18 20:54] LABS: Glucose,Whole Blood 162 mg/dL (75-99)
[2017-07-18] MEDS: INSULIN DETEMIR 100 UNIT/ML 10 ML VIAL SQ SCH (21:30)
--- NOTE | 2017-07-18 22:40 | P.PN ---
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 Patient is a poor historian. Patient felt dizzy when he was trying to bend and also had chest pain midsternal lasting about 15 minutes. Patient otherwise denied any fever or chills. Patient says that he's been having runny nose for the past 2 days. Denied any headache or dizziness at this time he and patient was found to be hypotensive on admission. Patient does have history of chronic atrial fibrillation and is also on digoxin and also having significant coronary artery disease and ischemic cardiomyopathy. Patient was admitted admitted last time in June 2017 when he had cardiac Catheterization stent placement. Patient had ejection fraction 45% and chronic CHF systolic dysfunction. Chest x-ray showed cardiomegaly and chronic emphysematous changes and tiny pleural effusions. CT head showed no acute intracranial process EKG showed atrial fibrillation with rapid heart rate with heart rate of 109 07/18/2017 Patient denied any complaints of chest pain or short of breath today. Patient has been complaining of lower abdominal pain. US of the renal showed no evidence of solid mass or obstruction CT abdomen and pelvis showed resolving sequel of colitis with mild fat stranding and small pelvic fluid. Bilateral small pleural effusions present Urine culture was ordered. No nausea vomiting. Patient is tolerating oral diet. Will follow urine cultures. Otherwise no acute overnight issues. Hyperkalemia improved. Creatinine 1.3 today. All other review of systems negative except the above Current medications reviewed Objective - Vital Signs Vital signs: Vital Signs Temp 96.9 F L 07/18/17 15:30 Pulse 95 07/18/17 16:25 Resp 20 07/18/17 15:30 BP 106/81 07/18/17 15:30 Pulse Ox 92 L 07/18/17 15:30 Intake & Output 07/18/17 07/18/17 07/19/17 06:59 18:59 06:59 Intake Total 906 100 Output Total 800 Balance 106 100 Weight 76.2 kg Intake: Intake, IV Titration 190 Amount Sodium Chloride 0.9% 1, 190 000 ml @ 20 mls/hr IV . Q24H [facility] Rx#:[id number] Oral 716 100 Output: Urine 800 Other: Voiding Method Toilet # Voids 0 - Exam Patient is lying in the bed comfortably, no acute distress, awake alert and oriented. A poor historian. HEENT: Normocephalic. Neck is supple. Pupils reactive. Nostrils clear. Oral cavity is moist. Ears reveal no drainage. Neck reveals no JVD, carotid bruits, or thyromegaly. CHEST EXAMINATION: Trachea is central. Symmetrical expansion. Bilateral diminished air entry especially basally and no wheezing. CARDIAC: Normal S1, S2 with no gallops. No murmurs ABDOMEN: Soft. Bowel sounds normal. No organomegaly. No abdominal bruits. Extremities: reveal no edema. No clubbing or cyanosis Neurologically awake, alert, oriented x3 with well-coordinated movements. No focal deficits noted Skin: No rash or skin lesions. Psychiatric: Cooperative. Nonsuicidal Musculoskeletal: No joint swelling or deformity. Normal range of motion. - Labs CBC & Chem 7: 07/18/17 06:07 07/18/17 06:07 Labs: Abnormal Lab Results - Last 24 Hours (Table) 07/17/17 07/18/17 07/18/17 Range/Units 23:57 06:07 06:07 WBC 11.1 H (3.8-10.6) k/uL MCHC 29.9 L (31.0-37.0) g/dL RDW 15.6 H (11.5-15.5) % Neutrophils # 8.6 H (1.3-7.7) k/uL Potassium 5.2 H (3.5-5.1) mmol/L Chloride 109 H (98-107) mmol/L Carbon Dioxide 21 L (22-30) mmol/L BUN 30 H (9-20) mg/dL Creatinine 1.30 H (0.66-1.25) mg/dL Glucose 105 H (74-99) mg/dL POC Glucose (mg/dL) (75-99) mg/dL 07/18/17 07/18/17 07/18/17 Range/Units 06:14 16:26 20:50 WBC (3.8-10.6) k/uL MCHC (31.0-37.0) g/dL RDW (11.5-15.5) % Neutrophils # (1.3-7.7) k/uL Potassium (3.5-5.1) mmol/L Chloride (98-107) mmol/L Carbon Dioxide (22-30) mmol/L BUN (9-20) mg/dL Creatinine (0.66-1.25) mg/dL Glucose (74-99) mg/dL POC Glucose (mg/dL) 101 H 127 H 162 H (75-99) mg/dL Assessment and Plan Assessment: #1 dizziness likely due to hypotension improved now #2 possible recent colitis with resolving sequle on CT abdomen and pelvis #2 atrial fibrillation with rapid ventricular Rate on admission. controlled now #3 chronic atrial fibrillation. Was on. xarelto not on granulation due to GI bleed previously #4 coronary artery disease with stent placement in April and June 2017 #5 chronic CHF with systolic dysfunction ejection fraction 45% #7 mild acute pancreatitis with elevated lipase level 498 #8 history of CVA with no residual weakness at #9 peripheral vascular disease #10 hypertension # 11 DM type II on metformin #12 COPD stable #13 hyperkalemia secondary to acute kidney injury. #14 acute kidney injury likely due to hemodynamic instability. And hypertension creatinine 1.3. Last creatinine 0.98 Plan: Patient will be continued on telemetry monitoring. We will rule out any infection. Follow-up urine cultures. Continue with home medications. And continued to monitor renal function. . Patient was given Kayexalate insulin dextrose and calcium gluconate in the ER for hyperkalemia. We will hold spironolactone Further recommendations based on the clinical course. Prognosis is guarded with multiple medical problems and comorbid conditions. Time with Patient: Greater than 30
[2017-07-19 04:25] LABS: Anion Gap 15 mmol/L; Blood Urea Nitrogen 32 mg/dL (9-20); Calcium 9.4 mg/dL (8.4-10.2); Carbon Dioxide 20 mmol/L (22-30); Chloride 108 mmol/L (98-107); Glucose 147 mg/dL (74-99); Magnesium 1.4 mg/dL (1.6-2.3); Non-African American GFR(MDRD) 55 (>60 ml/min/1.73 sqM); Potassium 4.9 mmol/L (3.5-5.1); Sodium 143 mmol/L (137-145)
[2017-07-19] MEDS: HYDROcodone/APAP 5-325MG 1 EACH TAB PO PRN (04:25)
[2017-07-19] MEDS ORDERED: Magnesium Replacement Protocol 1 EACH MISC MISCELLANE PRN (04:38)
[2017-07-19 04:40] LABS: Basophils # (A) 0.1 k/uL (0-0.2); Basophils % (A) 1 %; CH 28.8; CHCM 30.9; Eosinophils # (A) 0.2 k/uL (0-0.7); Eosinophils % (A) 1 %; HCT 46.3 % (39.0-53.0); HDW 2.72; HGB 14.1 gm/dL (13.0-17.5); Hypochromasia Slight; Luc # (Auto) 0.08; Luc % (Auto) 1; Lymphocytes # (A) 1.2 k/uL (1.0-4.8); Lymphocytes % (A) 9 %; MCH 28.5 pg (25.0-35.0); MCHC 30.5 g/dL (31.0-37.0); MCV 93.5 fL (80.0-100.0); Mean Platelet Volume 8.8; Monocytes % (A) 8 %; Neutrophils # (A) 10.5 k/uL (1.3-7.7); Neutrophils % (A) 81 %; RBC 4.95 m/uL (4.30-5.90); RDW 15.6 % (11.5-15.5)
[2017-07-19 06:09] LABS: Glucose,Whole Blood 139 mg/dL (75-99)
[2017-07-19] MEDS: MAGNESIUM SULFATE-D5W PMX 1 GM in DEXTROSE/WATER 1 100ML.BAG IVPB SCH ×2 (06:21→07:27)
[2017-07-19] MEDS: INSULIN ASPART 100 UNIT/ML 1 ML 10 ML VIAL SQ SCH ×4 (07:13→21:05)
[2017-07-19] MEDS: PANTOPRAZOLE 40 MG TABLET PO SCH (07:14)
[2017-07-19] MEDS: IPRATROPIUM-ALBUTEROL 3 ML NEB INHALATION PRN (08:24)
[2017-07-19] MEDS: FUROSEMIDE 40 MG TAB PO SCH ×2 (09:08→16:44)
[2017-07-19] MEDS: CLOPIDOGREL 75 MG TAB PO SCH (09:08)
[2017-07-19] MEDS: PREGABALIN 75 MG CAP PO SCH ×2 (09:08→21:50)
[2017-07-19] MEDS: ASPIRIN 81 MG PO SCH (09:08)
[2017-07-19] MEDS: metFORMIN 500 MG TAB PO SCH ×2 (09:08→21:50)
[2017-07-19] MEDS: METOPROLOL TARTRATE 50 MG TAB PO SCH ×2 (09:09→21:50)
[2017-07-19 11:22] LABS: Glucose,Whole Blood 128 mg/dL (75-99)
[2017-07-19] MEDS: SODIUM CHLORIDE 0.9% 1,000 ML IV SCH (11:54)
[2017-07-19] MEDS ORDERED: LEVOFLOXACIN 500MG-D5W PMX 500 MG in DEXTROSE/WATER 1 100ML.BAG IVPB SCH (14:00)
[2017-07-19 16:36] LABS: Glucose,Whole Blood 126 mg/dL (75-99)
[2017-07-19] MEDS: DIGOXIN 125 MCG TAB PO SCH (16:44)
[2017-07-19] MEDS: ATORVASTATIN 80 MG TAB PO SCH (16:44)
[2017-07-19] MEDS: LINAGLIPTIN 5 MG TABLET PO SCH (16:44)
[2017-07-19] MEDS: metroNIDAZOLE 500 MG TAB PO SCH ×2 (16:44→21:50)
[2017-07-19] MEDS: cefTRIAXone IN SWFI 1,000 MG/10 ML SYRINGE IVP SCH (17:21)
[2017-07-19 21:04] LABS: Glucose,Whole Blood 100 mg/dL (75-99)
[2017-07-19] MEDS: INSULIN DETEMIR 100 UNIT/ML 10 ML VIAL SQ SCH (21:50)
--- NOTE | 2017-07-19 22:18 | P.PN ---
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 Patient is a poor historian. Patient felt dizzy when he was trying to bend and also had chest pain midsternal lasting about 15 minutes. Patient otherwise denied any fever or chills. Patient says that he's been having runny nose for the past 2 days. Denied any headache or dizziness at this time he and patient was found to be hypotensive on admission. Patient does have history of chronic atrial fibrillation and is also on digoxin and also having significant coronary artery disease and ischemic cardiomyopathy. Patient was admitted admitted last time in June 2017 when he had cardiac Catheterization stent placement. Patient had ejection fraction 45% and chronic CHF systolic dysfunction. Chest x-ray showed cardiomegaly and chronic emphysematous changes and tiny pleural effusions. CT head showed no acute intracranial process EKG showed atrial fibrillation with rapid heart rate with heart rate of 109 07/18/2017 Patient denied any complaints of chest pain or short of breath today. Patient has been complaining of lower abdominal pain. US of the renal showed no evidence of solid mass or obstruction CT abdomen and pelvis showed resolving sequel of colitis with mild fat stranding and small pelvic fluid. Bilateral small pleural effusions present Urine culture was ordered. No nausea vomiting. Patient is tolerating oral diet. Will follow urine cultures. Otherwise no acute overnight issues. Hyperkalemia improved. Creatinine 1.3 today. 07/19/2017 Patient is still complaining of abdominal discomfort which especially bothers him when he lies down. CT of abdomen and pelvis showed sequel a of colitis. Will consult GI for evaluation. Otherwise patients WBC increased from 11-13 today. Creatinine level improved to 1.26. Patient denied any complaints of chest pain or shortness of breath. No fever no chills. No nausea vomiting. Patient is tolerating oral diet. All other review of systems negative except the above Current medications reviewed Objective - Vital Signs Vital signs: Vital Signs Temp 96.9 F L 07/19/17 15:23 Pulse 74 07/19/17 15:23 Resp 18 07/19/17 15:23 BP 136/89 07/19/17 15:23 Pulse Ox 99 07/19/17 19:03 Intake & Output 07/19/17 07/19/17 07/20/17 06:59 18:59 06:59 Intake Total 200 870 120 Balance 200 870 120 Weight 74.3 kg Intake: Intake, IV Titration 270 Amount Magnesium Sulfate-D5w Pmx 200 1 gm In Dextrose/Water 1 100ml.bag @ 100 mls/hr IVPB Q1H [facility] Rx#: [id number] Sodium Chloride 0.9% 1, 70 000 ml @ 20 mls/hr IV . Q24H [facility] Rx#:[id number] Oral 200 600 120 Other: Voiding Method Toilet Toilet Urinal Urinal # Voids 1 3 - Exam Patient is lying in the bed comfortably, no acute distress, awake alert and oriented. A poor historian. HEENT: Normocephalic. Neck is supple. Pupils reactive. Nostrils clear. Oral cavity is moist. Ears reveal no drainage. Neck reveals no JVD, carotid bruits, or thyromegaly. CHEST EXAMINATION: Trachea is central. Symmetrical expansion. Bilateral diminished air entry especially basally and no wheezing. CARDIAC: Normal S1, S2 with no gallops. No murmurs ABDOMEN: Soft. Bowel sounds normal. No organomegaly. No abdominal bruits. Extremities: reveal no edema. No clubbing or cyanosis Neurologically awake, alert, oriented x3 with well-coordinated movements. No focal deficits noted Skin: No rash or skin lesions. Psychiatric: Cooperative. Nonsuicidal Musculoskeletal: No joint swelling or deformity. Normal range of motion. - Labs CBC & Chem 7: 07/19/17 04:04 07/19/17 04:04 Labs: Abnormal Lab Results - Last 24 Hours (Table) 07/19/17 07/19/17 07/19/17 Range/Units 04:04 04:04 06:07 WBC 13.0 H (3.8-10.6) k/uL MCHC 30.5 L (31.0-37.0) g/dL RDW 15.6 H (11.5-15.5) % Neutrophils # 10.5 H (1.3-7.7) k/uL Chloride 108 H (98-107) mmol/L Carbon Dioxide 20 L (22-30) mmol/L BUN 32 H (9-20) mg/dL Creatinine 1.26 H (0.66-1.25) mg/dL Glucose 147 H (74-99) mg/dL POC Glucose (mg/dL) 139 H (75-99) mg/dL Magnesium 1.4 L (1.6-2.3) mg/dL 07/19/17 07/19/17 07/19/17 Range/Units 11:18 16:20 21:02 WBC (3.8-10.6) k/uL MCHC (31.0-37.0) g/dL RDW (11.5-15.5) % Neutrophils # (1.3-7.7) k/uL Chloride (98-107) mmol/L Carbon Dioxide (22-30) mmol/L BUN (9-20) mg/dL Creatinine (0.66-1.25) mg/dL Glucose (74-99) mg/dL POC Glucose (mg/dL) 128 H 126 H 100 H (75-99) mg/dL Magnesium (1.6-2.3) mg/dL Microbiology - Last 24 Hours (Table) 07/18/17 16:05 Urine Culture - Preliminary Urine,Clean Catch Assessment and Plan Assessment: #1 dizziness likely due to hypotension improved now #2 possible recent colitis with resolving sequle on CT abdomen and pelvis #2 atrial fibrillation with rapid ventricular Rate on admission. controlled now #3 chronic atrial fibrillation. Was on. xarelto not on granulation due to GI bleed previously #4 coronary artery disease with stent placement in April and June 2017 #5 chronic CHF with systolic dysfunction ejection fraction 45% #7 mild acute pancreatitis with elevated lipase level 498 #8 history of CVA with no residual weakness at #9 peripheral vascular disease #10 hypertension # 11 DM type II on metformin #12 COPD stable #13 hyperkalemia secondary to acute kidney injury. #14 acute kidney injury likely due to hemodynamic instability. And hypertension creatinine 1.3. Last creatinine 0.98 Plan: Patient will be continued on telemetry monitoring. Follow-up urine cultures. Patient will be started on antibiotics for colitis. Patient does not want to be started on levofloxacin. Patient is ALLERGIC to penicillin. Patient will be started on ceftriaxone and Flagyl. Continue with home medications. And continued to monitor renal function. On admission Patient was given Kayexalate insulin dextrose and calcium gluconate in the ER for hyperkalemia. We did spironolactone Further recommendations based on the clinical course. Prognosis is guarded with multiple medical problems and comorbid conditions. Time with Patient: Greater than 30
[2017-07-20 05:56] LABS: Glucose,Whole Blood 106 mg/dL (75-99)
[2017-07-20 06:19] LABS: Anisocytosis Slight; Basophils # (A) 0.1 k/uL (0-0.2); Basophils % (A) 1 %; CH 28.4; CHCM 30.8; Eosinophils # (A) 0.3 k/uL (0-0.7); Eosinophils % (A) 3 %; HCT 41.3 % (39.0-53.0); HDW 2.64; HGB 12.7 gm/dL (13.0-17.5); Hypochromasia Slight; Luc # (Auto) 0.12; Luc % (Auto) 1; Lymphocytes # (A) 0.9 k/uL (1.0-4.8); Lymphocytes % (A) 8 %; MCH 28.4 pg (25.0-35.0); MCHC 30.7 g/dL (31.0-37.0); MCV 92.8 fL (80.0-100.0); Mean Platelet Volume 9.8; Monocytes # (A) 0.8 k/uL (0-1.0); Monocytes % (A) 7 %; Neutrophils # (A) 9.2 k/uL (1.3-7.7); Neutrophils % (A) 80 %; RBC 4.45 m/uL (4.30-5.90); RDW 17.5 % (11.5-15.5); WBC 11.4 k/uL (3.8-10.6)
[2017-07-20] MEDS: INSULIN ASPART 100 UNIT/ML 1 ML 10 ML VIAL SQ SCH ×4 (06:19→20:58)
[2017-07-20] MEDS: PANTOPRAZOLE 40 MG TABLET PO SCH (06:25)
[2017-07-20 06:31] LABS: Anion Gap 11 mmol/L; Blood Urea Nitrogen 32 mg/dL (9-20); Carbon Dioxide 22 mmol/L (22-30); Chloride 108 mmol/L (98-107); Glucose 114 mg/dL (74-99); Non-African American GFR(MDRD) >60 (>60 ml/min/1.73 sqM); Potassium 4.1 mmol/L (3.5-5.1); Sodium 141 mmol/L (137-145)
[2017-07-20] MEDS: metroNIDAZOLE 500 MG TAB PO SCH ×3 (08:13→21:07)
[2017-07-20] MEDS: FUROSEMIDE 40 MG TAB PO SCH ×2 (08:14→15:09)
[2017-07-20] MEDS: cefTRIAXone IN SWFI 1,000 MG/10 ML SYRINGE IVP SCH (08:14)
[2017-07-20] MEDS: metFORMIN 500 MG TAB PO SCH ×2 (08:14→21:07)
[2017-07-20] MEDS: PREGABALIN 75 MG CAP PO SCH ×2 (08:14→21:07)
[2017-07-20] MEDS: CLOPIDOGREL 75 MG TAB PO SCH (08:14)
[2017-07-20] MEDS: METOPROLOL TARTRATE 50 MG TAB PO SCH ×2 (08:14→21:07)
[2017-07-20] MEDS: ASPIRIN 81 MG PO SCH (08:14)
[2017-07-20] MEDS: IPRATROPIUM-ALBUTEROL 3 ML NEB INHALATION PRN ×2 (08:42→20:21)
--- NOTE | 2017-07-20 11:44 | CONS ---
CONSULTATION DATE OF SERVICE: 07/20/17 REQUESTING PHYSICIAN: Dr. Pride. REASON FOR CONSULTATION: Possible colitis. HISTORY OF PRESENT ILLNESS: The patient is an 81-year-old pleasant white male admitted to the hospital because of dizziness, chest pain and shortness of breath for the last few days duration. The patient was just discharged from the hospital a few weeks ago at which time he was admitted to the hospital with chest pain/acute coronary syndrome. He underwent a cardiac cath and stent placement. Because of his vague symptoms he did have a CT of the abdomen and pelvis done in the emergency room on July 18 that showed thickening of the colonic wall thickening, mostly in the left colon. The possibility of resolving colitis was suggested by the radiologist. However, on further questioning, the patient denies any abdominal pain. He felt he had some suprapubic discomfort, but he denies any nausea, vomiting, rectal bleeding, melena, diarrhea, or constipation. In fact, he is on a regular diet, tolerating well. He recalls having a colonoscopy more than 10 years ago which was normal. He reports no fever, chills, night sweats. PAST MEDICAL HISTORY: Significant for coronary artery disease, ischemic cardiomyopathy, congestive heart failure. Hypertension. Gastroesophageal reflux disease. Vascular disease, chronic persistent atrial fibrillation. PAST SURGICAL HISTORY: Cardiac cath, stent placement 1 month ago. Hernia repair. Right leg balloon angioplasty. Lithotripsy, finger amputation, TURP, AICD placement. MEDICATIONS: At home include: Aspirin, Spiriva, Zestril, Imdur, Lyrica, Plavix, Prilosec, Glucophage, Lanoxin, Nitrostat, Invokana, Lipitor, Marilla, Celestar, Lantus, Lasix and Aldactone. ALLERGIES: PENICILLIN, REQUIP. SOCIAL HISTORY: Never smoker. No alcohol use. FAMILY HISTORY: Mother had some kind of cancer and father had diabetes mellitus. REVIEW OF SYSTEMS: Cardiopulmonary: Denies any chest pain, shortness of breath. Genitourinary: No dysuria or hematuria. Musculoskeletal unremarkable. Skin unremarkable. Endocrine unremarkable. Psychiatric unremarkable. Neurology unremarkable. ENT vision unremarkable. Constitutional: He denies any weight loss. No fever, chills, night sweats. PHYSICAL EXAMINATION: He appears comfortable. No apparent distress. VITAL SIGNS: Stable. Blood pressure 117/84, pulse rate 70, temperature 97.3. HEENT examination unremarkable. Conjunctivae pink. Sclerae anicteric. Oral cavity no lesions. Neck no jugular venous distention or lymph node enlargement. Chest was clear to auscultation. HEART: Regular rate and rhythm. ABDOMEN: Soft. Bowel sounds are positive. No organomegaly. Extremities no pedal edema. Skin no rashes. Neurological: He is alert and oriented times three. No focal deficits. LAB: WBC 11.4, hemoglobin 12.7, platelets are normal. Basic metabolic panel is within normal limits. BUN 32, creatinine 1.10. CT of the abdomen and pelvis showed some thickening of the colon with pericolonic stranding in the left colon suspicious for resolving colitis. IMPRESSION: The patient was admitted to hospital with some dizziness, not feeling well, vague abdominal discomfort on and off about 3 days ago and had a CT of the abdomen and pelvis done yesterday that shows some thickening of the left colon suspicious for colitis. He was already started on empiric antibiotics and presently on Rocephin as well as Flagyl. Chest x-ray showed some bilateral pulmonary pleural effusions as well as some chronic and asymptomatic changes and no obvious pneumonia. In any event, he does not have any ongoing diarrhea, abdominal discomfort or bleeding to suggest acute colitis. IMPRESSION: 1. Chronic atrial fibrillation. 2. Congestive heart failure/ischemic cardiomyopathy with ejection fraction of 45%. 3. Diabetes mellitus. RECOMMENDATION: 1. Advance diet as tolerated. 2. The patient was already started on empiric antibiotics with Levaquin yesterday by Dr. Pride. At this time, we will continue the same since the patient is doing well. 3. No plans on any endoscopic intervention. We will follow him closely during his hospital stay. Thank you for this consultation. MMODL / IJN: [id number] /
[2017-07-20 11:59] LABS: Glucose,Whole Blood 137 mg/dL (75-99)
[2017-07-20] MEDS: SODIUM CHLORIDE 0.9% 1,000 ML IV SCH (12:17)
[2017-07-20 16:48] LABS: Glucose,Whole Blood 101 mg/dL (75-99)
[2017-07-20] MEDS: DIGOXIN 125 MCG TAB PO SCH (16:56)
[2017-07-20] MEDS: HYDROcodone/APAP 5-325MG 1 EACH TAB PO PRN (16:56)
[2017-07-20] MEDS: ATORVASTATIN 80 MG TAB PO SCH (16:56)
[2017-07-20] MEDS: LINAGLIPTIN 5 MG TABLET PO SCH (16:56)
--- NOTE | 2017-07-20 19:32 | P.PN ---
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 Patient is a poor historian. Patient felt dizzy when he was trying to bend and also had chest pain midsternal lasting about 15 minutes. Patient otherwise denied any fever or chills. Patient says that he's been having runny nose for the past 2 days. Denied any headache or dizziness at this time he and patient was found to be hypotensive on admission. Patient does have history of chronic atrial fibrillation and is also on digoxin and also having significant coronary artery disease and ischemic cardiomyopathy. Patient was admitted admitted last time in June 2017 when he had cardiac Catheterization stent placement. Patient had ejection fraction 45% and chronic CHF systolic dysfunction. Chest x-ray showed cardiomegaly and chronic emphysematous changes and tiny pleural effusions. CT head showed no acute intracranial process EKG showed atrial fibrillation with rapid heart rate with heart rate of 109 07/18/2017 Patient denied any complaints of chest pain or short of breath today. Patient has been complaining of lower abdominal pain. US of the renal showed no evidence of solid mass or obstruction CT abdomen and pelvis showed resolving sequel of colitis with mild fat stranding and small pelvic fluid. Bilateral small pleural effusions present Urine culture was ordered. No nausea vomiting. Patient is tolerating oral diet. Will follow urine cultures. Otherwise no acute overnight issues. Hyperkalemia improved. Creatinine 1.3 today. 07/19/2017 Patient is still complaining of abdominal discomfort which especially bothers him when he lies down. CT of abdomen and pelvis showed sequel a of colitis. Will consult GI for evaluation. Otherwise patients WBC increased from 11-13 today. Creatinine level improved to 1.26. Patient denied any complaints of chest pain or shortness of breath. No fever no chills. No nausea vomiting. Patient is tolerating oral diet. 07/20/2017 Patient says that his abdominal discomfort is much improved today. Tolerating oral diet. Patient was seen by GI. Denied any chest pain or shortness of breath. No fever or chills. Denied any dysuria or hematuria. Urine culture showed no growth. All other review of systems negative except the above Current medications reviewed Objective - Vital Signs Vital signs: Vital Signs Temp 97 F L 07/20/17 15:38 Pulse 81 07/20/17 15:38 Resp 18 07/20/17 15:38 BP 126/64 07/20/17 15:38 Pulse Ox 98 07/20/17 15:38 Intake & Output 07/20/17 07/20/17 07/21/17 06:59 18:59 06:59 Intake Total 120 726 Output Total 700 Balance -580 726 Weight 73.6 kg Intake: Intake, IV Titration 110 Amount Sodium Chloride 0.9% 1, 100 000 ml @ 20 mls/hr IV . Q24H [facility] Rx#:[id number] cefTRIAXone 1,000 mg In 10 Sodium Chloride 0.9% 50 ml @ 100 mls/hr IVPB Q24HR [facility] Rx#:[id number] Oral 120 616 Output: Urine 700 Other: Voiding Method Toilet Urinal # Voids 1 2 # Bowel Movements 1 - Exam Patient is lying in the bed comfortably, no acute distress, awake alert and oriented. HEENT: Normocephalic. Neck is supple. Pupils reactive. Nostrils clear. Oral cavity is moist. Ears reveal no drainage. Neck reveals no JVD, carotid bruits, or thyromegaly. CHEST EXAMINATION: Trachea is central. Symmetrical expansion. Bilateral diminished air entry especially basally and no wheezing. CARDIAC: Normal S1, S2 with no gallops. No murmurs ABDOMEN: Soft. Nontender .Bowel sounds normal. No organomegaly. No abdominal bruits. Extremities: reveal no edema. No clubbing or cyanosis Neurologically awake, alert, oriented x3 with well-coordinated movements. No focal deficits noted Skin: No rash or skin lesions. Psychiatric: Cooperative. Nonsuicidal Musculoskeletal: No joint swelling or deformity. Normal range of motion. - Labs CBC & Chem 7: 07/20/17 06:02 07/20/17 06:02 Labs: Abnormal Lab Results - Last 24 Hours (Table) 07/19/17 07/20/17 07/20/17 Range/Units 21:02 05:53 06:02 WBC 11.4 H (3.8-10.6) k/uL Hgb 12.7 L (13.0-17.5) gm/dL MCHC 30.7 L (31.0-37.0) g/dL RDW 17.5 H (11.5-15.5) % Neutrophils # 9.2 H (1.3-7.7) k/uL Lymphocytes # 0.9 L (1.0-4.8) k/uL Chloride (98-107) mmol/L BUN (9-20) mg/dL Glucose (74-99) mg/dL POC Glucose (mg/dL) 100 H 106 H (75-99) mg/dL 07/20/17 07/20/17 07/20/17 Range/Units 06:02 11:47 16:42 WBC (3.8-10.6) k/uL Hgb (13.0-17.5) gm/dL MCHC (31.0-37.0) g/dL RDW (11.5-15.5) % Neutrophils # (1.3-7.7) k/uL Lymphocytes # (1.0-4.8) k/uL Chloride 108 H (98-107) mmol/L BUN 32 H (9-20) mg/dL Glucose 114 H (74-99) mg/dL POC Glucose (mg/dL) 137 H 101 H (75-99) mg/dL Microbiology - Last 24 Hours (Table) 07/18/17 16:05 Urine Culture - Final Urine,Clean Catch Assessment and Plan Assessment: #1 dizziness likely due to hypotension improved now #2 possible recent colitis with resolving sequle on CT abdomen and pelvis. Patient was started on empiric antibiotics #2 atrial fibrillation with rapid ventricular Rate on admission. controlled now #3 chronic atrial fibrillation. Was on. xarelto not on granulation due to GI bleed previously #4 coronary artery disease with stent placement in April and June 2017 #5 chronic CHF with systolic dysfunction ejection fraction 45% #7 mild acute pancreatitis with elevated lipase level 498 #8 history of CVA with no residual weakness at #9 peripheral vascular disease #10 hypertension # 11 DM type II on metformin #12 COPD stable #13 hyperkalemia secondary to acute kidney injury. Resolved now. Will start back on spironolactone, #14 acute kidney injury likely due to hemodynamic instability. And hypertension creatinine 1.3==1.26--1.11. Last creatinine 0.98 Plan: Patient will be continued on telemetry monitoring. Follow-up urine cultures. Patient will be started on antibiotics for colitis empirically. GI recommends no need for colonoscopy at this time. Patient does not want to be started on levofloxacin. Patient is ALLERGIC to penicillin. Patient was started on ceftriaxone and Flagyl. Continue with home medications. And continued to monitor renal function. On admission Patient was given Kayexalate insulin dextrose and calcium gluconate in the ER for hyperkalemia. We did hold spironolactone, will start back since hyperkalemia resolved. Further recommendations based on the clinical course. Prognosis is guarded with multiple medical problems and comorbid conditions. Time with Patient: Greater than 30
[2017-07-20 20:58] LABS: Glucose,Whole Blood 129 mg/dL (75-99)
[2017-07-20] MEDS: INSULIN DETEMIR 100 UNIT/ML 10 ML VIAL SQ SCH (21:07)
[2017-07-21 06:27] LABS: Glucose,Whole Blood 119 mg/dL (75-99)
[2017-07-21] MEDS: INSULIN ASPART 100 UNIT/ML 1 ML 10 ML VIAL SQ SCH ×4 (06:29→21:46)
[2017-07-21] MEDS: PANTOPRAZOLE 40 MG TABLET PO SCH (06:34)
[2017-07-21] MEDS: metroNIDAZOLE 500 MG TAB PO SCH ×3 (08:11→21:47)
[2017-07-21] MEDS: cefTRIAXone IN SWFI 1,000 MG/10 ML SYRINGE IVP SCH (08:12)
[2017-07-21] MEDS: CLOPIDOGREL 75 MG TAB PO SCH (08:12)
[2017-07-21] MEDS: ASPIRIN 81 MG PO SCH (08:12)
[2017-07-21] MEDS: METOPROLOL TARTRATE 50 MG TAB PO SCH ×2 (08:12→21:47)
[2017-07-21] MEDS: metFORMIN 500 MG TAB PO SCH ×2 (08:12→21:47)
[2017-07-21] MEDS: PREGABALIN 75 MG CAP PO SCH ×2 (08:12→21:50)
[2017-07-21] MEDS: SPIRONOLACTONE 25 MG TAB PO SCH (08:12)
[2017-07-21] MEDS: FUROSEMIDE 40 MG TAB PO SCH ×2 (08:12→15:28)
[2017-07-21] MEDS: SODIUM CHLORIDE 0.9% 1,000 ML IV SCH (08:22)
--- NOTE | 2017-07-21 08:29 | P.PN ---
Subjective Progress Note Date: 07/21/17 Principal diagnosis: Colitis No diarrhea. No abdominal pain. Afebrile. Tolerating diet. Objective - Vital Signs Vital signs: Vital Signs Temp 97.9 F 07/21/17 04:00 Pulse 68 07/21/17 04:00 Resp 18 07/21/17 04:00 BP 145/71 07/21/17 04:00 Pulse Ox 98 07/21/17 04:00 Intake & Output 07/20/17 07/21/17 07/21/17 18:59 06:59 18:59 Intake Total 726 Balance 726 Weight 72.9 kg Intake: Intake, IV Titration 110 Amount Sodium Chloride 0.9% 1, 100 000 ml @ 20 mls/hr IV . Q24H [facility] Rx#:[id number] cefTRIAXone 1,000 mg In 10 Sodium Chloride 0.9% 50 ml @ 100 mls/hr IVPB Q24HR [facility] Rx#:[id number] Oral 616 Other: Voiding Method Toilet Urinal # Voids 2 0 - Exam General appearance: The patient is alert, oriented, in no acute distress. HET: Head is normocephalic and atraumatic. Pupils are equal and reactive. Oropharynx is clear without lesions. Neck: Supple without lymphadenopathy. Trachea midline. Heart: S1 S2. Lungs: No crackles or wheezes are heard. Abdomen: Soft, nontender, nondistended with bowel sounds. No peritoneal signs. No palpable organomegaly or masses. Extremities: Normal skin color and turgor. No cyanosis, rash, ulceration, clubbing, or edema. Radial and pedal pulses are 2/4 bilaterally. Neurological: No focal deficits. Strength and sensation are grossly intact. - Labs CBC & Chem 7: 07/20/17 06:02 07/20/17 06:02 Labs: Abnormal Lab Results - Last 24 Hours (Table) 07/20/17 07/20/17 07/20/17 Range/Units 11:47 16:42 20:57 POC Glucose (mg/dL) 137 H 101 H 129 H (75-99) mg/dL 07/21/17 Range/Units 06:24 POC Glucose (mg/dL) 119 H (75-99) mg/dL Assessment and Plan Assessment: Impression: 1. Left sided colitis; improved. No active diarrhea or abdominal pain. Plan: 1. Supportive measure. No further workup. continue empiric antibiotics. Will follow as needed. Assessment and plan of cared discussed with Dr. Borrego
[2017-07-21] MEDS: IPRATROPIUM-ALBUTEROL 3 ML NEB INHALATION PRN (09:13)
[2017-07-21 11:44] LABS: Glucose,Whole Blood 190 mg/dL (75-99)
[2017-07-21] MEDS ORDERED: ONDANSETRON 4 MG/2 ML VIAL IVP PRN (14:21)
[2017-07-21] MEDS ORDERED: SODIUM CHLORIDE 0.9% 250 ML IV ONE (16:26)
[2017-07-21 16:54] LABS: Glucose,Whole Blood 187 mg/dL (75-99)
[2017-07-21] MEDS: LISINOPRIL 5 MG TAB PO SCH (17:05)
[2017-07-21] MEDS: DIGOXIN 125 MCG TAB PO SCH (17:05)
[2017-07-21] MEDS: LINAGLIPTIN 5 MG TABLET PO SCH (17:05)
[2017-07-21] MEDS: ATORVASTATIN 80 MG TAB PO SCH (17:06)
[2017-07-21 21:05] LABS: Glucose,Whole Blood 111 mg/dL (75-99)
[2017-07-21] MEDS: INSULIN DETEMIR 100 UNIT/ML 10 ML VIAL SQ SCH (21:47)
--- NOTE | 2017-07-21 22:55 | P.PN ---
Subjective Progress Note Date: 07/21/17 Principal diagnosis: Dizziness Patient is a 9-year-old male with a known history of hypertension, diabetes type 2 insulin-dependent, chronic atrial fibrillation, coronary artery syndrome with history of stent placement and ischemic cardiopathy status post ACD placement in 2014 and history of prior CVA with no residual weakness came to ER with complaints of dizziness and chest pain. Patient is a poor historian. Patient felt dizzy when he was trying to bend and also had chest pain midsternal lasting about 15 minutes. Patient otherwise denied any fever or chills. Patient says that he's been having runny nose for the past 2 days. Denied any headache or dizziness at this time he and patient was found to be hypotensive on admission. Patient does have history of chronic atrial fibrillation and is also on digoxin and also having significant coronary artery disease and ischemic cardiomyopathy. Patient was admitted admitted last time in June 2017 when he had cardiac Catheterization stent placement. Patient had ejection fraction 45% and chronic CHF systolic dysfunction. Chest x-ray showed cardiomegaly and chronic emphysematous changes and tiny pleural effusions. CT head showed no acute intracranial process EKG showed atrial fibrillation with rapid heart rate with heart rate of 109 07/18/2017 Patient denied any complaints of chest pain or short of breath today. Patient has been complaining of lower abdominal pain. US of the renal showed no evidence of solid mass or obstruction CT abdomen and pelvis showed resolving sequel of colitis with mild fat stranding and small pelvic fluid. Bilateral small pleural effusions present Urine culture was ordered. No nausea vomiting. Patient is tolerating oral diet. Will follow urine cultures. Otherwise no acute overnight issues. Hyperkalemia improved. Creatinine 1.3 today. 07/19/2017 Patient is still complaining of abdominal discomfort which especially bothers him when he lies down. CT of abdomen and pelvis showed sequel a of colitis. Will consult GI for evaluation. Otherwise patients WBC increased from 11-13 today. Creatinine level improved to 1.26. Patient denied any complaints of chest pain or shortness of breath. No fever no chills. No nausea vomiting. Patient is tolerating oral diet. 07/20/2017 Patient says that his abdominal discomfort is much improved today. Tolerating oral diet. Patient was seen by GI. Denied any chest pain or shortness of breath. No fever or chills. Denied any dysuria or hematuria. Urine culture showed no growth. 07/21/2017 Patient is improving clinically this morning and is planning to discharge home. Patient does not want to go to rehab. In the afternoon patient did develop abdominal discomfort again and lactic acid level was checked which came at 2.2. Patient was given 250 mL IV bolus and lactic acidosis improved to 1.6. During previous admission as well patient was suspected to have ischemic colitis but the workup at that time was negative. Patient will be continued on antibiotics and GI he is on board. Patient is hemodynamically stable. No fever no chills. No acute overnight issues. No complaints of chest pain or worsening short of breath. Discussed with with his daughter in detail today. Anticipate discharge with more clinical improvement in next 24 hours. All other review of systems negative except the above Current medications reviewed Objective - Vital Signs Vital signs: Vital Signs Temp 98.0 F 07/21/17 19:48 Pulse 83 07/21/17 19:48 Resp 18 07/21/17 19:48 BP 125/81 07/21/17 19:48 Pulse Ox 97 07/21/17 19:58 Intake & Output 07/21/17 07/21/17 07/22/17 06:59 18:59 06:59 Intake Total 648 Balance 648 Weight 72.9 kg Intake: Intake, IV Titration 350 Amount Sodium Chloride 0.9% 1, 100 000 ml @ 20 mls/hr IV . Q24H [facility] Rx#:[id number] Sodium Chloride 0.9% 250 250 ml @ 999 mls/hr IV .Q16M [facility] Rx#:[id number] Oral 298 Other: Voiding Method Toilet Toilet Toilet Urinal Urinal Urinal # Voids 0 - Exam Patient is lying in the bed comfortably, no acute distress, awake alert and oriented. HEENT: Normocephalic. Neck is supple. Pupils reactive. Nostrils clear. Oral cavity is moist. Ears reveal no drainage. Neck reveals no JVD, carotid bruits, or thyromegaly. CHEST EXAMINATION: Trachea is central. Symmetrical expansion. Bilateral diminished air entry especially basally and no wheezing. CARDIAC: Normal S1, S2 with no gallops. No murmurs ABDOMEN: Soft. Nontender .Bowel sounds normal. No organomegaly. No abdominal bruits. Extremities: reveal no edema. No clubbing or cyanosis Neurologically awake, alert, oriented x3 with well-coordinated movements. No focal deficits noted Skin: No rash or skin lesions. Psychiatric: Cooperative. Nonsuicidal Musculoskeletal: No joint swelling or deformity. Normal range of motion. - Labs CBC & Chem 7: 07/20/17 06:02 07/20/17 06:02 Labs: Abnormal Lab Results - Last 24 Hours (Table) 07/21/17 07/21/17 07/21/17 Range/Units 06:24 11:42 15:38 POC Glucose (mg/dL) 119 H 190 H (75-99) mg/dL Plasma Lactic Acid [place] 2.2 H* (0.7-2.0) mmol/L 07/21/17 07/21/17 Range/Units 16:52 21:03 POC Glucose (mg/dL) 187 H 111 H (75-99) mg/dL Plasma Lactic Acid [place] (0.7-2.0) mmol/L Assessment and Plan Assessment: #1 dizziness likely due to hypotension improved now #2 abdominal discomfort with recent colitis and resolving sequle on CT abdomen and pelvis. Patient was started on empiric antibiotics #2 atrial fibrillation with rapid ventricular Rate on admission. controlled now #3 chronic atrial fibrillation. Was on. xarelto not on granulation due to GI bleed previously #4 coronary artery disease with stent placement in April and June 2017 #5 chronic CHF with systolic dysfunction ejection fraction 45%. AICD in place #7 mild acute pancreatitis with elevated lipase level 498 #8 history of CVA with no residual weakness at #9 peripheral vascular disease #10 hypertension # 11 DM type II on metformin #12 COPD stable #13 hyperkalemia secondary to acute kidney injury. Resolved now. Will start back on spironolactone, #14 acute kidney injury likely due to hemodynamic instability. And hypertension creatinine 1.3==1.26--1.11. Last creatinine 0.98 Plan: Patient will be continued on telemetry monitoring. Urine culture negative. Patient will be continued on empiric antibiotics. GI recommends no need for colonoscopy at this time. Patient does not want to be started on levofloxacin. Patient is ALLERGIC to penicillin. Patient was started on ceftriaxone and Flagyl. Continue with home medications. And continued to monitor renal function. On admission Patient was given Kayexalate insulin dextrose and calcium gluconate in the ER for hyperkalemia. Hyperkalemia resolved. Started back on spironolactone and lisinopril. Further recommendations based on the clinical course. Prognosis is guarded with multiple medical problems and comorbid conditions. Time with Patient: Greater than 30
[2017-07-22 06:25] LABS: Basophils # (A) 0.1 k/uL (0-0.2); Basophils % (A) 1 %; CH 28.8; CHCM 31.5; Eosinophils # (A) 0.4 k/uL (0-0.7); Eosinophils % (A) 5 %; HCT 42.3 % (39.0-53.0); HDW 2.84; HGB 13.2 gm/dL (13.0-17.5); Hypochromasia Slight; Luc # (Auto) 0.12; Luc % (Auto) 1; Lymphocytes # (A) 1.1 k/uL (1.0-4.8); Lymphocytes % (A) 13 %; MCH 28.7 pg (25.0-35.0); MCHC 31.1 g/dL (31.0-37.0); Mean Platelet Volume 9.3; Monocytes # (A) 0.7 k/uL (0-1.0); Monocytes % (A) 9 %; Neutrophils # (A) 5.8 k/uL (1.3-7.7); Neutrophils % (A) 72 %; WBC 8.2 k/uL (3.8-10.6)
[2017-07-22 06:37] LABS: Anion Gap 11 mmol/L; Blood Urea Nitrogen 25 mg/dL (9-20); Calcium 9.2 mg/dL (8.4-10.2); Carbon Dioxide 26 mmol/L (22-30); Chloride 108 mmol/L (98-107); Glucose 91 mg/dL (74-99); Non-African American GFR(MDRD) >60 (>60 ml/min/1.73 sqM); Potassium 3.9 mmol/L (3.5-5.1); Sodium 145 mmol/L (137-145)
[2017-07-22] MEDS: INSULIN ASPART 100 UNIT/ML 1 ML 10 ML VIAL SQ SCH ×2 (06:45→14:28)
[2017-07-22 06:46] LABS: Glucose,Whole Blood 114 mg/dL (75-99)
[2017-07-22] MEDS: PANTOPRAZOLE 40 MG TABLET PO SCH (06:46)
[2017-07-22] MEDS: IPRATROPIUM-ALBUTEROL 3 ML NEB INHALATION PRN (07:35)
[2017-07-22] MEDS: CLOPIDOGREL 75 MG TAB PO SCH (08:42)
[2017-07-22] MEDS: ASPIRIN 81 MG PO SCH (08:42)
[2017-07-22] MEDS: metFORMIN 500 MG TAB PO SCH (08:43)
[2017-07-22] MEDS: LISINOPRIL 5 MG TAB PO SCH (08:43)
[2017-07-22] MEDS: FUROSEMIDE 40 MG TAB PO SCH (08:43)
[2017-07-22] MEDS: SPIRONOLACTONE 25 MG TAB PO SCH (08:44)
[2017-07-22] MEDS: metroNIDAZOLE 500 MG TAB PO SCH (08:44)
[2017-07-22] MEDS: METOPROLOL TARTRATE 50 MG TAB PO SCH (08:44)
[2017-07-22] MEDS: cefTRIAXone IN SWFI 1,000 MG/10 ML SYRINGE IVP SCH (08:50)
[2017-07-22] MEDS: PREGABALIN 75 MG CAP PO SCH (08:50)
[2017-07-22 10:58] VITALS: RESP 18
[2017-07-22 11:58] LABS: Glucose,Whole Blood 98 mg/dL (75-99)
[2017-07-22 12:34] VITALS: BP 124/82; PULSE 75; TEMP 98
[2017-07-22] MEDS: SODIUM CHLORIDE 0.9% 1,000 ML IV SCH (14:28)
--- NOTE | 2017-07-22 16:45 | P.DS ---
Providers Date of admission: 07/17/17 12:11 Attending physician: David Pride Primary care physician: Pratibha Colmenares [facility] Course: Patient was admitted for dizziness and lightheadedness found to have colitis patient will be discharged on antibiotics. Patient is feeling much better today patient is not in CHF exacerbation patient has CHF with chronic started dysfunction EF of 45% in a sitter in place. PHYSICAL EXAMINATION: GENERAL: The patient is alert and oriented x3, not in any acute distress. Well developed, well nourished. HEENT: Pupils are round and equally reacting to light. EOMI. No scleral icterus. No conjunctival pallor. Normocephalic, atraumatic. No pharyngeal erythema. No thyromegaly. CARDIOVASCULAR: S1 and S2 present. No murmurs, rubs, or gallops. PULMONARY: Chest is clear to auscultation, no wheezing or crackles. ABDOMEN: Soft, nontender, nondistended, normoactive bowel sounds. No palpable organomegaly. MUSCULOSKELETAL: No joint swelling or deformity. EXTREMITIES: No cyanosis, clubbing, or pedal edema. NEUROLOGICAL: Gross neurological examination did not reveal any focal deficits. SKIN: No rashes. #1 dizziness likely due to hypotension improved now, which is secondary to intravascular volume depletion from diarrhea and colitis #2 abdominal discomfort with recent colitis and resolving sequle on CT abdomen and pelvis. Patient was started on empiric antibiotics #2 atrial fibrillation with rapid ventricular Rate on admission. controlled now #3 chronic atrial fibrillation. Was on. xarelto not on granulation due to GI bleed previously #4 coronary artery disease with stent placement in April and June 2017 #5 chronic CHF with systolic dysfunction ejection fraction 45%. AICD in place #7 mild acute pancreatitis with elevated lipase level 498 #8 history of CVA with no residual weakness at #9 peripheral vascular disease #10 hypertension # 11 DM type II on metformin #12 COPD stable #13 hyperkalemia secondary to acute kidney injury. Resolved now. Will start back on spironolactone, #14 acute kidney injury likely due to hemodynamic instability. Which improved now creatinine is at his baseline. Patient Condition at Discharge: Stable Plan - Discharge Summary Discharge Rx Participant: No New Discharge Prescriptions: New Cefuroxime Axetil [Ceftin] 500 mg PO BID #10 tab metroNIDAZOLE [Flagyl] 500 mg PO TID #15 tab Continue Canagliflozin [Invokana] 100 mg PO W/SUPPER Alogliptin Benzoate [Nesina] 25 mg PO W/SUPPER Nitroglycerin Sl Tabs [Nitrostat] 0.4 mg SUBLINGUAL Q5M PRN PRN Reason: Chest Pain Digoxin [Lanoxin] 125 mcg PO W/SUPPER metFORMIN HCL [Glucophage] 1,000 mg PO BID Omeprazole [PriLOSEC] 20 mg PO DAILY Clopidogrel [Plavix] 75 mg PO DAILY Pregabalin [Lyrica] 150 mg PO BID Lisinopril [Zestril] 5 mg PO DAILY Isosorbide Mononitrate ER [Imdur] 60 mg PO DAILY Tiotropium [place] [Spiriva] 1 cap INHALATION RT-DAILY PRN PRN Reason: Shortness Of Breath Aspirin [Adult Low Dose Aspirin EC] 81 mg PO DAILY Metoprolol Tartrate [Lopressor] 50 mg PO BID Albuterol Inhaler [Ventolin Hfa Inhaler] 1 - 2 puff INHALATION RT-Q6H PRN PRN Reason: Shortness Of Breath Insulin Glargine,Hum.rec.anlog [Lantus Solostar] 10 unit SQ HS Albuterol Nebulized [Ventolin Nebulized] 2.5 mg INHALATION RT-QID PRN PRN Reason: Shortness Of Breath HYDROcodone/APAP 5-325MG [[place] 5-325] 1 tab PO BID PRN PRN Reason: Pain Atorvastatin [Lipitor] 80 mg PO W/SUPPER Furosemide [Lasix] 40 mg PO BID@0900,1600 #60 tab Spironolactone [Aldactone] 25 mg PO DAILY #30 tab Discharge Medication List Canagliflozin [Invokana] 100 mg PO W/SUPPER 01/25/14 [History] Alogliptin Benzoate [Nesina] 25 mg PO W/SUPPER 07/15/14 [History] Nitroglycerin Sl Tabs [Nitrostat] 0.4 mg SUBLINGUAL Q5M PRN 07/15/14 [History] Digoxin [Lanoxin] 125 mcg PO W/SUPPER 08/15/14 [History] metFORMIN HCL [Glucophage] 1,000 mg PO BID 09/19/14 [History] Omeprazole [PriLOSEC] 20 mg PO DAILY 11/25/14 [History] Clopidogrel [Plavix] 75 mg PO DAILY 12/02/14 [History] Pregabalin [Lyrica] 150 mg PO BID 06/06/15 [History] Isosorbide Mononitrate ER [Imdur] 60 mg PO DAILY 08/28/15 [History] Lisinopril [Zestril] 5 mg PO DAILY 08/28/15 [History] Tiotropium [place] [Spiriva] 1 cap INHALATION RT-DAILY PRN 08/28/15 [History] Aspirin [Adult Low Dose Aspirin EC] 81 mg PO DAILY 08/29/15 [History] Albuterol Inhaler [Ventolin Hfa Inhaler] 1 - 2 puff INHALATION RT-Q6H PRN [History] Metoprolol Tartrate [Lopressor] 50 mg PO BID 04/24/17 [History] Albuterol Nebulized [Ventolin Nebulized] 2.5 mg INHALATION RT-QID PRN 06/16/17 [ History] Atorvastatin [Lipitor] 80 mg PO W/SUPPER 06/16/17 [History] HYDROcodone/APAP 5-325MG [[place] 5-325] 1 tab PO BID PRN 06/16/17 [History] Insulin Glargine,Hum.rec.anlog [Lantus Solostar] 10 unit SQ HS 06/16/17 [History ] Furosemide [Lasix] 40 mg PO BID@0900,1600 #60 tab 06/25/17 [Rx] Spironolactone [Aldactone] 25 mg PO DAILY #30 tab 06/25/17 [Rx] Cefuroxime Axetil [Ceftin] 500 mg PO BID #10 tab 07/22/17 [Rx] metroNIDAZOLE [Flagyl] 500 mg PO TID #15 tab 07/22/17 [Rx] Follow up Appointment(s)/Referral(s): Pratibha Colmenares DO [Primary Care Provider] - [facility], [NON-STAFF] - Discharge Disposition: HOME WITH HOME HEALTH SERVICES
== END 2017-07-22 16:19 | disposition home health service (06) | DRG 385 ==
LOC: EC 09:40 → 6SEL 12:11
PROVIDERS: ADMIT Internal Medicine; ATTEND Internal Medicine
DX: K51.50 Left sided colitis without complications (principal); K85.90 Acute pancreatitis without necrosis or infection, unspecified; N17.9 Acute kidney failure, unspecified; E87.2 Acidosis; E11.51 Type 2 diabetes mellitus with diabetic peripheral angiopathy without gangrene; I11.0 Hypertensive heart disease with heart failure; I48.1 Persistent atrial fibrillation; I50.22 Chronic systolic (congestive) heart failure; E87.5 Hyperkalemia; E78.5 Hyperlipidemia, unspecified; I25.10 Atherosclerotic heart disease of native coronary artery without angina pectoris; I25.2 Old myocardial infarction; I25.5 Ischemic cardiomyopathy; I48.2 Chronic atrial fibrillation; I95.1 Orthostatic hypotension; J44.9 Chronic obstructive pulmonary disease, unspecified; K21.9 Gastro-esophageal reflux disease without esophagitis; R32 Unspecified urinary incontinence; Z79.02 Long term (current) use of antithrombotics/antiplatelets; Z79.4 Long term (current) use of insulin; Z79.82 Long term (current) use of aspirin; Z79.899 Other long term (current) drug therapy; Z83.3 Family history of diabetes mellitus; Z86.73 Personal history of transient ischemic attack (TIA), and cerebral infarction without residual deficits; Z87.442 Personal history of urinary calculi; Z87.891 Personal history of nicotine dependence; Z95.5 Presence of coronary angioplasty implant and graft; Z95.810 Presence of automatic (implantable) cardiac defibrillator; Z88.0 Allergy status to penicillin
CPT/HCPCS: 36415; 70450; 71020; 74176; 76770; 80048; 80053; 81001; 82150; 82550; 82553; 83605; 83690; 83735; 83880; 84132; 84484; 85025; 85610; 85730; 87086; 87502; 93005; 94640; 94760; 96361; 96365; 99291

== ENCOUNTER 2017-10-30 06:59 | Emergency (ER) | payer MEDICARE ==
[2017-10-30 07:25] VITALS: RESP 16
[2017-10-30] MEDS ORDERED: ONDANSETRON 4 MG/2 ML VIAL IVP STA (07:31)
[2017-10-30] MEDS ORDERED: DICYCLOMINE 10 MG/ML 2 ML AMP IM STA (07:31)
[2017-10-30] MEDS ORDERED: RX INFO: IV CONTRAST WAS GIVEN 1 EACH MISC MISCELLANE PRN (07:31)
[2017-10-30] MEDS ORDERED: SODIUM CHLORIDE 0.9% 1,000 ML IV STA (07:31)
[2017-10-30] MEDS ORDERED: FAMOTIDINE 20 MG/2 ML VIAL IV STA (07:32)
--- NOTE | 2017-10-30 07:41 | ED ---
General Adult HPI - General Chief complaint: Abdominal Pain Stated complaint: ABDOMINAL PAIN Time Seen by Provider: 10/30/17 07:18 Source: patient, EMS, RN notes reviewed, old records reviewed (Several previous EKGs reviewed) Mode of arrival: EMS Limitations: no limitations - History of Present Illness Initial comments: Patient is a pleasant 82-year-old male presenting to the emergency department complaining of abdominal discomfort. Symptoms have been present for a couple of months. Patient has discomfort near her below the umbilicus. Patient does have a history of previous hernia repair. Symptoms have been present for close to 2 months. Symptoms are usually worse in the morning. There is some associated nausea. Symptoms wax and wane. Patient has had 2 upper and lower scopes since symptoms started without improvement of symptoms. No fevers. - Related Data Home Medications Medication Instructions Recorded Confirmed Nitroglycerin Sl Tabs [Nitrostat] 0.4 mg SUBLINGUAL Q5M PRN 07/15/14 10/30/17 Digoxin [Lanoxin] 125 mcg PO AC-SUPPER 08/15/14 10/30/17 metFORMIN HCL [Glucophage] 1,000 mg PO BID 09/19/14 10/30/17 Omeprazole [PriLOSEC] 20 mg PO DAILY 11/25/14 10/30/17 Clopidogrel [Plavix] 75 mg PO DAILY 12/02/14 10/30/17 Pregabalin [Lyrica] 150 mg PO BID 06/06/15 10/30/17 Isosorbide Mononitrate ER [Imdur] 60 mg PO DAILY 08/28/15 10/30/17 Lisinopril [Zestril] 5 mg PO DAILY 08/28/15 10/30/17 Tiotropium [place] [Spiriva] 1 cap INHALATION RT-DAILY 08/28/15 10/30/17 Aspirin [Adult Low Dose Aspirin EC] 81 mg PO DAILY 08/29/15 10/30/17 Albuterol Inhaler [Ventolin Hfa 1 - 2 puff INHALATION RT-Q6H PRN 04/24/17 Inhaler] Albuterol Nebulized [Ventolin 2.5 mg INHALATION RT-QID PRN 06/16/17 10/30/17 Nebulized] HYDROcodone/APAP 5-325MG [[place] 1 tab PO BID PRN 06/16/17 10/30/17 5-325] Insulin Glargine,Hum.rec.anlog 10 unit SQ HS 06/16/17 10/30/17 [Lantus Solostar] Alogliptin Benzoate [Nesina] 25 mg PO HS 08/26/17 10/30/17 Atorvastatin [Lipitor] 80 mg PO HS 08/26/17 10/30/17 Furosemide [Lasix] 40 mg PO DAILY 08/26/17 10/30/17 Canagliflozin [Invokana] 100 mg PO DAILY 10/30/17 10/30/17 Metoprolol Succinate (ER) [Toprol 50 mg PO DAILY 10/30/17 10/30/17 Xl] Allergies Allergy/AdvReac Type Severity Reaction Status Date / Time Penicillins Allergy Severe Rash/Hives Verified 10/30/17 09:14 rivaroxaban [From Xarelto] Allergy GI bleed Verified 10/30/17 09:14 ropinirole HCl [From Requip] Allergy Unknown Verified 10/30/17 09:14 sulfamethoxazole AdvReac Hallucinati Verified 10/30/17 09:14 [From Bactrim] ons trimethoprim [From Bactrim] AdvReac Hallucinati Verified 10/30/17 09:14 ons Review of Systems ROS Statement: Those systems with pertinent positive or pertinent negative responses have been documented in the HPI. ROS Other: All systems not noted in ROS Statement are negative. Constitutional: Denies: fever Eyes: Denies: eye pain ENT: Denies: ear pain Respiratory: Denies: cough Cardiovascular: Denies: chest pain Endocrine: Denies: fatigue Gastrointestinal: Reports: abdominal pain, nausea, diarrhea (Chronic diarrhea). Denies: vomiting, constipation Musculoskeletal: Denies: back pain Skin: Denies: rash Neurological: Denies: weakness Past Medical History Past Medical History: Atrial Fibrillation, Coronary Artery Disease (CAD), Chest Pain / Angina, Heart Failure, COPD, CVA/TIA, Diabetes Mellitus, GERD/Reflux, GI Bleed, Hyperlipidemia, Hypertension, Myocardial Infarction ([place]), Pneumonia, Vascular Disorder Additional Past Medical History / Comment(s): TIA-states occ diff swalling, occ edema in lower legs, recent UTI-tx antibiotics, abdominal pain, has had frequent bowel movements, hs kidney stone Last Myocardial Infarction Date:: 06/16/17 History of Any Multi-Drug Resistant Organisms: ESBL Date of last positivie culture/infection: 06/28/17 ESBL-E.coli MDRO Source:: Urine Past Surgical History: AICD, Heart Catheterization, Heart Catheterization With Stent, Hernia Repair, Prostate Surgery Additional Past Surgical History / Comment(s): 2014- R leg artherectomy with balloon angioplasty, multiple oronary stents with last one place 06/16/17, bilateral cataracts , LEFT RING FINGER AMPUTATION, lithotripsy, EGD and colonoscopy. Past Anesthesia/Blood Transfusion Reactions: No Reported Reaction Additional Past Anesthesia/Blood Transfusion Reaction / Comment(s): HAD BLOOD TRANSFUSION without reaction. Date of Last Stent Placement:: 06/16/17 Type of Cardiac Device: AICD Device Placement Date:: 2014 Past Psychological History: No Psychological Hx Reported Smoking Status: Never smoker Past Alcohol Use History: None Reported Past Drug Use History: None Reported - Past Family History Daughter(s) Family Medical History: Cancer Mother Family Medical History: Cancer Additional Family Medical History / Comment(s): . Father Family Medical History: Diabetes Mellitus General Exam Limitations: no limitations General appearance: alert, in no apparent distress Head exam: Present: atraumatic Eye exam: Present: normal appearance, PERRL ENT exam: Present: normal oropharynx Neck exam: Present: normal inspection Respiratory exam: Present: normal lung sounds bilaterally Cardiovascular Exam: Present: irregular rhythm Expanded Peripheral pulses: 2+: Radial (R), Radial (L), Posterior Tibialis (R), Posterior Tibialis (L) GI/Abdominal exam: Present: soft, tenderness (aimee- Umbilical), normal bowel sounds. Absent: distended, guarding, rebound, rigid, pulsatile mass Extremities exam: Present: normal inspection. Absent: pedal edema, calf tenderness Neurological exam: Present: alert Psychiatric exam: Present: normal affect, normal mood Skin exam: Present: normal color Course Vital Signs 10/30/17 10/30/17 07:06 07:19 Temperature 97 F L Pulse Rate 60 90 Respiratory 18 16 Rate Blood Pressure 176/122 154/107 O2 Sat by Pulse 94 L 98 Oximetry EKG Findings - EKG Comments: EKG Findings:: A. fib with rate of 107. QRS 108. QT 360. QTC 480. Normal axis. LVH criteria. Lateral ST depression. Medical Decision Making - Medical Decision Making Patient reexamined and resting comfortably in bed. Patient symptom-free at this time. Patient updated on results and need for follow-up. - Lab Data Result diagrams: 10/30/17 07:45 10/30/17 07:45 Lab Results 10/30/17 10/30/17 10/30/17 Range/Units 07:45 07:45 07:45 WBC 14.9 H (3.8-10.6) k/uL RBC 5.31 (4.30-5.90) m/uL Hgb 14.9 (13.0-17.5) gm/dL Hct 48.0 (39.0-53.0) % MCV 90.4 (80.0-100.0) fL MCH 28.0 (25.0-35.0) pg MCHC 30.9 L (31.0-37.0) g/dL RDW 16.5 H (11.5-15.5) % Plt Count 251 (150-450) k/uL Neutrophils % 84 % Lymphocytes % 7 % Monocytes % 6 % Eosinophils % 2 % Basophils % 1 % Neutrophils # 12.5 H (1.3-7.7) k/uL Lymphocytes # 1.0 (1.0-4.8) k/uL Monocytes # 0.9 (0-1.0) k/uL Eosinophils # 0.3 (0-0.7) k/uL Basophils # 0.1 (0-0.2) k/uL Hypochromasia Moderate Poikilocytosis Slight Anisocytosis Slight PT 11.8 (9.0-12.0) sec INR 1.2 H (<1.2) APTT 23.0 (22.0-30.0) sec Sodium 145 (137-145) mmol/L Potassium 5.3 H (3.5-5.1) mmol/L Chloride 105 (98-107) mmol/L Carbon Dioxide 25 (22-30) mmol/L Anion Gap 15 mmol/L BUN 23 H (9-20) mg/dL Creatinine 0.91 (0.66-1.25) mg/dL Est GFR (MDRD) Af Amer >60 (>60 ml/min/1.73 sqM) Est GFR (MDRD) Non-Af >60 (>60 ml/min/1.73 sqM) Glucose 209 H (74-99) mg/dL Calcium 9.8 (8.4-10.2) mg/dL Total Bilirubin 1.3 (0.2-1.3) mg/dL AST 33 (17-59) U/L ALT 32 (21-72) U/L Alkaline Phosphatase 106 (38-126) U/L Total Protein 7.2 (6.3-8.2) g/dL Albumin 4.6 (3.5-5.0) g/dL Amylase 58 (30-110) U/L Lipase 185 (23-300) U/L Urine Color Urine Appearance (Clear) Urine pH (5.0-8.0) Ur Specific [place] (1.001-1.035) Urine Protein (Negative) Urine Glucose (UA) (Negative) Urine Ketones (Negative) Urine Blood (Negative) Urine Nitrite (Negative) Urine Bilirubin (Negative) Urine Urobilinogen (<2.0) mg/dL Ur Leukocyte Esterase (Negative) Urine RBC (0-5) /hpf Urine WBC (0-5) /hpf Urine Bacteria (None) /hpf Digoxin <0.4 ng/mL 10/30/17 Range/Units 08:00 WBC (3.8-10.6) k/uL RBC (4.30-5.90) m/uL Hgb (13.0-17.5) gm/dL Hct (39.0-53.0) % MCV (80.0-100.0) fL MCH (25.0-35.0) pg MCHC (31.0-37.0) g/dL RDW (11.5-15.5) % Plt Count (150-450) k/uL Neutrophils % % Lymphocytes % % Monocytes % % Eosinophils % % Basophils % % Neutrophils # (1.3-7.7) k/uL Lymphocytes # (1.0-4.8) k/uL Monocytes # (0-1.0) k/uL Eosinophils # (0-0.7) k/uL Basophils # (0-0.2) k/uL Hypochromasia Poikilocytosis Anisocytosis PT (9.0-12.0) sec INR (<1.2) APTT (22.0-30.0) sec Sodium (137-145) mmol/L Potassium (3.5-5.1) mmol/L Chloride (98-107) mmol/L Carbon Dioxide (22-30) mmol/L Anion Gap mmol/L BUN (9-20) mg/dL Creatinine (0.66-1.25) mg/dL Est GFR (MDRD) Af Amer (>60 ml/min/1.73 sqM) Est GFR (MDRD) Non-Af (>60 ml/min/1.73 sqM) Glucose (74-99) mg/dL Calcium (8.4-10.2) mg/dL Total Bilirubin (0.2-1.3) mg/dL AST (17-59) U/L ALT (21-72) U/L Alkaline Phosphatase (38-126) U/L Total Protein (6.3-8.2) g/dL Albumin (3.5-5.0) g/dL Amylase (30-110) U/L Lipase (23-300) U/L Urine Color Yellow Urine Appearance Clear (Clear) Urine pH 6.0 (5.0-8.0) Ur Specific [place] 1.027 (1.001-1.035) Urine Protein 2+ H (Negative) Urine Glucose (UA) 4+ H (Negative) Urine Ketones Negative (Negative) Urine Blood Negative (Negative) Urine Nitrite Negative (Negative) Urine Bilirubin Negative (Negative) Urine Urobilinogen <2.0 (<2.0) mg/dL Ur Leukocyte Esterase Negative (Negative) Urine RBC <1 (0-5) /hpf Urine WBC 3 (0-5) /hpf Urine Bacteria Rare H (None) /hpf Digoxin ng/mL - Radiology Data Radiology results: report reviewed (computed tomography scan of the abdomen pelvis shows cholelithiasis. Renal cyst.) Disposition Clinical Impression: Abdominal pain Disposition: HOME SELF-CARE Condition: Stable Instructions: Abdominal Pain (ED) Additional Instructions: Please follow-up with primary care physician and general surgeon in the next day or 2 for recheck. Have them review the computed tomography scan report from today. Return for increased pain, fever, worsening or changing symptoms or other concerns. Referrals: Pratibha Colmenares DO [Primary Care Provider] - 1-2 days Julio Martinez MD [Medical Doctor] - 1-2 days Time of Disposition: 09:56
[2017-10-30 07:59] LABS: Anisocytosis Slight; Basophils # (A) 0.1 k/uL (0-0.2); Basophils % (A) 1 %; Eosinophils # (A) 0.3 k/uL (0-0.7); Eosinophils % (A) 2 %; HGB 14.9 gm/dL (13.0-17.5); Hypochromasia Moderate; Lymphocytes % (A) 7 %; MCHC 30.9 g/dL (31.0-37.0); MCV 90.4 fL (80.0-100.0); Mean Platelet Volume 8.7; Monocytes # (A) 0.9 k/uL (0-1.0); Monocytes % (A) 6 %; Neutrophils # (A) 12.5 k/uL (1.3-7.7); Neutrophils % (A) 84 %; Platelet Count 251 k/uL (150-450); Poikilocytosis Slight; RBC 5.31 m/uL (4.30-5.90); RDW 16.5 % (11.5-15.5); WBC 14.9 k/uL (3.8-10.6)
[2017-10-30 08:10] LABS: ALT 32 U/L (21-72); AST 33 U/L (17-59); Albumin 4.6 g/dL (3.5-5.0); Alkaline Phosphatase 106 U/L (38-126); Amylase 58 U/L (30-110); Anion Gap 15 mmol/L; Blood Urea Nitrogen 23 mg/dL (9-20); Calcium 9.8 mg/dL (8.4-10.2); Carbon Dioxide 25 mmol/L (22-30); Chloride 105 mmol/L (98-107); Glucose 209 mg/dL (74-99); Lipase 185 U/L (23-300); Potassium 5.3 mmol/L (3.5-5.1); Sodium 145 mmol/L (137-145); Total Bilirubin 1.3 mg/dL (0.2-1.3); Total Protein 7.2 g/dL (6.3-8.2)
[2017-10-30 08:45] LABS: INR 1.2 (<1.2); Prothrombin Time 11.8 sec (9.0-12.0)
[2017-10-30 08:46] LABS: Appearance,Urine Clear (Clear); Bacteria,Urine Rare /hpf; Bilirubin,Urine Negative (Negative); Blood,Urine Negative (Negative); Color,Urine Yellow; Glucose,Urine (UA) 4+ (Negative); Ketones,Urine Negative (Negative); Leukocyte Esterase,Urine Negative (Negative); Protein,Urine 2+ (Negative); RBC,Urine <1 /hpf (0-5); Specific Gravity,Urine 1.027 (1.001-1.035); Urobilinogen,Urine <2.0 mg/dL (<2.0); WBC,Urine 3 /hpf (0-5)
--- NOTE | 2017-10-30 09:09 | CT ---
EXAMINATION TYPE: CT abdomen pelvis w con DATE OF EXAM: 10/30/2017 COMPARISON: CT 08/05/2017, ultrasound 07/18/2017. INDICATION: Patient complains of generalized abdominal pain, bloating, and diarrhea. DLP: 559.7 mGycm, Automated exposure control for dose reduction was used. CONTRAST: 100 mL of Omnipaque 300. Study performed without Oral Contrast TECHNIQUE: Axial images were obtained from above the diaphragm to the pubic rami in the axial plane a t 5 mm thick sections. Reconstructed images are reviewed on the computer in the coronal plane. FINDINGS: Limited CT sections are obtained the lung bases. There is mild compressive atelectasis within the bi lateral lung bases. Small bilateral pleural effusions are present.. CT ABDOMEN: Liver: Mild fatty infiltration is present diffusely through the liver. Spleen: Normal Pancreas: Atrophic Adrenal glands: The adrenal glands are normal. Gallbladder: Multiple gallstones are present. Kidneys: No masses are evident. No hydronephrosis is present. No cysts are present. There is a 1.6 cm cyst measuring 30 Hounsfield units on the lateral mid left kidney. 1.4 cm cyst measuring 44 Houns field units on the posterior right kidney. These are not definitely simple cysts. Monitoring with ult rasound is recommended. These were present previously. Aorta: Vascular calcification is within the aorta. Inferior vena cava: Normal. CT PELVIS: Loops of bowel within the abdomen and pelvis are normal. There are loops of bowel which are incom pletely distended or lack oral contrast limiting their evaluation. Multiple diverticuli are within th e sigmoid colon. No acute diverticulitis is evident. Appendix: Normal as visualized. Urinary bladder: Normal. Genitourinary structures: Prostate is normal. Osseous structures: No suspicious lytic or sclerotic lesions. Small sclerotic areas on the left sacra l ala likely is a bone island. IMPRESSIONS: 1. Diverticulosis without acute diverticulitis. 2. Mild fatty infiltration liver. 3. Cholelithiasis. 4. Complex renal cysts, follow-up monitoring with ultrasound is recommended.
[2017-10-30 09:31] LABS: Digoxin <0.4 ng/mL
[2017-10-30 10:21] VITALS: BP 133/83; PULSE 99; TEMP 97.8
== END 2017-10-30 10:15 | disposition home or self-care (01) ==
LOC: EC 06:59
DX: R10.33 Periumbilical pain (principal); R11.0 Nausea; K80.20 Calculus of gallbladder without cholecystitis without obstruction; N28.1 Cyst of kidney, acquired; E78.5 Hyperlipidemia, unspecified; I11.0 Hypertensive heart disease with heart failure; I50.9 Heart failure, unspecified; I25.10 Atherosclerotic heart disease of native coronary artery without angina pectoris; I48.91 Unspecified atrial fibrillation; E11.9 Type 2 diabetes mellitus without complications; J44.9 Chronic obstructive pulmonary disease, unspecified; Z79.4 Long term (current) use of insulin; I25.2 Old myocardial infarction; Z79.02 Long term (current) use of antithrombotics/antiplatelets; Z79.82 Long term (current) use of aspirin; Z79.899 Other long term (current) drug therapy; Z88.0 Allergy status to penicillin; Z88.1 Allergy status to other antibiotic agents; Z88.8 Allergy status to other drugs, medicaments and biological substances; Z86.73 Personal history of transient ischemic attack (TIA), and cerebral infarction without residual deficits; Z86.79 Personal history of other diseases of the circulatory system
CPT/HCPCS: 36415; 93005; 80053; 82150; 80162; 83690; 85025; 85610; 85730; 81001; 74177; 99285; 96374; 96375; 96361 ×2; 96372; J0500; J2405; Q9967

== ENCOUNTER 2017-12-03 09:50 | Observation (INO) | payer MEDICARE ==
[2017-12-03 11:05] LABS: Appearance,Urine Clear (Clear); Bilirubin,Urine Negative (Negative); Blood,Urine Negative (Negative); Color,Urine Light Yellow; Glucose,Urine (UA) 4+ (Negative); Ketones,Urine Negative (Negative); Leukocyte Esterase,Urine Negative (Negative); Nitrite,Urine Negative (Negative); PH, Urine 5.5 (5.0-8.0); Protein,Urine Negative (Negative); Specific Gravity,Urine 1.005 (1.001-1.035); Urobilinogen,Urine <2.0 mg/dL (<2.0)
[2017-12-03 11:09] LABS: Anisocytosis Slight; Basophils # (A) 0.1 k/uL (0-0.2); Basophils % (A) 1 %; Eosinophils # (A) 0.1 k/uL (0-0.7); Eosinophils % (A) 1 %; HCT 46.8 % (39.0-53.0); HGB 15.4 gm/dL (13.0-17.5); Hypochromasia Slight; Lymphocytes % (A) 10 %; MCH 28.2 pg (25.0-35.0); MCV 85.6 fL (80.0-100.0); Mean Platelet Volume 9.3; Monocytes # (A) 0.8 k/uL (0-1.0); Monocytes % (A) 7 %; Neutrophils # (A) 8.4 k/uL (1.3-7.7); Neutrophils % (A) 80 %; Platelet Count 212 k/uL (150-450); Poikilocytosis Slight; RBC 5.46 m/uL (4.30-5.90); RDW 16.6 % (11.5-15.5); WBC 10.5 k/uL (3.8-10.6)
[2017-12-03 11:16] LABS: Albumin 4.5 g/dL (3.5-5.0); Calcium 10.5 mg/dL (8.4-10.2); Potassium 4.8 mmol/L (3.5-5.1); Total Bilirubin 1.8 mg/dL (0.2-1.3); Total Protein 7.2 g/dL (6.3-8.2)
[2017-12-03 11:17] LABS: INR 1.2 (<1.2); Partial Thromboplastin Time 22.2 sec (22.0-30.0); Prothrombin Time 11.2 sec (9.0-12.0)
--- NOTE | 2017-12-03 11:59 | US ---
EXAMINATION TYPE: US abdomen limited DATE OF EXAM: 12/03/2017 COMPARISON: CT 10/30/2017 CLINICAL HISTORY: 82-year-old male RUQ pain. Abdomen pain and N/V x 4 days, history of cholelithiasis and kidney cysts Technique: Multiple sonographic images of the right upper quadrant are obtained. FINDINGS: Liver Length: 16.7 cm Gallbladder Wall: 0.4 cm CBD: 0.5 cm Right Kidney: 9.5 x 4.3 x 5.2 cm Pancreas: visualized portions wnl, tail obscured by overlying midline bowel gas Liver: No focal lesion seen. Gallbladder: There is layering, shadowing gravel and circumferential gallbladder wall thickening. No abnormal distention or pericholecystic fluid. Evidence for sonographic Vicente's sign: yes CBD: visualized portions wnl, limited by overlying bowel gas Right Kidney: 1.4cm exophytic cystic lesion superior pole. This is hypoechoic and corresponds to an intermediate density lesion on CT, suspected cyst with debris. No hydronephrosis. IMPRESSION: 1. Cholelithiasis and gallbladder wall thickening. Sonographic Vicente sign is also reported positive. Clinical correlation recommended for the possibility of early acute cholecystitis. HIDA scan if clin ically indicated. 2. An indeterminate 1.4 cm lesion from the upper pole right kidney is suspected to represent a cyst w ith debris and corresponds to an intermediate density lesion on CT.. Six-month follow-up ultrasound r ecommended.
--- NOTE | 2017-12-03 12:43 | ED ---
Abdominal Pain HPI - General Chief Complaint: Abdominal Pain Stated Complaint: Abd Pain Time Seen by Provider: 12/03/17 10:23 Source: patient Mode of arrival: EMS Limitations: physical limitation - History of Present Illness Initial Comments: Patient presents with abdominal pain. Patient has a history of gallstones. He has pain in the right upper quadrant. Nothing makes the pain better, but it is worse when eating. His symptoms have gotten worse for a few days. He has no nausea or vomiting. He has no back pain. He has no chest pain or shortness of breath. He has no lightheadedness or dizziness. The pain does not radiate anywhere. He has taken no medications. He was not doing anything when it began. - Related Data Home Medications Medication Instructions Recorded Confirmed Nitroglycerin Sl Tabs [Nitrostat] 0.4 mg SUBLINGUAL Q5M PRN 07/15/14 12/03/17 metFORMIN HCL [Glucophage] 1,000 mg PO BID 09/19/14 12/03/17 Omeprazole [PriLOSEC] 20 mg PO DAILY 11/25/14 12/03/17 Clopidogrel [Plavix] 75 mg PO DAILY 12/02/14 12/03/17 Pregabalin [Lyrica] 150 mg PO BID 06/06/15 12/03/17 Isosorbide Mononitrate ER [Imdur] 60 mg PO DAILY 08/28/15 12/03/17 Lisinopril [Zestril] 5 mg PO DAILY 08/28/15 12/03/17 Tiotropium [place] [Spiriva] 1 cap INHALATION RT-DAILY 08/28/15 12/03/17 Aspirin [Adult Low Dose Aspirin EC] 81 mg PO DAILY 08/29/15 12/03/17 Albuterol Inhaler [Ventolin Hfa 1 - 2 puff INHALATION RT-Q6H PRN 04/24/17 Inhaler] Albuterol Nebulized [Ventolin 2.5 mg INHALATION RT-QID PRN 06/16/17 12/03/17 Nebulized] HYDROcodone/APAP 5-325MG [[place] 1 tab PO BID PRN 06/16/17 12/03/17 5-325] Insulin Glargine,Hum.rec.anlog 12 unit SQ HS 06/16/17 12/03/17 [Lantus Solostar] Alogliptin Benzoate [Nesina] 25 mg PO HS 08/26/17 12/03/17 Atorvastatin [Lipitor] 80 mg PO HS 08/26/17 12/03/17 Furosemide [Lasix] 40 mg PO DAILY 08/26/17 12/03/17 Canagliflozin [Invokana] 100 mg PO DAILY 10/30/17 12/03/17 Metoprolol Succinate (ER) [Toprol 50 mg PO DAILY 10/30/17 12/03/17 Xl] Allergies Allergy/AdvReac Type Severity Reaction Status Date / Time Penicillins Allergy Severe Rash/Hives Verified 12/03/17 10:31 rivaroxaban [From Xarelto] Allergy GI bleed Verified 12/03/17 10:31 ropinirole HCl [From Requip] Allergy Unknown Verified 12/03/17 10:31 sulfamethoxazole AdvReac Hallucinati Verified 12/03/17 10:31 [From Bactrim] ons trimethoprim [From Bactrim] AdvReac Hallucinati Verified 12/03/17 10:31 ons Review of Systems ROS Statement: Those systems with pertinent positive or pertinent negative responses have been documented in the HPI. ROS Other: All systems not noted in ROS Statement are negative. Past Medical History Past Medical History: Atrial Fibrillation, Coronary Artery Disease (CAD), Chest Pain / Angina, Heart Failure, COPD, CVA/TIA, Diabetes Mellitus, GERD/Reflux, GI Bleed, Hyperlipidemia, Hypertension, Myocardial Infarction ([place]), Pneumonia, Vascular Disorder Additional Past Medical History / Comment(s): TIA-states occ diff swalling, occ edema in lower legs, recent UTI-tx antibiotics, abdominal pain, has had frequent bowel movements, hs kidney stone Last Myocardial Infarction Date:: 06/16/17 History of Any Multi-Drug Resistant Organisms: ESBL Date of last positivie culture/infection: 06/28/17 ESBL-E.coli MDRO Source:: Urine Past Surgical History: AICD, Heart Catheterization, Heart Catheterization With Stent, Hernia Repair, Prostate Surgery Additional Past Surgical History / Comment(s): 2014- R leg artherectomy with balloon angioplasty, multiple oronary stents with last one place 06/16/17, bilateral cataracts , LEFT RING FINGER AMPUTATION, lithotripsy, EGD and colonoscopy. Past Anesthesia/Blood Transfusion Reactions: No Reported Reaction Additional Past Anesthesia/Blood Transfusion Reaction / Comment(s): HAD BLOOD TRANSFUSION without reaction. Date of Last Stent Placement:: 06/16/17 Type of Cardiac Device: AICD Device Placement Date:: 2014 Past Psychological History: No Psychological Hx Reported Smoking Status: Never smoker Past Alcohol Use History: None Reported Past Drug Use History: None Reported - Past Family History Daughter(s) Family Medical History: Cancer Mother Family Medical History: Cancer Additional Family Medical History / Comment(s): . Father Family Medical History: Diabetes Mellitus General Exam Limitations: physical limitation General appearance: alert, in no apparent distress Head exam: Present: atraumatic, normocephalic, normal inspection Eye exam: Present: normal appearance, PERRL, EOMI. Absent: scleral icterus, conjunctival injection, periorbital swelling ENT exam: Present: normal exam, mucous membranes moist Neck exam: Present: normal inspection. Absent: tenderness, meningismus, lymphadenopathy Respiratory exam: Present: normal lung sounds bilaterally. Absent: respiratory distress, wheezes, rales, rhonchi, stridor Cardiovascular Exam: Present: regular rate, normal rhythm, normal heart sounds. Absent: systolic murmur, diastolic murmur, rubs, gallop, clicks GI/Abdominal exam: Present: soft, tenderness, normal bowel sounds. Absent: distended, guarding, rebound, rigid Extremities exam: Present: normal inspection, full ROM, normal capillary refill. Absent: tenderness, pedal edema, joint swelling, calf tenderness Back exam: Present: normal inspection Neurological exam: Present: alert, oriented X3, CN II-XII intact Psychiatric exam: Present: normal affect, normal mood Skin exam: Present: warm, dry, intact, normal color. Absent: rash Course Vital Signs 12/03/17 12/03/17 09:57 11:54 Temperature 97.2 F L Pulse Rate 81 86 Respiratory 18 18 Rate Blood Pressure 153/70 135/78 O2 Sat by Pulse 95 94 L Oximetry Medical Decision Making - Medical Decision Making Patient presents with abdominal pain. He has gallstones. Ultrasound of the right upper quadrant shows early acute cholecystitis according to radiology. His laboratory studies are otherwise normal. I consult the surgery. Patient will be admitted to the hospital. - Lab Data Result diagrams: 12/03/17 10:12 12/03/17 10:12 Lab Results 12/03/17 12/03/17 12/03/17 Range/Units 10:12 10:12 10:12 WBC 10.5 (3.8-10.6) k/uL RBC 5.46 (4.30-5.90) m/uL Hgb 15.4 (13.0-17.5) gm/dL Hct 46.8 (39.0-53.0) % MCV 85.6 (80.0-100.0) fL MCH 28.2 (25.0-35.0) pg MCHC 33.0 (31.0-37.0) g/dL RDW 16.6 H (11.5-15.5) % Plt Count 212 (150-450) k/uL Neutrophils % 80 % Lymphocytes % 10 % Monocytes % 7 % Eosinophils % 1 % Basophils % 1 % Neutrophils # 8.4 H (1.3-7.7) k/uL Lymphocytes # 1.0 (1.0-4.8) k/uL Monocytes # 0.8 (0-1.0) k/uL Eosinophils # 0.1 (0-0.7) k/uL Basophils # 0.1 (0-0.2) k/uL Hypochromasia Slight Poikilocytosis Slight Anisocytosis Slight PT (9.0-12.0) sec INR (<1.2) APTT (22.0-30.0) sec Sodium 148 H (137-145) mmol/L Potassium 4.8 (3.5-5.1) mmol/L Chloride 102 (98-107) mmol/L Carbon Dioxide 26 (22-30) mmol/L Anion Gap 20 mmol/L BUN 23 H (9-20) mg/dL Creatinine 1.06 (0.66-1.25) mg/dL Est GFR (CKD-EPI)AfAm 76 (>60 ml/min/1.73 sqM) Est GFR (CKD-EPI)NonAf 66 (>60 ml/min/1.73 sqM) Glucose 123 H (74-99) mg/dL Plasma Lactic Acid [place] (0.7-2.0) mmol/L Calcium 10.5 H (8.4-10.2) mg/dL Total Bilirubin 1.8 H (0.2-1.3) mg/dL AST 34 (17-59) U/L ALT 57 (21-72) U/L Alkaline Phosphatase 133 H (38-126) U/L Troponin I (0.000-0.034) ng/mL Total Protein 7.2 (6.3-8.2) g/dL Albumin 4.5 (3.5-5.0) g/dL Amylase 60 (30-110) U/L Lipase 171 (23-300) U/L Urine Color Light Yellow Urine Appearance Clear (Clear) Urine pH 5.5 (5.0-8.0) Ur Specific [place] 1.005 (1.001-1.035) Urine Protein Negative (Negative) Urine Glucose (UA) 4+ H (Negative) Urine Ketones Negative (Negative) Urine Blood Negative (Negative) Urine Nitrite Negative (Negative) Urine Bilirubin Negative (Negative) Urine Urobilinogen <2.0 (<2.0) mg/dL Ur Leukocyte Esterase Negative (Negative) 12/03/17 12/03/17 12/03/17 Range/Units 10:12 10:12 11:05 WBC (3.8-10.6) k/uL RBC (4.30-5.90) m/uL Hgb (13.0-17.5) gm/dL Hct (39.0-53.0) % MCV (80.0-100.0) fL MCH (25.0-35.0) pg MCHC (31.0-37.0) g/dL RDW (11.5-15.5) % Plt Count (150-450) k/uL Neutrophils % % Lymphocytes % % Monocytes % % Eosinophils % % Basophils % % Neutrophils # (1.3-7.7) k/uL Lymphocytes # (1.0-4.8) k/uL Monocytes # (0-1.0) k/uL Eosinophils # (0-0.7) k/uL Basophils # (0-0.2) k/uL Hypochromasia Poikilocytosis Anisocytosis PT 11.2 (9.0-12.0) sec INR 1.2 H (<1.2) APTT 22.2 (22.0-30.0) sec Sodium (137-145) mmol/L Potassium (3.5-5.1) mmol/L Chloride (98-107) mmol/L Carbon Dioxide (22-30) mmol/L Anion Gap mmol/L BUN (9-20) mg/dL Creatinine (0.66-1.25) mg/dL Est GFR (CKD-EPI)AfAm (>60 ml/min/1.73 sqM) Est GFR (CKD-EPI)NonAf (>60 ml/min/1.73 sqM) Glucose (74-99) mg/dL Plasma Lactic Acid [place] 1.9 (0.7-2.0) mmol/L Calcium (8.4-10.2) mg/dL Total Bilirubin (0.2-1.3) mg/dL AST (17-59) U/L ALT (21-72) U/L Alkaline Phosphatase (38-126) U/L Troponin I 0.016 (0.000-0.034) ng/mL Total Protein (6.3-8.2) g/dL Albumin (3.5-5.0) g/dL Amylase (30-110) U/L Lipase (23-300) U/L Urine Color Urine Appearance (Clear) Urine pH (5.0-8.0) Ur Specific [place] (1.001-1.035) Urine Protein (Negative) Urine Glucose (UA) (Negative) Urine Ketones (Negative) Urine Blood (Negative) Urine Nitrite (Negative) Urine Bilirubin (Negative) Urine Urobilinogen (<2.0) mg/dL Ur Leukocyte Esterase (Negative) 12/03/17 12:42 Twelve-lead EKG shows ventricular rate 77 bpm, no P waves, normal QRS, axis, no ST elevation or depression, interpreted by me as atrial flutter relation. Disposition Clinical Impression: Abdominal pain Disposition: ADMITTED IP TO THIS HOSP Condition: Fair Referrals: Pratibha Colmenares DO [Primary Care Provider] - 1-2 days
[2017-12-03] MEDS ORDERED: ONDANSETRON 4 MG/2 ML VIAL IVP PRN (12:44)
[2017-12-03] MEDS ORDERED: NALOXONE 0.4 MG/ML 1 ML VIAL IV PRN (12:44)
[2017-12-03] MEDS ORDERED: HYDROcodone/APAP 5-325MG 1 EACH TAB PO PRN (12:47)
[2017-12-03] MEDS ORDERED: ALBUTEROL NEBULIZED 2.5 MG/3 ML INHALATION PRN ×2 (15:45)
[2017-12-03] MEDS ORDERED: NITROGLYCERIN SL TABS 0.4 MG TAB SUBLINGUAL PRN (15:45)
[2017-12-03] MEDS ORDERED: FUROSEMIDE 10 MG/ML 4 ML VIAL IV STA (15:48)
--- NOTE | 2017-12-03 16:06 | XR ---
EXAMINATION TYPE: XR chest 1V DATE OF EXAM: 12/03/2017 COMPARISON: 08/07/2017 HISTORY: 82-year-old male follow-up CHF TECHNIQUE: Single frontal view of the chest is obtained. FINDINGS: Left anterior chest wall AICD generator with right ventricular lead. Heart is borderline enlarged. Pe rihilar and diffuse interstitial densities persist, slightly increased. Suggestion of small effusions . Bibasilar hazy densities likely relate to overlying soft tissue. IMPRESSION: 1. CHF with pulmonary vascular congestion/early interstitial edema, similar to slightly worsened. 2. Suggestion of small effusions with adjacent atelectasis and/or consolidation.
--- NOTE | 2017-12-03 16:07 | P.GSCN ---
History of Present Illness Consult date: 12/03/17 Reason for Consult: Abdominal pain, cholelithiasis History of present illness: The patient is a 82 -year-old man who presented to the emergency department with complaints of abdominal pain and weakness. He says the abdominal pain is been going on for some months. He says he is tired of it and wants his gallbladder out. The pain is been persistent the last 2 days. It's generalized pain more in the lower quadrants. No nausea or vomiting. No fevers or chills. No chest pain. He says the pain is worse if he eats meat although not hamburger. No radiation of the pain. No right upper quadrant pain. He also has been feeling extremely weak. He says when he gets up to go to the bathroom he'll need to sit on the toilet for about 45 minutes because he is too weak to walk back. Than when he does walk back in the living room he is very weak and has to sit there. Has a hard time catching his breath after walking and says he moans like an "old cow out in the field with a belly ache " . He has had a CAT scan of his abdomen and pelvis performed last fall. 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 The inferior mesenteric artery appeared okay. He also underwent both an upper and lower endoscopy in August. There was no evidence of ulcer, tumor, inflammatory bowel disease. He also underwent angioplasty with stenting last fall. He has a significant history of coronary artery disease. The patient said he stopped his Plavix and aspirin yesterday because he wants surgery. Review of Systems All systems: negative - Constitutional Reports daytime sleepiness, Reports fatigue, Reports weakness - Cardiovascular Reports as per HPI, Reports dyspnea on exertion - Respiratory Denies cough - Gastrointestinal Reports abdominal pain (Generalized, worse on the left lower quadrant), Denies heartburn, Denies hematochezia, Denies indigestion, Denies jaundice, Denies melena, Denies nausea, Denies vomiting Past Medical History Past Medical History: Atrial Fibrillation, Coronary Artery Disease (CAD), Chest Pain / Angina, Heart Failure, COPD, CVA/TIA, Diabetes Mellitus, GERD/Reflux, GI Bleed, Hyperlipidemia, Hypertension, Myocardial Infarction ([place]), Pneumonia, Vascular Disorder Additional Past Medical History / Comment(s): Occasional difficulty with swallowing, recurrent urinary tract infection Last Myocardial Infarction Date:: 06/16/17 History of Any Multi-Drug Resistant Organisms: ESBL Year Discovered:: 06/28/17 ESBL-E.coli MDRO Source:: Urine Past Surgical History: AICD, Heart Catheterization, Heart Catheterization With Stent, Hernia Repair (Umbilical), Prostate Surgery Additional Past Surgical History / Comment(s): 2015- R leg artherectomy with balloon angioplasty, multiple oronary stents with last one place 06/16/17, bilateral cataracts , LEFT RING FINGER AMPUTATION, lithotripsy, EGD and colonoscopy. Past Anesthesia/Blood Transfusion Reactions: No Reported Reaction Additional Past Anesthesia/Blood Transfusion Reaction / Comm: HAD BLOOD TRANSFUSION without reaction. Date of Last Stent Placement:: 06/16/17 Type of Cardiac Device: AICD Device Placement Date:: 2014 Past Psychological History: No Psychological Hx Reported Smoking Status: Never smoker Past Alcohol Use History: None Reported Past Drug Use History: None Reported - Past Family History Daughter(s) Family Medical History: Cancer Mother Family Medical History: Cancer Additional Family Medical History / Comment(s): . Father Family Medical History: Diabetes Mellitus Medications and Allergies Home Medications Medication Instructions Recorded Confirmed Type Nitroglycerin Sl Tabs [Nitrostat] 0.4 mg SUBLINGUAL Q5M PRN 07/15/14 12/03/17 History metFORMIN HCL [Glucophage] 1,000 mg PO BID 09/19/14 12/03/17 History Omeprazole [PriLOSEC] 20 mg PO DAILY 11/25/14 12/03/17 History Clopidogrel [Plavix] 75 mg PO DAILY 12/02/14 12/03/17 History Pregabalin [Lyrica] 150 mg PO BID 06/06/15 12/03/17 History Isosorbide Mononitrate ER [Imdur] 60 mg PO DAILY 08/28/15 12/03/17 History Lisinopril [Zestril] 5 mg PO DAILY 08/28/15 12/03/17 History Tiotropium [place] [Spiriva] 1 cap INHALATION RT-DAILY 08/28/15 12/03/17 History Aspirin [Adult Low Dose Aspirin EC] 81 mg PO DAILY 08/29/15 12/03/17 History Albuterol Inhaler [Ventolin Hfa 1 - 2 puff INHALATION RT-Q6H PRN 04/24/17 History Inhaler] Albuterol Nebulized [Ventolin 2.5 mg INHALATION RT-QID PRN 06/16/17 12/03/17 History Nebulized] HYDROcodone/APAP 5-325MG [[place] 1 tab PO BID PRN 06/16/17 12/03/17 History 5-325] Insulin Glargine,Hum.rec.anlog 12 unit SQ HS 06/16/17 12/03/17 History [Lantus Solostar] Alogliptin Benzoate [Nesina] 25 mg PO HS 08/26/17 12/03/17 History Atorvastatin [Lipitor] 80 mg PO HS 08/26/17 12/03/17 History Furosemide [Lasix] 40 mg PO DAILY 08/26/17 12/03/17 History Canagliflozin [Invokana] 100 mg PO DAILY 10/30/17 12/03/17 History Metoprolol Succinate (ER) [Toprol 50 mg PO DAILY 10/30/17 12/03/17 History Xl] Allergies Allergy/AdvReac Type Severity Reaction Status Date / Time Penicillins Allergy Severe Rash/Hives Verified 12/03/17 10:31 rivaroxaban [From Xarelto] Allergy GI bleed Verified 12/03/17 10:31 ropinirole HCl [From Requip] Allergy Unknown Verified 12/03/17 10:31 sulfamethoxazole AdvReac Hallucinati Verified 12/03/17 10:31 [From Bactrim] ons trimethoprim [From Bactrim] AdvReac Hallucinati Verified 12/03/17 10:31 ons Surgical - Exam Osteopathic Statement: *. No significant issues noted on an osteopathic structural exam other than those noted in the History and Physical/Consult. Vital Signs Temp Pulse Resp BP Pulse Ox 97.2 F L 81 18 153/70 95 12/03/17 09:57 12/03/17 09:57 12/03/17 09:57 12/03/17 09:57 12/03/17 09:57 - General Thin chronically ill - Eyes normal ocular movement - ENT poor correction - Neck trachea midline - Respiratory clear to auscultation absent: wheezing - Cardiovascular Rhythm: irregularly irregular Abnormal Heart Sounds: systolic murmur (2-3/6) - Abdomen No right upper quadrant or epigastric pain to deep palpation Abdomen: soft, tender (Mild left lower quadrant), bowel sounds, surgical scars ( Small periumbilical), no guarding, no rigid, no rebound, no distended - Integumentary no rash, no abnormal pigmentation - Psychiatric oriented to time, oriented to person, oriented to place, speech is normal Results - Labs 12/03/17 10:12 12/03/17 10:12 Abnormal Lab Results - Last 24 Hours (Table) 12/03/17 12/03/17 12/03/17 Range/Units 10:12 10:12 10:12 RDW 16.6 H (11.5-15.5) % Neutrophils # 8.4 H (1.3-7.7) k/uL INR (<1.2) Sodium 148 H (137-145) mmol/L BUN 23 H (9-20) mg/dL Glucose 123 H (74-99) mg/dL Calcium 10.5 H (8.4-10.2) mg/dL Total Bilirubin 1.8 H (0.2-1.3) mg/dL Alkaline Phosphatase 133 H (38-126) U/L Urine Glucose (UA) 4+ H (Negative) 12/03/17 Range/Units 10:12 RDW (11.5-15.5) % Neutrophils # (1.3-7.7) k/uL INR 1.2 H (<1.2) Sodium (137-145) mmol/L BUN (9-20) mg/dL Glucose (74-99) mg/dL Calcium (8.4-10.2) mg/dL Total Bilirubin (0.2-1.3) mg/dL Alkaline Phosphatase (38-126) U/L Urine Glucose (UA) (Negative) Diabetes panel 12/03/17 Range/Units 10:12 Sodium 148 H (137-145) mmol/L Potassium 4.8 (3.5-5.1) mmol/L Chloride 102 (98-107) mmol/L Carbon Dioxide 26 (22-30) mmol/L BUN 23 H (9-20) mg/dL Creatinine 1.06 (0.66-1.25) mg/dL Glucose 123 H (74-99) mg/dL Calcium 10.5 H (8.4-10.2) mg/dL AST 34 (17-59) U/L ALT 57 (21-72) U/L Alkaline Phosphatase 133 H (38-126) U/L Total Protein 7.2 (6.3-8.2) g/dL Albumin 4.5 (3.5-5.0) g/dL Calcium panel 12/03/17 Range/Units 10:12 Calcium 10.5 H (8.4-10.2) mg/dL Albumin 4.5 (3.5-5.0) g/dL Pituitary panel 12/03/17 Range/Units 10:12 Sodium 148 H (137-145) mmol/L Potassium 4.8 (3.5-5.1) mmol/L Chloride 102 (98-107) mmol/L Carbon Dioxide 26 (22-30) mmol/L BUN 23 H (9-20) mg/dL Creatinine 1.06 (0.66-1.25) mg/dL Glucose 123 H (74-99) mg/dL Calcium 10.5 H (8.4-10.2) mg/dL Adrenal panel 12/03/17 Range/Units 10:12 Sodium 148 H (137-145) mmol/L Potassium 4.8 (3.5-5.1) mmol/L Chloride 102 (98-107) mmol/L Carbon Dioxide 26 (22-30) mmol/L BUN 23 H (9-20) mg/dL Creatinine 1.06 (0.66-1.25) mg/dL Glucose 123 H (74-99) mg/dL Calcium 10.5 H (8.4-10.2) mg/dL Total Bilirubin 1.8 H (0.2-1.3) mg/dL AST 34 (17-59) U/L ALT 57 (21-72) U/L Alkaline Phosphatase 133 H (38-126) U/L Total Protein 7.2 (6.3-8.2) g/dL Albumin 4.5 (3.5-5.0) g/dL - Imaging US - abdomen: report reviewed Assessment and Plan (1) Cholelithiasis Current Visit: Yes Status: Acute Code(s): K80.20 - CALCULUS OF GALLBLADDER W /O CHOLECYSTITIS W/O OBSTRUCTION SNOMED Code(s): 039384955 (2) Superior mesenteric artery atherosclerosis Current Visit: Yes Status: Acute Code(s): K55.1 - CHRONIC VASCULAR DISORDERS OF INTESTINE SNOMED Code(s): 25296555 (3) Abdominal pain Current Visit: Yes Status: Acute Code(s): R10.9 - UNSPECIFIED ABDOMINAL PAIN SNOMED Code(s): 17741974 (4) CAD (coronary artery disease) Current Visit: No Status: Acute Code(s): I25.10 - ATHSCL HEART DISEASE OF [place] CORONARY ARTERY W/O ANG PCTRS SNOMED Code(s): 19383586 (5) Diabetes Current Visit: No Status: Acute Code(s): E11.9 - TYPE 2 DIABETES MELLITUS WITHOUT COMPLICATIONS SNOMED Code(s): 20852819 (6) Dyspnea on effort Current Visit: No Status: Acute Code(s): R06.09 - OTHER FORMS OF DYSPNEA SNOMED Code(s): 64076321 (7) PAD (peripheral artery disease) Current Visit: No Status: Acute Code(s): I73.9 - PERIPHERAL VASCULAR DISEASE , UNSPECIFIED SNOMED Code(s): 265947738 Plan: The patient does have cholelithiasis and possible gallbladder wall thickening on his CAT scan. There is normal common bile duct. No pericholecystic fluid. Mild elevation of his bilirubin with normal liver function tests. His pain symptoms don't correlate well with cholecystitis. I would recommend vascular surgery evaluation for the SMA and celiac axis atherosclerosis to make sure he is not developing abdominal angina. Cardiac evaluation to see whether he would be safe to stop his Plavix and aspirin. We'll recheck his liver function tests. I'll follow with you. No plan for immediate surgery since there is no acute cholangitis at this point. Further recommendations to follow
--- NOTE | 2017-12-03 16:31 | P.HPIM ---
History of Present Illness 82-year-old the male came in with comments of lower abdominal pain crampy in nature 02/15 in severity nonradiating. Patient does have extensive history of this to heart failure multiple hospitalizations secondary to that although patient was complaining of tiredness walking to the bathroom patient denied any orthopnea or PND although patient has hearing problems because of which are patient is a poor historian. Patient denied any nausea vomiting fever chills patient is incidentally found to have cholelithiasis. Patient had history of myocardial infarction the past recent characterization stenting was in month of April 2017. Patient is on aspirin and Plavix patient held his aspirin and Plavix since last night. Patient denied any blood in the stools right now but had history of blood in the stools in the past patient at one point of time was on anticoagulations which was discontinued because of GI bleeds. Patient was evaluated by surgery I was at the bedside along with surgery when I evaluated the patient. Surgery believes patient may have ischemic bowel rather than cholecystitis. Patient although has incidental finding of cholelithiasis on ultrasound of the abdomen. Patient does have atherosclerotic vascular disease of coronary vasculature and abdominal vasculature. Patient appears to have elevated JVD will obtain a chest x-ray make sure patient doesn't have any pulmonary edema will also obtain a BNP. Surgery is not acid anticipating any operative intervention but they are recommending cardiology evaluation for preoperative clearance from cardiology if at all he needs surgery Review of Systems REVIEW OF SYSTEMS: CONSTITUTIONAL: No fever, no malaise, no fatigue. HEENT: No recent visual problems or hearing problems. Denied any sore throat. CARDIOVASCULAR: No chest pain, orthopnea, PND, no palpitations, no syncope. PULMONARY: No shortness of breath, no cough, no hemoptysis. GASTROINTESTINAL: As mentioned in HPI NEUROLOGICAL: No headaches, no weakness, no numbness. HEMATOLOGICAL: Denies any bleeding or petechiae. GENITOURINARY: Denies any burning micturition, frequency, or urgency. MUSCULOSKELETAL/RHEUMATOLOGICAL: Denies any joint pain, swelling, or any muscle pain. ENDOCRINE: Denies any polyuria or polydipsia. The rest of the 14-point review of systems is negative. Past Medical History Past Medical History: Atrial Fibrillation, Coronary Artery Disease (CAD), Chest Pain / Angina, Heart Failure, COPD, CVA/TIA, Diabetes Mellitus, GERD/Reflux, GI Bleed, Hyperlipidemia, Hypertension, Myocardial Infarction ([place]), Pneumonia, Vascular Disorder Additional Past Medical History / Comment(s): Occasional difficulty with swallowing, recurrent urinary tract infection,"several mi's" Last Myocardial Infarction Date:: 06/16/17 History of Any Multi-Drug Resistant Organisms: ESBL Date of last positivie culture/infection: 06/28/17 ESBL-E.coli MDRO Source:: Urine Past Surgical History: AICD, Heart Catheterization, Heart Catheterization With Stent, Hernia Repair, Prostate Surgery Additional Past Surgical History / Comment(s): 2015- R leg artherectomy with balloon angioplasty, multiple coronary stents with last one place 06/16/17, bilateral cataracts , LEFT RING FINGER AMPUTATION, lithotripsy, EGD and colonoscopy. Past Anesthesia/Blood Transfusion Reactions: No Reported Reaction Additional Past Anesthesia/Blood Transfusion Reaction / Comment(s): HAD BLOOD TRANSFUSION without reaction. Date of Last Stent Placement:: 06/16/17 Type of Cardiac Device: AICD Device Placement Date:: 2014 Past Psychological History: No Psychological Hx Reported Additional Psychological History / Comment(s): daughter lives with pt.pt uses cane if needed also has walkers, shower chair. Smoking Status: Never smoker Past Alcohol Use History: None Reported Additional Past Alcohol Use History / Comment(s): CHEWED TOBACCO FOR 30 YRS. QUIT CHEWING TOBACCO 1983 Past Drug Use History: None Reported - Past Family History Daughter(s) Family Medical History: Cancer Mother Family Medical History: Cancer Additional Family Medical History / Comment(s): . Father Family Medical History: Diabetes Mellitus Medications and Allergies Home Medications Medication Instructions Recorded Confirmed Type Nitroglycerin Sl Tabs [Nitrostat] 0.4 mg SUBLINGUAL Q5M PRN 07/15/14 12/03/17 History metFORMIN HCL [Glucophage] 1,000 mg PO BID 09/19/14 12/03/17 History Omeprazole [PriLOSEC] 20 mg PO DAILY 11/25/14 12/03/17 History Clopidogrel [Plavix] 75 mg PO DAILY 12/02/14 12/03/17 History Pregabalin [Lyrica] 150 mg PO BID 06/06/15 12/03/17 History Isosorbide Mononitrate ER [Imdur] 60 mg PO DAILY 08/28/15 12/03/17 History Lisinopril [Zestril] 5 mg PO DAILY 08/28/15 12/03/17 History Tiotropium [place] [Spiriva] 1 cap INHALATION RT-DAILY 08/28/15 12/03/17 History Aspirin [Adult Low Dose Aspirin EC] 81 mg PO DAILY 08/29/15 12/03/17 History Albuterol Inhaler [Ventolin Hfa 1 - 2 puff INHALATION RT-Q6H PRN 04/24/17 History Inhaler] Albuterol Nebulized [Ventolin 2.5 mg INHALATION RT-QID PRN 06/16/17 12/03/17 History Nebulized] HYDROcodone/APAP 5-325MG [[place] 1 tab PO BID PRN 06/16/17 12/03/17 History 5-325] Insulin Glargine,Hum.rec.anlog 12 unit SQ HS 06/16/17 12/03/17 History [Lantus Solostar] Alogliptin Benzoate [Nesina] 25 mg PO HS 08/26/17 12/03/17 History Atorvastatin [Lipitor] 80 mg PO HS 08/26/17 12/03/17 History Furosemide [Lasix] 40 mg PO DAILY 08/26/17 12/03/17 History Canagliflozin [Invokana] 100 mg PO DAILY 10/30/17 12/03/17 History Metoprolol Succinate (ER) [Toprol 50 mg PO DAILY 10/30/17 12/03/17 History Xl] Allergies Allergy/AdvReac Type Severity Reaction Status Date / Time Penicillins Allergy Severe Rash/Hives Verified 12/03/17 10:31 rivaroxaban [From Xarelto] Allergy GI bleed Verified 12/03/17 10:31 ropinirole HCl [From Requip] Allergy Unknown Verified 12/03/17 10:31 sulfamethoxazole AdvReac Hallucinati Verified 12/03/17 10:31 [From Bactrim] ons trimethoprim [From Bactrim] AdvReac Hallucinati Verified 12/03/17 10:31 ons Physical Exam Vitals: Vital Signs Temp Pulse Pulse Resp BP BP Pulse Ox 12/03/17 15:06 97 F L 95 18 146/95 94 L 12/03/17 15:00 95 16 138/75 92 L 12/03/17 13:30 97.2 F L 63 18 137/81 93 L 12/03/17 11:54 86 18 135/78 94 L 12/03/17 09:57 97.2 F L 81 18 153/70 95 Intake and Output 12/03/17 12/03/17 12/03/17 06:59 14:59 22:59 Other: Weight 74.843 kg PHYSICAL EXAMINATION: GENERAL: The patient is alert and oriented x3, not in any acute distress. Well developed, well nourished. HEENT: Pupils are round and equally reacting to light. EOMI. No scleral icterus. No conjunctival pallor. Normocephalic, atraumatic. No pharyngeal erythema. No thyromegaly. CARDIOVASCULAR: S1 and S2 present. No murmurs, rubs, or gallops. Does have elevated JVD PULMONARY: Chest is clear to auscultation, no wheezing or crackles. ABDOMEN: Soft, nontender, nondistended, normoactive bowel sounds. No palpable organomegaly. MUSCULOSKELETAL: No joint swelling or deformity. EXTREMITIES: No cyanosis, clubbing, or pedal edema. NEUROLOGICAL: Gross neurological examination did not reveal any focal deficits. SKIN: No rashes. Results CBC & Chem 7: 12/03/17 10:12 12/03/17 10:12 Labs: Abnormal Lab Results - Last 24 Hours (Table) 12/03/17 12/03/17 12/03/17 Range/Units 10:12 10:12 10:12 RDW 16.6 H (11.5-15.5) % Neutrophils # 8.4 H (1.3-7.7) k/uL INR (<1.2) Sodium 148 H (137-145) mmol/L BUN 23 H (9-20) mg/dL Glucose 123 H (74-99) mg/dL Calcium 10.5 H (8.4-10.2) mg/dL Total Bilirubin 1.8 H (0.2-1.3) mg/dL Alkaline Phosphatase 133 H (38-126) U/L Urine Glucose (UA) 4+ H (Negative) 12/03/17 Range/Units 10:12 RDW (11.5-15.5) % Neutrophils # (1.3-7.7) k/uL INR 1.2 H (<1.2) Sodium (137-145) mmol/L BUN (9-20) mg/dL Glucose (74-99) mg/dL Calcium (8.4-10.2) mg/dL Total Bilirubin (0.2-1.3) mg/dL Alkaline Phosphatase (38-126) U/L Urine Glucose (UA) (Negative) Assessment and Plan Plan: -Abdominal pain: Secondary to possible mesenteric ischemia. There is an incidental finding of cholelithiasis surgeries not recommending any emergent operative intervention at this time. -Congestive heart failure chronic systolic dysfunction ejection fraction of around 40-45% patient has an AICD in place patient appears to have heart failure exacerbation I'll give a dose of IV Lasix will obtain a BNP and chest x- ray -Atrial fibrillation not anticoagulate because of previous GI bleeds -Coronary artery disease recent cardiac catheterization and stenting is in month of April -COPD without any acute exacerbation -pvd -Type 2 diabetes mellitus: Metformin will be held rest of the regimen will be continued along with the sliding scale insulin -Hypertension -Hyperlipidemia
[2017-12-03] MEDS ORDERED: ATORVASTATIN 80 MG TAB PO SCH (21:00)
[2017-12-03] MEDS ORDERED: metFORMIN 500 MG TAB PO SCH (21:00)
[2017-12-03] MEDS ORDERED: LINAGLIPTIN 5 MG TABLET PO SCH (21:00)
[2017-12-03] MEDS ORDERED: INSULIN DETEMIR 100 UNIT/ML 10 ML VIAL SQ SCH (21:00)
[2017-12-03 22:35] LABS: Glucose,Whole Blood 183 mg/dL (75-99)
[2017-12-03] MEDS: PREGABALIN 75 MG CAP PO SCH (22:38)
[2017-12-03] MEDS: FAMOTIDINE 20 MG TAB PO SCH (22:39)
[2017-12-04] MEDS: IPRATROPIUM 0.5 MG/2.5 ML NEBU INHALATION SCH ×2 (07:23→11:21)
[2017-12-04 07:41] LABS: Glucose,Whole Blood 114 mg/dL (75-99)
[2017-12-04] MEDS: CLOPIDOGREL 75 MG TAB PO SCH ×2 (07:41→07:48)
[2017-12-04] MEDS: PREGABALIN 75 MG CAP PO SCH (07:42)
[2017-12-04] MEDS: FAMOTIDINE 20 MG TAB PO SCH (07:42)
[2017-12-04 08:08] VITALS: BP 113/67; RESP 20; TEMP 96.5
[2017-12-04] MEDS ORDERED: ASPIRIN 81 MG PO SCH (09:00)
[2017-12-04] MEDS ORDERED: FUROSEMIDE 40 MG TAB PO SCH (09:00)
[2017-12-04] MEDS ORDERED: CANAGLIFLOZIN 100 MG PO SCH (09:00)
[2017-12-04] MEDS ORDERED: LISINOPRIL 5 MG TAB PO SCH (09:00)
[2017-12-04] MEDS ORDERED: ISOSORBIDE MONONITRATE ER 60 MG TAB.ER.24H PO SCH (09:00)
[2017-12-04] MEDS ORDERED: METOPROLOL SUCCINATE (ER) 50 MG TAB.ER.24H PO SCH (09:00)
--- NOTE | 2017-12-04 09:35 | P.PN ---
Subjective Progress Note Date: 12/04/17 Principal diagnosis: Abdominal pain Patient was seen on rounds. He is not currently having abdominal pain. He tolerated dinner and breakfast with no pain. No nausea or vomiting. He still feels very weak and gets short of breath easily. Objective - Vital Signs Vital signs: Vital Signs Temp 96.5 F L 12/04/17 07:00 Pulse 82 12/04/17 07:33 Resp 20 12/04/17 07:00 BP 113/67 12/04/17 07:00 Pulse Ox 98 12/04/17 07:00 Intake & Output 12/03/17 12/04/17 12/04/17 18:59 06:59 18:59 Weight 74.843 kg 74.843 kg Other: Voiding Method Toilet Toilet Toilet # Voids 1 1 1 - Constitutional General appearance: Present: cooperative, no acute distress - Gastrointestinal General gastrointestinal: Present: normal bowel sounds, soft, tenderness (No significant tenderness today) - Labs CBC & Chem 7: 12/03/17 10:12 12/03/17 10:12 Labs: Abnormal Lab Results - Last 24 Hours (Table) 12/03/17 12/03/17 12/03/17 Range/Units 10:12 10:12 10:12 RDW 16.6 H (11.5-15.5) % Neutrophils # 8.4 H (1.3-7.7) k/uL INR (<1.2) Sodium 148 H (137-145) mmol/L BUN 23 H (9-20) mg/dL Glucose 123 H (74-99) mg/dL POC Glucose (mg/dL) (75-99) mg/dL Calcium 10.5 H (8.4-10.2) mg/dL Total Bilirubin 1.8 H (0.2-1.3) mg/dL Alkaline Phosphatase 133 H (38-126) U/L Urine Glucose (UA) 4+ H (Negative) 12/03/17 12/03/17 12/04/17 Range/Units 10:12 22:33 07:39 RDW (11.5-15.5) % Neutrophils # (1.3-7.7) k/uL INR 1.2 H (<1.2) Sodium (137-145) mmol/L BUN (9-20) mg/dL Glucose (74-99) mg/dL POC Glucose (mg/dL) 183 H 114 H (75-99) mg/dL Calcium (8.4-10.2) mg/dL Total Bilirubin (0.2-1.3) mg/dL Alkaline Phosphatase (38-126) U/L Urine Glucose (UA) (Negative) Assessment and Plan (1) Cholelithiasis Current Visit: Yes Status: Acute Code(s): K80.20 - CALCULUS OF GALLBLADDER W /O CHOLECYSTITIS W/O OBSTRUCTION SNOMED Code(s): 827335142 (2) Superior mesenteric artery atherosclerosis Current Visit: Yes Status: Acute Code(s): K55.1 - CHRONIC VASCULAR DISORDERS OF INTESTINE SNOMED Code(s): 29657448 (3) Abdominal pain Current Visit: Yes Status: Acute Code(s): R10.9 - UNSPECIFIED ABDOMINAL PAIN SNOMED Code(s): 12787047 (4) CAD (coronary artery disease) Current Visit: No Status: Acute Code(s): I25.10 - ATHSCL HEART DISEASE OF [place] CORONARY ARTERY W/O ANG PCTRS SNOMED Code(s): 96616810 (5) Diabetes Current Visit: No Status: Acute Code(s): E11.9 - TYPE 2 DIABETES MELLITUS WITHOUT COMPLICATIONS SNOMED Code(s): 13784781 (6) Dyspnea on effort Current Visit: No Status: Acute Code(s): R06.09 - OTHER FORMS OF DYSPNEA SNOMED Code(s): 20371349 (7) PAD (peripheral artery disease) Current Visit: No Status: Acute Code(s): I73.9 - PERIPHERAL VASCULAR DISEASE , UNSPECIFIED SNOMED Code(s): 911226683 Plan: The patient has coincidentally found cholelithiasis. He does have athrosclerosis of the SMA and celiac axis. These were fairly significant on computed tomography scan. This may be causing some abdominal angina. This was informally discussed with vascular surgery. Since this stenosis is significant , they recommended evaluation at a tertiary center such as [facility] where this could potentially be treated with angioplasty and stenting. Therefore I recommend evaluation at a tertiary center. Once that is addressed, he has problems with nausea or right upper quadrant pain we could consider laparoscopic cholecystectomy at that point.
[2017-12-04 09:42] LABS: Anisocytosis Slight; HCT 45.1 % (39.0-53.0); HGB 14.7 gm/dL (13.0-17.5); Hypochromasia Slight; MCH 28.1 pg (25.0-35.0); MCHC 32.6 g/dL (31.0-37.0); MCV 86.2 fL (80.0-100.0); Mean Platelet Volume 7.7; Platelet Count 196 k/uL (150-450); RBC 5.23 m/uL (4.30-5.90); RDW 16.7 % (11.5-15.5); WBC 7.5 k/uL (3.8-10.6)
[2017-12-04 09:53] LABS: Calcium 9.7 mg/dL (8.4-10.2); Potassium 4.1 mmol/L (3.5-5.1)
[2017-12-04 11:32] VITALS: PULSE 78
[2017-12-04 12:01] LABS: Glucose,Whole Blood 233 mg/dL (75-99)
--- NOTE | 2017-12-04 12:02 | P.PN ---
Subjective Progress Note Date: 12/04/17 Mr. Rosas is a pleasant 82-year-old male past medical history significant for coronary artery disease, ischemic cardiomyopathy s/p AICD placement, hypertension, dyslipidemia, diabetes mellitus, chronic atrial fibrillation, peripheral vascular disease, COPD and systolic heart failure. He sees Dr. Harris in the office. We have been asked to see him in consultation for cardiac evaluation for possible surgery. He was seen in the office 11/26 for the same and was recommended that he stop plavix for 5 days prior to surgery and resume post-operatively. He apparently presented to the hospital with symptoms of abdominal pain. Abdominal ultrasound reveals cholelithiasis and gallbladder wall thickening recommend HIDA scan. Surgery has been placed on consultation and has advised they believe this to be more related to possible ischemic bowel vs gallbladder disease and there is no plan for surgical intervention at this time but they have recommended he be transferred to a tertiary care center for possible angioplasty and stenting of mesenteric artery. This was found on a CT scan performed last year. At the time of my exam he is seen sitting up in the chair in no acute distress. He denies symptoms of abdominal pain, chest pain, shortness of breath, palpitations, nausea, vomiting or diaphoresis. He states he has been increasingly weak over the previous few weeks and has been struggling with abdominal pain intermittently. His dose of lasix was recently increased in the office for increasing shortness of breath. EKG on arrival reveals atrial fibrillation with controlled ventricular response heart rate 77, ST depression in lateral leads. This is consistent with previous EKG. Chest x-ray on arrival reveals pulmonary vascular congestion with early interstitial edema also suggestion of small effusions and/or consolidation. Laboratory data reviewed, potassium 4.1, creatinine 1.2, magnesium 2.1, cardiac enzymes negative 1, proBNP 13,700. Current cardiac medications include Toprol 50 mg daily, lisinopril 5 mg daily, Imdur 60 mg daily, Lasix 40 mg daily, Plavix 75 mg daily, Lipitor 80 mg daily, aspirin 81 mg daily. He underwent Lexiscan stress test November 25 for preoperative evaluation which revealed an abnormal nuclear scan showing ischemic cardiomyopathy and severe LV dysfunction with no evidence of reversible perfusion defects. Most recent echocardiogram performed in the office September 2017 revealed severely decreased systolic function with ejection fraction 35%, moderate concentric hypertrophy, global hypokinesia, mildly dilated right ventricle with mildly decreased function, severely dilated left atrium, moderately dilated right atrium, mild to moderate regurgitation, moderate mitral regurgitation, moderate to severe tricuspid regurgitation and elevated pulmonary artery pressure 54 mmHg. Most recent cardiac catheterization performed June 2017 revealed RCA with proximal disease in the 50-60% range, mild disease in the left main, mild disease in the circumflex, ramus intermedius with a patent stent in the proximal ramus bifurcates into 2 branches the lower branch appears to only have mild disease in the upper branch which is stented appears to be occluded and was successfully stented at that time, the LAD had mild disease. Objective - Vital Signs Vital signs: Vital Signs Temp 96.5 F L 12/04/17 07:00 Pulse 82 12/04/17 07:33 Resp 20 12/04/17 07:00 BP 113/67 12/04/17 07:00 Pulse Ox 98 12/04/17 07:00 Intake & Output 12/03/17 12/04/17 12/04/17 18:59 06:59 18:59 Weight 74.843 kg 74.843 kg Other: Voiding Method Toilet Toilet Toilet # Voids 1 1 1 - Exam Blood pressure 113/67 heart rate 72 afebrile maintaining oxygen saturation on nasal cannula GENERAL: This is a 82-year-old male in no apparent distress at the time of my examination. HEENT: Head is atraumatic, normocephalic. Pupils are equal, round. Sclerae anicteric. Conjunctivae are clear. Mucous membranes of the mouth are moist. Neck is supple. There is no jugular venous distention. No carotid bruit is heard. LUNGS: Clear to auscultation no wheezes, rales or rhonchi. No chest wall tenderness is noted on palpation or with deep breathing. Diminished. HEART: Irregular rate and rhythm with systolic murmur, no rubs or gallops. S1 and S2 heard. ABDOMEN: Soft, nontender. Bowel sounds are heard. No organomegaly noted. EXTREMITIES: No evidence of peripheral edema and no calf tenderness noted. VASCULAR: Radial and dorsalis pedis pulses palpated, no evidence of clubbing. NEUROLOGIC: Patient is awake, alert and oriented x3. - Labs CBC & Chem 7: 12/04/17 09:14 12/04/17 09:14 Labs: Abnormal Lab Results - Last 24 Hours (Table) 12/03/17 12/03/17 12/03/17 Range/Units 10:12 10:12 10:12 RDW 16.6 H (11.5-15.5) % Neutrophils # 8.4 H (1.3-7.7) k/uL INR (<1.2) Sodium 148 H (137-145) mmol/L BUN 23 H (9-20) mg/dL Glucose 123 H (74-99) mg/dL POC Glucose (mg/dL) (75-99) mg/dL Calcium 10.5 H (8.4-10.2) mg/dL Total Bilirubin 1.8 H (0.2-1.3) mg/dL Alkaline Phosphatase 133 H (38-126) U/L Urine Glucose (UA) 4+ H (Negative) 12/03/17 12/03/17 12/04/17 Range/Units 10:12 22:33 07:39 RDW (11.5-15.5) % Neutrophils # (1.3-7.7) k/uL INR 1.2 H (<1.2) Sodium (137-145) mmol/L BUN (9-20) mg/dL Glucose (74-99) mg/dL POC Glucose (mg/dL) 183 H 114 H (75-99) mg/dL Calcium (8.4-10.2) mg/dL Total Bilirubin (0.2-1.3) mg/dL Alkaline Phosphatase (38-126) U/L Urine Glucose (UA) (Negative) 12/04/17 12/04/17 Range/Units 09:14 09:14 RDW 16.7 H (11.5-15.5) % Neutrophils # (1.3-7.7) k/uL INR (<1.2) Sodium (137-145) mmol/L BUN 28 H (9-20) mg/dL Glucose 259 H (74-99) mg/dL POC Glucose (mg/dL) (75-99) mg/dL Calcium (8.4-10.2) mg/dL Total Bilirubin (0.2-1.3) mg/dL Alkaline Phosphatase (38-126) U/L Urine Glucose (UA) (Negative) Assessment and Plan Assessment: ASSESSMENT 1. Chronic systolic heart failure with elevated proBNP 2. History of coronary artery disease with recent stenting 06/2017 3. Ischemic cardiomyopathy with AICD in place 4. COPD 5. Peripheral vascular disease 6. Hypertension 7. Dysliidemia 8. Diabetes mellitus 9. 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 He had a recent stress test that showed no evidence of reversible ischemia. With his heart failure and cardiomyopathy fluid administration should be cautious intraoperatively. Continue with Toprol , lisinopril, Imdur, Lasix, atorvastatin and aspirin as was previously ordered. Nurse Practitioner note has been reviewed, I agree with a documented findings and plan of care. Patient was seen and examined.
[2017-12-04] MEDS ORDERED: INSULIN ASPART 100 UNIT/ML 1 ML 10 ML VIAL SQ SCH (17:30)
[2017-12-04 20:00] LABS: Hemoglobin A1C 7.6 % (4.0-6.0)
--- NOTE | 2017-12-05 08:28 | DS ---
DISCHARGE SUMMARY FINAL DIAGNOSES: 1. Abdominal pain possible lymphocytic ischemia. 2. Cholelithiasis. 3. History of congestive heart failure with chronic systolic dysfunction, ejection fraction 40 to 45%. 4. Status post AICD. 5. Chronic atrial fibrillation. 6. Coronary artery disease. 7. Chronic obstructive pulmonary disease. 8. Diabetes type 2. 9. Hypertension. 10.Hyperlipidemia. DISCHARGE DISPOSITION: Patient being discharged in stable condition with guarded prognosis. HISTORY OF PRESENT ILLNESS: This 82-year-old gentleman with a past medical history of multiple medical problems was admitted with abdominal pain. Possible lymphocytic ischemia is considered. Otherwise, patient improved significantly. Dr. Solano saw the patient and recommended followup in [facility] Department. EXAM: Vitals are stable. Cardiovascular: S1, S2. ABDOMEN: Soft. Nontender. Nervous system: No focal deficits. LABS: Noted. DISCHARGE ADVICE AND MEDICATIONS: 1. Diet is cardiac diet. 2. Activity limited until follow up. 3. Follow up with Dr. Colmenares in 2-3 days. 4. Follow up with [facility] for further evaluation. 5. Follow up with surgery. 6. Follow the special education resource teacher. MEDICATIONS: 1. Ventolin HFA 1 to 2 puffs q.6h p.r.n. 2. Nebulizer 2.5 q.i.d. p.r.n. 3. Nesina 25 mg p.o. q.h.s. 4. Ecotrin 81 mg p.o. daily. 5. Lipitor 80 mg q.h.s. 6. Invokana 100 mg p.o. daily. 7. Plavix 75 mg p.o. daily. 8. Lasix 40 mg p.o. daily. 9. [place] 5 mg b.i.d. p.r.n. 10.Lantus 15 units subcu q.h.s. 11.Humalog scale sliding scale. 12.Imdur ER 60 mg p.o. daily. 13.Zestril 5 mg p.o. daily. 14.Toprol-XL 50 mg p.o. daily. 15.Nitrostat 0.4 mg p.r.n. 16.Prilosec 20 mg p.o. daily. 17.Lyrica 150 mg p.o. b.i.d. 18.Spiriva 1 puff daily. Once again, the patient being discharged in stable condition with guarded prognosis. MMODL / IJN: [id number] /
== END 2017-12-04 15:06 ==
LOC: EC 09:50 → 5MS5E 12:44 → 4MS4W 14:58
PROVIDERS: ADMIT Internal Medicine; ATTEND Internal Medicine
DX: R10.84 Generalized abdominal pain (principal); K55.1 Chronic vascular disorders of intestine; K80.20 Calculus of gallbladder without cholecystitis without obstruction; I11.0 Hypertensive heart disease with heart failure; I25.5 Ischemic cardiomyopathy; I50.22 Chronic systolic (congestive) heart failure; I48.2 Chronic atrial fibrillation; I25.10 Atherosclerotic heart disease of native coronary artery without angina pectoris; E11.51 Type 2 diabetes mellitus with diabetic peripheral angiopathy without gangrene; E78.5 Hyperlipidemia, unspecified; R53.1 Weakness; K21.9 Gastro-esophageal reflux disease without esophagitis; J44.9 Chronic obstructive pulmonary disease, unspecified; Z95.810 Presence of automatic (implantable) cardiac defibrillator; Z95.5 Presence of coronary angioplasty implant and graft; Z79.82 Long term (current) use of aspirin; Z79.02 Long term (current) use of antithrombotics/antiplatelets; Z79.84 Long term (current) use of oral hypoglycemic drugs; Z79.899 Other long term (current) drug therapy; Z88.0 Allergy status to penicillin; Z88.1 Allergy status to other antibiotic agents; Z88.2 Allergy status to sulfonamides; Z88.8 Allergy status to other drugs, medicaments and biological substances; Z16.12 Extended spectrum beta lactamase (ESBL) resistance; Z86.73 Personal history of transient ischemic attack (TIA), and cerebral infarction without residual deficits; I25.2 Old myocardial infarction; Z87.19 Personal history of other diseases of the digestive system; Z87.01 Personal history of pneumonia (recurrent); Z87.442 Personal history of urinary calculi; Z87.440 Personal history of urinary (tract) infections; Z80.9 Family history of malignant neoplasm, unspecified; Z83.3 Family history of diabetes mellitus
CPT/HCPCS: 99285 ×2; 96374; 36415; 94640 ×3; 93005; 83880; 80053; 80048; 82150; 83605; 83690; 83735; 84484; 85025; 85027; 85610; 85730; 81003; 83036; 71045; 76705; G0378 ×2; J1940

== ENCOUNTER 2017-12-13 09:01 | Emergency (ER) | payer MEDICARE ==
[2017-12-13 09:11] LABS: Glucose,Whole Blood 136 mg/dL (75-99)
--- NOTE | 2017-12-13 09:32 | ED ---
General Adult HPI - General Chief complaint: Shortness of Breath Stated complaint: Abd Pain/Difficulty Breathing Time Seen by Provider: 12/13/17 09:03 Source: patient, EMS, RN notes reviewed Mode of arrival: EMS Limitations: no limitations - History of Present Illness Initial comments: 82-year-old male presenting with abdominal pain. Patient states that he had some epigastric abdominal pain which began approximately 30 minutes after eating a grilled cheese sandwich yesterday evening. Pain is currently resolved. Patient was seen at this hospital approximately one week ago, at that time he did have some similar abdominal pain. He was diagnosed with cholelithiasis and concern for abdominal angina with atherosclerotic disease of the SMA, and celiac trunk Patient states he is scheduled to have his gallbladder removed in 1 week. He is concerned that he may be having worsening issues with his gallbladder. Denies fever or chills. Denies nausea vomiting or diarrhea. Pain is constant over the past several weeks. Patient has not follow-up with general surgery or vascular surgery. - Related Data Home Medications Medication Instructions Recorded Confirmed Nitroglycerin Sl Tabs [Nitrostat] 0.4 mg SUBLINGUAL Q5M PRN 07/15/14 12/03/17 Omeprazole [PriLOSEC] 20 mg PO DAILY 11/25/14 12/03/17 Clopidogrel [Plavix] 75 mg PO DAILY 12/02/14 12/03/17 Pregabalin [Lyrica] 150 mg PO BID 06/06/15 12/03/17 Isosorbide Mononitrate ER [Imdur] 60 mg PO DAILY 08/28/15 12/03/17 Lisinopril [Zestril] 5 mg PO DAILY 08/28/15 12/03/17 Tiotropium [place] [Spiriva] 1 cap INHALATION RT-DAILY 08/28/15 12/03/17 Aspirin [Adult Low Dose Aspirin EC] 81 mg PO DAILY 08/29/15 12/03/17 Albuterol Inhaler [Ventolin Hfa 1 - 2 puff INHALATION RT-Q6H PRN 04/24/17 Inhaler] Albuterol Nebulized [Ventolin 2.5 mg INHALATION RT-QID PRN 06/16/17 12/03/17 Nebulized] HYDROcodone/APAP 5-325MG [[place] 1 tab PO BID PRN 06/16/17 12/03/17 5-325] Alogliptin Benzoate [Nesina] 25 mg PO HS 08/26/17 12/03/17 Atorvastatin [Lipitor] 80 mg PO HS 08/26/17 12/03/17 Furosemide [Lasix] 40 mg PO DAILY 08/26/17 12/03/17 Canagliflozin [Invokana] 100 mg PO DAILY 10/30/17 12/03/17 Metoprolol Succinate (ER) [Toprol 50 mg PO DAILY 10/30/17 12/03/17 XL] Previous Rx's Medication Instructions Recorded INSULIN LISPRO (HumaLOG) [humaLOG] 0 unit SQ ACHS #1 vial 12/04/17 Insulin Glargine,Hum.rec.anlog 15 unit SQ HS #0 12/04/17 [Lantus Solostar] Allergies Allergy/AdvReac Type Severity Reaction Status Date / Time Penicillins Allergy Severe Rash/Hives Verified 12/13/17 09:12 rivaroxaban [From Xarelto] Allergy GI bleed Verified 12/13/17 09:12 ropinirole HCl [From Requip] Allergy Unknown Verified 12/13/17 09:12 sulfamethoxazole AdvReac Hallucinati Verified 12/13/17 09:12 [From Bactrim] ons trimethoprim [From Bactrim] AdvReac Hallucinati Verified 12/13/17 09:12 ons Review of Systems ROS Statement: Those systems with pertinent positive or pertinent negative responses have been documented in the HPI. ROS Other: All systems not noted in ROS Statement are negative. Past Medical History Past Medical History: Atrial Fibrillation, Coronary Artery Disease (CAD), Chest Pain / Angina, Heart Failure, COPD, CVA/TIA, Diabetes Mellitus, GERD/Reflux, GI Bleed, Hyperlipidemia, Hypertension, Myocardial Infarction ([place]), Pneumonia, Vascular Disorder Additional Past Medical History / Comment(s): Occasional difficulty with swallowing, recurrent urinary tract infection,"several mi's" Last Myocardial Infarction Date:: 06/16/17 History of Any Multi-Drug Resistant Organisms: ESBL Date of last positivie culture/infection: 06/28/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 Past Anesthesia/Blood Transfusion Reactions: No Reported Reaction Additional Past Anesthesia/Blood Transfusion Reaction / Comment(s): HAD BLOOD TRANSFUSION without reaction. Date of Last Stent Placement:: 06/16/17 Type of Cardiac Device: AICD Device Placement Date:: 2014 Past Psychological History: No Psychological Hx Reported Smoking Status: Never smoker Past Alcohol Use History: None Reported Past Drug Use History: None Reported - Past Family History Daughter(s) Family Medical History: Cancer Mother Family Medical History: Cancer Additional Family Medical History / Comment(s): . Father Family Medical History: Diabetes Mellitus General Exam Limitations: no limitations General appearance: alert, in no apparent distress Head exam: Present: atraumatic, normocephalic Eye exam: Present: normal appearance, PERRL ENT exam: Present: normal exam Neck exam: Present: normal inspection. Absent: tenderness, meningismus Respiratory exam: Present: normal lung sounds bilaterally. Absent: respiratory distress, wheezes Cardiovascular Exam: Present: tachycardia, irregular rhythm GI/Abdominal exam: Present: soft, tenderness (Mild generalized tenderness). Absent: distended, guarding, rebound, rigid Extremities exam: Present: normal inspection, normal capillary refill. Absent: pedal edema Neurological exam: Present: alert, oriented X3, CN II-XII intact. Absent: motor sensory deficit Psychiatric exam: Present: normal affect, normal mood Skin exam: Present: warm, dry, intact. Absent: cyanosis, diaphoretic Course Vital Signs 12/13/17 12/13/17 09:04 09:35 Temperature 97.5 F L Pulse Rate 112 H Respiratory 20 18 Rate Blood Pressure 111/72 EKG Findings - EKG Comments: EKG Findings:: EKG A. fib with RVR, rate of 110, no ST segment elevation, QRS duration 106, QTC 503 Medical Decision Making - Medical Decision Making 82-year-old male presenting with abdominal pain concerning for abdominal angina versus nonischemic bilateral. 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 This information was gathered from a previous surgical note within the last 1 week. Patient stopped taking his aspirin and Plavix because he felt he needed his gallbladder out and was stopping preoperatively. Patient has minimal abdominal tenderness. Laboratory studies are obtained, he has an acute kidney injury with a creatinine of 1.39 given this mild acute kidney injury and concern that the patient may need abdominal angiography, no CT imaging with contrast is obtained at this time. The lactic is 6.8 which is consistent with ischemic bowel. Patient is given antibiotics, started on heparin, patient will be transferred to [facility] for both vascular and general surgery evaluation. Accepting physician is Dr. Carbajal. Other laboratory studies revealed mild leukocytosis, 10.9, sodium of 147 which is mildly elevated. AST and ALT are normal. There is mild hyperbilirubinemia at 2.2, previous level was 1.8. X-rays obtained, no free air at this time. - Lab Data Result diagrams: 12/13/17 09:30 12/13/17 09:30 Lab Results 12/13/17 12/13/17 12/13/17 Range/Units 09:09 09:30 09:30 WBC 10.9 H (3.8-10.6) k/uL RBC 5.62 (4.30-5.90) m/uL Hgb 15.6 (13.0-17.5) gm/dL Hct 48.9 (39.0-53.0) % MCV 87.0 (80.0-100.0) fL MCH 27.7 (25.0-35.0) pg MCHC 31.8 (31.0-37.0) g/dL RDW 17.3 H (11.5-15.5) % Plt Count 251 (150-450) k/uL Neutrophils % 83 % Lymphocytes % 9 % Monocytes % 6 % Eosinophils % 1 % Basophils % 0 % Neutrophils # 9.0 H (1.3-7.7) k/uL Lymphocytes # 0.9 L (1.0-4.8) k/uL Monocytes # 0.7 (0-1.0) k/uL Eosinophils # 0.1 (0-0.7) k/uL Basophils # 0.0 (0-0.2) k/uL Hypochromasia Slight Poikilocytosis Slight Anisocytosis Slight PT (9.0-12.0) sec INR (<1.2) APTT (22.0-30.0) sec Sodium 147 H (137-145) mmol/L Potassium 5.2 H (3.5-5.1) mmol/L Chloride 104 (98-107) mmol/L Carbon Dioxide 18 L (22-30) mmol/L Anion Gap 25 mmol/L BUN 29 H (9-20) mg/dL Creatinine 1.39 H (0.66-1.25) mg/dL Est GFR (CKD-EPI)AfAm 55 (>60 ml/min/1.73 sqM) Est GFR (CKD-EPI)NonAf 47 (>60 ml/min/1.73 sqM) Glucose 163 H (74-99) mg/dL POC Glucose (mg/dL) 136 H (75-99) mg/dL POC Glu Curb Machine Operator ID Sharp, Peg Plasma Lactic Acid [place] (0.7-2.0) mmol/L Calcium 10.2 (8.4-10.2) mg/dL Magnesium 1.9 (1.6-2.3) mg/dL Total Bilirubin 2.2 H (0.2-1.3) mg/dL AST 41 (17-59) U/L ALT 38 (21-72) U/L Alkaline Phosphatase 158 H (38-126) U/L Total Protein 7.0 (6.3-8.2) g/dL Albumin 4.4 (3.5-5.0) g/dL Amylase 73 (30-110) U/L Lipase 203 (23-300) U/L 12/13/17 12/13/17 Range/Units 09:30 09:30 WBC (3.8-10.6) k/uL RBC (4.30-5.90) m/uL Hgb (13.0-17.5) gm/dL Hct (39.0-53.0) % MCV (80.0-100.0) fL MCH (25.0-35.0) pg MCHC (31.0-37.0) g/dL RDW (11.5-15.5) % Plt Count (150-450) k/uL Neutrophils % % Lymphocytes % % Monocytes % % Eosinophils % % Basophils % % Neutrophils # (1.3-7.7) k/uL Lymphocytes # (1.0-4.8) k/uL Monocytes # (0-1.0) k/uL Eosinophils # (0-0.7) k/uL Basophils # (0-0.2) k/uL Hypochromasia Poikilocytosis Anisocytosis PT 13.5 H (9.0-12.0) sec INR 1.4 H (<1.2) APTT 22.3 (22.0-30.0) sec Sodium (137-145) mmol/L Potassium (3.5-5.1) mmol/L Chloride (98-107) mmol/L Carbon Dioxide (22-30) mmol/L Anion Gap mmol/L BUN (9-20) mg/dL Creatinine (0.66-1.25) mg/dL Est GFR (CKD-EPI)AfAm (>60 ml/min/1.73 sqM) Est GFR (CKD-EPI)NonAf (>60 ml/min/1.73 sqM) Glucose (74-99) mg/dL POC Glucose (mg/dL) (75-99) mg/dL POC Glu Curb Machine Operator ID Plasma Lactic Acid [place] 6.8 H* (0.7-2.0) mmol/L Calcium (8.4-10.2) mg/dL Magnesium (1.6-2.3) mg/dL Total Bilirubin (0.2-1.3) mg/dL AST (17-59) U/L ALT (21-72) U/L Alkaline Phosphatase (38-126) U/L Total Protein (6.3-8.2) g/dL Albumin (3.5-5.0) g/dL Amylase (30-110) U/L Lipase (23-300) U/L Critical Care Time Critical Care Time: Yes Total Critical Care Time: 35 Disposition Clinical Impression: Lactic acidosis, Ischemic bowel disease Disposition: OTHER INSTITUTION NOT DEFINED Condition: Serious Referrals: Pratibha Colmenares DO [Primary Care Provider] - 1-2 days - Out of Hospital Transfer - Req. Specs Out of Hospital Transfer - Requested Specifics: Other Emergency Center ( Transferred to [facility])
[2017-12-13 09:36] VITALS: RESP 18
[2017-12-13 09:48] LABS: INR 1.4 (<1.2); Partial Thromboplastin Time 22.3 sec (22.0-30.0); Prothrombin Time 13.5 sec (9.0-12.0)
[2017-12-13 09:55] LABS: Albumin 4.4 g/dL (3.5-5.0); Anisocytosis Slight; Basophils % (A) 0 %; Calcium 10.2 mg/dL (8.4-10.2); Eosinophils # (A) 0.1 k/uL (0-0.7); Eosinophils % (A) 1 %; HCT 48.9 % (39.0-53.0); HGB 15.6 gm/dL (13.0-17.5); Hypochromasia Slight; Lymphocytes # (A) 0.9 k/uL (1.0-4.8); Lymphocytes % (A) 9 %; MCH 27.7 pg (25.0-35.0); MCHC 31.8 g/dL (31.0-37.0); Magnesium 1.9 mg/dL (1.6-2.3); Mean Platelet Volume 9.7; Monocytes # (A) 0.7 k/uL (0-1.0); Monocytes % (A) 6 %; Neutrophils % (A) 83 %; Platelet Count 251 k/uL (150-450); Poikilocytosis Slight; Potassium 5.2 mmol/L (3.5-5.1); RBC 5.62 m/uL (4.30-5.90); RDW 17.3 % (11.5-15.5); Total Bilirubin 2.2 mg/dL (0.2-1.3); WBC 10.9 k/uL (3.8-10.6)
--- NOTE | 2017-12-13 09:55 | XR ---
EXAMINATION TYPE: XR KUB , 2 VIEWS DATE OF EXAM ORDERED: 12/13/2017 HISTORY: Pain. COMPARISON: Previous study dated 04/21/2012. FINDINGS: There is some left basilar airspace disease. There is a small left effusion. Within the abdomen, the abdominal gas pattern is within normal limits. There is no evidence of obstru ction or free air. There is calcification of the splenic artery. No other unusual calcifications are seen. IMPRESSION: 1. NO ACUTE INTRA-ABDOMINAL ABNORMALITY. 2. MILD LEFT BASILAR AIRSPACE DISEASE. 3. SMALL LEFT EFFUSION.
[2017-12-13] MEDS ORDERED: SODIUM CHLORIDE 0.9% 1,000 ML IV ONE (10:27)
[2017-12-13] MEDS ORDERED: SODIUM CHLORIDE 0.9% 1,000 ML IV SCH (10:30)
[2017-12-13] MEDS ORDERED: HEPARIN SODIUM,PORCINE 5,000 UNIT/ML 1 ML VIAL IV PRN (10:32)
[2017-12-13] MEDS ORDERED: HEPARIN SODIUM,PORCINE 5,000 UNIT/ML 1 ML VIAL IV ONE (10:32)
[2017-12-13] MEDS ORDERED: HEPARIN SOD,PORK IN 0.45% NACL 25,000 UNIT in 0.45% NACL 1 500ML.BAG IV SCH (10:45)
[2017-12-13] MEDS ORDERED: LEVOFLOXACIN 500MG-D5W PMX 500 MG in DEXTROSE/WATER 1 100ML.BAG IVPB STA (10:48)
[2017-12-13 11:44] VITALS: BP 149/84; PULSE 100; TEMP 98.9
== END 2017-12-13 11:45 | disposition other institution (70) ==
LOC: EC 09:01
DX: K55.9 Vascular disorder of intestine, unspecified (principal); E87.2 Acidosis; K80.20 Calculus of gallbladder without cholecystitis without obstruction; I48.91 Unspecified atrial fibrillation; I25.10 Atherosclerotic heart disease of native coronary artery without angina pectoris; I11.0 Hypertensive heart disease with heart failure; I50.9 Heart failure, unspecified; J44.9 Chronic obstructive pulmonary disease, unspecified; E11.9 Type 2 diabetes mellitus without complications; K21.9 Gastro-esophageal reflux disease without esophagitis; E78.5 Hyperlipidemia, unspecified; I25.2 Old myocardial infarction; Z95.810 Presence of automatic (implantable) cardiac defibrillator; Z95.5 Presence of coronary angioplasty implant and graft; Z98.890 Other specified postprocedural states; Z79.02 Long term (current) use of antithrombotics/antiplatelets; Z79.82 Long term (current) use of aspirin; Z79.84 Long term (current) use of oral hypoglycemic drugs; Z79.899 Other long term (current) drug therapy
CPT/HCPCS: 36415; 93005; 80053; 82150; 83605; 83690; 83735; 85025; 85610; 85730; 74018; 99291; 96365; 96376; J1644 ×2; J1956

== ENCOUNTER 2018-01-04 11:23 | Inpatient (IN) | payer MEDICARE ==
[2018-01-04] MEDS ORDERED: RX INFO: IV CONTRAST WAS GIVEN 1 EACH MISC MISCELLANE PRN (12:00)
[2018-01-04 12:28] LABS: Anisocytosis Slight; Basophils % (A) 0 %; Eosinophils # (A) 0.2 k/uL (0-0.7); Eosinophils % (A) 2 %; HCT 40.2 % (39.0-53.0); HGB 12.6 gm/dL (13.0-17.5); Hypochromasia Slight; Lymphocytes # (A) 1.1 k/uL (1.0-4.8); Lymphocytes % (A) 10 %; MCH 26.7 pg (25.0-35.0); MCHC 31.4 g/dL (31.0-37.0); MCV 85.2 fL (80.0-100.0); Mean Platelet Volume 8.5; Monocytes # (A) 0.7 k/uL (0-1.0); Monocytes % (A) 7 %; Neutrophils # (A) 8.2 k/uL (1.3-7.7); Neutrophils % (A) 80 %; Platelet Count 384 k/uL (150-450); RBC 4.73 m/uL (4.30-5.90); RDW 17.6 % (11.5-15.5); WBC 10.3 k/uL (3.8-10.6)
[2018-01-04 12:35] LABS: Albumin 3.4 g/dL (3.5-5.0); Calcium 9.4 mg/dL (8.4-10.2); Potassium 4.7 mmol/L (3.5-5.1); Total Bilirubin 0.8 mg/dL (0.2-1.3); Total Protein 5.6 g/dL (6.3-8.2)
[2018-01-04 12:37] LABS: INR 1.4 (<1.2); Partial Thromboplastin Time 22.7 sec (22.0-30.0); Prothrombin Time 12.7 sec (9.0-12.0)
[2018-01-04 12:47] LABS: D-Dimer 0.78 mg/L FEU (<0.60)
[2018-01-04 13:00] LABS: Creatine Kinase MB 0.2 ng/mL (0.0-2.4); Troponin I 0.018 ng/mL (0.000-0.034)
--- NOTE | 2018-01-04 13:34 | CT ---
EXAMINATION TYPE: CT abdomen pelvis w con DATE OF EXAM: 01/04/2018 REFERENCE: Previous study dated 10/30/2017. HISTORY: abdominal pain HISTORY: Patient poor historian. Abdominal pain. REFERENCE: NONE CT DLP: 552 mGy Automated exposure control for dose reduction was used. TECHNIQUE: Helical acquisition through the abdomen and pelvis was obtained following the oral ingesti on of without Oral Contrast and following intravenous administration of 100 mL of Isovue 300. The kenia a was reformatted in axial, coronal and sagittal projections. FINDINGS: There are bilateral effusions, greater on the right than the left, essentially unchanged f rom previous. There is associated atelectatic change. There is no pericardial fluid. The heart is enl arged. Within the abdomen, there is fatty infiltration of the liver. There is a cholecystostomy tube in plac e. The spleen is unremarkable. Both adrenal glands are normal. There are stable, complex cyst seen arising from the kidneys. At least one of these is felt to be ind eterminate on ultrasound dated 12/03/2017. The pancreas is unremarkable. There is no significant retroperitoneal, iliac or inguinal adenopathy. Prostate is enlarged. The bladder is unremarkable. There are scattered diverticula throughout the left side of the colon. The appendix is not visualized with certainty. Small bowel loops are normal in caliber. There is no free air. There is a scant amount of free fluid. There is hypertrophic spondylosis and facet arthropathy within the lumbar spine. IMPRESSION: 1. BILATERAL PLEURAL EFFUSIONS. 2. CARDIOMEGALY. 3. FATTY INFILTRATION OF THE LIVER. 4. INDETERMINATE LESIONS WITHIN THE KIDNEYS. 5. STATUS POST CHOLECYSTOSTOMY. 6. UNCOMPLICATED DIVERTICULOSIS OF THE LEFT SIDE OF THE COLON. 7. DEGENERATIVE CHANGES WITHIN THE SPINE.
[2018-01-04] MEDS ORDERED: SODIUM CHLORIDE 0.9% 1,000 ML IV ONE (14:08)
--- NOTE | 2018-01-04 14:44 | XR ---
EXAMINATION TYPE: XR chest 2V DATE OF EXAM: 01/04/2018 COMPARISON: December 03, 2017 HISTORY: Shortness of breath TECHNIQUE: Frontal and lateral views of the chest are obtained. FINDINGS: Opacity at the right lung base appears similar to previous study. There is a portable card iac device with one lead noted. No pneumothorax is identified. There is a retrocardiac opacity which could be pneumonia or atelectasis. IMPRESSION: Right lung base opacity does not appear significantly changed. There is also retrocardia c opacity which could be atelectasis or pneumonia.
[2018-01-04 14:54] LABS: Appearance,Urine Clear (Clear); Bilirubin,Urine Negative (Negative); Blood,Urine Negative (Negative); Color,Urine Yellow; Glucose,Urine (UA) Negative (Negative); Ketones,Urine Negative (Negative); Leukocyte Esterase,Urine Negative (Negative); Nitrite,Urine Negative (Negative); PH, Urine 5.5 (5.0-8.0); Protein,Urine Trace (Negative); Specific Gravity,Urine 1.043 (1.001-1.035); Urobilinogen,Urine <2.0 mg/dL (<2.0)
--- NOTE | 2018-01-04 15:14 | ED ---
Abdominal Pain HPI - General Source: patient, EMS Mode of arrival: EMS Limitations: no limitations, physical limitation <Lesa Bah - Last Filed: 01/04/18 16:08> <Elroy Hussein - Last Filed: 01/07/18 09:18> - General Chief Complaint: Abdominal Pain Stated Complaint: Abd Pain Time Seen by Provider: 01/04/18 11:26 - History of Present Illness Initial Comments: This is an 82-year-old male patient with past medical history significant for CHF with AICD, CAD s/p mulitple stents, COPD, Diabetes, and afib who presents to the emergency department today for evaluation of abdominal pain and shortness of breath. Patient reports that he has been having intermittent episodes of acute dyspnea. States that it feels like he is choking and cannot breathe. He states that these episodes last for a short period however he has had multiple today. Patient states when these episodes come on he feels like he is going to . Patient has also been complaining of right lower quadrant abdominal pain. The patient has been seen and evaluated for similar abdominal pain over the last couple of weeks was transferred to [facility] with concern for bowel ischemia, but was found to have acute cholecystitis. Patient was unstable for surgery per cardiology and subsequently underwent placement of cholecystostomy drain. Patient states that they have scheduled him for surgery in January. Apparently patient was reporting increased pain around his drain site today in addition to the shortness of breath. He currently denies abdominal pain. Patient denies any nausea, vomiting, sweats, fever, chills, chest pain, back pain, hematuria, dysuria, urinary frequency, urinary urgency. Patient denies any recent rash, diarrhea, constipation, numbness, tingling, dizziness, weakness, headache, visual changes, or any other complaints. (Lesa Bah) - Related Data Home Medications Medication Instructions Recorded Confirmed Nitroglycerin Sl Tabs [Nitrostat] 0.4 mg SUBLINGUAL Q5M PRN 07/15/14 01/04/18 Omeprazole [PriLOSEC] 20 mg PO BID 11/25/14 01/04/18 Clopidogrel [Plavix] 75 mg PO DAILY 12/02/14 01/04/18 Isosorbide Mononitrate ER [Imdur] 60 mg PO DAILY 08/28/15 01/04/18 Tiotropium [place] [Spiriva] 1 cap INHALATION RT-DAILY 08/28/15 01/04/18 Aspirin [Adult Low Dose Aspirin EC] 81 mg PO DAILY 08/29/15 01/04/18 Albuterol Inhaler [Ventolin Hfa 1 puff INHALATION RT-Q6H PRN 04/24/17 01/04/18 Inhaler] Albuterol Nebulized [Ventolin 2.5 mg INHALATION RT-Q6H PRN 06/16/17 01/04/18 Nebulized] Atorvastatin [Lipitor] 80 mg PO HS 08/26/17 01/04/18 Furosemide [Lasix] 40 mg PO DAILY 08/26/17 01/04/18 Acetaminophen Tab [Tylenol] 500 mg PO Q8H PRN 01/04/18 01/04/18 Bisacodyl [Dulcolax] 10 mg RECTAL DAILY PRN 01/04/18 01/04/18 Ferrous Sulfate [Iron (65 MG 325 mg PO DAILY 01/04/18 01/04/18 Elemental)] Fluticasone Nasal [place] [Flonase 1 spray EA NOSTRIL DAILY 01/04/18 01/04/18 Nasal [place]] INSULIN LISPRO (HumaLOG) [humaLOG] See Protocol SQ HS 01/04/18 01/04/18 Insulin Glargine,Hum.[email or web address].anlog See Protocol SQ AC-TID 01/04/18 01/04/18 [Lantus Solostar] Melatonin 3 mg PO HS PRN 01/04/18 01/04/18 Polyethylene Glycol 3350 [Miralax] 17 gm PO Q4H PRN 01/04/18 01/04/18 Sennosides-Docusate Sodium 1 tab PO DAILY 01/04/18 01/04/18 [Senokot-S] guaiFENesin [guaiFENesin Oral 200 mg PO Q4H PRN 01/04/18 01/04/18 Solution] Previous Rx's Medication Instructions Recorded Cefuroxime Axetil [Ceftin] 500 mg PO BID #10 tab 01/06/18 Furosemide [Lasix] 20 mg PO HS #1 tab 01/06/18 Metoprolol Tartrate [Lopressor] 50 mg PO BID tab 01/06/18 metroNIDAZOLE [Flagyl] 500 mg PO TID #15 tab 01/06/18 traMADol HCL [Ultram] 50 mg PO Q6HR PRN #12 tab 01/06/18 Allergies Allergy/AdvReac Type Severity Reaction Status Date / Time Penicillins Allergy Severe Rash/Hives Verified 01/04/18 16:23 rivaroxaban [From Xarelto] Allergy GI bleed Verified 01/04/18 16:23 ropinirole HCl [From Requip] Allergy Unknown Verified 01/04/18 16:23 sulfamethoxazole AdvReac Hallucinati Verified 01/04/18 16:23 [From Bactrim] ons trimethoprim [From Bactrim] AdvReac Hallucinati Verified 01/04/18 16:23 ons Review of Systems ROS Other: All systems not noted in ROS Statement are negative. <Lesa Bah - Last Filed: 01/04/18 16:08> ROS Other: All systems not noted in ROS Statement are negative. <Elroy Hussein - Last Filed: 01/07/18 09:18> ROS Statement: Those systems with pertinent positive or pertinent negative responses have been documented in the HPI. Past Medical History Past Medical History: Atrial Fibrillation, Coronary Artery Disease (CAD), Chest Pain / Angina, Heart Failure, COPD, CVA/TIA, Diabetes Mellitus, GERD/Reflux, GI Bleed, Hyperlipidemia, Hypertension, Myocardial Infarction ([place]), Pneumonia, Vascular Disorder Additional Past Medical History / Comment(s): Occasional difficulty with swallowing, recurrent urinary tract infection,"several mi's" Last Myocardial Infarction Date:: 06/16/17 History of Any Multi-Drug Resistant Organisms: ESBL Date of last positivie culture/infection: 06/28/17 ESBL-E.coli MDRO Source:: Urine Past Surgical History: AICD, Heart Catheterization, Heart Catheterization With Stent, Hernia Repair, Prostate Surgery Additional Past Surgical History / Comment(s): 2015- R leg artherectomy with balloon angioplasty, multiple coronary stents with last one place 06/16/17, bilateral cataracts , LEFT RING FINGER AMPUTATION, lithotripsy, EGD and colonoscopy. Past Anesthesia/Blood Transfusion Reactions: No Reported Reaction Additional Past Anesthesia/Blood Transfusion Reaction / Comment(s): HAD BLOOD TRANSFUSION without reaction. Date of Last Stent Placement:: 06/16/17 Type of Cardiac Device: AICD Device Placement Date:: 2014 Past Psychological History: No Psychological Hx Reported Smoking Status: Never smoker Past Alcohol Use History: None Reported Past Drug Use History: None Reported - Past Family History Daughter(s) Family Medical History: Cancer Mother Family Medical History: Cancer Additional Family Medical History / Comment(s): . Father Family Medical History: Diabetes Mellitus <Lesa Bah - Last Filed: 01/04/18 16:08> General Exam Limitations: no limitations, physical limitation General appearance: alert, in no apparent distress, other (This is a well- developed, well-nourished elderly male patient in no acute distress. Vital signs upon presentation are temperature 96.4F, pulse 71, respirations 18, blood pressure 119/61, pulse ox 99% on room air.) Eye exam: Present: normal appearance, PERRL, EOMI. Absent: scleral icterus, conjunctival injection, periorbital swelling ENT exam: Present: normal exam, normal oropharynx, mucous membranes moist Respiratory exam: Absent: normal lung sounds bilaterally (Crackles bilateral bases), respiratory distress, wheezes, rales, rhonchi, stridor Cardiovascular Exam: Present: regular rate, normal rhythm, normal heart sounds. Absent: systolic murmur, diastolic murmur, rubs, gallop, clicks GI/Abdominal exam: Present: soft, normal bowel sounds, other (Cholecystostomy drain placed to the right lower quadrant, surrounding ecchymosis noted. No tenderness.). Absent: distended, tenderness, guarding, rebound, rigid Neurological exam: Present: alert, CN II-XII intact. Absent: oriented X3 ( Oriented 2) Psychiatric exam: Present: normal affect, normal mood Skin exam: Present: warm, dry, intact, normal color. Absent: rash <Lesa Bah - Last Filed: 01/04/18 16:08> Course <Lesa Bah - Last Filed: 01/04/18 16:08> <Elroy Hussein - Last Filed: 01/07/18 09:18> Vital Signs 01/04/18 01/04/18 01/04/18 11:25 13:36 15:15 Temperature 96.4 F L 96.9 F L Pulse Rate 71 78 82 Pulse Rate [ Pulse Oximetery ] Respiratory 18 18 16 Rate Blood Pressure 119/61 99/70 108/70 Blood Pressure [Right Arm Sitting] O2 Sat by Pulse 99 99 100 Oximetry 01/04/18 01/04/18 01/04/18 16:44 17:10 18:00 Temperature 96.7 F L 98.3 F Pulse Rate 87 82 Pulse Rate [ 91 Pulse Oximetery ] Respiratory 16 19 16 Rate Blood Pressure 113/73 115/83 Blood Pressure 116/65 [Right Arm Sitting] O2 Sat by Pulse 99 99 98 Oximetry - Reevaluation(s) Reevaluation #1: 01/04/18 1445 Patient had episode of acute dyspnea and shortness of breath. The patient is gasping for air, color was red. Oxygen saturation maintained at 100% on 2 L. Patient stated that he felt like he couldn't breathe and was going to . Vitals stable. Repeat EKG will be obtained. (Lesa Bah) Medical Decision Making - Lab Data Result diagrams: 01/04/18 12:05 01/04/18 12:05 - EKG Data -: EKG Interpreted by Hi - Radiology Data Radiology results: report reviewed, image reviewed <Lesa Bah - Last Filed: 01/04/18 16:08> - Lab Data Result diagrams: 01/06/18 08:02 01/07/18 07:38 <Elroy Hussein - Last Filed: 01/07/18 09:18> - Medical Decision Making 82-year-old male patient presented to the emergency department today for evaluation of acute episodes of dyspnea and concerns for abdominal pain. Physical examination did reveal a cholecystostomy drain to the right lower quadrant with surrounding ecchymosis but no tenderness. There were crackles at the bilateral bases posteriorly. Labs reviewed and did show a hemoglobin of 12.6, PT 12.7, INR 1.4, BUN was 31. Glucose 216, lactic acid was 2.3 alk phos 258. Initial EKG showed evidence of atrial fibrillation with T-wave inversion in V5 and V6, patient had an episode of dyspnea and shortness of breath EKG was repeated showed afib with RVR with normalization of the T-waves in v5 and v6. Chest x-ray showed pulmonary vascular congestion and possible infiltrate in the retrocardiac space. Patient's d-dimer was 0.78, given patient's age this is felt to be normal. Given patient's dynamic EKG changes, elevation of the lactic acid, and evidence of possible pneumonia on XR we will admit to the hospital. We will give 1 dose of IV antibiotics here in the ER. Dr. Garcia is accepting. (Lesa Bah) I saw this patient in conjunction with the physician drug safety assistant. I performed independent history and physical exam. Agree with case management. (Elroy Hussein) - Lab Data Lab Results 01/04/18 01/04/18 01/04/18 Range/Units 12:05 12:05 12:05 WBC 10.3 (3.8-10.6) k/uL RBC 4.73 (4.30-5.90) m/uL Hgb 12.6 L (13.0-17.5) gm/dL Hct 40.2 (39.0-53.0) % MCV 85.2 (80.0-100.0) fL MCH 26.7 (25.0-35.0) pg MCHC 31.4 (31.0-37.0) g/dL RDW 17.6 H (11.5-15.5) % Plt Count 384 (150-450) k/uL Neutrophils % 80 % Lymphocytes % 10 % Monocytes % 7 % Eosinophils % 2 % Basophils % 0 % Neutrophils # 8.2 H (1.3-7.7) k/uL Lymphocytes # 1.1 (1.0-4.8) k/uL Monocytes # 0.7 (0-1.0) k/uL Eosinophils # 0.2 (0-0.7) k/uL Basophils # 0.0 (0-0.2) k/uL Hypochromasia Slight Anisocytosis Slight PT (9.0-12.0) sec INR (<1.2) APTT (22.0-30.0) sec D-Dimer (<0.60) mg/L FEU Sodium 143 (137-145) mmol/L Potassium 4.7 (3.5-5.1) mmol/L Chloride 104 (98-107) mmol/L Carbon Dioxide 24 (22-30) mmol/L Anion Gap 15 mmol/L BUN 31 H (9-20) mg/dL Creatinine 1.01 (0.66-1.25) mg/dL Est GFR (CKD-EPI)AfAm 80 (>60 ml/min/1.73 sqM) Est GFR (CKD-EPI)NonAf 70 (>60 ml/min/1.73 sqM) Glucose 216 H (74-99) mg/dL Lactic Ac Sepsis Rflx Plasma Lactic Acid [place] 2.3 H* (0.7-2.0) mmol/L Calcium 9.4 (8.4-10.2) mg/dL Total Bilirubin 0.8 (0.2-1.3) mg/dL AST 27 (17-59) U/L ALT 33 (21-72) U/L Alkaline Phosphatase 258 H (38-126) U/L Total Creatine Kinase (55-170) U/L CK-MB (CK-2) (0.0-2.4) ng/mL CK-MB (CK-2) Rel Index Troponin I (0.000-0.034) ng/mL Total Protein 5.6 L (6.3-8.2) g/dL Albumin 3.4 L (3.5-5.0) g/dL Amylase 43 (30-110) U/L Lipase 161 (23-300) U/L Urine Color Urine Appearance (Clear) Urine pH (5.0-8.0) Ur Specific [place] (1.001-1.035) Urine Protein (Negative) Urine Glucose (UA) (Negative) Urine Ketones (Negative) Urine Blood (Negative) Urine Nitrite (Negative) Urine Bilirubin (Negative) Urine Urobilinogen (<2.0) mg/dL Ur Leukocyte Esterase (Negative) Influenza Type A RNA (Not Detectd) Influenza Type B (PCR) (Not Detectd) 01/04/18 01/04/18 01/04/18 Range/Units 12:05 12:05 12:39 WBC (3.8-10.6) k/uL RBC (4.30-5.90) m/uL Hgb (13.0-17.5) gm/dL Hct (39.0-53.0) % MCV (80.0-100.0) fL MCH (25.0-35.0) pg MCHC (31.0-37.0) g/dL RDW (11.5-15.5) % Plt Count (150-450) k/uL Neutrophils % % Lymphocytes % % Monocytes % % Eosinophils % % Basophils % % Neutrophils # (1.3-7.7) k/uL Lymphocytes # (1.0-4.8) k/uL Monocytes # (0-1.0) k/uL Eosinophils # (0-0.7) k/uL Basophils # (0-0.2) k/uL Hypochromasia Anisocytosis PT 12.7 H (9.0-12.0) sec INR 1.4 H (<1.2) APTT 22.7 (22.0-30.0) sec D-Dimer 0.78 H (<0.60) mg/L FEU Sodium (137-145) mmol/L Potassium (3.5-5.1) mmol/L Chloride (98-107) mmol/L Carbon Dioxide (22-30) mmol/L Anion Gap mmol/L BUN (9-20) mg/dL Creatinine (0.66-1.25) mg/dL Est GFR (CKD-EPI)AfAm (>60 ml/min/1.73 sqM) Est GFR (CKD-EPI)NonAf (>60 ml/min/1.73 sqM) Glucose (74-99) mg/dL Lactic Ac Sepsis Rflx Y Plasma Lactic Acid [place] (0.7-2.0) mmol/L Calcium (8.4-10.2) mg/dL Total Bilirubin (0.2-1.3) mg/dL AST (17-59) U/L ALT (21-72) U/L Alkaline Phosphatase (38-126) U/L Total Creatine Kinase 32 L (55-170) U/L CK-MB (CK-2) 0.2 (0.0-2.4) ng/mL CK-MB (CK-2) Rel Index 0.6 Troponin I 0.018 (0.000-0.034) ng/mL Total Protein (6.3-8.2) g/dL Albumin (3.5-5.0) g/dL Amylase (30-110) U/L Lipase (23-300) U/L Urine Color Urine Appearance (Clear) Urine pH (5.0-8.0) Ur Specific [place] (1.001-1.035) Urine Protein (Negative) Urine Glucose (UA) (Negative) Urine Ketones (Negative) Urine Blood (Negative) Urine Nitrite (Negative) Urine Bilirubin (Negative) Urine Urobilinogen (<2.0) mg/dL Ur Leukocyte Esterase (Negative) Influenza Type A RNA (Not Detectd) Influenza Type B (PCR) (Not Detectd) 01/04/18 01/04/18 Range/Units 14:40 14:46 WBC (3.8-10.6) k/uL RBC (4.30-5.90) m/uL Hgb (13.0-17.5) gm/dL Hct (39.0-53.0) % MCV (80.0-100.0) fL MCH (25.0-35.0) pg MCHC (31.0-37.0) g/dL RDW (11.5-15.5) % Plt Count (150-450) k/uL Neutrophils % % Lymphocytes % % Monocytes % % Eosinophils % % Basophils % % Neutrophils # (1.3-7.7) k/uL Lymphocytes # (1.0-4.8) k/uL Monocytes # (0-1.0) k/uL Eosinophils # (0-0.7) k/uL Basophils # (0-0.2) k/uL Hypochromasia Anisocytosis PT (9.0-12.0) sec INR (<1.2) APTT (22.0-30.0) sec D-Dimer (<0.60) mg/L FEU Sodium (137-145) mmol/L Potassium (3.5-5.1) mmol/L Chloride (98-107) mmol/L Carbon Dioxide (22-30) mmol/L Anion Gap mmol/L BUN (9-20) mg/dL Creatinine (0.66-1.25) mg/dL Est GFR (CKD-EPI)AfAm (>60 ml/min/1.73 sqM) Est GFR (CKD-EPI)NonAf (>60 ml/min/1.73 sqM) Glucose (74-99) mg/dL Lactic Ac Sepsis Rflx Plasma Lactic Acid [place] (0.7-2.0) mmol/L Calcium (8.4-10.2) mg/dL Total Bilirubin (0.2-1.3) mg/dL AST (17-59) U/L ALT (21-72) U/L Alkaline Phosphatase (38-126) U/L Total Creatine Kinase (55-170) U/L CK-MB (CK-2) (0.0-2.4) ng/mL CK-MB (CK-2) Rel Index Troponin I (0.000-0.034) ng/mL Total Protein (6.3-8.2) g/dL Albumin (3.5-5.0) g/dL Amylase (30-110) U/L Lipase (23-300) U/L Urine Color Yellow Urine Appearance Clear (Clear) Urine pH 5.5 (5.0-8.0) Ur Specific [place] 1.043 H (1.001-1.035) Urine Protein Trace H (Negative) Urine Glucose (UA) Negative (Negative) Urine Ketones Negative (Negative) Urine Blood Negative (Negative) Urine Nitrite Negative (Negative) Urine Bilirubin Negative (Negative) Urine Urobilinogen <2.0 (<2.0) mg/dL Ur Leukocyte Esterase Negative (Negative) Influenza Type A RNA Not Detected (Not Detectd) Influenza Type B (PCR) Not Detected (Not Detectd) - EKG Data EKG Comments: EKG #1 obtained at 1140 shows atrial fibrillation with T-wave inversion in V5 and V6. No evidence of ST elevation or depression. Ventricular rate is 75, QRS duration 110, QT 408, QTC 455. EKG #2 obtained at 1449 shows a chill fibrillation with RVR. There is normalization of T waves in V5 and V6 at this time. Again no evidence of ST elevation or depression. Ventricular rate is 103, QRS duration 104, QT 348, QTC 455. (Leas Bah) - Radiology Data Two-view x-ray of the chest shows opacity at the right lung bases appear similar to previous study. There is a portable cardiac device with 1 L noted. No pneumothorax is identified. There is retrocardiac opacity which could be pneumonia or atelectasis. Impression by Dr. Guerin shows right lung base opacity does not appear significant change. There is also a retrocardiac opacity which could be atelectasis or pneumonia. CT of the abdomen and pelvis was obtained with contrast. Report was reviewed in its entirety. Impression by Dr. Bojorquez shows bilateral pleural effusions, cardiomegaly, fatty infiltration of the liver, indeterminate lesions within the kidneys, status post cholecystostomy, and comp acute diverticulosis of the left side of the colon, degenerative changes within the spine. (Lesa Bah) Disposition Decision to Admit Reason: Admit from EC Decision Date: 01/04/18 Decision Time: 16:09 <Lesa Bah - Last Filed: 01/04/18 16:08> <Elroy Hussein - Last Filed: 01/07/18 09:18> Clinical Impression: Dyspnea, Lactic acidosis, Pneumonia, Abdominal pain Disposition: ADMITTED IP TO THIS [facility] Condition: Serious
[2018-01-04] MEDS ORDERED: NALOXONE 0.4 MG/ML 1 ML VIAL IV PRN (16:02)
[2018-01-04] MEDS ORDERED: LEVOFLOXACIN 750MG-D5W PMX 750 MG in DEXTROSE/WATER 1 150ML.BAG IVPB STA (16:06)
[2018-01-04] MEDS ORDERED: CEFEPIME 2 GM in SODIUM CHLORIDE 0.9% 50 ML IVPB STA (16:08)
[2018-01-04] MEDS ORDERED: SODIUM CHLORIDE 0.9% 1,000 ML IV SCH (16:15)
[2018-01-04] MEDS ORDERED: MELATONIN 3 MG TABLET PO PRN (19:17)
[2018-01-04] MEDS ORDERED: NITROGLYCERIN SL TABS 0.4 MG TAB SUBLINGUAL PRN (19:17)
[2018-01-04] MEDS ORDERED: ALBUTEROL INHALER 60 PUFF/8 GM INHALER INHALATION PRN (19:17)
[2018-01-04] MEDS ORDERED: ALBUTEROL NEBULIZED 2.5 MG/3 ML INHALATION PRN (19:17)
[2018-01-04] MEDS ORDERED: guaiFENesin SYRUP 100MG/5ML 200 MG/10 ML CUP PO PRN (19:17)
[2018-01-04] MEDS ORDERED: BISACODYL 10 MG SUPP RECTAL PRN (19:17)
[2018-01-04] MEDS ORDERED: POLYETHYLENE GLYCOL 3350 17 GM POWD.PACK PO PRN (19:17)
--- NOTE | 2018-01-04 19:31 | P.HPIM ---
History of Present Illness 82-year-old the male was sent in from [facility] after he complained of shortness of breath patient does have history of congestive heart failure COPD unsure whether he uses solids and at the [facility] patient says he has been using oxygen 3 L for last few days. Patient does have history of and start failure chronic systolic dysfunction ejection fraction of around 40% does have chronic other medical problems including atrial fibrillation not on anti- correlation because of his previous GI bleeds. Is comparing of cough with minimal sputum production although doesn't have any fever no leukocytosis patient is admitted for possible pneumonia was given a dose of levofloxacin but patient CAT scan did not show any right lower lobe infiltrate with air bronchogram there is some nonspecific infiltrate in the right lower lobe bilateral pleural effusions. Patient does not have any significantly elevated JVD. Patient was recently discharged from the hospital and was transferred to [facility] for cholecystitis sepsis and biliary drain placement patient is a biliary drain that is working well drains 8 site is clean. Patient will be admitted and treated for CHF with IV Lasix. Review of Systems REVIEW OF SYSTEMS: CONSTITUTIONAL: No fever, no malaise, no fatigue. HEENT: No recent visual problems or hearing problems. Denied any sore throat. CARDIOVASCULAR: No chest pain, orthopnea, PND, no palpitations, no syncope. PULMONARY:no hemoptysis. GASTROINTESTINAL: No diarrhea, no nausea, no vomiting, no abdominal pain. Normoactive bowel sounds. NEUROLOGICAL: No headaches, no weakness, no numbness. HEMATOLOGICAL: Denies any bleeding or petechiae. GENITOURINARY: Denies any burning micturition, frequency, or urgency. MUSCULOSKELETAL/RHEUMATOLOGICAL: Denies any joint pain, swelling, or any muscle pain. ENDOCRINE: Denies any polyuria or polydipsia. The rest of the 14-point review of systems is negative. Past Medical History Past Medical History: Atrial Fibrillation, Coronary Artery Disease (CAD), Chest Pain / Angina, Heart Failure, COPD, CVA/TIA, Diabetes Mellitus, GERD/Reflux, GI Bleed, Hyperlipidemia, Hypertension, Myocardial Infarction ([place]), Pneumonia, Vascular Disorder Additional Past Medical History / Comment(s): Occasional difficulty with swallowing, recurrent urinary tract infection,"several mi's" Last Myocardial Infarction Date:: 06/16/17 History of Any Multi-Drug Resistant Organisms: ESBL Date of last positivie culture/infection: 06/28/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 Past Anesthesia/Blood Transfusion Reactions: No Reported Reaction Additional Past Anesthesia/Blood Transfusion Reaction / Comment(s): HAD BLOOD TRANSFUSION without reaction. Date of Last Stent Placement:: 06/16/17 Type of Cardiac Device: AICD Device Placement Date:: 2014 Past Psychological History: No Psychological Hx Reported Smoking Status: Never smoker Past Alcohol Use History: None Reported Past Drug Use History: None Reported - Past Family History Daughter(s) Family Medical History: Cancer Mother Family Medical History: Cancer Additional Family Medical History / Comment(s): . Father Family Medical History: Diabetes Mellitus Medications and Allergies Home Medications Medication Instructions Recorded Confirmed Type Nitroglycerin Sl Tabs [Nitrostat] 0.4 mg SUBLINGUAL Q5M PRN 07/15/14 01/04/18 History Omeprazole [PriLOSEC] 20 mg PO BID 11/25/14 01/04/18 History Clopidogrel [Plavix] 75 mg PO DAILY 12/02/14 01/04/18 History Isosorbide Mononitrate ER [Imdur] 60 mg PO DAILY 08/28/15 01/04/18 History Tiotropium [place] [Spiriva] 1 cap INHALATION RT-DAILY 08/28/15 01/04/18 History Aspirin [Adult Low Dose Aspirin EC] 81 mg PO DAILY 08/29/15 01/04/18 History Albuterol Inhaler [Ventolin Hfa 1 puff INHALATION RT-Q6H PRN 04/24/17 01/04/18 History Inhaler] Albuterol Nebulized [Ventolin 2.5 mg INHALATION RT-Q6H PRN 06/16/17 01/04/18 History Nebulized] Atorvastatin [Lipitor] 80 mg PO HS 08/26/17 01/04/18 History Furosemide [Lasix] 40 mg PO DAILY 08/26/17 01/04/18 History Acetaminophen Tab [Tylenol Tab] 500 mg PO Q8H PRN 01/04/18 01/04/18 History Bisacodyl [Dulcolax] 10 mg RECTAL DAILY PRN 01/04/18 01/04/18 History Ferrous Sulfate [Feosol] 325 mg PO DAILY 01/04/18 01/04/18 History Fluticasone Nasal [place] [Flonase 1 spray EA NOSTRIL DAILY 01/04/18 01/04/18 History Nasal [place]] INSULIN LISPRO (HumaLOG) [humaLOG] See Protocol SQ HS 01/04/18 01/04/18 History Insulin Glargine,Hum.rec.anlog See Protocol SQ AC-TID 01/04/18 01/04/18 History [Lantus Solostar] Melatonin 3 mg PO HS PRN 01/04/18 01/04/18 History Metoprolol Tartrate [Lopressor] 100 mg PO DAILY 01/04/18 01/04/18 History Polyethylene Glycol 3350 [Miralax] 17 gm PO Q4H PRN 01/04/18 01/04/18 History Sennosides-Docusate Sodium 1 tab PO DAILY 01/04/18 01/04/18 History [Senokot-S] guaiFENesin [guaiFENesin Oral 200 mg PO Q4H PRN 01/04/18 01/04/18 History Solution] Allergies Allergy/AdvReac Type Severity Reaction Status Date / Time Penicillins Allergy Severe Rash/Hives Verified 01/04/18 16:23 rivaroxaban [From Xarelto] Allergy GI bleed Verified 01/04/18 16:23 ropinirole HCl [From Requip] Allergy Unknown Verified 01/04/18 16:23 sulfamethoxazole AdvReac Hallucinati Verified 01/04/18 16:23 [From Bactrim] ons trimethoprim [From Bactrim] AdvReac Hallucinati Verified 01/04/18 16:23 ons Physical Exam Vitals: Vital Signs Temp Pulse Pulse Resp BP BP Pulse Ox 01/04/18 19:00 89 16 101/60 100 01/04/18 18:00 98.3 F 82 16 115/83 98 01/04/18 16:44 87 16 113/73 99 01/04/18 15:15 82 16 108/70 100 01/04/18 13:36 96.9 F L 78 18 99/70 99 01/04/18 11:25 96.4 F L 71 18 119/61 99 Intake and Output 01/04/18 01/04/18 01/04/18 06:59 14:59 22:59 Intake Total 360 Balance 360 Intake: Oral 360 Other: Weight 73.936 kg PHYSICAL EXAMINATION: GENERAL: The patient is alert and oriented x3, not in any acute distress. Well developed, well nourished. HEENT: Pupils are round and equally reacting to light. EOMI. No scleral icterus. No conjunctival pallor. Normocephalic, atraumatic. No pharyngeal erythema. No thyromegaly. CARDIOVASCULAR: S1 and S2 present. No murmurs, rubs, or gallops. No JVD is on 2 L of oxygen PULMONARY: Chest is clear to auscultation, no wheezing or crackles. ABDOMEN: Soft, nontender, nondistended, normoactive bowel sounds. No palpable organomegaly. She does have a biliary drain. Drain insertion site is clean patient has serosanguineous drainage from the biliary drain MUSCULOSKELETAL: No joint swelling or deformity. EXTREMITIES: No cyanosis, clubbing, or pedal edema. NEUROLOGICAL: Gross neurological examination did not reveal any focal deficits. SKIN: No rashes. Results CBC & Chem 7: 01/04/18 12:05 01/04/18 12:05 Labs: Abnormal Lab Results - Last 24 Hours (Table) 01/04/18 01/04/18 01/04/18 Range/Units 12:05 12:05 12:05 Hgb 12.6 L (13.0-17.5) gm/dL RDW 17.6 H (11.5-15.5) % Neutrophils # 8.2 H (1.3-7.7) k/uL PT (9.0-12.0) sec INR (<1.2) D-Dimer (<0.60) mg/L FEU BUN 31 H (9-20) mg/dL Glucose 216 H (74-99) mg/dL Plasma Lactic Acid [place] 2.3 H* (0.7-2.0) mmol/L Alkaline Phosphatase 258 H (38-126) U/L Total Creatine Kinase (55-170) U/L Total Protein 5.6 L (6.3-8.2) g/dL Albumin 3.4 L (3.5-5.0) g/dL Ur Specific [place] (1.001-1.035) Urine Protein (Negative) 01/04/18 01/04/18 01/04/18 Range/Units 12:05 12:05 14:40 Hgb (13.0-17.5) gm/dL RDW (11.5-15.5) % Neutrophils # (1.3-7.7) k/uL PT 12.7 H (9.0-12.0) sec INR 1.4 H (<1.2) D-Dimer 0.78 H (<0.60) mg/L FEU BUN (9-20) mg/dL Glucose (74-99) mg/dL Plasma Lactic Acid [place] (0.7-2.0) mmol/L Alkaline Phosphatase (38-126) U/L Total Creatine Kinase 32 L (55-170) U/L Total Protein (6.3-8.2) g/dL Albumin (3.5-5.0) g/dL Ur Specific [place] 1.043 H (1.001-1.035) Urine Protein Trace H (Negative) Assessment and Plan Plan: -Shortness of breath and possible acute hypoxic respiratory failure probably secondary to congestive heart failure exacerbation chronic systolic dysfunction with acute exacerbation patient was started on Lasix basic metabolic profile testing tomorrow. My suspicion is extremely low that patient has pneumonia antibiotics will be discontinued. -Recent cholecystitis with biliary drain in place -COPD without any acute exacerbation patient will be resumed on his inhalational treatments will not require any systemic steroids at this time. -History of atrial fibrillation rate controlled at this time. Not on anti- correlation because of his previous GI bleeds patient has chronic A. fib -Hypertension -hyperlipidemia -Type 2 diabetes mellitus -CVA in the past -Peripheral vascular disease For above-mentioned chronic medical problems patient will be resumed and continued on appropriate home medications.
[2018-01-04 20:46] VITALS: BMI 24.0
[2018-01-04 20:54] LABS: Glucose,Whole Blood 188 mg/dL (75-99)
[2018-01-04] MEDS: PANTOPRAZOLE 40 MG TABLET PO SCH (21:31)
[2018-01-04] MEDS: FUROSEMIDE 10 MG/ML 4 ML VIAL IV SCH (21:31)
[2018-01-04] MEDS: ATORVASTATIN 80 MG TAB PO SCH (21:31)
[2018-01-04] MEDS: ALPRAZolam 0.25 MG TAB PO PRN (23:13)
[2018-01-05 05:44] LABS: Glucose,Whole Blood 160 mg/dL (75-99)
[2018-01-05 06:03] LABS: Anisocytosis Slight; Basophils # (A) 0.1 k/uL (0-0.2); Basophils % (A) 0 %; Eosinophils # (A) 0.2 k/uL (0-0.7); Eosinophils % (A) 1 %; HCT 41.1 % (39.0-53.0); Hypochromasia Moderate; Lymphocytes # (A) 1.2 k/uL (1.0-4.8); Lymphocytes % (A) 7 %; MCH 27.8 pg (25.0-35.0); MCHC 31.6 g/dL (31.0-37.0); MCV 88.1 fL (80.0-100.0); Mean Platelet Volume 8.5; Monocytes % (A) 6 %; Neutrophils # (A) 15.2 k/uL (1.3-7.7); Neutrophils % (A) 86 %; Platelet Count 338 k/uL (150-450); RBC 4.66 m/uL (4.30-5.90); RDW 17.4 % (11.5-15.5); WBC 17.7 k/uL (3.8-10.6)
[2018-01-05 06:18] LABS: ALT 30 U/L (21-72); AST 18 U/L (17-59); Albumin 3.3 g/dL (3.5-5.0); Alkaline Phosphatase 241 U/L (38-126); Anion Gap 14 mmol/L; Blood Urea Nitrogen 27 mg/dL (9-20); Calcium 9.4 mg/dL (8.4-10.2); Carbon Dioxide 22 mmol/L (22-30); Chloride 106 mmol/L (98-107); Glucose 161 mg/dL (74-99); Potassium 4.3 mmol/L (3.5-5.1); Sodium 142 mmol/L (137-145); Total Protein 5.8 g/dL (6.3-8.2)
[2018-01-05] MEDS: INSULIN ASPART 100 UNIT/ML 1 ML 10 ML VIAL SQ SCH ×4 (06:38→22:51)
[2018-01-05] MEDS: PANTOPRAZOLE 40 MG TABLET PO SCH ×2 (06:38→17:30)
[2018-01-05] MEDS: IPRATROPIUM 0.5 MG/2.5 ML NEBU INHALATION SCH ×4 (08:35→19:41)
--- NOTE | 2018-01-05 08:43 | P.CRDCN ---
History of Present Illness Consult date: 01/05/18 Requesting physician: Marielle Garcia Consult reason: atrial fibrillation Chief complaint: Abdominal pain History of present illness: This is an 82-year-old gentleman who follows with Dr. Harris in the office. He has known history of coronary artery disease with prior stent placements, most recent stent was placed to the ramus intermediate coronary artery in June 2017. 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 Most recent echocardiogram with Doppler study was performed in September 2017 revealed severely decreased systolic function with an ejection fraction of 35%. He underwent a Lexiscan stress test November 25 for preoperative evaluation which revealed an abnormal nuclear scan showing ischemic cardio myopathy with severe LV dysfunction no reversible perfusion defects at that time. Patient was recently at [facility] for cholecystitis and sepsis, he had a biliary drain placed there at that time, no surgery was performed according to the patient. He presents here with symptoms of severe abdominal pain which he states has been constant over the past few days. He also states that he's been more short of breath than usual requiring more oxygen use at the extended care facility. CAT scan of the abdomen and pelvis was performed which revealed bilateral pleural effusions, cardiomegaly, fatty infiltration of the liver, determinant lesions within the kidneys, status post brianna cystostomy. Chest x- ray was performed which revealed a right lung opacity which did not appear to be changed from prior. EKG on arrival showed atrial fibrillation with nonspecific ST-T wave changes in the lateral leads. Rate is controlled. Blood pressure 108/78, heart rate in the 60s, afebrile, 97% on 2 L of oxygen. White blood cell count this morning 17.7, 10.3 on admission, hemoglobin 13, platelet count 338. D-dimer 0.7, sodium 142, potassium 4.3, chloride 106, BUN 27, creatinine 0.9. Troponins 0.018, 0.018, 0.033. Influenza A and B are negative. AST and ALT normal, alk phos 258 yesterday, 241 this morning. At the time of my examination this morning, patient denies any shortness of breath , he does complain of significant right upper quadrant tenderness at the site of his brianna tube. Past Medical History Past Medical History: Atrial Fibrillation, Coronary Artery Disease (CAD), Chest Pain / Angina, Heart Failure, COPD, CVA/TIA, Diabetes Mellitus, GERD/Reflux, GI Bleed, Hyperlipidemia, Hypertension, Myocardial Infarction ([place]), Pneumonia, Vascular Disorder Additional Past Medical History / Comment(s): Occasional difficulty with swallowing, recurrent urinary tract infection,"several mi's" Last Myocardial Infarction Date:: 06/16/17 History of Any Multi-Drug Resistant Organisms: ESBL Date of last positivie culture/infection: 06/28/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 Past Anesthesia/Blood Transfusion Reactions: No Reported Reaction Additional Past Anesthesia/Blood Transfusion Reaction / Comment(s): HAD BLOOD TRANSFUSION without reaction. Date of Last Stent Placement:: 06/16/17 Type of Cardiac Device: AICD Device Placement Date:: 2014 Past Psychological History: No Psychological Hx Reported Smoking Status: Never smoker Past Alcohol Use History: None Reported Past Drug Use History: None Reported - Past Family History Daughter(s) Family Medical History: Cancer Mother Family Medical History: Cancer Additional Family Medical History / Comment(s): . Father Family Medical History: Diabetes Mellitus Medications and Allergies Home Medications Medication Instructions Recorded Confirmed Type Nitroglycerin Sl Tabs [Nitrostat] 0.4 mg SUBLINGUAL Q5M PRN 07/15/14 01/04/18 History Omeprazole [PriLOSEC] 20 mg PO BID 11/25/14 01/04/18 History Clopidogrel [Plavix] 75 mg PO DAILY 12/02/14 01/04/18 History Isosorbide Mononitrate ER [Imdur] 60 mg PO DAILY 08/28/15 01/04/18 History Tiotropium [place] [Spiriva] 1 cap INHALATION RT-DAILY 08/28/15 01/04/18 History Aspirin [Adult Low Dose Aspirin EC] 81 mg PO DAILY 08/29/15 01/04/18 History Albuterol Inhaler [Ventolin Hfa 1 puff INHALATION RT-Q6H PRN 04/24/17 01/04/18 History Inhaler] Albuterol Nebulized [Ventolin 2.5 mg INHALATION RT-Q6H PRN 06/16/17 01/04/18 History Nebulized] Atorvastatin [Lipitor] 80 mg PO HS 08/26/17 01/04/18 History Furosemide [Lasix] 40 mg PO DAILY 08/26/17 01/04/18 History Acetaminophen Tab [Tylenol Tab] 500 mg PO Q8H PRN 01/04/18 01/04/18 History Bisacodyl [Dulcolax] 10 mg RECTAL DAILY PRN 01/04/18 01/04/18 History Ferrous Sulfate [Feosol] 325 mg PO DAILY 01/04/18 01/04/18 History Fluticasone Nasal [place] [Flonase 1 spray EA NOSTRIL DAILY 01/04/18 01/04/18 History Nasal [place]] INSULIN LISPRO (HumaLOG) [humaLOG] See Protocol SQ HS 01/04/18 01/04/18 History Insulin Glargine,Hum.rec.anlog See Protocol SQ AC-TID 01/04/18 01/04/18 History [Lantus Solostar] Melatonin 3 mg PO HS PRN 01/04/18 01/04/18 History Metoprolol Tartrate [Lopressor] 100 mg PO DAILY 01/04/18 01/04/18 History Polyethylene Glycol 3350 [Miralax] 17 gm PO Q4H PRN 01/04/18 01/04/18 History Sennosides-Docusate Sodium 1 tab PO DAILY 01/04/18 01/04/18 History [Senokot-S] guaiFENesin [guaiFENesin Oral 200 mg PO Q4H PRN 01/04/18 01/04/18 History Solution] Allergies Allergy/AdvReac Type Severity Reaction Status Date / Time Penicillins Allergy Severe Rash/Hives Verified 01/04/18 16:23 rivaroxaban [From Xarelto] Allergy GI bleed Verified 01/04/18 16:23 ropinirole HCl [From Requip] Allergy Unknown Verified 01/04/18 16:23 sulfamethoxazole AdvReac Hallucinati Verified 01/04/18 16:23 [From Bactrim] ons trimethoprim [From Bactrim] AdvReac Hallucinati Verified 01/04/18 16:23 ons Physical Exam Vitals: Vital Signs Temp Pulse Pulse Pulse Resp BP BP 01/05/18 03:45 96.9 F L 65 18 107/77 01/05/18 00:00 97.0 F L 75 20 146/98 01/04/18 20:00 96.7 F L 91 19 116/65 01/04/18 19:00 89 16 101/60 01/04/18 18:00 98.3 F 82 16 115/83 01/04/18 17:10 96.7 F L 91 19 116/65 01/04/18 16:44 87 16 113/73 01/04/18 15:15 82 16 108/70 01/04/18 13:36 96.9 F L 78 18 99/70 01/04/18 11:25 96.4 F L 71 18 119/61 Pulse Ox 01/05/18 03:45 97 01/05/18 00:00 98 01/04/18 20:00 99 01/04/18 19:00 100 01/04/18 18:00 98 01/04/18 17:10 99 01/04/18 16:44 99 01/04/18 15:15 100 01/04/18 13:36 99 01/04/18 11:25 99 Intake and Output 01/04/18 01/05/18 01/05/18 22:59 06:59 14:59 Intake Total 360 600 60 Output Total 900 Balance 360 -300 60 Intake: Intake, IV Titration 600 Amount Cefepime 2 gm In Sodium 100 Chloride 0.9% 50 ml @ 100 mls/hr IVPB ONCE STA Rx# :[id number] Levofloxacin 750Mg-D5w 100 Pmx 750 mg In Dextrose/ Water 1 150ml.bag @ 100 mls/hr IVPB ONCE STA Rx#: [id number] Sodium Chloride 0.9% 1, 400 000 ml @ 50 mls/hr IV . Q20H MACIEL Rx#:[id number] Oral 360 60 Output: Gastric Drainage 100 Urine 800 Other: Voiding Method Urinal Urinal # Voids 1 Weight 74 kg 72.5 kg PHYSICAL EXAMINATION: HEENT: Head is atraumatic, normocephalic. Pupils equal, round. Neck is supple. There is no elevated jugular venous pressure. HEART EXAMINATION: Heart S1 and S2 systolic murmur is heard. CHEST EXAMINATION: Lungs reveal some fine wheezing with crackles to the bases. ABDOMEN: Soft, positive tenderness in the right upper quadrant . Bowel sounds are heard. No organomegaly noted.brianna drain tube in place EXTREMITIES: 2+ peripheral pulses with no evidence of peripheral edema and no calf tenderness noted. NEUROLOGIC patient is awake, alert and oriented -3. . Results 01/05/18 05:48 01/05/18 05:48 Cardiac Enzymes 01/04/18 01/04/18 01/04/18 Range/Units 12:05 12:05 18:26 AST 27 (17-59) U/L CK-MB (CK-2) 0.2 (0.0-2.4) ng/mL Troponin I 0.018 0.018 (0.000-0.034) ng/mL 01/05/18 01/05/18 Range/Units 00:31 05:48 AST 18 (17-59) U/L CK-MB (CK-2) (0.0-2.4) ng/mL Troponin I 0.033 (0.000-0.034) ng/mL Coagulation 01/04/18 Range/Units 12:05 PT 12.7 H (9.0-12.0) sec APTT 22.7 (22.0-30.0) sec CBC 01/04/18 01/05/18 Range/Units 12:05 05:48 WBC 10.3 17.7 H (3.8-10.6) k/uL RBC 4.73 4.66 (4.30-5.90) m/uL Hgb 12.6 L 13.0 (13.0-17.5) gm/dL Hct 40.2 41.1 (39.0-53.0) % Plt Count 384 338 (150-450) k/uL Comprehensive Metabolic Panel 01/04/18 01/05/18 Range/Units 12:05 05:48 Sodium 143 142 (137-145) mmol/L Potassium 4.7 4.3 (3.5-5.1) mmol/L Chloride 104 106 (98-107) mmol/L Carbon Dioxide 24 22 (22-30) mmol/L BUN 31 H 27 H (9-20) mg/dL Creatinine 1.01 0.90 (0.66-1.25) mg/dL Glucose 216 H 161 H (74-99) mg/dL Calcium 9.4 9.4 (8.4-10.2) mg/dL AST 27 18 (17-59) U/L ALT 33 30 (21-72) U/L Alkaline Phosphatase 258 H 241 H (38-126) U/L Total Protein 5.6 L 5.8 L (6.3-8.2) g/dL Albumin 3.4 L 3.3 L (3.5-5.0) g/dL Current Medications Generic Name Dose Route Start Last Admin Trade Name Freq PRN Reason Stop Dose Admin Acetaminophen 500 mg 01/04/18 19:17 Tylenol Tab PO Q8H PRN Mild Pain Albuterol Sulfate 2.5 mg 01/04/18 19:17 Ventolin Nebulized INHALATION RT-Q6H PRN Shortness Of Breath Alprazolam 0.25 mg 01/04/18 22:49 01/04/18 23:13 Xanax PO 0.25 mg QID PRN Administration Anxiety Aspirin 81 mg 01/05/18 09:00 Aspirin PO DAILY [facility] Atorvastatin Calcium 80 mg 01/04/18 21:00 01/04/18 21:31 Lipitor PO 80 mg HS [facility] Administration Bisacodyl 10 mg 01/04/18 19:17 Dulcolax RECTAL DAILY PRN Constipation Clopidogrel Bisulfate 75 mg 01/05/18 09:00 Plavix PO DAILY [facility] Ferrous Sulfate 325 mg 01/05/18 12:00 Feosol PO 1200 [facility] Fluticasone Propionate 1 spray 01/05/18 09:00 Flonase Nasal [place] EA NOSTRIL DAILY [facility] Furosemide 40 mg 01/04/18 21:00 01/04/18 21:31 Lasix IV 40 mg Q12HR MACIEL Administration Guaifenesin 200 mg 01/04/18 19:17 Robitussin PO Q4H PRN Cough Insulin Aspart 0 unit 01/05/18 07:30 01/05/18 06:38 Novolog SQ 1 unit ACHS [facility] Administration Protocol Ipratropium [place] 0.5 mg 01/05/18 08:00 Atrovent Nebulized INHALATION RT-QID [facility] Isosorbide Mononitrate 60 mg 01/05/18 09:00 Imdur PO DAILY [facility] Melatonin 3 mg 01/04/18 19:17 Melatonin PO HS PRN Insomnia Metoprolol Tartrate 100 mg 01/05/18 09:00 Lopressor PO DAILY MACIEL Miscellaneous Information 1 each 01/04/18 12:00 01/04/18 15:14 Rx Info: Iv Contrast Was Given MISCELLANE 01/06/18 12:00 1 each DAILY PRN Administration Per Protocol Naloxone HCl 0.2 mg 01/04/18 16:02 Narcan IV Q2M PRN Opioid Reversal Nitroglycerin 0.4 mg 01/04/18 19:17 Nitrostat SUBLINGUAL Q5M PRN Chest Pain Pantoprazole Sodium 40 mg 01/04/18 20:00 01/05/18 06:38 Protonix PO 40 mg AC-BID MACIEL Administration Polyethylene Glycol 17 gm 01/04/18 19:17 Miralax PO Q4H PRN Constipation Senna/Docusate Sodium 1 each 01/05/18 09:00 Senokot-S PO DAILY MACIEL Intake and Output 01/04/18 01/05/18 01/05/18 22:59 06:59 14:59 Intake Total 360 600 60 Output Total 900 Balance 360 -300 60 Intake: Intake, IV Titration 600 Amount Cefepime 2 gm In Sodium 100 Chloride 0.9% 50 ml @ 100 mls/hr IVPB ONCE STA Rx# :[id number] Levofloxacin 750Mg-D5w 100 Pmx 750 mg In Dextrose/ Water 1 150ml.bag @ 100 mls/hr IVPB ONCE STA Rx#: [id number] Sodium Chloride 0.9% 1, 400 000 ml @ 50 mls/hr IV . Q20H MACIEL Rx#:[id number] Oral 360 60 Output: Gastric Drainage 100 Urine 800 Other: Voiding Method Urinal Urinal # Voids 1 Weight 74 kg 72.5 kg 01/05/18 05:48 01/05/18 05:48 EKG Interpretations (text) EKG shows atrial fibrillation with a controlled ventricular response Assessment and Plan Plan: Assessment and plan #1 abdominal pain, status post recent hospitalization at [facility] where a gallbladder tube was placed, unsure if mesenteric stenting was performed there are not we will obtain reports #2 chronic persistent atrial fibrillation, not currently on anticoagulation #3 history of coronary artery disease with most recent stent placement in June. Patient did have a stress test performed in November of this year which did not reveal any reversible ischemia #4 ischemic cardiomyopathy with prior AICD #5 COPD #6 PVD #7 hypertension #8 hyperlipidemia #9 diabetes #10 prior CVA Plan Patient had a recent echocardiogram with Doppler study performed in September revealed an ejection fraction of 35%, we will not repeat an echo at this time. Patient is not in overt heart failure at this time, his main presentation is that of abdominal discomfort. Chest x-ray does not reveal any congestive cardiac failure. Patient has known chronic persistent atrial fibrillation, and currently not on anticoagulation. Patient states that he had taken xarelto in the past and had significant bleeding and for this reason is not on anticoagulation. The patient is currently on his aspirin and Plavix. We will discontinue the IV Lasix and start the patient back on his oral diuretics. Further recommendations to follow. DNP note has been reviewed, I agree with a documented findings and plan of care. Patient was seen and examined.
[2018-01-05] MEDS: FLUTICASONE 50MCG/SPRAY NASAL 16GM EA NOSTRIL SCH (09:28)
[2018-01-05] MEDS: ACETAMINOPHEN TAB 500 MG TAB PO PRN (09:29)
[2018-01-05] MEDS: ASPIRIN 81 MG PO SCH (09:29)
[2018-01-05] MEDS: METOPROLOL TARTRATE 50 MG TAB PO SCH (09:29)
[2018-01-05] MEDS: FUROSEMIDE 10 MG/ML 4 ML VIAL IV SCH (09:29)
[2018-01-05] MEDS: SENNOSIDES-DOCUSATE SODIUM 1 EACH TAB PO SCH (09:29)
[2018-01-05] MEDS: ISOSORBIDE MONONITRATE ER 60 MG TAB.ER.24H PO SCH (09:29)
[2018-01-05] MEDS: ALPRAZolam 0.25 MG TAB PO PRN (09:29)
[2018-01-05] MEDS: CLOPIDOGREL 75 MG TAB PO SCH (09:29)
[2018-01-05] MEDS: FERROUS SULFATE 325 MG TAB PO SCH (11:17)
[2018-01-05 11:44] LABS: Glucose,Whole Blood 175 mg/dL (75-99)
[2018-01-05 12:50] LABS: Hemoglobin A1C 8.4 % (4.0-6.0)
[2018-01-05] MEDS: CEFEPIME 2 GM in SODIUM CHLORIDE 0.9% 50 ML IVPB SCH (16:06)
[2018-01-05] MEDS: metroNIDAZOLE 500 MG TAB PO SCH ×2 (16:27→22:51)
[2018-01-05 16:30] LABS: Glucose,Whole Blood 145 mg/dL (75-99)
--- NOTE | 2018-01-05 16:48 | P.PN ---
Subjective 82-year-old that came in shortness of breath was is being treated for can start failure exacerbation that improved but the patient is complaining of severe abdominal pain today and the patient has a biliary drain and patient had worsening leukocytosis, I started him on cefepime and metronidazole surgery was consulted patient need to be transferred to [facility] will order a comprehensive metabolic profile make sure his liver enzymes are not going up. Constitutional: Denied any fatigue denied any fever. Cardio vascular: denied any chest pain, palpitations Gastrointestinal abdominal pain as mentioned above Pulmonary: Denied any shortness of breath cough Neurologic denied any new focal deficits Objective - Vital Signs Vital signs: Vital Signs Temp 97.2 F L 01/05/18 15:37 Pulse 101 H 01/05/18 15:40 Resp 18 01/05/18 15:40 BP 96/74 01/05/18 15:37 Pulse Ox 97 01/05/18 15:37 Intake & Output 01/04/18 01/05/18 01/05/18 18:59 06:59 18:59 Intake Total 960 410 Output Total 900 880 Balance 60 -470 Weight 74 kg 72.5 kg Intake: Intake, IV Titration 600 Amount Cefepime 2 gm In Sodium 100 Chloride 0.9% 50 ml @ 100 mls/hr IVPB ONCE STA Rx# :[id number] Levofloxacin 750Mg-D5w 100 Pmx 750 mg In Dextrose/ Water 1 150ml.bag @ 100 mls/hr IVPB ONCE STA Rx#: [id number] Sodium Chloride 0.9% 1, 400 000 ml @ 50 mls/hr IV . Q20H [facility] Rx#:[id number] Oral 360 410 Output: Gastric Drainage 100 Drainage 80 Right Upper Abdomen 80 Urine 800 800 Other: Voiding Method Urinal # Voids 1 - Exam PHYSICAL EXAMINATION: GENERAL: The patient is alert and oriented x3, not in any acute distress. Well developed, well nourished. HEENT: Pupils are round and equally reacting to light. EOMI. No scleral icterus. No conjunctival pallor. Normocephalic, atraumatic. No pharyngeal erythema. No thyromegaly. CARDIOVASCULAR: S1 and S2 present. No murmurs, rubs, or gallops. No JVD is on 2 L of oxygen PULMONARY: Chest is clear to auscultation, no wheezing or crackles. ABDOMEN: Soft, nontender, nondistended, normoactive bowel sounds. No palpable organomegaly. She does have a biliary drain. Drain insertion site is clean patient has serosanguineous drainage from the biliary drain MUSCULOSKELETAL: No joint swelling or deformity. EXTREMITIES: No cyanosis, clubbing, or pedal edema. NEUROLOGICAL: Gross neurological examination did not reveal any focal deficits. SKIN: No rashes. - Labs CBC & Chem 7: 01/05/18 05:48 01/05/18 05:48 Labs: Abnormal Lab Results - Last 24 Hours (Table) 01/04/18 01/05/18 01/05/18 Range/Units 20:53 05:42 05:48 WBC 17.7 H (3.8-10.6) k/uL RDW 17.4 H (11.5-15.5) % Neutrophils # 15.2 H (1.3-7.7) k/uL BUN (9-20) mg/dL Glucose (74-99) mg/dL POC Glucose (mg/dL) 188 H 160 H (75-99) mg/dL Hemoglobin A1c (4.0-6.0) % Alkaline Phosphatase (38-126) U/L Total Protein (6.3-8.2) g/dL Albumin (3.5-5.0) g/dL 01/05/18 01/05/18 01/05/18 Range/Units 05:48 05:48 11:42 WBC (3.8-10.6) k/uL RDW (11.5-15.5) % Neutrophils # (1.3-7.7) k/uL BUN 27 H (9-20) mg/dL Glucose 161 H (74-99) mg/dL POC Glucose (mg/dL) 175 H (75-99) mg/dL Hemoglobin A1c 8.4 H (4.0-6.0) % Alkaline Phosphatase 241 H (38-126) U/L Total Protein 5.8 L (6.3-8.2) g/dL Albumin 3.3 L (3.5-5.0) g/dL 01/05/18 Range/Units 16:18 WBC (3.8-10.6) k/uL RDW (11.5-15.5) % Neutrophils # (1.3-7.7) k/uL BUN (9-20) mg/dL Glucose (74-99) mg/dL POC Glucose (mg/dL) 145 H (75-99) mg/dL Hemoglobin A1c (4.0-6.0) % Alkaline Phosphatase (38-126) U/L Total Protein (6.3-8.2) g/dL Albumin (3.5-5.0) g/dL Assessment and Plan Plan: -Shortness of breath and possible acute hypoxic respiratory failure probably secondary to congestive heart failure exacerbation chronic systolic dysfunction with acute exacerbation, presently euvolemic patient was switched to oral Lasix -Recent cholecystitis with biliary drain in place, patient started having leukocytosis no fever is comparing of severe abdominal pain further management as mentioned in 4 history -COPD without any acute exacerbation patient will be resumed on his inhalational treatments will not require any systemic steroids at this time. -History of atrial fibrillation rate controlled at this time. Not on anti- correlation because of his previous GI bleeds patient has chronic A. fib -Hypertension -hyperlipidemia -Type 2 diabetes mellitus -CVA in the past -Peripheral vascular disease For above-mentioned chronic medical problems patient will be resumed and continued on appropriate home medications.
--- NOTE | 2018-01-05 16:51 | P.GSCN ---
History of Present Illness Consult date: 01/05/18 Reason for Consult: Evaluation of cholecystostomy tube History of present illness: The patient was sent in from the care home with complaints of increasing shortness of breath. He had a cholecystostomy tube placed about a week ago due to being a poor surgical candidate. He is complaining of some pain around the Cholecystostomy tubes insertion site Review of Systems All systems: negative - Constitutional Reports as per HPI Past Medical History Past Medical History: Atrial Fibrillation, Coronary Artery Disease (CAD), Chest Pain / Angina, Heart Failure, COPD, CVA/TIA, Diabetes Mellitus, GERD/Reflux, GI Bleed, Hyperlipidemia, Hypertension, Myocardial Infarction (SD), Pneumonia, Vascular Disorder Additional Past Medical History / Comment(s): Occasional difficulty with swallowing, recurrent urinary tract infection,"several mi's" Last Myocardial Infarction Date:: 06/16/17 History of Any Multi-Drug Resistant Organisms: ESBL Year Discovered:: 06/28/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 Past Anesthesia/Blood Transfusion Reactions: No Reported Reaction Additional Past Anesthesia/Blood Transfusion Reaction / Comm: HAD BLOOD TRANSFUSION without reaction. Date of Last Stent Placement:: 06/16/17 Type of Cardiac Device: AICD Device Placement Date:: 2014 Past Psychological History: No Psychological Hx Reported Smoking Status: Never smoker Past Alcohol Use History: None Reported Past Drug Use History: None Reported - Past Family History Daughter(s) Family Medical History: Cancer Mother Family Medical History: Cancer Additional Family Medical History / Comment(s): . Father Family Medical History: Diabetes Mellitus Medications and Allergies Home Medications Medication Instructions Recorded Confirmed Type Nitroglycerin Sl Tabs [Nitrostat] 0.4 mg SUBLINGUAL Q5M PRN 07/15/14 01/04/18 History Omeprazole [PriLOSEC] 20 mg PO BID 11/25/14 01/04/18 History Clopidogrel [Plavix] 75 mg PO DAILY 12/02/14 01/04/18 History Isosorbide Mononitrate ER [Imdur] 60 mg PO DAILY 08/28/15 01/04/18 History Tiotropium [place] [Spiriva] 1 cap INHALATION RT-DAILY 08/28/15 01/04/18 History Aspirin [Adult Low Dose Aspirin EC] 81 mg PO DAILY 08/29/15 01/04/18 History Albuterol Inhaler [Ventolin Hfa 1 puff INHALATION RT-Q6H PRN 04/24/17 01/04/18 History Inhaler] Albuterol Nebulized [Ventolin 2.5 mg INHALATION RT-Q6H PRN 06/16/17 01/04/18 History Nebulized] Atorvastatin [Lipitor] 80 mg PO HS 08/26/17 01/04/18 History Furosemide [Lasix] 40 mg PO DAILY 08/26/17 01/04/18 History Acetaminophen Tab [Tylenol Tab] 500 mg PO Q8H PRN 01/04/18 01/04/18 History Bisacodyl [Dulcolax] 10 mg RECTAL DAILY PRN 01/04/18 01/04/18 History Ferrous Sulfate [Feosol] 325 mg PO DAILY 01/04/18 01/04/18 History Fluticasone Nasal [place] [Flonase 1 spray EA NOSTRIL DAILY 01/04/18 01/04/18 History Nasal [place]] INSULIN LISPRO (HumaLOG) [humaLOG] See Protocol SQ HS 01/04/18 01/04/18 History Insulin Glargine,Hum.rec.anlog See Protocol SQ AC-TID 01/04/18 01/04/18 History [Lantus Solostar] Melatonin 3 mg PO HS PRN 01/04/18 01/04/18 History Metoprolol Tartrate [Lopressor] 100 mg PO DAILY 01/04/18 01/04/18 History Polyethylene Glycol 3350 [Miralax] 17 gm PO Q4H PRN 01/04/18 01/04/18 History Sennosides-Docusate Sodium 1 tab PO DAILY 01/04/18 01/04/18 History [Senokot-S] guaiFENesin [guaiFENesin Oral 200 mg PO Q4H PRN 01/04/18 01/04/18 History Solution] Allergies Allergy/AdvReac Type Severity Reaction Status Date / Time Penicillins Allergy Severe Rash/Hives Verified 01/04/18 16:23 rivaroxaban [From Xarelto] Allergy GI bleed Verified 01/04/18 16:23 ropinirole HCl [From Requip] Allergy Unknown Verified 01/04/18 16:23 sulfamethoxazole AdvReac Hallucinati Verified 01/04/18 16:23 [From Bactrim] ons trimethoprim [From Bactrim] AdvReac Hallucinati Verified 01/04/18 16:23 ons Surgical - Exam Osteopathic Statement: *. No significant issues noted on an osteopathic structural exam other than those noted in the History and Physical/Consult. Vital Signs Temp Pulse Resp BP Pulse Ox 96.4 F L 71 18 119/61 99 01/04/18 11:25 01/04/18 11:25 01/04/18 11:25 01/04/18 11:25 01/04/18 11:25 - General no distress - Eyes normal ocular movement, no icteric - Respiratory normal respiratory effort, clear to auscultation - Cardiovascular Rhythm: regular - Abdomen The cholecystostomy tube is draining normal-appearing bile. No evidence of cellulitis at the insertion site. No swelling or mass at the insertion site. Abdomen: soft, tender (Around the cholecystostomy tube site), no guarding, no rebound Results - Labs 01/05/18 05:48 01/05/18 05:48 Abnormal Lab Results - Last 24 Hours (Table) 01/04/18 01/05/18 01/05/18 Range/Units 20:53 05:42 05:48 WBC 17.7 H (3.8-10.6) k/uL RDW 17.4 H (11.5-15.5) % Neutrophils # 15.2 H (1.3-7.7) k/uL BUN (9-20) mg/dL Glucose (74-99) mg/dL POC Glucose (mg/dL) 188 H 160 H (75-99) mg/dL Hemoglobin A1c (4.0-6.0) % Alkaline Phosphatase (38-126) U/L Total Protein (6.3-8.2) g/dL Albumin (3.5-5.0) g/dL 01/05/18 01/05/18 01/05/18 Range/Units 05:48 05:48 11:42 WBC (3.8-10.6) k/uL RDW (11.5-15.5) % Neutrophils # (1.3-7.7) k/uL BUN 27 H (9-20) mg/dL Glucose 161 H (74-99) mg/dL POC Glucose (mg/dL) 175 H (75-99) mg/dL Hemoglobin A1c 8.4 H (4.0-6.0) % Alkaline Phosphatase 241 H (38-126) U/L Total Protein 5.8 L (6.3-8.2) g/dL Albumin 3.3 L (3.5-5.0) g/dL 01/05/18 Range/Units 16:18 WBC (3.8-10.6) k/uL RDW (11.5-15.5) % Neutrophils # (1.3-7.7) k/uL BUN (9-20) mg/dL Glucose (74-99) mg/dL POC Glucose (mg/dL) 145 H (75-99) mg/dL Hemoglobin A1c (4.0-6.0) % Alkaline Phosphatase (38-126) U/L Total Protein (6.3-8.2) g/dL Albumin (3.5-5.0) g/dL Diabetes panel 01/05/18 01/05/18 Range/Units 05:48 05:48 Sodium 142 (137-145) mmol/L Potassium 4.3 (3.5-5.1) mmol/L Chloride 106 (98-107) mmol/L Carbon Dioxide 22 (22-30) mmol/L BUN 27 H (9-20) mg/dL Creatinine 0.90 (0.66-1.25) mg/dL Glucose 161 H (74-99) mg/dL Hemoglobin A1c 8.4 H (4.0-6.0) % Calcium 9.4 (8.4-10.2) mg/dL AST 18 (17-59) U/L ALT 30 (21-72) U/L Alkaline Phosphatase 241 H (38-126) U/L Total Protein 5.8 L (6.3-8.2) g/dL Albumin 3.3 L (3.5-5.0) g/dL Calcium panel 01/05/18 Range/Units 05:48 Calcium 9.4 (8.4-10.2) mg/dL Albumin 3.3 L (3.5-5.0) g/dL Pituitary panel 01/05/18 Range/Units 05:48 Sodium 142 (137-145) mmol/L Potassium 4.3 (3.5-5.1) mmol/L Chloride 106 (98-107) mmol/L Carbon Dioxide 22 (22-30) mmol/L BUN 27 H (9-20) mg/dL Creatinine 0.90 (0.66-1.25) mg/dL Glucose 161 H (74-99) mg/dL Calcium 9.4 (8.4-10.2) mg/dL Adrenal panel 01/05/18 Range/Units 05:48 Sodium 142 (137-145) mmol/L Potassium 4.3 (3.5-5.1) mmol/L Chloride 106 (98-107) mmol/L Carbon Dioxide 22 (22-30) mmol/L BUN 27 H (9-20) mg/dL Creatinine 0.90 (0.66-1.25) mg/dL Glucose 161 H (74-99) mg/dL Calcium 9.4 (8.4-10.2) mg/dL Total Bilirubin 1.0 (0.2-1.3) mg/dL AST 18 (17-59) U/L ALT 30 (21-72) U/L Alkaline Phosphatase 241 H (38-126) U/L Total Protein 5.8 L (6.3-8.2) g/dL Albumin 3.3 L (3.5-5.0) g/dL - Imaging CT scan - abdomen: report reviewed, image reviewed Assessment and Plan (1) Cholecystostomy care Current Visit: Yes Status: Acute Code(s): Z43.4 - ENCOUNTER FOR ATTN TO [facility] ARTIF OPENINGS OF DIGESTIVE TRACT SNOMED Code(s): 268685062 (2) PAD (peripheral artery disease) Current Visit: No Status: Acute Code(s): I73.9 - PERIPHERAL VASCULAR DISEASE , UNSPECIFIED SNOMED Code(s): 020634227 (3) Pneumonia, bacterial Current Visit: No Status: Acute Code(s): J15.9 - UNSPECIFIED BACTERIAL PNEUMONIA SNOMED Code(s): 11808786 (4) Shortness of breath Current Visit: No Status: Acute Code(s): R06.02 - SHORTNESS OF BREATH SNOMED Code(s): 144118463 Plan: The cholecystostomy tube appears to be in place and draining well. No evidence of cellulitis or infection in the abdominal wall or around the gallbladder. Follow-up with physicians at [facility]. No surgical intervention planned this admission.
[2018-01-05] MEDS: ATORVASTATIN 80 MG TAB PO SCH (21:12)
[2018-01-05 22:36] LABS: Glucose,Whole Blood 140 mg/dL (75-99)
[2018-01-06] MEDS: CEFEPIME 2 GM in SODIUM CHLORIDE 0.9% 50 ML IVPB SCH ×4 (00:19→23:58)
[2018-01-06 07:02] LABS: Glucose,Whole Blood 176 mg/dL (75-99)
[2018-01-06] MEDS: IPRATROPIUM 0.5 MG/2.5 ML NEBU INHALATION SCH ×4 (07:25→21:00)
[2018-01-06] MEDS: INSULIN ASPART 100 UNIT/ML 1 ML 10 ML VIAL SQ SCH ×4 (08:14→21:44)
[2018-01-06] MEDS: ASPIRIN 81 MG PO SCH (08:15)
[2018-01-06] MEDS: CLOPIDOGREL 75 MG TAB PO SCH (08:15)
[2018-01-06] MEDS: PANTOPRAZOLE 40 MG TABLET PO SCH ×2 (08:15→17:56)
[2018-01-06] MEDS: FUROSEMIDE 40 MG TAB PO SCH (08:15)
[2018-01-06] MEDS: FLUTICASONE 50MCG/SPRAY NASAL 16GM EA NOSTRIL SCH (08:15)
[2018-01-06] MEDS: metroNIDAZOLE 500 MG TAB PO SCH ×3 (08:16→21:44)
[2018-01-06] MEDS: ISOSORBIDE MONONITRATE ER 60 MG TAB.ER.24H PO SCH (08:17)
[2018-01-06] MEDS: METOPROLOL TARTRATE 50 MG TAB PO SCH (08:17)
[2018-01-06] MEDS: ACETAMINOPHEN TAB 500 MG TAB PO PRN (08:33)
[2018-01-06] MEDS: SENNOSIDES-DOCUSATE SODIUM 1 EACH TAB PO SCH (08:33)
[2018-01-06 08:38] LABS: Anisocytosis Slight; HCT 39.9 % (39.0-53.0); HGB 13.1 gm/dL (13.0-17.5); MCH 27.3 pg (25.0-35.0); MCHC 32.8 g/dL (31.0-37.0); MCV 83.5 fL (80.0-100.0); Platelet Count 247 k/uL (150-450); RBC 4.78 m/uL (4.30-5.90); RDW 17.7 % (11.5-15.5); WBC 15.6 k/uL (3.8-10.6)
[2018-01-06 08:47] LABS: ALT 27 U/L (21-72); AST 16 U/L (17-59); Alkaline Phosphatase 203 U/L (38-126); Anion Gap 14 mmol/L; Blood Urea Nitrogen 19 mg/dL (9-20); Carbon Dioxide 21 mmol/L (22-30); Chloride 107 mmol/L (98-107); Glucose 140 mg/dL (74-99); Potassium 4.1 mmol/L (3.5-5.1); Sodium 142 mmol/L (137-145); Total Bilirubin 1.5 mg/dL (0.2-1.3); Total Protein 5.3 g/dL (6.3-8.2)
--- NOTE | 2018-01-06 10:49 | P.DS ---
Providers Date of admission: 01/04/18 15:59 Attending physician: Marielle Garcia Consults: 01/04/18 16:03 Consult Physician Urgent Consulting Provider: [facility] Reason/Comments: Dysnea; EKG changes Do you want consulting provider notified?: Yes 01/05/18 14:50 Consult Physician Urgent Consulting Provider: Kita Solano Reason/Comments: biliary drain, seen in past, abdominal pain Do you want consulting provider notified?: Yes Primary care physician: [facility] Course: 82-year-old that came in shortness of breath was is being treated for can start failure exacerbation that improved but the patient is complaining of severe abdominal pain today and the patient has a biliary drain and patient had worsening leukocytosis, I started him on cefepime and metronidazole surgery was consulted patient need to be transferred to [facility] will order a comprehensive metabolic profile make sure his liver enzymes are not going up. 01/06/2018 My initial concern yesterday was the possible infection in the very dry and area. Surgery evaluated the patient and patient does not appear to have infection abdomen is soft patient is having pain in the incision site area patient will be prescribed additionally tramadol and will be discharged back to subacute assisted. There is no significant evidence of infection in the biliary drain area there are enzymes remained stable white blood cell count is coming down there is some atelectasis right lower lung alcantara I'm unsure about his leukocytosis because of which patient will be discharged on 5 days of Ceftin and metronidazole and patient will follow-up the [facility] clinic for his biliary drain in for possible cholecystectomy. Patient's atrial fibrillation is rate controlled patient's metoprolol will be changed to 50 twice a day from 100 daily IV can use 100 daily of metoprolol succinate, patient is euvolemic at this time increasing the dose of Lasix by adding 20 mg at nighttime. PHYSICAL EXAMINATION: GENERAL: The patient is alert and oriented x3, not in any acute distress. Well developed, well nourished. HEENT: Pupils are round and equally reacting to light. EOMI. No scleral icterus. No conjunctival pallor. Normocephalic, atraumatic. No pharyngeal erythema. No thyromegaly. CARDIOVASCULAR: S1 and S2 present. No murmurs, rubs, or gallops. No JVD is on 2 L of oxygen PULMONARY: Chest is clear to auscultation, no wheezing or crackles. ABDOMEN: Soft, nontender, nondistended, normoactive bowel sounds. No palpable organomegaly. She does have a biliary drain. Drain insertion site is clean patient has serosanguineous drainage from the biliary drain MUSCULOSKELETAL: No joint swelling or deformity. EXTREMITIES: No cyanosis, clubbing, or pedal edema. NEUROLOGICAL: Gross neurological examination did not reveal any focal deficits. SKIN: No rashes. Assessment and Plan Plan: -Shortness of breath and possible acute hypoxic respiratory failure probably secondary to congestive heart failure exacerbation chronic systolic dysfunction with acute exacerbation, presently euvolemic patient was switched to oral Lasix -Recent cholecystitis with biliary drain in place, further management as mentioned above -COPD without any acute exacerbation patient will be resumed on his inhalational treatments will not require any systemic steroids at this time. -History of atrial fibrillation rate controlled at this time. Not on anti- correlation because of his previous GI bleeds patient has chronic A. fib -Hypertension -hyperlipidemia -Type 2 diabetes mellitus -CVA in the past -Peripheral vascular disease Patient Condition at Discharge: Serious Plan - Discharge Summary Discharge Rx Participant: Yes New Discharge Prescriptions: New Metoprolol Tartrate [Lopressor] 50 mg PO BID tab metroNIDAZOLE [Flagyl] 500 mg PO TID #15 tab Cefuroxime Axetil [Ceftin] 500 mg PO BID #10 tab Furosemide [Lasix] 20 mg PO HS #1 tab traMADol HCL [Ultram] 50 mg PO Q6HR PRN #12 tab PRN Reason: Pain Continue Nitroglycerin Sl Tabs [Nitrostat] 0.4 mg SUBLINGUAL Q5M PRN PRN Reason: Chest Pain Omeprazole [PriLOSEC] 20 mg PO BID Clopidogrel [Plavix] 75 mg PO DAILY Isosorbide Mononitrate ER [Imdur] 60 mg PO DAILY Tiotropium [place] [Spiriva] 1 cap INHALATION RT-DAILY Aspirin [Adult Low Dose Aspirin EC] 81 mg PO DAILY Albuterol Inhaler [Ventolin Hfa Inhaler] 1 puff INHALATION RT-Q6H PRN PRN Reason: Shortness Of Breath Albuterol Nebulized [Ventolin Nebulized] 2.5 mg INHALATION RT-Q6H PRN PRN Reason: Shortness Of Breath Atorvastatin [Lipitor] 80 mg PO HS Furosemide [Lasix] 40 mg PO DAILY guaiFENesin [guaiFENesin Oral Solution] 200 mg PO Q4H PRN PRN Reason: Cough Polyethylene Glycol 3350 [Miralax] 17 gm PO Q4H PRN PRN Reason: Constipation Bisacodyl [Dulcolax] 10 mg RECTAL DAILY PRN PRN Reason: Constipation Insulin Glargine,Hum.rec.anlog [Lantus Solostar] See Protocol SQ AC-TID Acetaminophen Tab [Tylenol] 500 mg PO Q8H PRN PRN Reason: Pain Sennosides-Docusate Sodium [Senokot-S] 1 tab PO DAILY INSULIN LISPRO (HumaLOG) [humaLOG] See Protocol SQ HS Fluticasone Nasal [place] [Flonase Nasal [place]] 1 spray EA NOSTRIL DAILY Ferrous Sulfate [Iron (65 MG Elemental)] 325 mg PO DAILY Melatonin 3 mg PO HS PRN PRN Reason: Insomnia Discontinued Metoprolol Tartrate [Lopressor] 100 mg PO DAILY Discharge Medication List Nitroglycerin Sl Tabs [Nitrostat] 0.4 mg SUBLINGUAL Q5M PRN 07/15/14 [History] Omeprazole [PriLOSEC] 20 mg PO BID 11/25/14 [History] Clopidogrel [Plavix] 75 mg PO DAILY 12/02/14 [History] Isosorbide Mononitrate ER [Imdur] 60 mg PO DAILY 08/28/15 [History] Tiotropium [place] [Spiriva] 1 cap INHALATION RT-DAILY 08/28/15 [History] Aspirin [Adult Low Dose Aspirin EC] 81 mg PO DAILY 08/29/15 [History] Albuterol Inhaler [Ventolin Hfa Inhaler] 1 puff INHALATION RT-Q6H PRN 04/24/17 [ History] Albuterol Nebulized [Ventolin Nebulized] 2.5 mg INHALATION RT-Q6H PRN 06/16/17 [ History] Atorvastatin [Lipitor] 80 mg PO HS 08/26/17 [History] Furosemide [Lasix] 40 mg PO DAILY 08/26/17 [History] Acetaminophen Tab [Tylenol] 500 mg PO Q8H PRN 01/04/18 [History] Bisacodyl [Dulcolax] 10 mg RECTAL DAILY PRN 01/04/18 [History] Ferrous Sulfate [Iron (65 MG Elemental)] 325 mg PO DAILY 01/04/18 [History] Fluticasone Nasal [place] [Flonase Nasal [place]] 1 spray EA NOSTRIL DAILY 01/04/18 [History] INSULIN LISPRO (HumaLOG) [humaLOG] See Protocol SQ HS 01/04/18 [History] Insulin Glargine,Hum.rec.anlog [Lantus Solostar] See Protocol SQ AC-TID [History] Melatonin 3 mg PO HS PRN 01/04/18 [History] Polyethylene Glycol 3350 [Miralax] 17 gm PO Q4H PRN 01/04/18 [History] Sennosides-Docusate Sodium [Senokot-S] 1 tab PO DAILY 01/04/18 [History] guaiFENesin [guaiFENesin Oral Solution] 200 mg PO Q4H PRN 01/04/18 [History] Cefuroxime Axetil [Ceftin] 500 mg PO BID #10 tab 01/06/18 [Rx] Furosemide [Lasix] 20 mg PO HS #1 tab 01/06/18 [Rx] Metoprolol Tartrate [Lopressor] 50 mg PO BID tab 01/06/18 [Rx] metroNIDAZOLE [Flagyl] 500 mg PO TID #15 tab 01/06/18 [Rx] traMADol HCL [Ultram] 50 mg PO Q6HR PRN #12 tab 01/06/18 [Rx] Follow up Appointment(s)/Referral(s): Oscar You DO [Primary Care Provider] - 1-2 Days Ambulatory/Diagnostic Orders: Basic Metabolic Panel [LAB.AMB] Time Frame: 3 Days, Location: Determined By Patient Discharge Disposition: TRANSFER TO SNF/ECF
[2018-01-06 11:15] LABS: Glucose,Whole Blood 142 mg/dL (75-99)
[2018-01-06] MEDS: FERROUS SULFATE 325 MG TAB PO SCH (11:22)
[2018-01-06 17:15] LABS: Glucose,Whole Blood 190 mg/dL (75-99)
[2018-01-06 20:35] LABS: Glucose,Whole Blood 148 mg/dL (75-99)
[2018-01-06] MEDS: ATORVASTATIN 80 MG TAB PO SCH (21:44)
[2018-01-06] MEDS ORDERED: traMADol 50 MG TAB PO SCH (22:00)
[2018-01-07 07:30] LABS: Glucose,Whole Blood 138 mg/dL (75-99)
[2018-01-07 07:56] VITALS: RESP 16
[2018-01-07] MEDS: IPRATROPIUM 0.5 MG/2.5 ML NEBU INHALATION SCH ×3 (08:18→15:39)
[2018-01-07] MEDS: CEFEPIME 2 GM in SODIUM CHLORIDE 0.9% 50 ML IVPB SCH (08:29)
[2018-01-07] MEDS: INSULIN ASPART 100 UNIT/ML 1 ML 10 ML VIAL SQ SCH ×2 (08:29→11:45)
[2018-01-07] MEDS: SENNOSIDES-DOCUSATE SODIUM 1 EACH TAB PO SCH (08:29)
[2018-01-07] MEDS: PANTOPRAZOLE 40 MG TABLET PO SCH (08:29)
[2018-01-07] MEDS: metroNIDAZOLE 500 MG TAB PO SCH (08:30)
[2018-01-07] MEDS: FUROSEMIDE 40 MG TAB PO SCH (08:30)
[2018-01-07] MEDS: ASPIRIN 81 MG PO SCH (08:30)
[2018-01-07] MEDS: FLUTICASONE 50MCG/SPRAY NASAL 16GM EA NOSTRIL SCH (08:30)
[2018-01-07] MEDS: CLOPIDOGREL 75 MG TAB PO SCH (08:30)
[2018-01-07] MEDS: ISOSORBIDE MONONITRATE ER 60 MG TAB.ER.24H PO SCH (08:32)
[2018-01-07] MEDS: METOPROLOL TARTRATE 50 MG TAB PO SCH (08:32)
[2018-01-07] MEDS: traMADol 50 MG TAB PO PRN ×2 (08:32→14:16)
[2018-01-07 08:49] LABS: Anion Gap 14 mmol/L; Blood Urea Nitrogen 20 mg/dL (9-20); Carbon Dioxide 21 mmol/L (22-30); Chloride 107 mmol/L (98-107); Glucose 124 mg/dL (74-99); Potassium 3.9 mmol/L (3.5-5.1); Sodium 142 mmol/L (137-145)
--- NOTE | 2018-01-07 10:03 | P.DS ---
Providers Date of admission: 01/04/18 15:59 Attending physician: Marielle Garcia Consults: 01/04/18 16:03 Consult Physician Urgent Consulting Provider: [facility] Reason/Comments: Dysnea; EKG changes Do you want consulting provider notified?: Yes 01/05/18 14:50 Consult Physician Urgent Consulting Provider: Kita Solano Consult Reason/Comments: biliary drain, seen in past, abdominal pain Do you want consulting provider notified?: Yes Primary care physician: [facility] Course: No significant change from as today except for mild the bibasilar crackles that were appreciated today. Patient was discharged yesterday unable to go because of the insurance issues. Patient will be discharged to subacute rehab today. PHYSICAL EXAMINATION: GENERAL: The patient is alert and oriented x3, not in any acute distress. Well developed, well nourished. HEENT: Pupils are round and equally reacting to light. EOMI. No scleral icterus. No conjunctival pallor. Normocephalic, atraumatic. No pharyngeal erythema. No thyromegaly. CARDIOVASCULAR: S1 and S2 present. No murmurs, rubs, or gallops. No JVD is on 2 L of oxygen PULMONARY: Good air entry into bilateral lung alcantara mild bibasilar crackles were appreciated. ABDOMEN: Soft, nontender, nondistended, normoactive bowel sounds. No palpable organomegaly. She does have a biliary drain. Drain insertion site is clean patient has serosanguineous drainage from the biliary drain MUSCULOSKELETAL: No joint swelling or deformity. EXTREMITIES: No cyanosis, clubbing, or pedal edema. NEUROLOGICAL: Gross neurological examination did not reveal any focal deficits. SKIN: No rashes. Patient Condition at Discharge: Serious Plan - Discharge Summary Discharge Rx Participant: Yes New Discharge Prescriptions: New Metoprolol Tartrate [Lopressor] 50 mg PO BID tab metroNIDAZOLE [Flagyl] 500 mg PO TID #15 tab Cefuroxime Axetil [Ceftin] 500 mg PO BID #10 tab Furosemide [Lasix] 20 mg PO HS #1 tab traMADol HCL [Ultram] 50 mg PO Q6HR PRN #12 tab PRN Reason: Pain Continue Nitroglycerin Sl Tabs [Nitrostat] 0.4 mg SUBLINGUAL Q5M PRN PRN Reason: Chest Pain Omeprazole [PriLOSEC] 20 mg PO BID Clopidogrel [Plavix] 75 mg PO DAILY Isosorbide Mononitrate ER [Imdur] 60 mg PO DAILY Tiotropium [place] [Spiriva] 1 cap INHALATION RT-DAILY Aspirin [Adult Low Dose Aspirin EC] 81 mg PO DAILY Albuterol Inhaler [Ventolin Hfa Inhaler] 1 puff INHALATION RT-Q6H PRN PRN Reason: Shortness Of Breath Albuterol Nebulized [Ventolin Nebulized] 2.5 mg INHALATION RT-Q6H PRN PRN Reason: Shortness Of Breath Atorvastatin [Lipitor] 80 mg PO HS Furosemide [Lasix] 40 mg PO DAILY guaiFENesin [guaiFENesin Oral Solution] 200 mg PO Q4H PRN PRN Reason: Cough Polyethylene Glycol 3350 [Miralax] 17 gm PO Q4H PRN PRN Reason: Constipation Bisacodyl [Dulcolax] 10 mg RECTAL DAILY PRN PRN Reason: Constipation Insulin Glargine,Hum.rec.anlog [Lantus Solostar] See Protocol SQ AC-TID Acetaminophen Tab [Tylenol] 500 mg PO Q8H PRN PRN Reason: Pain Sennosides-Docusate Sodium [Senokot-S] 1 tab PO DAILY INSULIN LISPRO (HumaLOG) [humaLOG] See Protocol SQ HS Fluticasone Nasal [place] [Flonase Nasal [place]] 1 spray EA NOSTRIL DAILY Ferrous Sulfate [Iron (65 MG Elemental)] 325 mg PO DAILY Melatonin 3 mg PO HS PRN PRN Reason: Insomnia Discontinued Metoprolol Tartrate [Lopressor] 100 mg PO DAILY Discharge Medication List Nitroglycerin Sl Tabs [Nitrostat] 0.4 mg SUBLINGUAL Q5M PRN 07/15/14 [History] Omeprazole [PriLOSEC] 20 mg PO BID 11/25/14 [History] Clopidogrel [Plavix] 75 mg PO DAILY 12/02/14 [History] Isosorbide Mononitrate ER [Imdur] 60 mg PO DAILY 08/28/15 [History] Tiotropium [place] [Spiriva] 1 cap INHALATION RT-DAILY 08/28/15 [History] Aspirin [Adult Low Dose Aspirin EC] 81 mg PO DAILY 08/29/15 [History] Albuterol Inhaler [Ventolin Hfa Inhaler] 1 puff INHALATION RT-Q6H PRN 04/24/17 [ History] Albuterol Nebulized [Ventolin Nebulized] 2.5 mg INHALATION RT-Q6H PRN 06/16/17 [ History] Atorvastatin [Lipitor] 80 mg PO HS 08/26/17 [History] Furosemide [Lasix] 40 mg PO DAILY 08/26/17 [History] Acetaminophen Tab [Tylenol] 500 mg PO Q8H PRN 01/04/18 [History] Bisacodyl [Dulcolax] 10 mg RECTAL DAILY PRN 01/04/18 [History] Ferrous Sulfate [Iron (65 MG Elemental)] 325 mg PO DAILY 01/04/18 [History] Fluticasone Nasal [place] [Flonase Nasal [place]] 1 spray EA NOSTRIL DAILY 01/04/18 [History] INSULIN LISPRO (HumaLOG) [humaLOG] See Protocol SQ HS 01/04/18 [History] Insulin Glargine,Hum.rec.anlog [Lantus Solostar] See Protocol SQ AC-TID [History] Melatonin 3 mg PO HS PRN 01/04/18 [History] Polyethylene Glycol 3350 [Miralax] 17 gm PO Q4H PRN 01/04/18 [History] Sennosides-Docusate Sodium [Senokot-S] 1 tab PO DAILY 01/04/18 [History] guaiFENesin [guaiFENesin Oral Solution] 200 mg PO Q4H PRN 01/04/18 [History] Cefuroxime Axetil [Ceftin] 500 mg PO BID #10 tab 01/06/18 [Rx] Furosemide [Lasix] 20 mg PO HS #1 tab 01/06/18 [Rx] Metoprolol Tartrate [Lopressor] 50 mg PO BID tab 01/06/18 [Rx] metroNIDAZOLE [Flagyl] 500 mg PO TID #15 tab 01/06/18 [Rx] traMADol HCL [Ultram] 50 mg PO Q6HR PRN #12 tab 01/06/18 [Rx] Follow up Appointment(s)/Referral(s): Oscar You DO [Primary Care Provider] - 1-2 Days Ambulatory/Diagnostic Orders: Basic Metabolic Panel [LAB.AMB] Time Frame: 3 Days, Location: Determined By Patient Discharge Disposition: TRANSFER TO SNF/ECF
[2018-01-07 11:10] LABS: Glucose,Whole Blood 282 mg/dL (75-99)
[2018-01-07] MEDS: FERROUS SULFATE 325 MG TAB PO SCH (11:45)
[2018-01-07 15:22] VITALS: BP 87/60; TEMP 96.2
[2018-01-07 15:54] VITALS: PULSE 88
== END 2018-01-07 15:45 | DRG 291 ==
LOC: EC 11:23 → 6SEL 15:59 → 5MS5E 01-05 19:28
PROVIDERS: ADMIT Internal Medicine; ATTEND Internal Medicine
DX: I11.0 Hypertensive heart disease with heart failure (principal); J96.01 Acute respiratory failure with hypoxia; E87.2 Acidosis; E11.51 Type 2 diabetes mellitus with diabetic peripheral angiopathy without gangrene; E78.5 Hyperlipidemia, unspecified; I25.10 Atherosclerotic heart disease of native coronary artery without angina pectoris; I25.2 Old myocardial infarction; I25.5 Ischemic cardiomyopathy; I48.2 Chronic atrial fibrillation; I50.23 Acute on chronic systolic (congestive) heart failure; K21.9 Gastro-esophageal reflux disease without esophagitis; K76.0 Fatty (change of) liver, not elsewhere classified; Z79.02 Long term (current) use of antithrombotics/antiplatelets; Z79.82 Long term (current) use of aspirin; Z79.899 Other long term (current) drug therapy; Z83.3 Family history of diabetes mellitus; Z86.73 Personal history of transient ischemic attack (TIA), and cerebral infarction without residual deficits; Z87.440 Personal history of urinary (tract) infections; Z95.5 Presence of coronary angioplasty implant and graft; Z95.810 Presence of automatic (implantable) cardiac defibrillator; Z89.022 Acquired absence of left finger(s); Z79.51 Long term (current) use of inhaled steroids; Z88.0 Allergy status to penicillin; Z88.2 Allergy status to sulfonamides; Z88.8 Allergy status to other drugs, medicaments and biological substances; J44.9 Chronic obstructive pulmonary disease, unspecified
CPT/HCPCS: 36415; 71046; 74177; 80048; 80053; 81003; 82150; 82550; 82553; 83036; 83605; 83690; 84484; 85025; 85027; 85379; 85610; 85730; 87040; 87502; 93005; 94640; 94760; 96361; 96365; 99285

== ENCOUNTER 2018-01-15 08:10 | Inpatient (IN) | payer MEDICARE ==
[2018-01-15 08:41] LABS: Anisocytosis Slight; Basophils % (A) 0 %; Eosinophils # (A) 0.2 k/uL (0-0.7); Eosinophils % (A) 2 %; HCT 44.7 % (39.0-53.0); HGB 14.4 gm/dL (13.0-17.5); Lymphocytes # (A) 1.2 k/uL (1.0-4.8); Lymphocytes % (A) 11 %; MCH 26.9 pg (25.0-35.0); MCHC 32.2 g/dL (31.0-37.0); MCV 83.4 fL (80.0-100.0); Mean Platelet Volume 8.8; Monocytes # (A) 0.7 k/uL (0-1.0); Monocytes % (A) 6 %; Neutrophils # (A) 9.4 k/uL (1.3-7.7); Neutrophils % (A) 81 %; Platelet Count 273 k/uL (150-450); RBC 5.36 m/uL (4.30-5.90); RDW 17.9 % (11.5-15.5); WBC 11.6 k/uL (3.8-10.6)
[2018-01-15 08:51] LABS: Albumin 4.3 g/dL (3.5-5.0); Calcium 10.1 mg/dL (8.4-10.2); Magnesium 1.7 mg/dL (1.6-2.3); Total Bilirubin 1.1 mg/dL (0.2-1.3); Total Protein 6.7 g/dL (6.3-8.2)
[2018-01-15 08:58] LABS: INR 1.2 (<1.2); Prothrombin Time 11.7 sec (9.0-12.0)
[2018-01-15 09:05] LABS: Partial Thromboplastin Time 21.1 sec (22.0-30.0)
[2018-01-15 09:20] LABS: Creatine Kinase MB 0.5 ng/mL (0.0-2.4); Troponin I 0.032 ng/mL (0.000-0.034)
--- NOTE | 2018-01-15 09:21 | ED ---
General Adult HPI - General Chief complaint: Shortness of Breath Stated complaint: CAMILLE, ELEVATED LABS Time Seen by Provider: 01/15/18 08:15 Source: patient, EMS, RN notes reviewed Mode of arrival: EMS Limitations: physical limitation - History of Present Illness Initial comments: 82-year-old male presenting with epigastric pain and dyspnea. Patient has had abdominal pain for some time. He has been evaluated for this pain both at [facility] and [facility]. Patient is complaining of some worsening dyspnea as well. No central chest pain. Pain is epigastric in nature. He does have history of congestive heart failure and is currently on 4 L at the custodial. He denies fever or chills. Denies worsening cough. Denies URI symptoms. Denies nausea vomiting or diarrhea. Patient had chest x-ray performed at the custodial which showed cardiomegaly and bilateral pleural effusions as well as an elevated BNP. - Related Data Home Medications Medication Instructions Recorded Confirmed Nitroglycerin Sl Tabs [Nitrostat] 0.4 mg SUBLINGUAL Q5M PRN 07/15/14 01/15/18 Clopidogrel [Plavix] 75 mg PO DAILY 12/02/14 01/15/18 Isosorbide Mononitrate ER [Imdur] 60 mg PO DAILY 08/28/15 01/15/18 Tiotropium [place] [Spiriva] 1 cap INHALATION RT-DAILY 08/28/15 01/15/18 Aspirin [Adult Low Dose Aspirin EC] 81 mg PO DAILY 08/29/15 01/15/18 Albuterol Inhaler [Ventolin Hfa 1 puff INHALATION RT-Q6H PRN 04/24/17 01/15/18 Inhaler] Albuterol Nebulized [Ventolin 2.5 mg INHALATION RT-TID 06/16/17 01/15/18 Nebulized] Atorvastatin [Lipitor] 80 mg PO HS 08/26/17 01/15/18 Furosemide [Lasix] 40 mg PO DAILY 08/26/17 01/15/18 Acetaminophen Tab [Tylenol] 100 mg PO Q8H PRN 01/04/18 01/15/18 Bisacodyl [Dulcolax] 10 mg RECTAL DAILY PRN 01/04/18 01/15/18 Ferrous Sulfate [Iron (65 MG 325 mg PO DAILY 01/04/18 01/15/18 Elemental)] Fluticasone Nasal [place] [Flonase 1 spray EA NOSTRIL DAILY 01/04/18 01/15/18 Nasal [place]] Melatonin 3 mg PO HS 01/04/18 01/15/18 Polyethylene Glycol 3350 [Miralax] 17 gm PO Q4H PRN 01/04/18 01/15/18 guaiFENesin [guaiFENesin Oral 200 mg PO Q4H PRN 01/04/18 01/15/18 Solution] Albuterol Nebulized [Ventolin 2.5 mg INHALATION RT-Q6H PRN 01/15/18 01/15/18 Nebulized] Esomeprazole Magnesium [NexIUM] 20 mg PO BID 01/15/18 01/15/18 Insulin Aspart [NovoLOG See Protocol SQ AC-TID 01/15/18 01/15/18 (formulary)] Insulin Glargine [Lantus] 10 unit SQ HS 01/15/18 01/15/18 Sennosides [Senna] 8.6 mg PO DAILY 01/15/18 01/15/18 Previous Rx's Medication Instructions Recorded Furosemide [Lasix] 20 mg PO HS #1 tab 01/06/18 Metoprolol Tartrate [Lopressor] 50 mg PO BID tab 01/06/18 traMADol HCL [Ultram] 50 mg PO Q6HR PRN #12 tab 01/06/18 Allergies Allergy/AdvReac Type Severity Reaction Status Date / Time Penicillins Allergy Severe Rash/Hives Verified 01/15/18 08:12 rivaroxaban [From Xarelto] Allergy GI bleed Verified 01/15/18 08:12 ropinirole HCl [From Requip] Allergy Unknown Verified 01/15/18 08:12 sulfamethoxazole AdvReac Hallucinati Verified 01/15/18 08:12 [From Bactrim] ons trimethoprim [From Bactrim] AdvReac Hallucinati Verified 01/15/18 08:12 ons Review of Systems ROS Statement: Those systems with pertinent positive or pertinent negative responses have been documented in the HPI. ROS Other: All systems not noted in ROS Statement are negative. Past Medical History Past Medical History: Atrial Fibrillation, Coronary Artery Disease (CAD), Chest Pain / Angina, Heart Failure, COPD, CVA/TIA, Diabetes Mellitus, GERD/Reflux, GI Bleed, Hyperlipidemia, Hypertension, Myocardial Infarction (MA), Pneumonia, Vascular Disorder Additional Past Medical History / Comment(s): Occasional difficulty with swallowing, recurrent urinary tract infection,"several mi's" Last Myocardial Infarction Date:: 06/16/17 History of Any Multi-Drug Resistant Organisms: ESBL Date of last positivie culture/infection: 06/28/17 ESBL-E.coli MDRO Source:: Urine Past Surgical History: AICD, Heart Catheterization, Heart Catheterization With Stent, Hernia Repair, Prostate Surgery Additional Past Surgical History / Comment(s): 2015- R leg artherectomy with balloon angioplasty, multiple coronary stents with last one place 06/16/17, bilateral cataracts , LEFT RING FINGER AMPUTATION, lithotripsy, EGD and colonoscopy. Past Anesthesia/Blood Transfusion Reactions: No Reported Reaction Additional Past Anesthesia/Blood Transfusion Reaction / Comment(s): HAD BLOOD TRANSFUSION without reaction. Date of Last Stent Placement:: 06/16/17 Type of Cardiac Device: AICD Device Placement Date:: 2014 Past Psychological History: No Psychological Hx Reported Smoking Status: Never smoker Past Alcohol Use History: None Reported Past Drug Use History: None Reported - Past Family History Daughter(s) Family Medical History: Cancer Mother Family Medical History: Cancer Additional Family Medical History / Comment(s): . Father Family Medical History: Diabetes Mellitus General Exam Limitations: physical limitation General appearance: alert, in no apparent distress Head exam: Present: atraumatic, normocephalic Eye exam: Present: normal appearance, PERRL ENT exam: Present: normal exam Neck exam: Present: normal inspection. Absent: tenderness, meningismus Respiratory exam: Present: wheezes, rales. Absent: respiratory distress Cardiovascular Exam: Present: regular rate, irregular rhythm GI/Abdominal exam: Present: soft. Absent: distended, tenderness, guarding Extremities exam: Present: pedal edema (trace) Back exam: Present: normal inspection Neurological exam: Present: alert, oriented X3, CN II-XII intact. Absent: motor sensory deficit Skin exam: Present: warm, dry, intact. Absent: cyanosis, diaphoretic Course Vital Signs 01/15/18 01/15/18 01/15/18 08:12 08:33 10:10 Temperature 97.0 F L Pulse Rate 82 103 H Respiratory 19 19 18 Rate Blood Pressure 110/64 105/81 O2 Sat by Pulse 100 94 L Oximetry - Reevaluation(s) Reevaluation #1: 01/15/18 09:20 Patient's chest pain began yesterday and he currently is chest pain-free in the emergency department. EKG Findings - EKG Comments: EKG Findings:: EKG atrial fibrillation with PVC, right access LVH, T-wave inversion in the lateral precordium and inferior leads. Rate of 80, QRS duration 110, QTC 438 EKG is new ischemic changes compared to EKG in December 2017. Medical Decision Making - Medical Decision Making 82-year-old male presenting with concern for fluid overload. Chest x-ray obtained, does show congestive heart failure with bilateral effusions. Troponin 0.032, BNP is 18,000. EKG does show new T-wave inversion and ST segment depression compared to previous EKG. Patient has no active chest pain while emergency department. He is started on heparin, enzymes will be trended. White blood cell count 11.6 which is mildly elevated, hemoglobin 14.4 which is stable. Case discussed with Dr. lopez will accept admission. Cardiology placed on consult. - Lab Data Result diagrams: 01/15/18 08:24 01/15/18 08:24 Lab Results 01/15/18 01/15/18 01/15/18 Range/Units 08:24 08:24 08:24 WBC 11.6 H (3.8-10.6) k/uL RBC 5.36 (4.30-5.90) m/uL Hgb 14.4 (13.0-17.5) gm/dL Hct 44.7 (39.0-53.0) % MCV 83.4 (80.0-100.0) fL MCH 26.9 (25.0-35.0) pg MCHC 32.2 (31.0-37.0) g/dL RDW 17.9 H (11.5-15.5) % Plt Count 273 (150-450) k/uL Neutrophils % 81 % Lymphocytes % 11 % Monocytes % 6 % Eosinophils % 2 % Basophils % 0 % Neutrophils # 9.4 H (1.3-7.7) k/uL Lymphocytes # 1.2 (1.0-4.8) k/uL Monocytes # 0.7 (0-1.0) k/uL Eosinophils # 0.2 (0-0.7) k/uL Basophils # 0.0 (0-0.2) k/uL Anisocytosis Slight PT (9.0-12.0) sec INR (<1.2) APTT (22.0-30.0) sec Sodium 143 (137-145) mmol/L Potassium 5.0 (3.5-5.1) mmol/L Chloride 100 (98-107) mmol/L Carbon Dioxide 24 (22-30) mmol/L Anion Gap 19 mmol/L BUN 35 H (9-20) mg/dL Creatinine 1.03 (0.66-1.25) mg/dL Est GFR (CKD-EPI)AfAm 79 (>60 ml/min/1.73 sqM) Est GFR (CKD-EPI)NonAf 68 (>60 ml/min/1.73 sqM) Glucose 177 H (74-99) mg/dL Calcium 10.1 (8.4-10.2) mg/dL Magnesium 1.7 (1.6-2.3) mg/dL Total Bilirubin 1.1 (0.2-1.3) mg/dL AST 17 (17-59) U/L ALT 24 (21-72) U/L Alkaline Phosphatase 211 H (38-126) U/L Total Creatine Kinase 30 L (55-170) U/L CK-MB (CK-2) 0.5 (0.0-2.4) ng/mL CK-MB (CK-2) Rel Index 1.7 Troponin I 0.032 (0.000-0.034) ng/mL NT-Pro-B Natriuret Pep pg/mL Total Protein 6.7 (6.3-8.2) g/dL Albumin 4.3 (3.5-5.0) g/dL 01/15/18 01/15/18 Range/Units 08:24 08:24 WBC (3.8-10.6) k/uL RBC (4.30-5.90) m/uL Hgb (13.0-17.5) gm/dL Hct (39.0-53.0) % MCV (80.0-100.0) fL MCH (25.0-35.0) pg MCHC (31.0-37.0) g/dL RDW (11.5-15.5) % Plt Count (150-450) k/uL Neutrophils % % Lymphocytes % % Monocytes % % Eosinophils % % Basophils % % Neutrophils # (1.3-7.7) k/uL Lymphocytes # (1.0-4.8) k/uL Monocytes # (0-1.0) k/uL Eosinophils # (0-0.7) k/uL Basophils # (0-0.2) k/uL Anisocytosis PT 11.7 (9.0-12.0) sec INR 1.2 H (<1.2) APTT 21.1 L (22.0-30.0) sec Sodium (137-145) mmol/L Potassium (3.5-5.1) mmol/L Chloride (98-107) mmol/L Carbon Dioxide (22-30) mmol/L Anion Gap mmol/L BUN (9-20) mg/dL Creatinine (0.66-1.25) mg/dL Est GFR (CKD-EPI)AfAm (>60 ml/min/1.73 sqM) Est GFR (CKD-EPI)NonAf (>60 ml/min/1.73 sqM) Glucose (74-99) mg/dL Calcium (8.4-10.2) mg/dL Magnesium (1.6-2.3) mg/dL Total Bilirubin (0.2-1.3) mg/dL AST (17-59) U/L ALT (21-72) U/L Alkaline Phosphatase (38-126) U/L Total Creatine Kinase (55-170) U/L CK-MB (CK-2) (0.0-2.4) ng/mL CK-MB (CK-2) Rel Index Troponin I (0.000-0.034) ng/mL NT-Pro-B Natriuret Pep 78529 pg/mL Total Protein (6.3-8.2) g/dL Albumin (3.5-5.0) g/dL Disposition Clinical Impression: Congestive heart failure Disposition: ADMITTED IP TO THIS HOSP Condition: Stable Is patient prescribed a controlled substance at d/c from ED?: No Referrals: Oscar You DO [STAFF PHYSICIAN] - 1-2 days Decision to Admit Reason: Admit from EC Decision Date: 01/15/18 Decision Time: 10:34
--- NOTE | 2018-01-15 09:31 | XR ---
EXAMINATION TYPE: XR chest 2V DATE OF EXAM: 01/15/2018 COMPARISON: Chest x-ray January 04, 2018. HISTORY: History of CHF, COPD, and asthma presents with difficulty in breathing. TECHNIQUE: Frontal and lateral views of the chest are obtained. FINDINGS: There is persistent cardiomegaly with atherosclerotic thoracic aorta and single lead pacem alvin. The osseous structures are demineralized. Underlying scoliosis is present. There is chronic p arenchymal change with patchy bibasilar atelectasis and/or infiltrate and suspected small bilateral p leural effusions. IMPRESSION: Correlate for CHF exacerbation as there is cardiomegaly with small bilateral pleural eff usions. Some patchy bibasilar atelectasis and/or infiltrate is also redemonstrated.
[2018-01-15] MEDS ORDERED: FUROSEMIDE 10 MG/ML 4 ML VIAL IV STA (09:44)
[2018-01-15] MEDS ORDERED: ASPIRIN 325 MG TAB PO STA (09:44)
[2018-01-15] MEDS ORDERED: NALOXONE 0.4 MG/ML 1 ML VIAL IV PRN ×2 (10:28→15:41)
[2018-01-15] MEDS ORDERED: HEPARIN SODIUM,PORCINE 5,000 UNIT/ML 1 ML VIAL IV ONE (10:31)
[2018-01-15] MEDS ORDERED: HEPARIN SODIUM,PORCINE 5,000 UNIT/ML 1 ML VIAL IV PRN ×2 (10:31→18:33)
[2018-01-15] MEDS: HEPARIN SODIUM,PORCINE/D5W PMX 25,000 UNIT in DEXTROSE/WATER 1 500ML.BAG IV SCH ×2 (12:11→19:23)
--- NOTE | 2018-01-15 15:11 | P.CRDCN ---
History of Present Illness Consult date: 01/15/18 Requesting physician: Amos Vega Consult reason: shortness of breath Chief complaint: Epigastric discomfort History of present illness: This is an 82-year-old gentleman who follows regularly with Dr. Marti in the office. He has a known history of coronary artery disease with prior stent placements, most recent stent was placed to the ramus intermediate coronary artery in 1999 Miguel barry. Patient also has history of diabetes, hypertension, hyperlipidemia, and, ischemic cardiomyopathy with AICD implantation, chronic persistent atrial fibrillation and prior CVA. Patient has also been on anticoagulation in the past in the form of Xarelto for which she had significant GI bleeding, he does not want to be on any blood thinners anymore. Patient did have an echocardiogram with Doppler study performed in September which revealed a severely decreased systolic function with an ejection fraction of 35%. He underwent a Lexiscan stress test in November which was negative for any reversible ischemia. Patient states that he does have some mild shortness of breath. Cardiology consultation was requested for congestive cardiac failure. His BNP level is 18,900. Troponin 0.032. Sodium 143, potassium 5.0, BUN 35 and creatinine 1.03. White blood cell count 11.6, hemoglobin 14.4, platelet count 273. Chest x-ray shows congestive heart failure exacerbation with small bilateral pleural effusions. EKG shows atrial fibrillation with nonspecific ST-T wave changes. Blood pressure 116/70 with a heart rate in the 80s, 98% on 4 L of oxygen. Past Medical History Past Medical History: Atrial Fibrillation, Coronary Artery Disease (CAD), Chest Pain / Angina, Heart Failure, COPD, CVA/TIA, Diabetes Mellitus, GERD/Reflux, GI Bleed, Hyperlipidemia, Hypertension, Myocardial Infarction (MT), Pneumonia, Vascular Disorder Additional Past Medical History / Comment(s): Pt recently admitted to [facility] on with exacerbation CHF,severe abdominal pain, increased leukocytosis and was transferred to [facility] where he states he had a biliary drain placed. Pt states he needs his gallbladder removed soon too. Other Hx; Currently wearing O2 ATC, CVA, iron deficiency anemia, constipation, occasional difficulty with swallowing, recurrent urinary tract infection, "several mi's", bronchitis, kidney stones, PVD, constipation-pt states he had normal BM yesterday. Last Myocardial Infarction Date:: 06/16/17 History of Any Multi-Drug Resistant Organisms: ESBL Date of last positivie culture/infection: 06/28/17 ESBL-E.coli MDRO Source:: Urine Past Surgical History: AICD, Heart Catheterization, Heart Catheterization With Stent, Hernia Repair, Prostate Surgery Additional Past Surgical History / Comment(s): Recent biliary tube placement, 2015- R leg artherectomy with balloon angioplasty, multiple coronary stents with last one place 06/16/17, bilateral cataracts , LEFT RING FINGER AMPUTATION , lithotripsies, EGD and colonoscopy. Past Anesthesia/Blood Transfusion Reactions: No Reported Reaction Additional Past Anesthesia/Blood Transfusion Reaction / Comment(s): HAD BLOOD TRANSFUSION without reaction. Date of Last Stent Placement:: 06/16/17 Type of Cardiac Device: AICD Device Placement Date:: 2014 Past Psychological History: No Psychological Hx Reported Additional Psychological History / Comment(s): Pt currently resides at [facility]. He states he gets up with walker. Smoking Status: Never smoker Past Alcohol Use History: None Reported Additional Past Alcohol Use History / Comment(s): CHEWED TOBACCO FOR 30 YRS. QUIT CHEWING TOBACCO 1983 Past Drug Use History: None Reported - Past Family History Daughter(s) Family Medical History: Cancer Mother Family Medical History: Cancer Additional Family Medical History / Comment(s): . Father Family Medical History: Diabetes Mellitus Medications and Allergies Home Medications Medication Instructions Recorded Confirmed Type Nitroglycerin Sl Tabs [Nitrostat] 0.4 mg SUBLINGUAL Q5M PRN 07/15/14 01/15/18 History Clopidogrel [Plavix] 75 mg PO DAILY 12/02/14 01/15/18 History Isosorbide Mononitrate ER [Imdur] 60 mg PO DAILY 08/28/15 01/15/18 History Tiotropium [place] [Spiriva] 1 cap INHALATION RT-DAILY 08/28/15 01/15/18 History Aspirin [Adult Low Dose Aspirin EC] 81 mg PO DAILY 08/29/15 01/15/18 History Albuterol Inhaler [Ventolin Hfa 1 puff INHALATION RT-Q6H PRN 04/24/17 01/15/18 History Inhaler] Albuterol Nebulized [Ventolin 2.5 mg INHALATION RT-TID 06/16/17 01/15/18 History Nebulized] Atorvastatin [Lipitor] 80 mg PO HS 08/26/17 01/15/18 History Furosemide [Lasix] 40 mg PO DAILY 08/26/17 01/15/18 History Acetaminophen Tab [Tylenol] 100 mg PO Q8H PRN 01/04/18 01/15/18 History Bisacodyl [Dulcolax] 10 mg RECTAL DAILY PRN 01/04/18 01/15/18 History Ferrous Sulfate [Iron (65 MG 325 mg PO DAILY 01/04/18 01/15/18 History Elemental)] Fluticasone Nasal [place] [Flonase 1 spray EA NOSTRIL DAILY 01/04/18 01/15/18 History Nasal [place]] Melatonin 3 mg PO HS 01/04/18 01/15/18 History Polyethylene Glycol 3350 [Miralax] 17 gm PO Q4H PRN 01/04/18 01/15/18 History guaiFENesin [guaiFENesin Oral 200 mg PO Q4H PRN 01/04/18 01/15/18 History Solution] Furosemide [Lasix] 20 mg PO HS #1 tab 01/06/18 01/15/18 Rx Metoprolol Tartrate [Lopressor] 50 mg PO BID tab 01/06/18 01/15/18 Rx traMADol HCL [Ultram] 50 mg PO Q6HR PRN #12 tab 01/06/18 01/15/18 Rx Albuterol Nebulized [Ventolin 2.5 mg INHALATION RT-Q6H PRN 01/15/18 01/15/18 History Nebulized] Esomeprazole Magnesium [NexIUM] 20 mg PO BID 01/15/18 01/15/18 History Insulin Aspart [NovoLOG See Protocol SQ AC-TID 01/15/18 01/15/18 History (formulary)] Insulin Glargine [Lantus] 10 unit SQ HS 01/15/18 01/15/18 History Sennosides [Senna] 8.6 mg PO DAILY 01/15/18 01/15/18 History Allergies Allergy/AdvReac Type Severity Reaction Status Date / Time Penicillins Allergy Severe Rash/Hives Verified 01/15/18 08:12 rivaroxaban [From Xarelto] Allergy GI bleed Verified 01/15/18 08:12 ropinirole HCl [From Requip] Allergy Unknown Verified 01/15/18 08:12 sulfamethoxazole AdvReac Hallucinati Verified 01/15/18 08:12 [From Bactrim] ons trimethoprim [From Bactrim] AdvReac Hallucinati Verified 01/15/18 08:12 ons Physical Exam Vitals: Vital Signs Temp Pulse Resp BP Pulse Ox 01/15/18 13:33 97.6 F 85 18 117/73 98 01/15/18 11:29 89 20 124/73 100 01/15/18 10:10 103 H 18 105/81 94 L 01/15/18 08:33 19 01/15/18 08:12 97.0 F L 82 19 110/64 100 Intake and Output 01/14/18 01/15/18 01/15/18 22:59 06:59 14:59 Other: Weight 70.76 kg PHYSICAL EXAMINATION: HEENT: Head is atraumatic, normocephalic. Pupils equal, round. Neck is supple. There is elevated jugular venous pressure. HEART EXAMINATION: Heart S1 and S2 systolic murmur is heard. CHEST EXAMINATION: Lungs reveal some fine wheezing with crackles to the bases. ABDOMEN: Soft, positive tenderness in the right upper quadrant . Bowel sounds are heard. No organomegaly noted. Shanthi drain tube in place EXTREMITIES: 2+ peripheral pulses with 1+ evidence of peripheral edema and no calf tenderness noted. NEUROLOGIC patient is awake, alert and oriented -3. . Results 01/15/18 08:24 01/15/18 08:24 Cardiac Enzymes 01/15/18 01/15/18 Range/Units 08:24 08:24 AST 17 (17-59) U/L CK-MB (CK-2) 0.5 (0.0-2.4) ng/mL Troponin I 0.032 (0.000-0.034) ng/mL Coagulation 01/15/18 Range/Units 08:24 PT 11.7 (9.0-12.0) sec APTT 21.1 L (22.0-30.0) sec CBC 01/15/18 Range/Units 08:24 WBC 11.6 H (3.8-10.6) k/uL RBC 5.36 (4.30-5.90) m/uL Hgb 14.4 (13.0-17.5) gm/dL Hct 44.7 (39.0-53.0) % Plt Count 273 (150-450) k/uL Comprehensive Metabolic Panel 01/15/18 Range/Units 08:24 Sodium 143 (137-145) mmol/L Potassium 5.0 (3.5-5.1) mmol/L Chloride 100 (98-107) mmol/L Carbon Dioxide 24 (22-30) mmol/L BUN 35 H (9-20) mg/dL Creatinine 1.03 (0.66-1.25) mg/dL Glucose 177 H (74-99) mg/dL Calcium 10.1 (8.4-10.2) mg/dL AST 17 (17-59) U/L ALT 24 (21-72) U/L Alkaline Phosphatase 211 H (38-126) U/L Total Protein 6.7 (6.3-8.2) g/dL Albumin 4.3 (3.5-5.0) g/dL Current Medications Generic Name Dose Route Start Last Admin Trade Name Freq PRN Reason Stop Dose Admin Acetaminophen 650 mg 01/15/18 10:28 Tylenol Tab PO Q6HR PRN Mild Pain or Fever > 100.5 Furosemide 40 mg 01/15/18 21:00 Lasix IV Q12HR MACIEL Heparin Sodium (Porcine) 0 unit 01/15/18 10:31 Heparin IV PER PROTOCOL PRN Low PTT Protocol Heparin Sodium/Dextrose 25,000 500 mls @ 16.98 mls/hr 01/15/18 10:45 12:11 unit/ IV Solution IV 12 units/kg/hr .Q24H MACIEL 16.98 mls/hr Protocol Administration 12 UNITS/KG/HR Naloxone HCl 0.2 mg 01/15/18 10:28 Narcan IV Q2M PRN Opioid Reversal Intake and Output 01/14/18 01/15/18 01/15/18 22:59 06:59 14:59 Other: Weight 70.76 kg Patient Weight 01/16/18 06:59 Weight 70.76 kg 01/15/18 08:24 01/15/18 08:24 EKG Interpretations (text) EKG shows atrial fibrillation with nonspecific ST-T wave changes. Assessment and Plan Plan: Assessment and Plan Plan: Assessment and plan #1 abdominal pain, status post recent hospitalization at [facility] where the recommendation was to continue the gallbladder tube for 2-3 more weeks. #2 chronic persistent atrial fibrillation, not currently on anticoagulation as of history of significant GI bleeding. #3 history of coronary artery disease with most recent stent placement in June. Patient did have a stress test performed in November of this year which did not reveal any reversible ischemia #4 ischemic cardiomyopathy with prior AICD #5 COPD #6 PVD #7 hypertension #8 hyperlipidemia #9 diabetes #10 prior CVA #11 systolic congestive heart failure acute on chronic Plan Patient had a recent echocardiogram with Doppler study performed in September which revealed an ejection fraction of 35%. We'll continue current dose of IV Lasix 40 mg twice a day. We will also resume Ecotrin, Lipitor 80, Plavix, start Cozaar. 10 you to monitor intake and output and daily weights. Daily lytes BUN and creatinine. DNP note has been reviewed, I agree with a documented findings and plan of care. Patient was seen and examined.
[2018-01-15] MEDS ORDERED: ALBUTEROL NEBULIZED 2.5 MG/3 ML INHALATION PRN (15:38)
[2018-01-15] MEDS ORDERED: NITROGLYCERIN SL TABS 0.4 MG TAB SUBLINGUAL PRN (15:38)
[2018-01-15] MEDS ORDERED: POLYETHYLENE GLYCOL 3350 17 GM POWD.PACK PO PRN (15:38)
[2018-01-15] MEDS ORDERED: ALBUTEROL INHALER 60 PUFF/8 GM INHALER INHALATION PRN (15:38)
[2018-01-15] MEDS ORDERED: ACETAMINOPHEN TAB 500 MG TAB PO PRN (15:38)
[2018-01-15] MEDS ORDERED: ONDANSETRON 4 MG/2 ML VIAL IVP PRN (15:41)
[2018-01-15 15:50] LABS: Creatine Kinase MB 0.4 ng/mL (0.0-2.4); Troponin I 0.027 ng/mL (0.000-0.034)
[2018-01-15] MEDS: IPRATROPIUM-ALBUTEROL 3 ML NEB INHALATION SCH ×2 (16:19→20:41)
[2018-01-15 16:52] LABS: Glucose,Whole Blood 174 mg/dL (75-99)
[2018-01-15] MEDS: FUROSEMIDE 10 MG/ML 4 ML VIAL IV SCH (17:04)
[2018-01-15] MEDS: CALCIUM CARBONATE 500 MG CHEWABLE PO PRN ×2 (17:05→23:16)
[2018-01-15] MEDS: ATORVASTATIN 80 MG TAB PO SCH (20:26)
[2018-01-15] MEDS: METOPROLOL TARTRATE 50 MG TAB PO SCH (20:27)
[2018-01-15] MEDS: MELATONIN 3 MG TABLET PO SCH (20:27)
[2018-01-15] MEDS: INSULIN DETEMIR 100 UNIT/ML 10 ML VIAL SQ SCH (21:11)
[2018-01-15 21:13] LABS: Glucose,Whole Blood 207 mg/dL (75-99)
--- NOTE | 2018-01-15 22:44 | HP ---
HISTORY AND PHYSICAL DATE OF SERVICE: 01/15/2018. PRESENTING COMPLAINT: Short of breath. HISTORY OF PRESENTING COMPLAINT: Pleasant 82-year-old patient of Dr. You whose chronic stable medical conditions include COPD and persistent atrial fibrillation, not on anticoagulation because of GI bleed, hypertension, hyperlipidemia, diabetes, peripheral artery disease, coronary artery disease with stent, GERD. The patient about 10 days ago was diagnosed to have cholecystitis. Because of a complications, she was transferred to [facility], from where the patient got a cholecystostomy tube drain. The patient is now at [facility]. The patient presents with increasing short of breath with minimal cough. No fever. Some edema, some abdominal discomfort, but no nausea, vomiting. The patient is due to go back next week to follow up with his surgeon. Denies any obvious fever, chills. REVIEW OF SYSTEMS: CONSTITUTIONAL: Weak and tired. HEENT: Decreased hearing. RESPIRATORY: As above. CARDIOVASCULAR: As above. No chest pain. GASTROINTESTINAL: Heartburn and rest as above. GENITOURINARY: None. MUSCULOSKELETAL: Arthritic pain in joints. DERMATOLOGICAL: None. HEMATOLOGIC: None. LYMPHATIC: None. PSYCHIATRY: None. NEUROLOGICAL: None. PAST MEDICAL HISTORY: CHF with EF 30%-35% documented in Nurse Practitioner Mess' notes, COPD, persistent atrial fibrillation not a candidate for anticoagulation, hypertension, hyperlipidemia, diabetes, peripheral artery disease, coronary artery disease with stent GERD, cholecystostomy tube with drain, kidney stones, AICD. PAST SURGICAL HISTORY: AICD, cardiac cath with stent, right leg atherectomy with balloon angioplasty, multiple coronary stents, last one being in June 2017, bilateral cataracts, left ring finger amputation, lithotripsies. SOCIAL HISTORY: Resident of [facility], uses a walker. No smoking. Chewed tobacco for 30 years, stopped in 1983. FAMILY HISTORY: Cancer, type unknown. HOME MEDICATIONS: 1. Ultram 50 mg every 6 hours p.r.n. 2. Guaifenesin 200 mg q.4 p.r.n. 3. Nitrostat 0.4 sublingual q.5 p.r.n. 4. Ventolin HFA 1 puff every 6 hours p.r.n. 5. Tylenol 100 mg q.8h p.r.n. 6. MiraLAX 17 g p.o. q.4 p.r.n. 7. Dulcolax 10 mg rectal daily p.r.n. 8. Ventolin 2.5 every 6 hours p.r.n. 9. NovoLog per protocol. 10.Lopressor 50 mg b.i.d. 11.Ventolin 2.5 t.i.d. 12.Spiriva 1 capsule daily. 13.Nexium 20 mg p.o. b.i.d. 14.Senna 8.6 mg p.o. daily. 15.Melatonin 3 mg p.o. q.h.s. 16.Imdur ER 60 mg p.o. daily. 17.Lantus 10 units subcu q.h.s. 18.Lasix 20 mg p.o. q.h.s. 19.Lasix 40 mg p.o. q.h.s. 20.Flonase 1 spray each nostril daily. 21.Iron 325 p.o. daily. 22.Plavix 75 mg p.o. daily. 23.Lipitor 80 mg p.o. daily q.h.s. 24.Aspirin 81 mg p.o. daily. ALLERGIES: PENICILLIN, XARELTO, REQUIP, BACTRIM. PHYSICAL EXAMINATION: Temperature 97, pulse 82, respirations 18, blood pressure 110/64, pulse ox 100% on 4L. GENERAL APPEARANCE: Average build, lying in bed, tired-appearing. EYES: Pupil equal. Conjunctivae normal. HEENT: External nose and ears normal. Oral cavity normal. NECK: JVD possibly raised. Mass not palpable. RESPIRATORY: Effort increased. LUNGS: Decreased breath sounds. CARDIOVASCULAR: First and second sounds normal. Mild edema. ABDOMEN: Soft. Mild tenderness. Note a drain in the right upper quadrant. Liver and spleen not palpable. LYMPHATIC: No lymph node palpable in neck or axillae. PSYCHIATRY: Alert and oriented x3. Mood and affect normal. NEUROLOGICAL: Pupils equal. Cranial nerves grossly intact. Power and sensation grossly intact. INVESTIGATIONS: White count 11.6, hemoglobin 14.4. Potassium 5, BUN 35, creatinine 1.03. ProBNP 18,900. Chest x-ray shows bilateral pleural effusion. ASSESSMENT: 1. Acute on chronic congestive heart failure from systolic dysfunction, ejection fraction 30%-35% from underlying coronary artery disease with an elevated BNP of 18,900. 2. Acute cholecystitis, now recently with a cholecystostomy drain placed at [place]. 3. Chronic obstructive pulmonary disease. 4. Persistent atrial fibrillation. 5. Essential hypertension. 6. Hyperlipidemia. 7. Diabetes mellitus type 2, chronically requiring insulin. 8. Peripheral arterial disease. 9. Coronary artery disease with prior history of stent. 10.Gastroesophageal reflux disease. 11.Automatic implantable cardioverter-defibrillator. PLAN: Cardiology was consulted, will put the patient on IV Lasix. Home medications will be continued. Will consult General Surgery in regard to the cholecystostomy tube. At this point, probably no further intervention needs to be done. Other home medications will be resumed. Accu-Cheks will be followed. MMODL / IJN: [id number] /
[2018-01-15] MEDS: ALPRAZolam 0.25 MG TAB PO PRN (23:35)
[2018-01-16 01:45] LABS: Hemoglobin A1C 8.6 % (4.0-6.0)
[2018-01-16 02:04] LABS: Anisocytosis Slight; Basophils # (A) 0.1 k/uL (0-0.2); Basophils % (A) 1 %; Eosinophils # (A) 0.2 k/uL (0-0.7); Eosinophils % (A) 2 %; HCT 42.9 % (39.0-53.0); HGB 13.8 gm/dL (13.0-17.5); Lymphocytes # (A) 1.4 k/uL (1.0-4.8); Lymphocytes % (A) 12 %; MCHC 32.3 g/dL (31.0-37.0); MCV 83.8 fL (80.0-100.0); Mean Platelet Volume 8.3; Monocytes # (A) 0.8 k/uL (0-1.0); Monocytes % (A) 7 %; Neutrophils # (A) 8.5 k/uL (1.3-7.7); Neutrophils % (A) 77 %; Platelet Count 221 k/uL (150-450); RBC 5.12 m/uL (4.30-5.90); RDW 18.2 % (11.5-15.5); WBC 11.1 k/uL (3.8-10.6)
[2018-01-16 02:23] LABS: Creatine Kinase MB 0.4 ng/mL (0.0-2.4); Troponin I 0.028 ng/mL (0.000-0.034)
[2018-01-16] MEDS: ALPRAZolam 0.25 MG TAB PO PRN ×2 (06:11→12:44)
[2018-01-16] MEDS: PANTOPRAZOLE 40 MG TABLET PO SCH (06:11)
[2018-01-16 06:18] LABS: Glucose,Whole Blood 176 mg/dL (75-99)
[2018-01-16] MEDS: INSULIN ASPART 100 UNIT/ML 1 ML 10 ML VIAL SQ SCH ×4 (06:26→21:58)
[2018-01-16] MEDS: IPRATROPIUM-ALBUTEROL 3 ML NEB INHALATION SCH ×4 (08:20→20:28)
[2018-01-16] MEDS: METOPROLOL TARTRATE 50 MG TAB PO SCH ×2 (08:53→21:58)
[2018-01-16] MEDS: ASPIRIN 81 MG PO SCH (08:53)
[2018-01-16] MEDS: FUROSEMIDE 10 MG/ML 4 ML VIAL IV SCH ×2 (08:53→21:57)
[2018-01-16] MEDS: ISOSORBIDE MONONITRATE ER 60 MG TAB.ER.24H PO SCH (08:53)
[2018-01-16] MEDS: CLOPIDOGREL 75 MG TAB PO SCH (08:53)
[2018-01-16] MEDS: SENNOSIDES 8.6 MG TAB PO SCH (08:54)
[2018-01-16 11:55] LABS: Glucose,Whole Blood 141 mg/dL (75-99)
[2018-01-16] MEDS: HEPARIN SODIUM,PORCINE/D5W PMX 25,000 UNIT in DEXTROSE/WATER 1 500ML.BAG IV SCH (12:40)
[2018-01-16 14:08] VITALS: BMI 23.3
--- NOTE | 2018-01-16 14:08 | P.CNPUL ---
History of Present Illness Consult date: 01/16/18 Reason for consult: dyspnea, chest pain History of present illness: I was asked to evaluate this 82-year-old male patient with for increased shortness of breath. The patient has been in the hospital multiple occasions. Most recently came in for abdominal pain he was found to have an acute cholecystitis yet based on his medical problems and comorbidities an extensive cardiac history, no surgery was done and the patient had a percutaneous drainage tube/cholecystostomy tube was inserted and the patient was discharged home. The tube is still in place. It is draining. The patient has no significant abdominal pain. The patient felt weak and he had chest pain which she describes as pressure over the anterior part of the chest. This lasted for around 20-30 minutes. For that reason he decided to come back to the hospital. He was having some increased shortness of breath also. His troponin was 0.032. EKG showed atrial fibrillation with nonspecific ST segment changes. His chest x-ray shows small bilateral pleural effusion and findings consistent with CHF. His pulse is currently 98% on 40 to Bactrim by nasal cannula. White cell count is not elevated. This patient is known to have extensive coronary artery disease and cardiac history. He has had previous cardiac stent placement including a stent in the ramus intermedius branch of the right coronary artery back in 2017. He has history of congestion heart failure with impaired LV function and has a previous AICD placement. He has chronic atrial fibrillation. He is also had issues with CVA, hypertension, hyperlipidemia, diabetes mellitus. Patient has peripheral vascular disease. Is quite cachectic. Overall performance and functional status is been poor. He has been using oxygen with activity and during sleep. Review of Systems Constitutional: Reports fatigue, Reports weakness, Reports weight loss Eyes: denies blurred vision, denies bulging eye, denies decreased vision Ears: deny: decreased hearing, ear discharge, earache, tinnitus Ears, nose, mouth and throat: Denies headache, Denies sore throat Cardiovascular: Reports chest pain, Reports decreased exercise tolerance, Reports dyspnea on exertion, Reports shortness of breath Respiratory: Reports dyspnea Gastrointestinal: Reports abdominal pain, Reports nausea, Denies diarrhea, Denies vomiting Genitourinary: Reports as per HPI Musculoskeletal: Denies myalgias Musculoskeletal: absent: ankle pain, ankle stiffness, ankle swelling Integumentary: Denies pruritus, Denies rash Neurological: Denies numbness, Denies weakness Psychiatric: Denies anxiety, Denies depression Endocrine: Reports as per HPI, Reports fatigue Hematologic/Lymphatic: Reports as per HPI Allergic/Immunologic: Reports as per HPI Past Medical History Past Medical History: Atrial Fibrillation, Coronary Artery Disease (CAD), Chest Pain / Angina, Heart Failure, COPD, CVA/TIA, Diabetes Mellitus, GERD/Reflux, GI Bleed, Hyperlipidemia, Hypertension, Myocardial Infarction ([place]), Pneumonia, Vascular Disorder Additional Past Medical History / Comment(s): Coronary artery disease, previous coronary intervention and stenting, CHF with an ejection fraction of 40-45% and moderate to severe pulmonary hypertension, severe mitral regurgitation based on echocardiogram from June 2017, cholelithiasis and cholecystitis status post cholecystostomy tube placement, recurrent abdominal pain with questionable history of chronic mesenteric ischemia, COPD, diabetes mellitus, previous history of CVA, iron deficiency anemia, constipation, nephrolithiasis, peripheral vascular disease, previous history of a E. coli urine checked infection with sepsis back in 2016 Last Myocardial Infarction Date:: 06/16/17 History of Any Multi-Drug Resistant Organisms: ESBL Date of last positivie culture/infection: 06/28/17 ESBL-E.coli MDRO Source:: Urine Past Surgical History: AICD, Heart Catheterization, Heart Catheterization With Stent, Hernia Repair, Prostate Surgery Additional Past Surgical History / Comment(s): Recent biliary tube placement, 2014- R leg artherectomy with balloon angioplasty, multiple coronary stents with last one place 06/16/17, bilateral cataracts , LEFT RING FINGER AMPUTATION , lithotripsies, EGD and colonoscopy. Past Anesthesia/Blood Transfusion Reactions: No Reported Reaction Additional Past Anesthesia/Blood Transfusion Reaction / Comment(s): HAD BLOOD TRANSFUSION without reaction. Date of Last Stent Placement:: 06/16/17 Type of Cardiac Device: AICD Device Placement Date:: 2014 Past Psychological History: No Psychological Hx Reported Additional Psychological History / Comment(s): Pt currently resides at [facility]. He states he gets up with walker. Smoking Status: Never smoker Past Alcohol Use History: None Reported Additional Past Alcohol Use History / Comment(s): CHEWED TOBACCO FOR 30 YRS. QUIT CHEWING TOBACCO 1983 Past Drug Use History: None Reported - Past Family History Daughter(s) Family Medical History: Cancer Mother Family Medical History: Cancer Additional Family Medical History / Comment(s): . Father Family Medical History: Diabetes Mellitus Medications and Allergies Home Medications Medication Instructions Recorded Confirmed Type Nitroglycerin Sl Tabs [Nitrostat] 0.4 mg SUBLINGUAL Q5M PRN 07/15/14 01/15/18 History Clopidogrel [Plavix] 75 mg PO DAILY 12/02/14 01/15/18 History Isosorbide Mononitrate ER [Imdur] 60 mg PO DAILY 08/28/15 01/15/18 History Tiotropium [place] [Spiriva] 1 cap INHALATION RT-DAILY 08/28/15 01/15/18 History Aspirin [Adult Low Dose Aspirin EC] 81 mg PO DAILY 08/29/15 01/15/18 History Albuterol Inhaler [Ventolin Hfa 1 puff INHALATION RT-Q6H PRN 04/24/17 01/15/18 History Inhaler] Albuterol Nebulized [Ventolin 2.5 mg INHALATION RT-TID 06/16/17 01/15/18 History Nebulized] Atorvastatin [Lipitor] 80 mg PO HS 08/26/17 01/15/18 History Furosemide [Lasix] 40 mg PO DAILY 08/26/17 01/15/18 History Acetaminophen Tab [Tylenol] 100 mg PO Q8H PRN 01/04/18 01/15/18 History Bisacodyl [Dulcolax] 10 mg RECTAL DAILY PRN 01/04/18 01/15/18 History Ferrous Sulfate [Iron (65 MG 325 mg PO DAILY 01/04/18 01/15/18 History Elemental)] Fluticasone Nasal [place] [Flonase 1 spray EA NOSTRIL DAILY 01/04/18 01/15/18 History Nasal [place]] Melatonin 3 mg PO HS 01/04/18 01/15/18 History Polyethylene Glycol 3350 [Miralax] 17 gm PO Q4H PRN 01/04/18 01/15/18 History guaiFENesin [guaiFENesin Oral 200 mg PO Q4H PRN 01/04/18 01/15/18 History Solution] Furosemide [Lasix] 20 mg PO HS #1 tab 01/06/18 01/15/18 Rx Metoprolol Tartrate [Lopressor] 50 mg PO BID tab 01/06/18 01/15/18 Rx traMADol HCL [Ultram] 50 mg PO Q6HR PRN #12 tab 01/06/18 01/15/18 Rx Albuterol Nebulized [Ventolin 2.5 mg INHALATION RT-Q6H PRN 01/15/18 01/15/18 History Nebulized] Esomeprazole Magnesium [NexIUM] 20 mg PO BID 01/15/18 01/15/18 History Insulin Aspart [NovoLOG See Protocol SQ AC-TID 01/15/18 01/15/18 History (formulary)] Insulin Glargine [Lantus] 10 unit SQ HS 01/15/18 01/15/18 History Sennosides [Senna] 8.6 mg PO DAILY 01/15/18 01/15/18 History Allergies Allergy/AdvReac Type Severity Reaction Status Date / Time Penicillins Allergy Severe Rash/Hives Verified 01/15/18 08:12 rivaroxaban [From Xarelto] Allergy GI bleed Verified 01/15/18 08:12 ropinirole HCl [From Requip] Allergy Unknown Verified 01/15/18 08:12 sulfamethoxazole AdvReac Hallucinati Verified 01/15/18 08:12 [From Bactrim] ons trimethoprim [From Bactrim] AdvReac Hallucinati Verified 01/15/18 08:12 ons Physical Exam Vitals: Vital Signs Temp Pulse Pulse Pulse Resp BP Pulse Ox 01/16/18 12:00 97.1 F L 84 99 90 16 106/64 99 01/16/18 11:50 88 01/16/18 08:36 92 01/16/18 08:20 92 01/16/18 08:15 97.1 F L 88 16 110/66 100 01/16/18 03:37 113 H 26 H 122/92 99 01/15/18 23:14 96.7 F L 81 18 99/53 99 01/15/18 20:51 82 01/15/18 20:43 82 01/15/18 19:28 97.2 F L 81 16 95/61 100 01/15/18 16:32 97 01/15/18 16:22 97 01/15/18 16:00 97 18 99/63 100 01/15/18 15:41 100 Intake and Output 01/15/18 01/16/18 01/16/18 22:59 06:59 14:59 Intake Total 240.256 112.634 509.699 Output Total 130 300 350 Balance 110.256 -187.366 159.699 Intake: Intake, IV Titration 122.256 112.634 209.699 Amount Heparin Sodium,Porcine/ 122.256 112.634 209.699 D5w Pmx 25,000 unit In Dextrose/Water 1 500ml. bag @ 12 UNITS/KG/HR 16. 98 mls/hr IV .Q24H MACIEL Rx #:[id number] Oral 118 300 Output: Drainage 130 100 Right Medial Abdomen 130 100 Urine 200 350 Other: Voiding Method Urinal Urinal Urinal # Voids 1 Weight 71.5 kg Gen. appearance thin, comfortable likely distress. Awake and alert and following commands and answering questions appropriately. Looks a bit malnourished and cachectic. Head exam was generally normal. There was no scleral icterus or corneal arcus. Mucous membranes were moist. Neck was supple and without jugular venous distension, thyromegaly, or carotid bruits. Carotids were easily palpable bilaterally. There was no adenopathy. Lungs sounds are diminished bilaterally especially lung bases. No wheezes or rhonchi and there is some minimal crackles in lung bases bilaterally. Heart sounds are irregular, positive S1-S2 and there is no significant murmurs appreciated. There is an AICD pocket over the left anterior chest area. Abdominal exam revealed normal bowel sounds. The abdomen was soft, non-tender, and without masses, organomegaly, or appreciable enlargement of the abdominal aorta. The patient has a cholecystostomy tube in the right upper quadrant area which is draining bilious material. No direct tenderness but no rebound tenderness. No guarding. Examination of the extremities revealed easily palpable radial, femoral and pedal pulses. There was no cyanosis, clubbing or edema. Neurologically the patient is awake and alert and is no focal neurological deficit. Results - Laboratory Findings CBC and BMP: 01/16/18 01:26 01/15/18 08:24 PT/INR, D-dimer PT 11.7 sec (9.0-12.0) 01/15/18 08:24 INR 1.2 (<1.2) H 01/15/18 08:24 D-Dimer 0.45 mg/L FEU (<0.60) 01/16/18 01:26 Abnormal lab findings: Abnormal Labs 01/15/18 01/15/18 01/15/18 08:24 08:24 08:24 WBC 11.6 H RDW 17.9 H Neutrophils # 9.4 H INR APTT BUN 35 H Glucose 177 H POC Glucose (mg/dL) Hemoglobin A1c Alkaline Phosphatase 211 H Total Creatine Kinase 30 L 01/15/18 01/15/18 01/15/18 08:24 08:24 14:50 WBC RDW Neutrophils # INR 1.2 H APTT 21.1 L BUN Glucose POC Glucose (mg/dL) Hemoglobin A1c 8.6 H Alkaline Phosphatase Total Creatine Kinase 26 L 01/15/18 01/15/18 01/15/18 16:50 17:04 21:10 WBC RDW Neutrophils # INR APTT 45.6 H BUN Glucose POC Glucose (mg/dL) 174 H 207 H Hemoglobin A1c Alkaline Phosphatase Total Creatine Kinase 01/16/18 01/16/18 01/16/18 01:26 01:26 01:26 WBC 11.1 H RDW 18.2 H Neutrophils # 8.5 H INR APTT 50.0 H BUN Glucose POC Glucose (mg/dL) Hemoglobin A1c Alkaline Phosphatase Total Creatine Kinase 23 L 01/16/18 01/16/18 06:17 11:51 WBC RDW Neutrophils # INR APTT BUN Glucose POC Glucose (mg/dL) 176 H 141 H Hemoglobin A1c Alkaline Phosphatase Total Creatine Kinase - Diagnostic Findings Chest x-ray: image reviewed Assessment and Plan Plan: Assessment 1 acute chest pain, possible angina knowing that the patient has multivessel coronary artery disease and he has undergone previous non-ST segment myocardial infarction. Recent cardiac evaluation was done in 2017 and the patient had a stenting of the ramus intermedius branch. Current EKG showing atrial fibrillation. Some nonspecific ST T wave changes. Troponins are minimally elevated. Currently free of any chest pain and hemodynamically stable 2 CHF with small better pleural effusions 3 systolic dysfunction with an ejection fraction of 40-45% in addition to moderate to severe degree of mitral regurgitation and secondary pulmonary hypertension 4 COPD 5 cholelithiasis/cholecystitis status post percutaneous cholecystectomy tube placement as the patient is not a surgical candidate for cholecystectomy 6 CVA without any residual deficits 7 chronic atrial fibrillation and the patient has been on Xarelto in the past and this has been taken off due to GI bleed 8 nonsustained V. tach, history of currently inactive in stable 9 hyperlipidemia 7 hypertension 11 peripheral neuropathy 12 peripheral vascular disease 13 nephrolithiasis 14 history of GI bleed, with a previous endoscopies showing a small hiatal hernia and a colonic polyp that was resected and a scattered sigmoid diverticulosis. 15 acid reflux 16 single chamber AICD placement back in 2016 Plan We'll consult with cardiology. Continue IV heparin for now. Continue Lasix 40 mg every 12 hours to optimize the volume status. Continue aspirin. Continue metoprolol. Continue Plavix. Asked surgery to evaluate the cholecystostomy tube although the patient seems to be asymptomatic and his abdominal exam is soft and the liver function is also within normal limits. Pulmonary status is stable. Long-term prognosis poor specially based on his age and comorbidities. We'll continue to follow.
[2018-01-16] MEDS ORDERED: guaiFENesin SYRUP 100MG/5ML 200 MG/10 ML CUP PO PRN (16:19)
[2018-01-16 16:37] LABS: Glucose,Whole Blood 208 mg/dL (75-99)
[2018-01-16] MEDS: traMADol 50 MG TAB PO PRN ×2 (16:55→23:13)
--- NOTE | 2018-01-16 17:30 | PN ---
PROGRESS NOTE DATE OF SERVICE: 01/16/2018 This 82-year-old gentleman was admitted with CHF, acute exacerbation, ejection fraction 30% to 35%. BNP was elevated. Patient is extremely short of breath. The patient also had multiple arrhythmias, including atrial fibrillation, bradycardia, as well as PVCs. Multiple consultants, including Cardiology and Pulmonology, are following the patient closely. The patient is on intravenous diuretics at this time. A Lexiscan stress test in November was negative for any reversible ischemia. The patient also had abdominal pain and was evaluated in [facility] and the patient had a percutaneous cholecystomy tube because the patient is not an ideal surgical candidate. EKG showed nonspecific ST-T changes. Past medical history reviewed. REVIEW OF SYSTEMS: CARDIOVASCULAR SYSTEM: No angina, palpitations. RESPIRATORY SYSTEM: As mentioned earlier. GI: As mentioned earlier. : No dysuria or retention. NERVOUS SYSTEM: No numbness, weakness.. CURRENT MEDICATIONS: Current medications are reviewed and include: 1. Tylenol 650 q.6 p.r.n. 2. DuoNeb q.i.d. and p.r.n. 3. Aspirin 81 mg. 4. Lipitor 80 mg. 5. Tums. 6. Plavix 75 mg. 7. Lasix 40 mg. 8. NovoLog/Levemir 10 units subcutaneously at bedtime. 9. Imdur. 10.Melatonin. 11.Lopressor. 12.Nitrostat. 13.Zofran. 14.Protonix. 15.Senokot. 16.Ultram. PHYSICAL EXAMINATION: Patient is alert, oriented x3. Pulse 99, blood pressure 106/64, respiration 16, temperature 97.1, pulse ox 99% on 4 L. HEENT: Conjunctivae normal. Oral mucosa moist. NECK: No jugular venous distention. No carotid bruit. No lymph node enlargement. CARDIOVASCULAR SYSTEM: S1, S2 muffled. No S3. No S4. RESPIRATORY SYSTEM: Breath sounds diminished at the bases. A few scattered rhonchi and crackles. Expiratory wheezing also present. ABDOMEN: Soft. Status post cholecystostomy tube. Otherwise non-tender. No mass palpable. LEGS: No edema. No swelling. NERVOUS SYSTEM: Higher functions as mentioned earlier. Moves all 4 limbs. No focal motor or sensory deficit. LYMPHATICS: No lymph node palpable in neck, axillae or groin. SKIN: No ulcer, rash, bleeding. LABS: WBC 7.1, hemoglobin 13.8. The chest x-ray, which was reviewed by me personally, shows some CHF at this time. Other labs are noted. ASSESSMENT: 1. Congestive heart failure, acute exacerbation, with acute on chronic systolic dysfunction, ejection fraction 30% to 35%. 2. Acute cholecystitis, status post cholecystostomy tube drain from [facility]. Patient is not a surgical candidate. 3. Chronic obstructive pulmonary disease. 4. Persistent atrial fibrillation. 5. Premature ventricular contractions. 6. Essential hypertension. 7. Hyperlipidemia. 8. Gait dysfunction. 9. Diabetes mellitus, type 2. 10.Peripheral artery disease. 11.Coronary artery disease, stent. 12.Gastroesophageal reflux disease. 13.Automated implantable cardioverter defibrillator. RECOMMENDATIONS AND DISCUSSION: I recommend to continue current medication, continue with the monitoring, symptomatic treatment. Otherwise at this time we will monitor the patient closely. Continue the diuretics. The patient is on Lasix 40 mg IV b.i.d. Patient is on IV heparin as well. Otherwise, monitor blood sugars closely. I would recommend DuoNeb, also. We will continue to monitor. Beta blockers. Guarded prognosis because of multiple complex medical issues. Further recommendations to follow. Repeat labs will be ordered. NT proBNP was 18, 900. The home medications may be continued also. I will also monitor blood sugars closely. PT/OT evaluation was also noted. MMODL / ISHAN: [id number] /
[2018-01-16 21:04] LABS: Glucose,Whole Blood 165 mg/dL (75-99)
[2018-01-16] MEDS: ATORVASTATIN 80 MG TAB PO SCH (21:56)
[2018-01-16] MEDS: MELATONIN 3 MG TABLET PO SCH (21:58)
[2018-01-16] MEDS: INSULIN DETEMIR 100 UNIT/ML 10 ML VIAL SQ SCH (21:58)
[2018-01-17] MEDS: ALPRAZolam 0.25 MG TAB PO PRN ×2 (00:26→22:29)
[2018-01-17 05:28] LABS: Appearance,Urine Clear (Clear); Bilirubin,Urine Negative (Negative); Blood,Urine Negative (Negative); Color,Urine Yellow; Glucose,Urine (UA) Negative (Negative); Ketones,Urine Negative (Negative); Leukocyte Esterase,Urine Negative (Negative); Nitrite,Urine Negative (Negative); PH, Urine 5.5 (5.0-8.0); Protein,Urine Trace (Negative); Specific Gravity,Urine 1.008 (1.001-1.035); Urobilinogen,Urine <2.0 mg/dL (<2.0)
[2018-01-17 06:09] LABS: Glucose,Whole Blood 157 mg/dL (75-99)
[2018-01-17] MEDS: traMADol 50 MG TAB PO PRN ×3 (06:17→19:51)
[2018-01-17] MEDS: INSULIN ASPART 100 UNIT/ML 1 ML 10 ML VIAL SQ SCH ×4 (06:18→21:33)
[2018-01-17] MEDS: PANTOPRAZOLE 40 MG TABLET PO SCH (06:19)
[2018-01-17 06:33] LABS: Anisocytosis Slight; Basophils # (A) 0.1 k/uL (0-0.2); Basophils % (A) 1 %; Eosinophils # (A) 0.3 k/uL (0-0.7); Eosinophils % (A) 3 %; HCT 41.1 % (39.0-53.0); HGB 13.2 gm/dL (13.0-17.5); Hypochromasia Slight; Lymphocytes # (A) 1.2 k/uL (1.0-4.8); Lymphocytes % (A) 13 %; MCH 27.2 pg (25.0-35.0); MCHC 32.3 g/dL (31.0-37.0); MCV 84.3 fL (80.0-100.0); Mean Platelet Volume 8.7; Monocytes # (A) 0.8 k/uL (0-1.0); Monocytes % (A) 8 %; Neutrophils # (A) 7.4 k/uL (1.3-7.7); Neutrophils % (A) 75 %; Platelet Count 231 k/uL (150-450); RBC 4.87 m/uL (4.30-5.90); RDW 18.2 % (11.5-15.5); WBC 9.8 k/uL (3.8-10.6)
[2018-01-17 06:38] LABS: Calcium 9.4 mg/dL (8.4-10.2)
[2018-01-17] MEDS: IPRATROPIUM-ALBUTEROL 3 ML NEB INHALATION SCH ×5 (08:42→19:47)
[2018-01-17] MEDS: METOPROLOL TARTRATE 50 MG TAB PO SCH ×2 (08:48→19:51)
[2018-01-17] MEDS: FLUTICASONE 50MCG/SPRAY NASAL 16GM EA NOSTRIL SCH (08:48)
[2018-01-17] MEDS: ASPIRIN 81 MG PO SCH (08:49)
[2018-01-17] MEDS: SENNOSIDES 8.6 MG TAB PO SCH (08:49)
[2018-01-17] MEDS: CLOPIDOGREL 75 MG TAB PO SCH (08:49)
[2018-01-17] MEDS: FUROSEMIDE 10 MG/ML 4 ML VIAL IV SCH ×2 (08:49→19:51)
[2018-01-17 12:21] LABS: Glucose,Whole Blood 210 mg/dL (75-99)
[2018-01-17] MEDS: ISOSORBIDE MONONITRATE ER 60 MG TAB.ER.24H PO SCH (12:23)
--- NOTE | 2018-01-17 12:57 | P.PN ---
Subjective Progress Note Date: 01/17/18 I was asked to evaluate this 82-year-old male patient with for increased shortness of breath. The patient has been in the hospital multiple occasions. Most recently came in for abdominal pain he was found to have an acute cholecystitis yet based on his medical problems and comorbidities an extensive cardiac history, no surgery was done and the patient had a percutaneous drainage tube/cholecystostomy tube was inserted and the patient was discharged home. The tube is still in place. It is draining. The patient has no significant abdominal pain. The patient felt weak and he had chest pain which she describes as pressure over the anterior part of the chest. This lasted for around 20-30 minutes. For that reason he decided to come back to the hospital. He was having some increased shortness of breath also. His troponin was 0.032. EKG showed atrial fibrillation with nonspecific ST segment changes. His chest x-ray shows small bilateral pleural effusion and findings consistent with CHF. His pulse is currently 98% on 40 to Bactrim by nasal cannula. White cell count is not elevated. This patient is known to have extensive coronary artery disease and cardiac history. He has had previous cardiac stent placement including a stent in the ramus intermedius branch of the right coronary artery back in 2017. He has history of congestion heart failure with impaired LV function and has a previous AICD placement. He has chronic atrial fibrillation. He is also had issues with CVA, hypertension, hyperlipidemia, diabetes mellitus. Patient has peripheral vascular disease. Is quite cachectic. Overall performance and functional status is been poor. He has been using oxygen with activity and during sleep. On 01/17/2018, the patient has been free of any chest pain and IV heparin is been discontinued. The patient is being treated with diuretics. Less short of breath compared to yesterday. Resting comfortably in bed and the patient has no specific complaints. The patient has the cholecystostomy tube dysfunction and draining. The patient is afebrile. White cell count is at 9.8. Renal function is also stable at creatinine of 0.9. The patient is still receiving Lasix 40 mg IV push every 12 hours. Objective - Vital Signs Vital signs: Vital Signs Temp 97 F L 01/17/18 08:00 Pulse 81 01/17/18 12:04 Resp 19 01/17/18 08:00 BP 102/65 01/17/18 08:00 Pulse Ox 96 01/17/18 08:00 Intake & Output 01/16/18 01/17/18 01/17/18 18:59 06:59 18:59 Intake Total 689.699 Output Total 350 490 Balance 339.699 -490 Weight 71.5 kg 69.5 kg Intake: Intake, IV Titration 209.699 Amount Heparin Sodium,Porcine/ 209.699 D5w Pmx 25,000 unit In Dextrose/Water 1 500ml. bag @ 12 UNITS/KG/HR 16. 98 mls/hr IV .Q24H MACIEL Rx #:[id number] Oral 480 Output: Drainage 90 Right Medial Abdomen 90 Urine 350 400 Other: Voiding Method Urinal Urinal # Voids 0 # Bowel Movements 0 - Exam Gen. appearance thin, comfortable likely distress. Awake and alert and following commands and answering questions appropriately. Looks a bit malnourished and cachectic. Head exam was generally normal. There was no scleral icterus or corneal arcus. Mucous membranes were moist. Neck was supple and without jugular venous distension, thyromegaly, or carotid bruits. Carotids were easily palpable bilaterally. There was no adenopathy. Lungs sounds are diminished bilaterally especially lung bases. No wheezes or rhonchi and there is some minimal crackles in lung bases bilaterally. Heart sounds are irregular, positive S1-S2 and there is no significant murmurs appreciated. There is an AICD pocket over the left anterior chest area. Abdominal exam revealed normal bowel sounds. The abdomen was soft, non-tender, and without masses, organomegaly, or appreciable enlargement of the abdominal aorta. The patient has a cholecystostomy tube in the right upper quadrant area which is draining bilious material. No direct tenderness but no rebound tenderness. No guarding. Examination of the extremities revealed easily palpable radial, femoral and pedal pulses. There was no cyanosis, clubbing or edema. Neurologically the patient is awake and alert and is no focal neurological deficit. - Labs CBC & Chem 7: 01/17/18 05:38 01/17/18 05:38 Labs: Abnormal Lab Results - Last 24 Hours (Table) 01/16/18 01/16/18 01/17/18 Range/Units 16:34 21:03 05:20 RDW (11.5-15.5) % APTT (22.0-30.0) sec Carbon Dioxide (22-30) mmol/L BUN (9-20) mg/dL Glucose (74-99) mg/dL POC Glucose (mg/dL) 208 H 165 H (75-99) mg/dL Urine Protein Trace H (Negative) 01/17/18 01/17/18 01/17/18 Range/Units 05:38 05:38 05:38 RDW 18.2 H (11.5-15.5) % APTT 21.4 L (22.0-30.0) sec Carbon Dioxide 20 L (22-30) mmol/L BUN 32 H (9-20) mg/dL Glucose 156 H (74-99) mg/dL POC Glucose (mg/dL) (75-99) mg/dL Urine Protein (Negative) 01/17/18 01/17/18 Range/Units 06:08 12:02 RDW (11.5-15.5) % APTT (22.0-30.0) sec Carbon Dioxide (22-30) mmol/L BUN (9-20) mg/dL Glucose (74-99) mg/dL POC Glucose (mg/dL) 157 H 210 H (75-99) mg/dL Urine Protein (Negative) Assessment and Plan Plan: Assessment 1 acute chest pain, possible angina knowing that the patient has multivessel coronary artery disease and he has undergone previous non-ST segment myocardial infarction. Recent cardiac evaluation was done in 2017 and the patient had a stenting of the ramus intermedius branch. Current EKG showing atrial fibrillation. Some nonspecific ST T wave changes. Troponins are minimally elevated. Currently free of any chest pain and hemodynamically stable On 01/17/2018, the patient's history of any chest pain and IV heparin has been discontinued and I took the opportunity to switch this patient subcu heparin for DVT prophylaxis only. 2 CHF with small better pleural effusions, responding to diuretics and the patient is receiving Lasix 40 mg IV push every 12 hours. 3 systolic dysfunction with an ejection fraction of 40-45% in addition to moderate to severe degree of mitral regurgitation and secondary pulmonary hypertension 4 COPD 5 cholelithiasis/cholecystitis status post percutaneous cholecystectomy tube placement as the patient is not a surgical candidate for cholecystectomy 6 CVA without any residual deficits 7 chronic atrial fibrillation and the patient has been on Xarelto in the past and this has been taken off due to GI bleed 8 nonsustained V. tach, history of currently inactive in stable 9 hyperlipidemia 7 hypertension 11 peripheral neuropathy 12 peripheral vascular disease 13 nephrolithiasis 14 history of GI bleed, with a previous endoscopies showing a small hiatal hernia and a colonic polyp that was resected and a scattered sigmoid diverticulosis. 15 acid reflux 16 single chamber AICD placement back in 2016 Plan We'll consult with cardiology. Increased level of activity as tolerated. Subcu heparin. Stop IV heparin. The patient's history of any chest pain. Continue Lasix. We'll continue to follow.
--- NOTE | 2018-01-17 13:20 | P.GSCN ---
History of Present Illness Consult date: 01/17/18 Reason for Consult: Cholecystostomy tube History of present illness: The patient's 85-year-old man who had a cholecystostomy tube placed at [facility] as he was not a good candidate for surgery. He has had several readmissions with shortness of breath and congestive heart failure. Review of Systems - Constitutional Reports as per HPI, Reports poor appetite (Complains of food does not taste good and the meat is too tough) - Gastrointestinal Reports as per HPI Past Medical History Past Medical History: Atrial Fibrillation, Coronary Artery Disease (CAD), Chest Pain / Angina, Heart Failure, COPD, CVA/TIA, Diabetes Mellitus, GERD/Reflux, GI Bleed, Hyperlipidemia, Hypertension, Myocardial Infarction ([place]), Pneumonia, Vascular Disorder Additional Past Medical History / Comment(s): Coronary artery disease, previous coronary intervention and stenting, CHF with an ejection fraction of 40-45% and moderate to severe pulmonary hypertension, severe mitral regurgitation based on echocardiogram from June 2017, cholelithiasis and cholecystitis status post cholecystostomy tube placement, recurrent abdominal pain with questionable history of chronic mesenteric ischemia, COPD, diabetes mellitus, previous history of CVA, iron deficiency anemia, constipation, nephrolithiasis, peripheral vascular disease, previous history of a E. coli urine checked infection with sepsis back in 2016 Last Myocardial Infarction Date:: 06/16/17 History of Any Multi-Drug Resistant Organisms: ESBL Year Discovered:: 06/28/17 ESBL-E.coli MDRO Source:: Urine Past Surgical History: AICD, Heart Catheterization, Heart Catheterization With Stent, Hernia Repair, Prostate Surgery Additional Past Surgical History / Comment(s): Recent biliary tube placement, 2014- R leg artherectomy with balloon angioplasty, multiple coronary stents with last one place 06/16/17, bilateral cataracts , LEFT RING FINGER AMPUTATION , lithotripsies, EGD and colonoscopy. Past Anesthesia/Blood Transfusion Reactions: No Reported Reaction Additional Past Anesthesia/Blood Transfusion Reaction / Comm: HAD BLOOD TRANSFUSION without reaction. Date of Last Stent Placement:: 06/16/17 Type of Cardiac Device: AICD Device Placement Date:: 2014 Past Psychological History: No Psychological Hx Reported Additional Psychological History / Comment(s): Pt currently resides at [facility]. He states he gets up with walker. Smoking Status: Never smoker Past Alcohol Use History: None Reported Additional Past Alcohol Use History / Comment(s): CHEWED TOBACCO FOR 30 YRS. QUIT CHEWING TOBACCO 1983 Past Drug Use History: None Reported - Past Family History Daughter(s) Family Medical History: Cancer Mother Family Medical History: Cancer Additional Family Medical History / Comment(s): . Father Family Medical History: Diabetes Mellitus Medications and Allergies Home Medications Medication Instructions Recorded Confirmed Type Nitroglycerin Sl Tabs [Nitrostat] 0.4 mg SUBLINGUAL Q5M PRN 07/15/14 01/15/18 History Clopidogrel [Plavix] 75 mg PO DAILY 12/02/14 01/15/18 History Isosorbide Mononitrate ER [Imdur] 60 mg PO DAILY 08/28/15 01/15/18 History Tiotropium [place] [Spiriva] 1 cap INHALATION RT-DAILY 08/28/15 01/15/18 History Aspirin [Adult Low Dose Aspirin EC] 81 mg PO DAILY 08/29/15 01/15/18 History Albuterol Inhaler [Ventolin Hfa 1 puff INHALATION RT-Q6H PRN 04/24/17 01/15/18 History Inhaler] Albuterol Nebulized [Ventolin 2.5 mg INHALATION RT-TID 06/16/17 01/15/18 History Nebulized] Atorvastatin [Lipitor] 80 mg PO HS 08/26/17 01/15/18 History Furosemide [Lasix] 40 mg PO DAILY 08/26/17 01/15/18 History Acetaminophen Tab [Tylenol] 100 mg PO Q8H PRN 01/04/18 01/15/18 History Bisacodyl [Dulcolax] 10 mg RECTAL DAILY PRN 01/04/18 01/15/18 History Ferrous Sulfate [Iron (65 MG 325 mg PO DAILY 01/04/18 01/15/18 History Elemental)] Fluticasone Nasal [place] [Flonase 1 spray EA NOSTRIL DAILY 01/04/18 01/15/18 History Nasal [place]] Melatonin 3 mg PO HS 01/04/18 01/15/18 History Polyethylene Glycol 3350 [Miralax] 17 gm PO Q4H PRN 01/04/18 01/15/18 History guaiFENesin [guaiFENesin Oral 200 mg PO Q4H PRN 01/04/18 01/15/18 History Solution] Furosemide [Lasix] 20 mg PO HS #1 tab 01/06/18 01/15/18 Rx Metoprolol Tartrate [Lopressor] 50 mg PO BID tab 01/06/18 01/15/18 Rx traMADol HCL [Ultram] 50 mg PO Q6HR PRN #12 tab 01/06/18 01/15/18 Rx Albuterol Nebulized [Ventolin 2.5 mg INHALATION RT-Q6H PRN 01/15/18 01/15/18 History Nebulized] Esomeprazole Magnesium [NexIUM] 20 mg PO BID 01/15/18 01/15/18 History Insulin Aspart [NovoLOG See Protocol SQ AC-TID 01/15/18 01/15/18 History (formulary)] Insulin Glargine [Lantus] 10 unit SQ HS 01/15/18 01/15/18 History Sennosides [Senna] 8.6 mg PO DAILY 01/15/18 01/15/18 History Allergies Allergy/AdvReac Type Severity Reaction Status Date / Time Penicillins Allergy Severe Rash/Hives Verified 01/15/18 08:12 rivaroxaban [From Xarelto] Allergy GI bleed Verified 01/15/18 08:12 ropinirole HCl [From Requip] Allergy Unknown Verified 01/15/18 08:12 sulfamethoxazole AdvReac Hallucinati Verified 01/15/18 08:12 [From Bactrim] ons trimethoprim [From Bactrim] AdvReac Hallucinati Verified 01/15/18 08:12 ons Surgical - Exam Osteopathic Statement: *. No significant issues noted on an osteopathic structural exam other than those noted in the History and Physical/Consult. Vital Signs Temp Pulse Resp BP Pulse Ox 97.0 F L 82 19 110/64 100 01/15/18 08:12 01/15/18 08:12 01/15/18 08:12 01/15/18 08:12 01/15/18 08:12 - General no distress, chronically ill - Eyes normal ocular movement - Respiratory other (Diminished breath sounds bilaterally without wheeze) - Abdomen A cholecystostomy tube is in place draining clear green bile Abdomen: soft, bowel sounds, no masses Results - Labs 01/17/18 05:38 01/17/18 05:38 Abnormal Lab Results - Last 24 Hours (Table) 01/16/18 01/16/1818 Range/Units 16:34 21:03 05:20 RDW (11.5-15.5) % APTT (22.0-30.0) sec Carbon Dioxide (22-30) mmol/L BUN (9-20) mg/dL Glucose (74-99) mg/dL POC Glucose (mg/dL) 208 H 165 H (75-99) mg/dL Urine Protein Trace H (Negative) 01/17/18 01/17/18 01/17/18 Range/Units 05:38 05:38 05:38 RDW 18.2 H (11.5-15.5) % APTT 21.4 L (22.0-30.0) sec Carbon Dioxide 20 L (22-30) mmol/L BUN 32 H (9-20) mg/dL Glucose 156 H (74-99) mg/dL POC Glucose (mg/dL) (75-99) mg/dL Urine Protein (Negative) 01/17/18 01/17/18 Range/Units 06:08 12:02 RDW (11.5-15.5) % APTT (22.0-30.0) sec Carbon Dioxide (22-30) mmol/L BUN (9-20) mg/dL Glucose (74-99) mg/dL POC Glucose (mg/dL) 157 H 210 H (75-99) mg/dL Urine Protein (Negative) Diabetes panel 01/17/18 Range/Units 05:38 Sodium 142 (137-145) mmol/L Potassium 4.0 (3.5-5.1) mmol/L Chloride 103 (98-107) mmol/L Carbon Dioxide 20 L (22-30) mmol/L BUN 32 H (9-20) mg/dL Creatinine 0.95 (0.66-1.25) mg/dL Glucose 156 H (74-99) mg/dL Calcium 9.4 (8.4-10.2) mg/dL Calcium panel 01/17/18 Range/Units 05:38 Calcium 9.4 (8.4-10.2) mg/dL Pituitary panel 01/17/18 Range/Units 05:38 Sodium 142 (137-145) mmol/L Potassium 4.0 (3.5-5.1) mmol/L Chloride 103 (98-107) mmol/L Carbon Dioxide 20 L (22-30) mmol/L BUN 32 H (9-20) mg/dL Creatinine 0.95 (0.66-1.25) mg/dL Glucose 156 H (74-99) mg/dL Calcium 9.4 (8.4-10.2) mg/dL Adrenal panel 01/17/18 Range/Units 05:38 Sodium 142 (137-145) mmol/L Potassium 4.0 (3.5-5.1) mmol/L Chloride 103 (98-107) mmol/L Carbon Dioxide 20 L (22-30) mmol/L BUN 32 H (9-20) mg/dL Creatinine 0.95 (0.66-1.25) mg/dL Glucose 156 H (74-99) mg/dL Calcium 9.4 (8.4-10.2) mg/dL Assessment and Plan (1) Cholecystostomy care Current Visit: Yes Status: Acute Code(s): Z43.4 - ENCOUNTER FOR ATTN TO OTH ARTIF OPENINGS OF DIGESTIVE TRACT SNOMED Code(s): 540717654 (2) Cholelithiasis Current Visit: No Status: Acute Code(s): K80.20 - CALCULUS OF GALLBLADDER W/ O CHOLECYSTITIS W/O OBSTRUCTION SNOMED Code(s): 368066419 (3) Dyspnea Current Visit: No Status: Acute Code(s): R06.00 - DYSPNEA, UNSPECIFIED SNOMED Code(s): 491562562 Plan: The cholecystostomy tube is in place with no sign of infection. It is draining well. No recommendations for removal at this time.
--- NOTE | 2018-01-17 14:46 | PN ---
PROGRESS NOTE DATE OF SERVICE: 01/17/2018 This 82-year-old gentleman admitted with CHF, acute exacerbation, also had acute cholecystis and recently from [facility] cholecystectomy. A cystostomy tube was inserted. Patient is being closely monitored at this time. The patient is not a good candidate for surgery. The cholecystostomy tube is draining well at this time. The patient is being closely monitored. Past medical history reviewed. REVIEW OF SYSTEMS: CARDIOVASCULAR SYSTEM: As mentioned earlier. RESPIRATORY SYSTEM: As mentioned earlier. GI: As mentioned earlier. : No dysuria or retention. NERVOUS SYSTEM: No numbness, weakness. CURRENT MEDICATIONS: Current medications are reviewed and include: 1. Tylenol 650 q.6 p.r.n. 2. Ventolin p.r.n. 3. DuoNeb q.i.d. and p.r.n. 4. Xanax 0.25 q.6 p.r.n. 5. Aspirin 81 mg. 6. Lipitor. 7. Tums. 8. Plavix. 9. Flonase. 10.Lasix 40 mg. 11.Robitussin. 12.Heparin. 13.Imdur. 14.Melatonin. 15.Narcan. 16.Nitrostat. 17.Zofran. 18.MiraLAX. 19.Senokot. 20.Ultram. PHYSICAL EXAMINATION: Patient is alert, oriented x3. Pulse 103, blood pressure 110/64, respiration 18, temperature normal, pulse ox 100% on 2 L. HEENT: Conjunctivae normal. Oral mucosa moist. NECK: No jugular venous distention. No carotid bruit. No lymph node enlargement. CARDIOVASCULAR SYSTEM: S1, S2 muffled. No S3. No S4. RESPIRATORY SYSTEM: Breath sounds diminished at the bases. Bilateral scattered rhonchi and expiratory wheezing. Crackles, especially in the base. ABDOMEN: Soft. Mild diffuse distention and cholecystostomy tube is in place. Bowel sounds diminished. No ascites. No guarding. No rigidity. LEGS: No edema. No swelling. NERVOUS SYSTEM: Higher functions as mentioned earlier. Moves all 4 limbs. No focal motor or sensory deficit. LYMPHATICS: No lymph node palpable in neck, axillae or groin. SKIN: No ulcer, rash, bleeding. LABS: CBC within normal limits. BUN is 32. The most recent chest x-ray showed some evidence of fluid overload. The patient has lost about 2 kg since admission. ASSESSMENT: 1. Congestive heart failure, acute exacerbation, with acute on chronic systolic dysfunction, ejection fraction 30% to 35%. 2. Acute cholecystitis, status post cholecystostomy tube drain from [facility]. Patient is not a surgical candidate. 3. Chronic obstructive pulmonary disease, acute exacerbation. 4. Persistent atrial fibrillation. 5. Premature ventricular contractions. 6. Essential hypertension. 7. Hyperlipidemia. 8. Gait dysfunction. 9. Diabetes mellitus, type 2. 10.Peripheral artery disease. 11.Coronary artery disease, stent. 12.Gastroesophageal reflux disease. 13.Automated implantable cardioverter defibrillator. RECOMMENDATIONS AND DISCUSSION: I recommend to continue current medication, continue with the monitoring, symptomatic treatment. Otherwise, at this time I would recommend continued diuretics. Prognosis is guarded. Surgical evaluation appreciated. Further recommendations to follow. The patient is in rehab currently but is followed by Dr. Colmenares in the outpatient setting. MMODL / IJN: [id number] /
[2018-01-17 16:41] LABS: Glucose,Whole Blood 164 mg/dL (75-99)
[2018-01-17] MEDS: HEPARIN SODIUM,PORCINE 5,000 UNIT/ML 1 ML VIAL SQ SCH ×2 (17:47→22:25)
[2018-01-17] MEDS: ATORVASTATIN 80 MG TAB PO SCH (19:51)
[2018-01-17 21:02] LABS: Glucose,Whole Blood 206 mg/dL (75-99)
[2018-01-17] MEDS: INSULIN DETEMIR 100 UNIT/ML 10 ML VIAL SQ SCH (21:33)
[2018-01-17] MEDS: MELATONIN 3 MG TABLET PO SCH (22:24)
[2018-01-18] MEDS: ACETAMINOPHEN TAB 325 MG TAB PO PRN ×2 (00:33→21:03)
[2018-01-18] MEDS: traMADol 50 MG TAB PO PRN ×3 (03:20→15:09)
[2018-01-18 05:53] LABS: Glucose,Whole Blood 149 mg/dL (75-99)
[2018-01-18 06:06] LABS: Anisocytosis Slight; Basophils # (A) 0.1 k/uL (0-0.2); Basophils % (A) 1 %; Eosinophils # (A) 0.2 k/uL (0-0.7); Eosinophils % (A) 2 %; HCT 44.8 % (39.0-53.0); HGB 14.6 gm/dL (13.0-17.5); Hypochromasia Slight; Lymphocytes # (A) 1.7 k/uL (1.0-4.8); Lymphocytes % (A) 15 %; MCH 28.3 pg (25.0-35.0); MCHC 32.6 g/dL (31.0-37.0); MCV 86.7 fL (80.0-100.0); Mean Platelet Volume 8.9; Monocytes # (A) 0.8 k/uL (0-1.0); Monocytes % (A) 7 %; Neutrophils # (A) 8.3 k/uL (1.3-7.7); Neutrophils % (A) 74 %; Platelet Count 205 k/uL (150-450); RBC 5.17 m/uL (4.30-5.90); RDW 18.1 % (11.5-15.5); WBC 11.2 k/uL (3.8-10.6)
[2018-01-18 06:07] LABS: Calcium 9.4 mg/dL (8.4-10.2); Potassium 4.3 mmol/L (3.5-5.1)
[2018-01-18] MEDS: INSULIN ASPART 100 UNIT/ML 1 ML 10 ML VIAL SQ SCH ×4 (06:09→21:10)
[2018-01-18] MEDS: PANTOPRAZOLE 40 MG TABLET PO SCH (06:10)
[2018-01-18] MEDS: CLOPIDOGREL 75 MG TAB PO SCH (07:44)
[2018-01-18] MEDS: METOPROLOL TARTRATE 50 MG TAB PO SCH ×2 (07:44→19:52)
[2018-01-18] MEDS: ASPIRIN 81 MG PO SCH (07:45)
[2018-01-18] MEDS: HEPARIN SODIUM,PORCINE 5,000 UNIT/ML 1 ML VIAL SQ SCH ×3 (07:45→23:57)
[2018-01-18] MEDS: SENNOSIDES 8.6 MG TAB PO SCH (07:45)
[2018-01-18] MEDS: FLUTICASONE 50MCG/SPRAY NASAL 16GM EA NOSTRIL SCH (07:45)
[2018-01-18] MEDS: FUROSEMIDE 10 MG/ML 4 ML VIAL IV SCH ×2 (07:46→21:04)
[2018-01-18] MEDS: IPRATROPIUM-ALBUTEROL 3 ML NEB INHALATION SCH ×4 (08:43→19:18)
[2018-01-18] MEDS: ALPRAZolam 0.25 MG TAB PO PRN ×3 (08:48→23:54)
[2018-01-18 12:00] LABS: Glucose,Whole Blood 175 mg/dL (75-99)
[2018-01-18] MEDS: ISOSORBIDE MONONITRATE ER 60 MG TAB.ER.24H PO SCH (12:33)
[2018-01-18 17:06] LABS: Glucose,Whole Blood 141 mg/dL (75-99)
--- NOTE | 2018-01-18 18:32 | PN ---
PROGRESS NOTE DATE OF SERVICE: 01/18/2018 This 82-year-old gentleman who was admitted with CHF acute exacerbation also had cholecystotomy tube for acute cholecystitis. The patient had cholecystostomy tube placed in [facility] to be maintained for the next 2-3 weeks per staff. No chest pain. No palpitations. The patient is mildly confused. Shortness of breath slightly better. Dr. Solano and Dr. Arango are following the patient closely. EXAM: Alert and oriented x2. Pulse is 111, blood pressure 98/75, respiration 19, temperature 98.9, pulse ox 94% on 2 L. HEENT: Conjunctivae normal. NECK: No jugular venous distention. CARDIOVASCULAR: S1, S2. RESPIRATORY: Breath sounds diminished in the bases. A few scattered rhonchi. Expiratory wheezing. ABDOMEN: Soft, nontender. LEGS: No edema, no swelling. NERVOUS SYSTEM: Diffusely weak. LABS: WBC 7.2, glucose 124. ASSESSMENT: 1. Congestive heart failure acute exacerbation with acute on chronic systolic dysfunction, ejection fraction 30-35%. 2. Acute cholecystitis, status post cholecystostomy tube from [facility]. Patient is not a surgical candidate. 3. Chronic obstructive pulmonary disease acute exacerbation. 4. Persistent atrial fibrillation. 5. PVCs. 6. Hypertension. 7. Hyperlipidemia. 8. Gait dysfunction. 9. Diabetes mellitus type 2. 10.Peripheral heart disease. 11.Coronary artery disease, stent. 12.Gastroesophageal reflux disease. 13.AICD. RECOMMENDATIONS AND DISCUSSION: I recommend to continue current management and symptomatic treatment. Otherwise at this time I would recommend monitor the patient closely. Continue with bronchodilators. Continue with symptomatic treatment. Continue with diuretics. Guarded prognosis. Further recommendations to follow. Will monitor BUN, creatinine closely. MMODL / IJN: [id number] /
[2018-01-18] MEDS: MELATONIN 3 MG TABLET PO SCH (19:52)
[2018-01-18] MEDS: ATORVASTATIN 80 MG TAB PO SCH (19:52)
[2018-01-18 21:10] LABS: Glucose,Whole Blood 188 mg/dL (75-99)
[2018-01-18] MEDS: INSULIN DETEMIR 100 UNIT/ML 10 ML VIAL SQ SCH (21:10)
[2018-01-19] MEDS: traMADol 50 MG TAB PO PRN ×2 (01:12→07:49)
[2018-01-19 02:31] LABS: Glucose,Whole Blood 119 mg/dL (75-99)
[2018-01-19 05:10] LABS: Glucose,Whole Blood 139 mg/dL (75-99)
[2018-01-19] MEDS ORDERED: LIDOCAINE 5% PATCH TOPICAL STA (06:13)
[2018-01-19] MEDS: INSULIN ASPART 100 UNIT/ML 1 ML 10 ML VIAL SQ SCH (07:05)
[2018-01-19] MEDS: PANTOPRAZOLE 40 MG TABLET PO SCH (07:06)
[2018-01-19] MEDS: IPRATROPIUM-ALBUTEROL 3 ML NEB INHALATION SCH ×2 (07:53→10:42)
[2018-01-19 10:39] VITALS: BP 70/30; PULSE 119; RESP 10; TEMP 96.4
--- NOTE | 2018-01-20 05:24 | PN ---
PROGRESS NOTE DATE OF SERVICE: 01/19/2018 This 82-year-old gentleman was admitted with CHF acute exacerbation also had cholecystostomy tube for acute cholecystitis inserted in [facility]. The shortness of breath slightly better but over the days patient had taken a turn for the worse with change in mental status and as well as hypotension and multiple medical problems. The case was discussed at length with the family and at this time the family would like the patient to transition to hospice care at this time. The patient is being closely monitored. PAST MEDICAL HISTORY: Past medical history reviewed. REVIEW OF SYSTEMS: Could not be taken. The patient is drowsy. CURRENT MEDICATIONS: Current medications reviewed. PHYSICAL EXAM: The pulse is 93, blood pressure 92/59, respirations 10, temperature 96, pulse ox 92% on 4 L HEENT: Conjunctivae normal. Oral mucosa moist. NECK: No jugular venous distention. No carotid bruit. No lymph node enlargement. CARDIOVASCULAR: S1, S2 muffled. No S3, no S4. RESPIRATORY: Breath sounds diminished at the bases. Scattered rhonchi and crackles. ABDOMEN: Soft. Cholecystostomy tube. Mild diffuse distention present. No mass palpable. No ascites. LEGS: No edema, no swelling. NERVOUS SYSTEM: Higher functions as mentioned earlier. Moves all 4 limbs. No focal motor or sensory deficits. LYMPHATICS: No lymphadenopathy of the neck, axillae or groin. SKIN: No ulcer, rash or bleeding. LABS: Labs at this time show labs are reviewed. ASSESSMENT: 1. Congestive heart failure acute exacerbation with acute on chronic systolic dysfunction ejection fraction 30% to 35%. 2. Acute cholecystitis, status post cholecystostomy tube from [facility]. Patient is not a surgical candidate. 3. History of chronic obstructive pulmonary disease acute exacerbation. 4. Persistent atrial fibrillation. 5. Premature ventricular contractions. 6. . 7. Hyperlipidemia. 8. Gait dysfunction. 9. Diabetes mellitus type 2. 10.Peripheral vascular disease. 11.Coronary artery disease, stent. 12.Gastroesophageal reflux disease. 13.History of automated implantable cardioverter-defibrillator. 14.NO CODE, NO CPR, NO VENT. 15.Hospice. RECOMMENDATIONS AND DISCUSSION: As mentioned earlier had a detailed discussion with multiple members of the family at this time the patient will be transitioned to hospice care. Hospice will be contacted. The patient has poor prognosis and because of multiple complex medical issues and the ultimate prognosis extremely poor and the patient has taken a turn for the worse overnight as well. So again once again hospice will be consulted and we will continue to monitor. Further recommendations to follow. NICOLETTE / IJN: [id number] /
== END 2018-01-19 10:45 | disposition hospice, home (50) | DRG 292 ==
LOC: EC 08:10 → 6SEL 10:28
PROVIDERS: ADMIT Hospitalist; ATTEND Hospitalist
DX: I11.0 Hypertensive heart disease with heart failure (principal); K80.00 Calculus of gallbladder with acute cholecystitis without obstruction; R64 Cachexia; E11.51 Type 2 diabetes mellitus with diabetic peripheral angiopathy without gangrene; E78.5 Hyperlipidemia, unspecified; E11.42 Type 2 diabetes mellitus with diabetic polyneuropathy; I25.10 Atherosclerotic heart disease of native coronary artery without angina pectoris; I25.2 Old myocardial infarction; I25.5 Ischemic cardiomyopathy; I27.29 Other secondary pulmonary hypertension; I34.0 Nonrheumatic mitral (valve) insufficiency; I48.2 Chronic atrial fibrillation; I49.3 Ventricular premature depolarization; I50.23 Acute on chronic systolic (congestive) heart failure; J44.9 Chronic obstructive pulmonary disease, unspecified; K21.9 Gastro-esophageal reflux disease without esophagitis; K57.30 Diverticulosis of large intestine without perforation or abscess without bleeding; N20.0 Calculus of kidney; K44.9 Diaphragmatic hernia without obstruction or gangrene; R26.9 Unspecified abnormalities of gait and mobility; R07.9 Chest pain, unspecified; Z51.5 Encounter for palliative care; Z95.810 Presence of automatic (implantable) cardiac defibrillator; Z95.5 Presence of coronary angioplasty implant and graft; Z87.440 Personal history of urinary (tract) infections; Z86.73 Personal history of transient ischemic attack (TIA), and cerebral infarction without residual deficits; Z86.010 Personal history of colon polyps; Z98.42 Cataract extraction status, left eye; Z98.41 Cataract extraction status, right eye; Z96.1 Presence of intraocular lens; Z89.022 Acquired absence of left finger(s); Z79.02 Long term (current) use of antithrombotics/antiplatelets; Z79.82 Long term (current) use of aspirin; Z79.899 Other long term (current) drug therapy; Z79.4 Long term (current) use of insulin; Z88.1 Allergy status to other antibiotic agents; Z88.0 Allergy status to penicillin; Z88.2 Allergy status to sulfonamides; Z88.8 Allergy status to other drugs, medicaments and biological substances; Z83.3 Family history of diabetes mellitus; Z80.9 Family history of malignant neoplasm, unspecified
CPT/HCPCS: 36415; 71046; 80048; 80053; 81003; 82550; 82553; 83036; 83735; 83880; 84484; 85025; 85379; 85610; 85730; 93005; 94640

== ENCOUNTER 2018-01-19 10:49 | Inpatient (IN) | payer MEDICAID ==
[2018-01-19] MEDS ORDERED: ATROPINE OPHTH SOLN 1% 5ML BTL SUBLINGUAL PRN (10:52)
[2018-01-19] MEDS ORDERED: ACETAMINOPHEN SUPPOSITORY 650 MG SUPP RECTAL PRN (10:52)
[2018-01-19] MEDS ORDERED: ONDANSETRON 4 MG/2 ML VIAL IVP PRN (10:52)
[2018-01-19] MEDS ORDERED: BISACODYL 10 MG SUPP RECTAL PRN (10:59)
[2018-01-19] MEDS: MORPHINE SULFATE 4 MG/ML SYRINGE IV PRN ×2 (12:20→14:30)
--- NOTE | 2018-01-19 13:03 | PN ---
PROGRESS NOTE This patient was admitted predominantly with abdominal pain. Patient has underlying ischemic cardiomyopathy and congestive cardiac failure. Patient had a recent evaluation at [facility] and the patient is advised to continue the G- tube drainage at present. Patient is lying comfortably, no respiratory distress is noted. Vital signs are stable. First and second heart sounds are normal. Lungs are clinically clear to auscultation and percussion. We will continue the patient on the current medications. Patient is stable cardiac-perdomo. MMODL / IJN: [id number] /
[2018-01-19] MEDS: LORazepam 2 MG/ML INJ IV PRN (13:46)
[2018-01-19] MEDS ORDERED: MORPHINE SULFATE (100 MG/2 ML) 100 MG in SODIUM CHLORIDE 0.9% 100 ML IV SCH (17:00)
[2018-01-20 09:53] VITALS: BP 95/57; PULSE 96; RESP 12; TEMP 98.1
[2018-01-20] MEDS: LORazepam 2 MG/ML INJ IV PRN ×2 (14:08→15:07)
[2018-01-20 14:42] VITALS: BMI 23.1
[2018-01-20] MEDS ORDERED: ATROPINE OPHTH SOLN 1% 5ML BTL SUBLINGUAL SCH (15:00)
--- NOTE | 2018-01-20 15:06 | P.HPIM ---
History of Present Illness 82-year-old gentleman was admitted to the inpatient hospice is on IV morphine presently not comfortable at this time patient is in respiratory distress we'll increase the dose of IV morphine. Patient does have can start failure multiple hospitalizations secondary to that. Patient is admitted for acute symptom management not expected to survive longer than a day. Review of Systems Unable to obtain and development at this time Past Medical History Past Medical History: Atrial Fibrillation, Coronary Artery Disease (CAD), Chest Pain / Angina, Heart Failure, COPD, CVA/TIA, Diabetes Mellitus, GERD/Reflux, GI Bleed, Hyperlipidemia, Hypertension, Myocardial Infarction ([place]), Pneumonia, Vascular Disorder Additional Past Medical History / Comment(s): Coronary artery disease, previous coronary intervention and stenting, CHF with an ejection fraction of 40-45% and moderate to severe pulmonary hypertension, severe mitral regurgitation based on echocardiogram from June 2017, cholelithiasis and cholecystitis status post cholecystostomy tube placement, recurrent abdominal pain with questionable history of chronic mesenteric ischemia, COPD, diabetes mellitus, previous history of CVA, iron deficiency anemia, constipation, nephrolithiasis, peripheral vascular disease, previous history of a E. coli urine checked infection with sepsis back in 2016 Last Myocardial Infarction Date:: 06/16/17 History of Any Multi-Drug Resistant Organisms: ESBL Date of last positivie culture/infection: 06/28/17 ESBL-E.coli MDRO Source:: Urine Past Surgical History: AICD, Heart Catheterization, Heart Catheterization With Stent, Hernia Repair, Prostate Surgery Additional Past Surgical History / Comment(s): Recent biliary tube placement, 2014- R leg artherectomy with balloon angioplasty, multiple coronary stents with last one place 06/16/17, bilateral cataracts , LEFT RING FINGER AMPUTATION , lithotripsies, EGD and colonoscopy. Past Anesthesia/Blood Transfusion Reactions: No Reported Reaction Additional Past Anesthesia/Blood Transfusion Reaction / Comment(s): HAD BLOOD TRANSFUSION without reaction. Date of Last Stent Placement:: 06/16/17 Type of Cardiac Device: AICD Device Placement Date:: 2014 Smoking Status: Never smoker - Past Family History Daughter(s) Family Medical History: Cancer Mother Family Medical History: Cancer Additional Family Medical History / Comment(s): . Father Family Medical History: Diabetes Mellitus Medications and Allergies Home Medications Medication Instructions Recorded Confirmed Type Nitroglycerin Sl Tabs [Nitrostat] 0.4 mg SUBLINGUAL Q5M PRN 11/07/14 05/14/18 History Clopidogrel [Plavix] 75 mg PO DAILY 12/02/14 01/19/18 History Isosorbide Mononitrate ER [Imdur] 60 mg PO DAILY 08/28/15 01/19/18 History Tiotropium [place] [Spiriva] 1 cap INHALATION RT-DAILY 08/28/15 01/19/18 History Aspirin [Adult Low Dose Aspirin EC] 81 mg PO DAILY 08/29/15 01/19/18 History Albuterol Inhaler [Ventolin Hfa 1 puff INHALATION RT-Q6H PRN 04/24/17 01/19/18 History Inhaler] Albuterol Nebulized [Ventolin 2.5 mg INHALATION RT-TID 06/16/17 01/19/18 History Nebulized] Atorvastatin [Lipitor] 80 mg PO HS 08/26/17 01/19/18 History Furosemide [Lasix] 40 mg PO DAILY 08/26/17 01/19/18 History Acetaminophen Tab [Tylenol] 100 mg PO Q8H PRN 01/04/18 01/19/18 History Bisacodyl [Dulcolax] 10 mg RECTAL DAILY PRN 01/04/18 01/19/18 History Ferrous Sulfate [Iron (65 MG 325 mg PO DAILY 01/04/18 01/19/18 History Elemental)] Fluticasone Nasal [place] [Flonase 1 spray EA NOSTRIL DAILY 01/04/18 01/19/18 History Nasal [place]] Melatonin 3 mg PO HS 01/04/18 01/19/18 History Polyethylene Glycol 3350 [Miralax] 17 gm PO Q4H PRN 01/04/18 01/19/18 History guaiFENesin [guaiFENesin Oral 200 mg PO Q4H PRN 01/04/18 01/19/18 History Solution] Furosemide [Lasix] 20 mg PO HS #1 tab 01/06/18 01/19/18 Rx Metoprolol Tartrate [Lopressor] 50 mg PO BID tab 01/06/18 01/19/18 Rx traMADol HCL [Ultram] 50 mg PO Q6HR PRN #12 tab 01/06/18 01/19/18 Rx Albuterol Nebulized [Ventolin 2.5 mg INHALATION RT-Q6H PRN 01/15/18 01/19/18 History Nebulized] Esomeprazole Magnesium [NexIUM] 20 mg PO BID 01/15/18 01/19/18 History Insulin Aspart [NovoLOG See Protocol SQ AC-TID 01/15/18 01/19/18 History (formulary)] Insulin Glargine [Lantus] 10 unit SQ HS 01/15/18 01/19/18 History Sennosides [Senna] 8.6 mg PO DAILY 01/15/18 01/19/18 History Allergies Allergy/AdvReac Type Severity Reaction Status Date / Time Penicillins Allergy Severe Rash/Hives Verified 01/19/18 11:13 rivaroxaban [From Xarelto] Allergy GI bleed Verified 01/19/18 11:13 ropinirole HCl [From Requip] Allergy Unknown Verified 01/19/18 11:13 sulfamethoxazole AdvReac Hallucinati Verified 01/19/18 11:13 [From Bactrim] ons trimethoprim [From Bactrim] AdvReac Hallucinati Verified 01/19/18 11:13 ons Physical Exam Vitals: Vital Signs Temp Pulse Resp BP Pulse Ox 01/20/18 08:00 98.1 F 96 12 95/57 96 01/20/18 03:40 114 H 10 L 01/20/18 00:00 114 H 24 01/19/18 21:44 98.6 F 114 H 24 109/70 96 01/19/18 20:00 10 L 01/19/18 16:00 96 10 L Intake and Output 01/20/18 01/20/18 01/20/18 06:59 14:59 22:59 Intake Total 22.284 Output Total 210 300 Balance -210 -277.716 Intake: Intake, IV Titration 22.284 Amount Morphine Sulfate (100 mg/ 22.284 2 ml) 100 mg In Sodium Chloride 0.9% 100 ml @ Titrate IV .Q0M [facility] Rx#: [id number] Output: Drainage 10 Right Upper Lateral 10 Abdomen Urine 200 300 Other: Voiding Method Indwelling Catheter Indwelling Catheter # Voids 0 # Bowel Movements 0 Weight 71 kg Patient is an bit of respiratory distress not in pain pupils are constricted. Gurgling sounds Thrombosis Risk Factor Assmnt - Choose All That Apply Any of the Below Risk Factors Present?: Yes Each Factor Represents 1 point: Abnormal pulmonary function (COPD), Heart failure (<1month), Medical pt on bed rest Other Risk Factors: Yes Each Risk Factor Represents 2 Points: Patient confined to bed Each Risk Factor Represents 3 Points: Age 75 years or older Other congenital or acquired thrombophilia - If yes, enter type in comment: No Thrombosis Risk Factor Assessment Total Risk Factor Score: 8 Thrombosis Risk Factor Assessment Level: High Risk Assessment and Plan Plan: -Inpatient hospice colons acute symptom management -Respiratory distress we'll increase the dose of morphine, Ativan -Congestive heart failure chronic systolic dysfunction extremely poor Karnofsky score multiple hospitalizations secondary to congestive heart failure
--- NOTE | 2018-01-20 17:36 | P.DS ---
Providers Date of admission: 01/19/18 10:49 Attending physician: Loree Ventura Primary care physician: Stated None Hospital Course: 82-year-old admitted to inpatient hospice today. Please refer to nursing documentation for exact time of . Primary cause of : Congestive heart failure Plan - Discharge Summary Discharge Rx Participant: No New Discharge Prescriptions: No Action Nitroglycerin Sl Tabs [Nitrostat] 0.4 mg SUBLINGUAL Q5M PRN PRN Reason: Chest Pain Clopidogrel [Plavix] 75 mg PO DAILY Isosorbide Mononitrate ER [Imdur] 60 mg PO DAILY Tiotropium [place] [Spiriva] 1 cap INHALATION RT-DAILY Aspirin [Adult Low Dose Aspirin EC] 81 mg PO DAILY Albuterol Inhaler [Ventolin Hfa Inhaler] 1 puff INHALATION RT-Q6H PRN PRN Reason: Shortness Of Breath Albuterol Nebulized [Ventolin Nebulized] 2.5 mg INHALATION RT-TID Atorvastatin [Lipitor] 80 mg PO HS Furosemide [Lasix] 40 mg PO DAILY guaiFENesin [guaiFENesin Oral Solution] 200 mg PO Q4H PRN PRN Reason: Cough Polyethylene Glycol 3350 [Miralax] 17 gm PO Q4H PRN PRN Reason: Constipation Bisacodyl [Dulcolax] 10 mg RECTAL DAILY PRN PRN Reason: Constipation Acetaminophen Tab [Tylenol] 100 mg PO Q8H PRN PRN Reason: Pain Fluticasone Nasal [place] [Flonase Nasal [place]] 1 spray EA NOSTRIL DAILY Ferrous Sulfate [Iron (65 MG Elemental)] 325 mg PO DAILY Melatonin 3 mg PO HS Metoprolol Tartrate [Lopressor] 50 mg PO BID tab Furosemide [Lasix] 20 mg PO HS #1 tab traMADol HCL [Ultram] 50 mg PO Q6HR PRN #12 tab PRN Reason: Pain Albuterol Nebulized [Ventolin Nebulized] 2.5 mg INHALATION RT-Q6H PRN PRN Reason: Shortness Of Breath Esomeprazole Magnesium [NexIUM] 20 mg PO BID Insulin Aspart [NovoLOG (formulary)] See Protocol SQ AC-TID Insulin Glargine [Lantus] 10 unit SQ HS Sennosides [Senna] 8.6 mg PO DAILY Discharge Medication List Nitroglycerin Sl Tabs [Nitrostat] 0.4 mg SUBLINGUAL Q5M PRN 07/15/14 [History] Clopidogrel [Plavix] 75 mg PO DAILY 12/02/14 [History] Isosorbide Mononitrate ER [Imdur] 60 mg PO DAILY 08/28/15 [History] Tiotropium [place] [Spiriva] 1 cap INHALATION RT-DAILY 08/28/15 [History] Aspirin [Adult Low Dose Aspirin EC] 81 mg PO DAILY 08/29/15 [History] Albuterol Inhaler [Ventolin Hfa Inhaler] 1 puff INHALATION RT-Q6H PRN 04/24/17 [ History] Albuterol Nebulized [Ventolin Nebulized] 2.5 mg INHALATION RT-TID 06/16/17 [ History] Atorvastatin [Lipitor] 80 mg PO HS 08/26/17 [History] Furosemide [Lasix] 40 mg PO DAILY 08/26/17 [History] Acetaminophen Tab [Tylenol] 100 mg PO Q8H PRN 01/04/18 [History] Bisacodyl [Dulcolax] 10 mg RECTAL DAILY PRN 01/04/18 [History] Ferrous Sulfate [Iron (65 MG Elemental)] 325 mg PO DAILY 01/04/18 [History] Fluticasone Nasal [place] [Flonase Nasal [place]] 1 spray EA NOSTRIL DAILY 01/04/18 [History] Melatonin 3 mg PO HS 01/04/18 [History] Polyethylene Glycol 3350 [Miralax] 17 gm PO Q4H PRN 01/04/18 [History] guaiFENesin [guaiFENesin Oral Solution] 200 mg PO Q4H PRN 01/04/18 [History] Furosemide [Lasix] 20 mg PO HS #1 tab 01/06/18 [Rx] Metoprolol Tartrate [Lopressor] 50 mg PO BID tab 01/06/18 [Rx] traMADol HCL [Ultram] 50 mg PO Q6HR PRN #12 tab 01/06/18 [Rx] Albuterol Nebulized [Ventolin Nebulized] 2.5 mg INHALATION RT-Q6H PRN 01/15/18 [ History] Esomeprazole Magnesium [NexIUM] 20 mg PO BID 01/15/18 [History] Insulin Aspart [NovoLOG (formulary)] See Protocol SQ AC-TID 01/15/18 [History] Insulin Glargine [Lantus] 10 unit SQ HS 01/15/18 [History] Sennosides [Senna] 8.6 mg PO DAILY 01/15/18 [History] Discharge Disposition: - Preliminary Cause of Preliminary Cause of : Congestive heart failure
== END 2018-01-20 16:45 | disposition expired | DRG 951 ==
LOC: 6SEL 10:49 → 5ONC 01-20 10:02
PROVIDERS: ADMIT Hospitalist; ATTEND Hospitalist
DX: Z51.5 Encounter for palliative care (principal); I50.22 Chronic systolic (congestive) heart failure; E78.5 Hyperlipidemia, unspecified; I11.0 Hypertensive heart disease with heart failure; I25.10 Atherosclerotic heart disease of native coronary artery without angina pectoris; I25.5 Ischemic cardiomyopathy; I48.91 Unspecified atrial fibrillation; R10.9 Unspecified abdominal pain; J44.9 Chronic obstructive pulmonary disease, unspecified; K21.9 Gastro-esophageal reflux disease without esophagitis; D50.9 Iron deficiency anemia, unspecified; E11.51 Type 2 diabetes mellitus with diabetic peripheral angiopathy without gangrene; I25.2 Old myocardial infarction; Z79.02 Long term (current) use of antithrombotics/antiplatelets; Z79.4 Long term (current) use of insulin; Z79.82 Long term (current) use of aspirin; Z79.899 Other long term (current) drug therapy; Z83.3 Family history of diabetes mellitus; Z86.73 Personal history of transient ischemic attack (TIA), and cerebral infarction without residual deficits; Z95.5 Presence of coronary angioplasty implant and graft; Z95.810 Presence of automatic (implantable) cardiac defibrillator; Z89.022 Acquired absence of left finger(s); Z98.890 Other specified postprocedural states; Z98.62 Peripheral vascular angioplasty status; Z86.19 Personal history of other infectious and parasitic diseases; Z88.0 Allergy status to penicillin; Z88.2 Allergy status to sulfonamides; Z88.8 Allergy status to other drugs, medicaments and biological substances